=== PATIENT | male | born 1955 | race Asian ===

== ENCOUNTER → 2016-12-08 | Outpatient (CLI) | payer OTHER ==
[~2016-12-08] MED LIST: ACET-703 PO; ACYC200C66 PO; ASAC800T PO; AUGM500T7 PO; AZIT600T PO; BACT800T5 PO; BENT20TA PO; CARD240C6 PO; CENTTAB8; CLON0.1T PO; CLON1 PO; FAMO20TA2 PO; GUAI100S5 PO; IPRASOL NEB; LACTCAP7 PO; MAGICPED SWISH-SWAL; MESA800 PO; METO25TA3 PO; MULT1TAB PO; NEUR100C PO; OXYC1TAB63 PO; OXYGENTANK NAS.CANULA; PRED20 PO; PROT40TA PO; SYMB160A INH; TOVI4TAB PO; VITA500T PO; VITATAB11 PO; ZITH250T PO
[2016-12-08 08:23] LABS: AUTOMATED NEUTROPHIL # 2.6 TH/MM3 (1.8-7.7); BASOPHIL # 0.1 TH/MM3 (0-0.2); BASOPHIL % 1.1 % (0.0-2.0); EOSINOPHIL # 1.3 TH/MM3 (0-0.4); HEMATOCRIT 42.4 % (39.0-51.0); HEMO FLAGS DIFF FINAL; LYMPHOCYTE # 1.6 TH/MM3 (1.0-4.8); MEAN CELL VOLUME 84.5 FL (80.0-100.0); MEAN CORPUSCULAR HEMOGLOBIN 28.8 PG (27.0-34.0); MONO % 7.1 % (0.0-8.0); NEUT % 43.8 % (16.0-70.0); PLATELET COUNT 180 TH/MM3 (150-450); RED BLOOD COUNT 5.01 MIL/MM3 (4.50-5.90)
[2016-12-08 09:01] LABS: ALKALINE PHOSPHATASE 84 U/L (45-117); ALT (GPT) 20 U/L (12-78); ANION GAP 11 MEQ/L (5-15); AST (GOT) 23 U/L (15-37); BICARBONATE 22.5 MEQ/L (21.0-32.0); BLOOD UREA NITROGEN 13 MG/DL (7-18); CHLORIDE 103 MEQ/L (98-107); GLOMERULAR FILTRATION RATE 100 ML/MIN (>89); GLUCOSE,FASTING 93 MG/DL (74-99); HDL CHOLESTEROL 33.8 MG/DL (40.0-60.0); INDIRECT BILIRUBIN 0.4 MG/DL (0.0-0.8); LDL CHOLESTEROL 105 MG/DL (0-99); POTASSIUM 3.6 MEQ/L (3.5-5.1); SODIUM (NA) 136 MEQ/L (136-145); TOTAL BILIRUBIN ADULT 0.5 MG/DL (0.2-1.0)
[2016-12-08 16:56] LABS: HEMOGLOBIN A1b 1.6 %; HEMOGLOBIN Ao 85.2 %; HEMOGLOBIN LA1C 2.1 %; HEMOGLOBIN P3 4.1 %
== END ==
LOC: CLAB 07:18
PROVIDERS: ATTEND Family Medicine
DX: Z00.00 Encounter for general adult medical examination without abnormal findings (principal); R94.5 Abnormal results of liver function studies; D64.9 Anemia, unspecified; E11.9 Type 2 diabetes mellitus without complications; R53.83 Other fatigue; E78.1 Pure hyperglyceridemia; E03.9 Hypothyroidism, unspecified; E78.00 Pure hypercholesterolemia, unspecified; M25.50 Pain in unspecified joint; Z12.5 Encounter for screening for malignant neoplasm of prostate
CPT/HCPCS: 36415; 80048; 80061; 80076; 82607; 82746; 83036; 84153; 84443; 85025

== ENCOUNTER 2016-12-22 08:13 | Inpatient (IN) | payer OTHER ==
[2016-12-22] VITALS (10 sets, daily range): BP systolic 111–173; BP diastolic 63–116; PULSE 102–118; RESP 18–22; TEMP 96.5–102.8; O2SAT 82–97
[~2016-12-22] VITALS: Ht 165.1 cm; Wt 60.0 kg
[~2016-12-22 08:13] MED LIST changes: -ACET-703 PO; -ACYC200C66 PO; -ASAC800T PO; -AUGM500T7 PO; -AZIT600T PO; -BACT800T5 PO; -CARD240C6 PO; -CLON0.1T PO; -CLON1 PO; -FAMO20TA2 PO; -GUAI100S5 PO; -IPRASOL NEB; -MAGICPED SWISH-SWAL; -METO25TA3 PO; -MULT1TAB PO; -NEUR100C PO; -OXYC1TAB63 PO; -OXYGENTANK NAS.CANULA; -PRED20 PO; -SYMB160A INH; -VITA500T PO; -VITATAB11 PO; -ZITH250T PO
[2016-12-22] MEDS ORDERED: SODIUM CHLORIDE 0.9% FLUSH 5 ML FLUSH IVF PRN (08:45)
--- NOTE | 2016-12-22 08:45 | PD ---
HPI Chief Complaint: Respiratory Symptoms Time Seen by Provider: 08:32 Travel History International Travel<30 days: No Contact w/Intl Traveler<30days: No Traveled to known affect area: No History of Present Illness HPI 61yo M with PMH of HTN, ulcerative colitis and early emphysema presents to the ED with sob and hypoxia. Pt has been more short of breath for 2 days and was saturating at 81% on RA last night. 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 Denies chest pain but there is tightness with cough. +Dry cough. Denies any history of PE, DVT, recent travel, hemoptysis, fever, n/v, abdominal pain, focal weakness or numbness. Pt recently had finished antibiotic given by his PMD for cough. PFSH Past Medical History Heart Rhythm Problems: No Cancer: No Cardiac Catheterization: No Cardiovascular Problems: Yes (HTN) High Cholesterol: No Congestive Heart Failure: No Diabetes: No Diminished Hearing: No Diverticulitis: Yes Endocrine: No Gastrointestinal Disorders: Yes (ulcerative colitis) GERD: Yes Genitourinary: Yes (uti this week) Hepatitis: No Hiatal Hernia: No Hypertension: Yes Immune Disorder: No Kidney Stones: No Medical other: Yes (RECENT HOSPITALIZATION SEPTICEMIA, ANTIBIOTICS) Musculoskeletal: No Neurologic: No Psychiatric: No Reproductive: No Respiratory: No Myocardial Infarction: No Renal Failure: No Thyroid Disease: No Ulcer: No Past Surgical History Abdominal Surgery: No AICD: No Cardiac Surgery: No Coronary Artery Bypass Graft: No Ear Surgery: No Endocrine Surgery: No Eye Surgery: No Genitourinary Surgery: No Gynecologic Surgery: No Joint Replacement: No Oral Surgery: No Pacemaker: No Thoracic Surgery: No Other Surgery: Yes (BENIGN CYST REMOVED FROM BUTTOCK 1999, KELOID REMOVED LEFT SHOULDER/ARM) Social History Alcohol Use: Yes (SOCIAL) Tobacco Use: No Substance Use: No Allergies-Medications (Allergen,Severity, Reaction): Coded Allergies: No Known Allergies (Verified , 12/22/16) Reported Meds & Prescriptions Reported Meds & Active Scripts Active Reported Symbicort Inh (Budesonide/Formoterol Fumarate) 160-4.5 Mcg/Act Aero 1 Puff INH Q12HR Vitamin C (Ascorbic Acid) 500 Mg Tab 500 Mg PO DAILY Vitamin B Complex (B-Complex Vitamins) 1 Tab 1 Tab PO DAILY Duoneb (Ipratropium-Albuterol Neb) 0.5-2.5 Mg/3 Ml Neb 1 Vial NEB Q6HR PRN Metoprolol Tartrate 25 Mg Tab 12.5 Mg PO DAILY PRN Clonidine (Clonidine HCl) 0.1 Mg Tab 0.1 Mg PO BID PRN Tylenol Extra Strength (Acetaminophen) 500 Mg Tab 500 Mg PO Q4-6H PRN Neurontin (Gabapentin) 100 Mg Cap 100 Mg PO TID Protonix (Pantoprazole Sodium) 40 Mg Tab 40 Mg PO DAILY PRN Centrum Silver Adult 50+ (Multiple Vitamins W/ Minerals) 1 Tab Tab 1 Tab PO DAILY Asacol HD (Mesalamine) 800 Mg Tab 1,600 Mg PO Q8HR Swallow whole. Take on an empty stomach. Bentyl (Dicyclomine HCl) 20 Mg Tab 20 Mg PO TID PRN Review of Systems Except as stated in HPI: all other systems reviewed are Neg Physical Exam Narrative GENERAL: 61yo M not in distress. SKIN: Warm and dry. HEAD: Atraumatic. Normocephalic. CARDIOVASCULAR: Regular rate and rhythm. No murmur appreciated. RESPIRATORY: No accessory muscle use. Clear to auscultation. Breath sounds equal bilaterally. Saturating at 93% on 3L NC. GASTROINTESTINAL: Abdomen soft, non-tender, nondistended. No rebound tenderness or guarding. MUSCULOSKELETAL: No obvious deformities. No clubbing. No cyanosis. No edema. NEUROLOGICAL: Awake and alert. No obvious cranial nerve deficits. Motor grossly within normal limits. Normal speech. PSYCHIATRIC: Appropriate mood and affect; insight and judgment normal. Data Data Last Documented VS Vital Signs Date Time Temp Pulse Resp B/P Pulse Ox O2 Delivery O2 Flow Rate FiO2 12/22/16 09:45 97 Nasal Cannula 3 12/22/16 09:45 20 12/22/16 08:30 98 12/22/16 08:26 98.2 134/95 Orders Complete Blood Count With Diff (12/22/16 08:39) Basic Metabolic Panel (Bmp) (12/22/16 08:39) B-Type Natriuretic Peptide (12/22/16 08:39) Act Partial Throm Time (Ptt) (12/22/16 08:39) Prothrombin Time / Inr (Pt) (12/22/16 08:39) Troponin I (12/22/16 08:39) Arterial Blood Gas (Abg) (12/22/16 08:39) Iv Access Insert/Monitor (12/22/16 08:39) Electrocardiogram (12/22/16 08:39) Ecg Monitoring (12/22/16 08:39) Oximetry (12/22/16 08:39) Oxygen Administration (12/22/16 08:39) Chest, Single Ap (12/22/16 08:39) Ct Pulmonary Angiogram (12/22/16 08:39) Sodium Chloride 0.9% Flush (Ns Flush) (12/22/16 08:45) Iohexol 350 Inj (Omnipaque 350 Inj) (12/22/16 10:43) Ceftriaxone Inj (Rocephin Inj) (12/22/16 12:45) Azithromycin (Zithromax) (12/22/16 12:45) Place In Observation (12/22/16 ) Vital Signs (Adult) Q4H (12/22/16 12:48) Activity Bed Rest With Brp (12/22/16 12:48) Equipment Hire Manager / Telemetry .CONTINUOUS (12/22/16 12:48) Diet Regular Basic (12/22/16 Lunch) Sodium Chloride 0.9% Flush (Ns Flush) (12/22/16 13:00) Sodium Chloride 0.9% Flush (Ns Flush) (12/22/16 21:00) Ondansetron Inj (Zofran Inj) (12/22/16 13:00) Basic Metabolic Panel (Bmp) (12/23/16 06:00) Complete Blood Count With Diff (12/23/16 06:00) Heparin Inj (Heparin Inj) (12/22/16 13:00) Naloxone Inj (Narcan Inj) (12/22/16 13:00) Westergren Sedimentation Rate (12/22/16 12:51) Acetaminophen (Tylenol) (12/22/16 14:00) Budeson-Formot 160-4.5 Mg Inh (Symbicort (12/22/16 21:00) Clonidine (Catapres) (12/22/16 13:00) Dicyclomine (Bentyl) (12/22/16 13:00) Gabapentin (Neurontin) (12/22/16 13:00) Mesalamine Hd Dr (Asacol Hd Dr) (12/22/16 14:00) Metoprolol Tartrate (Lopressor) (12/22/16 14:00) Multivitamin Hematinic Therap (Theragran (12/23/16 09:00) Pantoprazole (Protonix) (12/22/16 14:00) Vitamin B Complex-Vit C (Allbee C) (12/23/16 09:00) Ascorbic Acid (Vitamin C) (12/23/16 09:00) Albuterol-Ipratropium Neb (Duoneb Neb) (12/22/16 16:00) Admit Order (Ed Use Only) (12/22/16 13:05) Labs Laboratory Tests Test 12/22/16 12/22/16 08:42 09:35 Blood Gas Puncture Site RT RADIAL Blood Gas Patient Temperature 98.6 Blood Gas HCO3 21 mmol/L Blood Gas Base Excess -2.5 mmol/L Blood Gas Oxygen Saturation 87 % Arterial Blood pH 7.47 Arterial Blood Partial 29 mmHg Pressure CO2 Arterial Blood Partial 60 mmHG Pressure O2 Arterial Blood Oxygen Content 19.8 Vol % Arterial Blood 2.6 % Carboxyhemoglobin Arterial Blood Methemoglobin 2.0 % Blood Gas Hemoglobin 16.3 G/DL Oxygen Delivery Device NASAL CANNULA Blood Gas Liter Flow 3 L/M White Blood Count 8.2 TH/MM3 Red Blood Count 5.38 MIL/MM3 Hemoglobin 15.9 GM/DL Hematocrit 46.2 % Mean Corpuscular Volume 86.0 FL Mean Corpuscular Hemoglobin 29.5 PG Mean Corpuscular Hemoglobin 34.3 % Concent Red Cell Distribution Width 14.6 % Platelet Count 182 TH/MM3 Mean Platelet Volume 8.3 FL Neutrophils (%) (Auto) 58.1 % Lymphocytes (%) (Auto) 19.7 % Monocytes (%) (Auto) 6.4 % Eosinophils (%) (Auto) 15.0 % Basophils (%) (Auto) 0.8 % Neutrophils # (Auto) 4.8 TH/MM3 Lymphocytes # (Auto) 1.6 TH/MM3 Monocytes # (Auto) 0.5 TH/MM3 Eosinophils # (Auto) 1.2 TH/MM3 Basophils # (Auto) 0.1 TH/MM3 CBC Comment AUTO DIFF Differential Total Cells 100 Counted Neutrophils % (Manual) 71 % Lymphocytes % 12 % Monocytes % 2 % Eosinophils % 15 % Neutrophils # (Manual) 5.8 TH/MM3 Differential Comment FINAL DIFF MANUAL Platelet Estimate NORMAL Platelet Morphology Comment NORMAL Red Cell Morphology Comment NORMAL Prothrombin Time 10.5 SEC Prothromb Time International 1.0 RATIO Ratio Activated Partial 30.1 SEC Thromboplast Time Sodium Level 134 MEQ/L Potassium Level 3.8 MEQ/L Chloride Level 103 MEQ/L Carbon Dioxide Level 25.7 MEQ/L Anion Gap 5 MEQ/L Blood Urea Nitrogen 23 MG/DL Creatinine 1.01 MG/DL Estimat Glomerular Filtration 75 ML/MIN Rate Random Glucose 80 MG/DL Calcium Level 9.0 MG/DL Troponin I LESS THAN 0.02 NG/ML B-Type Natriuretic Peptide LESS THAN 2 PG/ML MDM Medical Decision Making Medical Screen Exam Complete: Yes Emergency Medical Condition: Yes Interpretation(s) EKG: NSR 90bpm. Normal axis. Early repolarization. No ST segment elevation or depression. Differential Diagnosis Pulmonary embolism vs. Pneumonia vs. COPD exacerbation Narrative Course 61yo M with sob and hypoxemia. Pt with 3L NC and only saturating at 91%. Although, pt is speaking in complete sentences and has clear breath sounds on auscultation. ABG showed pO2 of 59.6 on 3L NC. Saturation was 87% on 3L NC. Increased nasal cannula to 5 L. Pt is not in acute distress. Labs reviewed, no leukocytosis. BNP negative. Troponin negative. BUN mildly elevated. CXR showed questionable minimal early interstitial infiltrate right lung base. CTA negative for PE. Pt is a former cig smoker and may have emphysema. Will cover with ceftriaxone and azithromycin for possible early pneumonia. Discussed with [facility] hospitalist and admitted to Dr. Machado. Diagnosis Primary Impression: Hypoxemia Admitting Information Admitting Physician Requests: Admit Yessenia Nelson DO Dec 22, 2016 08:44
[2016-12-22 08:53] LABS: BLOOD GAS BASE EXCESS -2.5 mmol/L (-2-2); BLOOD GAS CARBOXYHEMOGLOBIN 2.6 % (0-4); BLOOD GAS HCO3 21 mmol/L (22-26); BLOOD GAS O2 HGB SATURATION 87 % (90-100); BLOOD GAS OXYGEN CONTENT 19.8 Vol % (12.0-20.0); BLOOD GAS PCO2 29 mmHg (38-42); BLOOD GAS PO2 60 mmHG (61-120); BLOOD GAS TOTAL HGB 16.3 G/DL (12.0-16.0); TEMP CORR TO 98.6
[2016-12-22 08:54] LABS: CRITICAL VALUE YES; DRAW SITE RT RADIAL; LITER FLOW 3 L/M; NUMBER OF ARTERIAL PUNCTURES 1; OXYGEN DEVICE NASAL CANNULA; STAT YES; ULNAR PULSE PRESENT
--- NOTE | 2016-12-22 09:03 | RADRPT ---
EXAM DATE/TIME: 12/22/2016 08:40 [facility] COMPARISON: CHEST SINGLE AP, October 26, 2015, 16:47. CHEST ONE VIEW EMPLOYMED ONLY, February 22, 2016, 7:59. INDICATIONS : Short of breath for two days, quit smoking one month ago MEDICAL HISTORY : Hypertension. SURGICAL HISTORY : None. ENCOUNTER: Initial ACUITY: 2 days PAIN SCORE: 0/10 LOCATION: Bilateral chest FINDINGS: There is some mild minimal asymmetric prominence of right basilar interstitium well to the left uncha nged relative to prior studies reason to question as to a minimal or early interstitial infiltrate in the right lung base CONCLUSION: Questionable minimal early interstitial infiltrate right lung base Suresh Still MD on December 22, 2016 at 9:00 Board Certified Radiologist. This report was verified electronically.
[2016-12-22] MEDS ORDERED: MULT1TAB PO (09:18)
[2016-12-22] MEDS ORDERED: CLON0.1T PO (09:18)
[2016-12-22] MEDS ORDERED: NEUR100C PO (09:18)
[2016-12-22] MEDS ORDERED: ACET-703 PO (09:18)
[2016-12-22] MEDS ORDERED: PROT40TA PO (09:18)
[2016-12-22] MEDS ORDERED: VITA500T PO (09:18)
[2016-12-22] MEDS ORDERED: IPRASOL NEB (09:18)
[2016-12-22] MEDS ORDERED: BENT20TA PO (09:18)
[2016-12-22] MEDS ORDERED: METO25TA3 PO (09:18)
[2016-12-22] MEDS ORDERED: VITATAB11 PO (09:18)
[2016-12-22] MEDS ORDERED: ASAC800T PO (09:18)
[2016-12-22] MEDS ORDERED: SYMB160A INH (09:23)
[2016-12-22 09:57] LABS: AUTOMATED NEUTROPHIL # 4.8 TH/MM3 (1.8-7.7); BASOPHIL # 0.1 TH/MM3 (0-0.2); BASOPHIL % 0.8 % (0.0-2.0); EOSINOPHIL # 1.2 TH/MM3 (0-0.4); HEMATOCRIT 46.2 % (39.0-51.0); LYMPH % 19.7 % (9.0-44.0); LYMPHOCYTE # 1.6 TH/MM3 (1.0-4.8); MEAN CORPUSCULAR HEMOGLOBIN 29.5 PG (27.0-34.0); MEAN CORPUSCULAR HGB CONC 34.3 % (32.0-36.0); MONO % 6.4 % (0.0-8.0); NEUT % 58.1 % (16.0-70.0); PLATELET COUNT 182 TH/MM3 (150-450); RED BLOOD COUNT 5.38 MIL/MM3 (4.50-5.90); RED CELL DISTRIBUTION WIDTH 14.6 % (11.6-17.2); WHITE BLOOD COUNT 8.2 TH/MM3 (4.0-11.0)
[2016-12-22 10:01] LABS: HEMO FLAGS AUTO DIFF
[2016-12-22 10:14] LABS: APTT (PATIENT) 30.1 SEC (24.3-30.1); PROTHROMBIN TIME - PATIENT 10.5 SEC (9.8-11.6)
[2016-12-22 10:26] LABS: ANION GAP 5 MEQ/L (5-15); BICARBONATE 25.7 MEQ/L (21.0-32.0); BLOOD UREA NITROGEN 23 MG/DL (7-18); CHLORIDE 103 MEQ/L (98-107); GLOMERULAR FILTRATION RATE 75 ML/MIN (>89); POTASSIUM 3.8 MEQ/L (3.5-5.1); SODIUM (NA) 134 MEQ/L (136-145)
[2016-12-22 10:37] LABS: EOSINOPHILS 15 % (0-4); NEUTROPHIL # MANUAL DIFF 5.8 TH/MM3 (1.8-7.7); PLATELET ESTIMATE SMEAR NORMAL (NORMAL); PLATELET MORPHOLOGY NORMAL (NORMAL); POLYS (SEG NEUTROPHILS) 71 % (16-70); SCAN/DIFF FINAL DIFF MANUAL; WBC DIFF SAMPLE 100
[2016-12-22] MEDS ORDERED: IOHEXOL 350 MG/ML 10 ML VIAL (for RAD DIAG) IV ONE (10:43)
--- NOTE | 2016-12-22 10:59 | RADRPT ---
EXAM DATE/TIME: 12/22/2016 10:42 [facility] COMPARISON: CHEST SINGLE AP, December 22, 2016, 8:40. INDICATIONS : Shortness of breath and hypoxia for two days. IV CONTRAST: 75 cc Omnipaque 350 (iohexol) IV RADIATION DOSE: 23.27 CTDIvol (mGy) MEDICAL HISTORY : Cardiovascular disease. Hypertension. Ulcerative colitis. SURGICAL HISTORY : None. ENCOUNTER: Initial ACUITY: 1 day PAIN SCALE: 0/10 LOCATION: Bilateral chest TECHNIQUE: Volumetric scanning of the chest was performed using a pulmonary embolism protocol MIP images were re constructed. Using automated exposure control and adjustment of the mA and/or kV according to patien t size, radiation dose was kept as low as reasonably achievable to obtain optimal diagnostic quality images. FINDINGS: PULMONARY ARTERIES: No filling defects are seen in the pulmonary arteries through the segmental level. LUNGS: There is no consolidation or pneumothorax . No concerning pulmonary nodule is visualized. PLEURAE: There is no pleural thickening or pleural effusion. MEDIASTINUM: There is good visualization of the great vessels of the middle mediastinum. No evidence of mediastin al or hilar adenopathy/mass. MUSCULOSKELETAL: Within normal limits for patient age. MISCELLANEOUS: The visualized upper abdominal organs demonstrate no acute abnormality. CONCLUSION: Negative examination. Suresh Still MD on December 22, 2016 at 10:56 Board Certified Radiologist. This report was verified electronically.
[2016-12-22] MEDS ORDERED: AZITHROMYCIN 250 MG TAB PO ONE (12:45)
[2016-12-22] MEDS ORDERED: cefTRIAXone INJ 1,000 MG in SODIUM CHLORIDE 0.9% INJ 100 ML IV ONE (12:45)
[2016-12-22] MEDS ORDERED: ONDANSETRON HCL 4 MG/2 ML VIAL IVP PRN (13:00)
[2016-12-22] MEDS ORDERED: DICYCLOMINE HCL 20 MG TAB PO PRN (13:00)
[2016-12-22] MEDS ORDERED: NALOXONE HCL 0.4 MG/ML AMP IV PRN (13:00)
[2016-12-22] MEDS ORDERED: cloNIDine HCL 0.1 MG TAB PO PRN (13:00)
[2016-12-22] MEDS ORDERED: SODIUM CHLORIDE 0.9% FLUSH 5 ML FLUSH FLUSH PRN (13:00)
--- NOTE | 2016-12-22 13:50 | EKG ---
Date Performed: 12/22/2016 Time Performed: 09:33:28 PTAGE: 61 years EKG: Sinus rhythm ST ELEVATION, CONSIDER EARLY REPOLARIZATION BORDERLINE ECG PREVIOUS TRACING : 07/25/2015 11.36 No significant change from previous tracing noted. DOCTOR: Álvaro Witt Interpretating Date/Time 12/22/2016 13:49:02
[2016-12-22] MEDS: GABAPENTIN 100 MG CAP PO SCH ×2 (13:59→18:10)
[2016-12-22] MEDS ORDERED: METOPROLOL TARTRATE 25 MG TAB PO PRN (14:00)
[2016-12-22] MEDS ORDERED: PANTOPRAZOLE SOD 40 MG DELAYED RELEASE TAB PO PRN (14:00)
[2016-12-22] MEDS: HEPARIN SODIUM - SQ 10,000 UNITS/ML VIAL SQ SCH (14:01)
--- NOTE | 2016-12-22 15:16 | HHI.HP ---
HPI Service [facility] Primary Care Physician Layne Brooks Admission Diagnosis Hypoxemia Diagnoses: Chief Complaint: Shortness of breath (Carmen Huggins) Travel History International Travel<30 Days: No Contact w/Intl Traveler <30 Da: No Traveled to Known Affected Are: No (Carmen Huggins) History of Present Illness This a pleasant 61-year-old male with notable past medical history of tobacco abuse with recent diagnosis of COPD, ulcer colitis, hypertension, BPH. Patient presented to the emergency room with complaint of shortness of breath and hypoxia. According to the patient approximately 2 weeks ago he had shortness of breath with wheezing and cough. Went to see his primary care physician who gave him Rocephin IM as well as Solu-Medrol and prescribed Augmentin. He completed 10 days of Augmentin and his symptoms did improve. He also had PFTs and was told he had COPD and was referred to see Dr. Marte. Patient recently quit October 2016. 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 He gave himself oxygen at 2 L and finished his shift. This morning, patient came to the emergency room for further evaluation. States he has a dry cough, very little sputum, clear in color. No fever, no chills. Denies any abdominal pain, no diarrhea, no nausea no vomiting. He does use Symbicort as well as Combivent at home. He's not on any oxygen. Patient was evaluated in the emergency room, laboratory workup was completed, WBC was 8.2. Hemoglobin 15.9, hematocrit 46.2, platelets 182. BMP was essentially unremarkable except for mild hyponatremia, sodium 134. Troponin was negative. B natruretic peptide was negative. Chest x-ray completed showed questionable minimal early interstitial infiltrate to the right lung base. CTA was negative for PE. ABGs were completed, showed PO2 of 60 on 3 L nasal cannula, sats 87% on 3 L. Patient was started on empiric antibiotics. Patient is evaluated in the emergency room, he is complaining of persistent cough. Robitussin-AC has been ordered. He is noted with thrush. Patient is admitted for further evaluation and treatment (Carmen Huggins) Review of Systems Constitutional: DENIES: Diaphoretic episodes, Fatigue, Fever, Weight gain, Weight loss, Chills, Dizziness, Change in appetite, Night Sweats Endocrine: DENIES: Heat/cold intolerance, Polydipsia, Polyuria, Polyphagia Eyes: DENIES: Blurred vision, Diplopia, Eye inflammation, Eye pain, Vision loss , Photosensitivity, Double Vision Ears, nose, mouth, throat: DENIES: Tinnitus, Hearing loss, Vertigo, Nasal discharge, Oral lesions, Throat pain, Hoarseness, Ear Pain, Running Nose, Epistaxis, Sinus Pain, Toothache, Odynophagia Respiratory: COMPLAINS OF: Cough, Wheezing, Sputum production, Shortness of breath, DENIES: Apneas, Snoring, Hemoptysis Cardiovascular: DENIES: Chest pain, Palpitations, Syncope, Dyspnea on Exertion , PND, Lower Extremity Edema, Orthopnea, Claudication Gastrointestinal: DENIES: Abdominal pain, Black stools, Bloody stools, Constipation, Diarrhea, Nausea, Vomiting, Difficulty Swallowing, Anorexia Genitourinary: DENIES: Sexual dysfunction, Urinary frequency, Urinary incontinence, Urgency, Hematuria, Dysuria, Nocturia, Penile Discharge, Testicular Pain, Testicular Swelling Musculoskeletal: DENIES: Joint pain, Muscle aches, Stiffness, Joint Swelling, Back pain, Neck pain Integumentary: DENIES: Abnormal pigmentation, Nail changes, Pruritus, Rash Hematologic/lymphatic: DENIES: Bruising, Lymphadenopathy Immunologic/allergic: DENIES: Eczema, Urticaria Neurologic: DENIES: Abnormal gait, Headache, Localized weakness, Paresthesias, Seizures, Speech Problems, Tremor, Poor Balance Psychiatric: DENIES: Anxiety, Confusion, Mood changes, Depression, Hallucinations, Agitation, Suicidal Ideation, Homicidal Ideation, Delusions ( Carmen Huggins) Past Family Social History Past Medical History Hypertension, diverticulitis, gastritis and ulcerative colitis Previous admission for sepsis and UTI Bladder polyp Recently diagnosed with COPD Past Surgical History Benign cyst removal from the buttock 1999 and, keloid removal from left upper arm, cystoscopy 2 weeks ago Colonoscopy Reported Medications Reported Meds & Active Scripts Active Reported Symbicort Inh (Budesonide/Formoterol Fumarate) 160-4.5 Mcg/Act Aero 1 Puff INH Q12HR Vitamin C (Ascorbic Acid) 500 Mg Tab 500 Mg PO DAILY Vitamin B Complex (B-Complex Vitamins) 1 Tab 1 Tab PO DAILY Duoneb (Ipratropium-Albuterol Neb) 0.5-2.5 Mg/3 Ml Neb 1 Vial NEB Q6HR PRN Metoprolol Tartrate 25 Mg Tab 12.5 Mg PO DAILY PRN Clonidine (Clonidine HCl) 0.1 Mg Tab 0.1 Mg PO BID PRN Tylenol Extra Strength (Acetaminophen) 500 Mg Tab 500 Mg PO Q4-6H PRN Neurontin (Gabapentin) 100 Mg Cap 100 Mg PO TID Protonix (Pantoprazole Sodium) 40 Mg Tab 40 Mg PO DAILY PRN Centrum Silver Adult 50+ (Multiple Vitamins W/ Minerals) 1 Tab Tab 1 Tab PO DAILY Asacol HD (Mesalamine) 800 Mg Tab 1,600 Mg PO Q8HR Swallow whole. Take on an empty stomach. Bentyl (Dicyclomine HCl) 20 Mg Tab 20 Mg PO TID PRN (Carmen Huggins) Allergies: Coded Allergies: No Known Allergies (Verified , 12/22/16) Active Ordered Medications Inpatient Medications Acetaminophen (Tylenol) 500 mg 5 TIMES A DAY PRN PO PAIN 1-7; Start 12/22/16 at 14:00 Albuterol/ Ipratropium (Duoneb Neb) 1 ampule Q6HR NEB PRN NEB SHORTNESS OF BREATH; Start 12/22/16 at 16:00 Ascorbic Acid (Vitamin C) 500 mg DAILY PO ; Start 12/23/16 at 09:00 Azithromycin (Zithromax) 500 mg Q24H PO ; Start 12/23/16 at 14:00 Budesonide/ Formoterol Fumarate (Symbicort 160-4.5 Inh) 1 puff Q12HR INH ; Start 12/22/16 at 21:00 Ceftriaxone Sodium/Sodium Chloride (Rocephin Inj/NS Inj) 100 ml @ 200 mls/hr Q24H IV ; Start 12/23/16 at 14:00 Clonidine (Catapres) 0.1 mg BID PRN PO SYSTOLIC B/P > 170; Start 12/22/16 at 13 :00 Dicyclomine HCl (Bentyl) 20 mg TID PRN PO Bowel Management; Start 12/22/16 at 13:00 Gabapentin (Neurontin) 100 mg TID PO Last administered on 12/22/16t 13:59; Start 12/22/16 at 13:00 Guaifenesin/ Codeine Phosphate (Robitussin Ac 200-20 Mg/10 ml Liq) 10 ml Q6H PRN PO cough; Start 12/22/16 at 15:30 Heparin Sodium (Porcine) (Heparin Inj) 5,000 units Q12H SQ Last administered on 12/22/16 14:01; Start 12/22/16 at 13:00 IV Flush (NS Flush) 2 ml BID FLUSH ; Start 12/22/16 at 21:00 Mesalamine (Asacol Hd Dr) 1,600 mg Q8HR PO Last administered on 12/22/16 15:22 ; Start 12/22/16 at 14:00 Methylprednisolone Sodium Succinate 40 mg 40 mg Q8H IV PUSH ; Start 12/22/16 at 16:00 Metoprolol Tartrate (Lopressor) 12.5 mg DAILY PRN PO INCREASE IN BLOOD PRESSURE ; Start 12/22/16 at 14:00 Multivitamin Hematinic Therapeutic (Theragran Hematinic) 1 tab DAILY PO ; Start 12/23/16 at 09:00 Naloxone HCl (Narcan Inj) 0.4 mg UNSCH PRN IV SEE LABEL COMMENTS; Start at 13:00 Nystatin (Mycostatin Liq) 5 ml QID SWISH-SWAL ; Start 12/22/16 at 18:00 Ondansetron HCl (Zofran Inj) 4 mg Q6H PRN IVP NAUSEA OR VOMITING; Start at 13:00 Pantoprazole Sodium (Protonix) 40 mg DAILY PRN PO REFLUX; Start 12/22/16 at 14: 00 Vitamin B Complex/ Vitamin C (Allbee C) 1 tab DAILY PO ; Start 12/23/16 at 09:00 Family History Mother secondary to colon cancer at age 65 Father secondary to stroke at age 61 Social History 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 [employer] Quit drinking October 2016 Quit smoking October 2016, smoked 1 pack of cigarettes every 3 days for 30+ years No illegal drug use (Carmen Huggins) Physical Exam Vital Signs Vital Signs Date Time Temp Pulse Resp B/P Pulse Ox O2 Delivery O2 Flow Rate FiO2 12/22/16 15:13 108 20 127/76 91 Nasal Cannula 2 12/22/16 09:45 97 Nasal Cannula 3 12/22/16 09:45 20 97 Nasal Cannula 3 12/22/16 08:30 98 20 87 Nasal Cannula 2 12/22/16 08:26 98.2 102 20 134/95 87 12/22/16 08:16 97.5 110 22 173/116 85 Physical Exam GENERAL: This is a well-nourished, well-developed patient, in no apparent distress. SKIN: No rashes, ecchymoses or lesions. Cool and dry. HEAD: Atraumatic. Normocephalic. No temporal or scalp tenderness. EYES: Pupils equal round and reactive. Extraocular motions intact. No scleral icterus. No injection or drainage. ENT: Nose without bleeding, purulent drainage or septal hematoma. Throat with mild erythema, thrush noted to oral pharynx, no tonsillar hypertrophy or exudate. Uvula midline. Airway patent. NECK: Trachea midline. No JVD or lymphadenopathy. Supple, nontender, no meningeal signs. CARDIOVASCULAR: Regular rate and rhythm without murmurs, gallops, or rubs. RESPIRATORY: Scattered rhonchi left lower base, faint expiratory wheezing, has a cough, nonproductive. GASTROINTESTINAL: Abdomen soft, non-tender, nondistended. No hepato-splenomegaly , or palpable masses. No guarding. MUSCULOSKELETAL: Extremities without clubbing, cyanosis, or edema. No joint tenderness, effusion, or edema noted. No calf tenderness. Negative Homans sign bilaterally. NEUROLOGICAL: Awake and alert. Cranial nerves II through XII intact. Motor and sensory grossly within normal limits. Five out of 5 muscle strength in all muscle groups. Normal speech. Laboratory Laboratory Tests Test 12/22/16 12/22/16 08:42 09:35 Blood Gas Puncture Site RT RADIAL Blood Gas Patient Temperature 98.6 Blood Gas HCO3 21 Blood Gas Base Excess -2.5 Blood Gas Oxygen Saturation 87 Arterial Blood pH 7.47 Arterial Blood Partial 29 Pressure CO2 Arterial Blood Partial 60 Pressure O2 Arterial Blood Oxygen Content 19.8 Arterial Blood 2.6 Carboxyhemoglobin Arterial Blood Methemoglobin 2.0 Blood Gas Hemoglobin 16.3 Oxygen Delivery Device NASAL CANNULA Blood Gas Liter Flow 3 White Blood Count 8.2 Red Blood Count 5.38 Hemoglobin 15.9 Hematocrit 46.2 Mean Corpuscular Volume 86.0 Mean Corpuscular Hemoglobin 29.5 Mean Corpuscular Hemoglobin 34.3 Concent Red Cell Distribution Width 14.6 Platelet Count 182 Mean Platelet Volume 8.3 Neutrophils (%) (Auto) 58.1 Lymphocytes (%) (Auto) 19.7 Monocytes (%) (Auto) 6.4 Eosinophils (%) (Auto) 15.0 Basophils (%) (Auto) 0.8 Neutrophils # (Auto) 4.8 Lymphocytes # (Auto) 1.6 Monocytes # (Auto) 0.5 Eosinophils # (Auto) 1.2 Basophils # (Auto) 0.1 CBC Comment AUTO DIFF Differential Total Cells 100 Counted Neutrophils % (Manual) 71 Lymphocytes % 12 Monocytes % 2 Eosinophils % 15 Neutrophils # (Manual) 5.8 Differential Comment FINAL DIFF MANUAL Platelet Estimate NORMAL Platelet Morphology Comment NORMAL Red Cell Morphology Comment NORMAL Prothrombin Time 10.5 Prothromb Time International 1.0 Ratio Activated Partial 30.1 Thromboplast Time Sodium Level 134 Potassium Level 3.8 Chloride Level 103 Carbon Dioxide Level 25.7 Anion Gap 5 Blood Urea Nitrogen 23 Creatinine 1.01 Estimat Glomerular Filtration 75 Rate Random Glucose 80 Calcium Level 9.0 Troponin I LESS THAN 0.02 B-Type Natriuretic Peptide LESS THAN 2 (Carmen Huggins) Result Diagram: 12/22/16 0935 12/22/16 0935 Imaging Last Impressions Chest X-Ray 12/22/16838 Signed Impressions: Service Date/Time: Thursday, December 22, 2016 08:40 - CONCLUSION: Questionable minimal early interstitial infiltrate right lung base Suresh Still MD CT Angiography 12/22/16838 Signed Impressions: Service Date/Time: Thursday, December 22, 2016 10:42 - CONCLUSION: Negative examination. Suresh Still MD (Carmen Huggins) Assessment and Plan Problem List: (1) Hypoxemia (2) COPD (chronic obstructive pulmonary disease) (3) Hypertension (4) Ulcerative colitis (5) BPH (benign prostatic hyperplasia) (6) Pneumonia Assessment and Plan Admit to Dr. Machado 61-year-old male with recent diagnosis of COPD, quit smoking in October, presented to emergency room complaining of shortness of breath and cough for the last 2 weeks worsening last night while he was at work. Was treated with Augmentin 10 days by PCP for possible URI infection. He noted saturations on room air were 81%. Patient presented to emergency room for further evaluation, chest x-ray with findings of possible early right lower lobe infiltrate, possible pneumonia, COPD exacerbation with hypoxemia, failure of outpatient therapy -Continue with oxygen at 2 L to keep sats greater than [address] Grande for evaluation -IV Solu-Medrol 40 mg IV daily Robitussin AC 10 MLS every 6 when necessary -DuoNeb's Resume Symbicort -Continue with empiric antibiotics, Rocephin 1 g IV daily, we will add Zithromax 500 mg by mouth -Noted with thrush, nystatin has been ordered History of ulcerative colitis, stable Continue with Asacol Hypertension, uncontrolled secondary to respiratory distress Resume home medications Heparin 5000 units subcutaneous twice a day for DVT prophylaxis Protonix for GI prophylaxis Bun of care has been discussed with the patient, attending and registered nurse. Further management of the patient will be dependent on the hospital course Patient requires inpatient admission for anticipated stay greater than 2 days for COPD exacerbation, failure of outpatient therapy, pneumonia, hypoxemia. Patient is at risk for complications that can result in respiratory failure, possibly . Patient requires admission for IV antibiotics, oxygen therapy, IV Solu-Medrol, DuoNeb's, evaluation by pulmonology. Anticipated discharge back to home when stable This patient was seen by myself and Dr. Machado, this H&P is written his behalf (Carmen Huggins) Assessment and Plan seen and examined by myself,Dr Machado , Discussed with emergency physician discussed with nurse Discussed with patient In room 1734 The patient is febrile, temperature 102.8 Sepsis Dyspnea with clear chest x-ray Bilateral wheezing with a cardiac murmur Echocardiogram ordered Blood cultures Infectious disease consultation Discussed with door liner helper Discussed with mid-level practitioner The exam, history, and the medical decision-making described in the above note were completed with the assistance of the mid-level provider. I reviewed the findings presented. I attest that I had a [id number] encounter with the patient on the same day, and personally performed and documented my assessment and findings in the medical record. (Yadira Machado MD) Physician Certification 2 Midnight Certification Type: Admission for Inpatient Services Order for Inpatient Services The services are ordered in accordance with Medicare regulations or non- Medicare payer requirements, as applicable. In the case of services not specified as inpatient-only, they are appropriately provided as inpatient services in accordance with the 2-midnight benchmark. Estimated LOS (days): 2 2 days is the estimated time the patient will need to remain in the hospital, assuming treatment plan goals are met and no additional complications. Post-Hospital Plan: Home Health (Carmen Huggins) Problem Qualifiers (1) COPD (chronic obstructive pulmonary disease): Qualified Code: J44.1 - Chronic obstructive pulmonary disease with acute exacerbation (2) Hypertension: Qualified Code: I10 - Essential hypertension (3) Ulcerative colitis: Qualified Code: K51.90 - Ulcerative colitis without complications, unspecified location (4) BPH (benign prostatic hyperplasia): (5) Pneumonia: Qualified Code: J18.1 - Pneumonia of right lower lobe due to infectious organism Carmen Huggins Dec 22, 2016 15:16 Yadira Machado MD Dec 22, 2016 22:36
[2016-12-22] MEDS: MESALAMINE HD 800 MG DELAYED RELEASE TAB PO SCH ×2 (15:22→21:59)
[2016-12-22] MEDS ORDERED: RESP: ALBUTEROL 2.5 MG/IPRATROPIUM 0.5 MG NEB (PRN) NEB (16:00)
[2016-12-22] MEDS: methylPREDNISolone SOD SUCC 40 MG/1 ML VIAL IV PUSH SCH (16:29)
[2016-12-22] MEDS: ACETAMINOPHEN 500 MG CPLT PO PRN (18:10)
[2016-12-22] MEDS: NYSTATIN SUSP 500,000 U/5 ML CUP SWISH-SWAL SCH ×2 (18:10→21:58)
[2016-12-22] MEDS: RESP: ALBUTEROL 2.5 MG/IPRATROPIUM 0.5 MG NEB (SCH) NEB (20:34)
[2016-12-22] MEDS: CEFEPIME INJ 2,000 MG in SODIUM CHLORIDE 0.9% INJ 100 ML IV SCH (21:58)
[2016-12-22] MEDS: BUDESONIDE-FORMOTEROL 160/4.5 MCG INHALER INH SCH (21:58)
[2016-12-22] MEDS: SODIUM CHLORIDE 0.9% FLUSH 5 ML FLUSH FLUSH SCH (21:59)
[2016-12-22] MEDS: DEXT 5%-NACL 0.45% 1000 ML INJ 1,000 ML IV SCH (22:03)
[2016-12-23] VITALS (10 sets, daily range): BP systolic 111–146; BP diastolic 66–82; PULSE 70–103; RESP 18–22; TEMP 95.3–97.3; O2SAT 92–98
[2016-12-23] MEDS: guaiFENesin/CODEINE SYRUP 200 MG/20 MG/10 ML CUP PO PRN ×3 (00:50→23:09)
[2016-12-23] MEDS: methylPREDNISolone SOD SUCC 40 MG/1 ML VIAL IV PUSH SCH ×4 (00:50→23:09)
[2016-12-23] MEDS: HEPARIN SODIUM - SQ 10,000 UNITS/ML VIAL SQ SCH ×3 (00:50→23:10)
[2016-12-23] MEDS: MESALAMINE HD 800 MG DELAYED RELEASE TAB PO SCH ×3 (05:34→23:09)
[2016-12-23 05:48] LABS: AUTOMATED NEUTROPHIL # 2.9 TH/MM3 (1.8-7.7); BASOPHIL % 0.5 % (0.0-2.0); EOSINOPHIL % 0.1 % (0.0-4.0); HEMATOCRIT 42.7 % (39.0-51.0); HEMO FLAGS DIFF FINAL; LYMPH % 28.4 % (9.0-44.0); LYMPHOCYTE # 1.2 TH/MM3 (1.0-4.8); MEAN CORPUSCULAR HEMOGLOBIN 29.8 PG (27.0-34.0); MEAN CORPUSCULAR HGB CONC 34.6 % (32.0-36.0); MONO % 2.8 % (0.0-8.0); NEUT % 68.2 % (16.0-70.0); PLATELET COUNT 163 TH/MM3 (150-450); RED BLOOD COUNT 4.96 MIL/MM3 (4.50-5.90); RED CELL DISTRIBUTION WIDTH 14.4 % (11.6-17.2); WHITE BLOOD COUNT 4.2 TH/MM3 (4.0-11.0)
[2016-12-23 05:57] LABS: BLOOD, URINE NEG (NEG); COMMENT (UR) CULT NOT INDICATED; CULTURE IF INDICATED CULT NOT INDICATED; GLUCOSE,URINE NEG (NEG); HYALINE CAST, URINE 7 /lpf (RARE); KETONE, URINE NEG (NEG); MUCUS URINE FEW /lpf (OCC); NITRITE,URINE NEG (NEG); PH, URINE 5.5 (5.0-8.5); RENAL EPITHELIAL CELLS <1 /hpf; TRANSITIONAL EPI CELLS, URINE <1 /hpf; URINE COLOR YELLOW (YELLW/STRAW)
[2016-12-23 06:06] LABS: BICARBONATE 23.3 MEQ/L (21.0-32.0); POTASSIUM 4.3 MEQ/L (3.5-5.1)
[2016-12-23] MEDS: NYSTATIN SUSP 500,000 U/5 ML CUP SWISH-SWAL SCH ×4 (07:33→20:35)
[2016-12-23] MEDS: VITAMIN B COMPLEX/VIT C TAB PO SCH (07:33)
[2016-12-23] MEDS: ASCORBIC ACID 500 MG TAB PO SCH (07:34)
[2016-12-23] MEDS: GABAPENTIN 100 MG CAP PO SCH ×3 (07:34→18:00)
[2016-12-23] MEDS: MULTIVITAMIN HEMATINIC THERAPEUTIC TAB PO SCH (07:34)
[2016-12-23] MEDS: SODIUM CHLORIDE 0.9% FLUSH 5 ML FLUSH FLUSH SCH ×2 (07:35→20:35)
[2016-12-23] MEDS: BUDESONIDE-FORMOTEROL 160/4.5 MCG INHALER INH SCH ×2 (07:36→20:35)
[2016-12-23] MEDS: RESP: ALBUTEROL 2.5 MG/IPRATROPIUM 0.5 MG NEB (SCH) NEB ×4 (08:28→19:53)
[2016-12-23] MEDS: DEXT 5%-NACL 0.45% 1000 ML INJ 1,000 ML IV SCH ×2 (09:20→22:40)
--- NOTE | 2016-12-23 09:37 | MB ---
cc: ANDREAYVONNEMELISA DATE OF CONSULTATION 12/22/2016 REASON FOR CONSULTATION Pneumonia and COPD. HISTORY OF PRESENT ILLNESS This is a 61-year-old [place] male with a past history of chronic bronchitis and ulcerative colitis, as well as hypertension. He was seen in the emergency room for a two-week history of cough, wheezing, shortness of breath. The patient initially was treated by his family physician with Rocephin, Solu-Medrol and Augmentin. The patient also was on prednisone orally, but he did improve over a period of one week, but then started to have more shortness of breath and yesterday at work he quite weak and dyspneic and his O2 sats had dropped into the 80s. He then was on oxygen and subsequently came in to the ER for evaluation. A chest x-ray and a CT scan were done which showed no active pulmonary infiltrates. The patient, however, had to be brought in due to low sats and a temperature of over 100 degrees. The patient did have some chills and he denied any hemoptysis, leg or calf muscle pains. On oxygen, the pO2 was 60. Presently, he is on Rocephin one gram and Zithromax 100 mg daily. He does have oral thrush and he has been using the Symbicort inhaler regularly. PAST HISTORY Past history has included a: 1. Hypertension 2. History of ulcerative colitis. 3. Previous history of prostatic hypertrophy and bladder polyps. 4. Previous sepsis with a UTI. 5. Removal of benign cyst from his buttock and a keloid from the left arm. 6. He did have a cystoscopy done just two weeks ago. 7. His most recent chest x-ray apparently showed evidence of COPD. HABITS The patient smoked three to five cigarettes a day and has done so for over 25 years. No significant alcohol intake. 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 MEDICATIONS 1. Symbicort 160/4.5 two puffs b.i.d. 2. Nebulized DuoNeb t.i.d. 3. Clonidine 0.1 mg b.i.d. 4. Metoprolol 25 mg daily 5. Neurontin 100 mg t.i.d. 6. Protonix 40 mg daily 7. Asacol 1600 mg every 8 hours ALLERGIES No drug allergies. FAMILY HISTORY Significant for colon cancer in his mother. Father of a stroke. REVIEW OF SYSTEMS The patient has had some weight loss. He has sinus drainage, postnasal drip, cough and wheezing. He also had some epigastric distress with reflux. He has urinary frequency and bladder pain. He has joint pains. Denies leg swelling. No calf muscle pains. He has no depression or anxiety. Denies skin lesions. PHYSICAL EXAMINATION This is an averagely built middle-aged man in no distress. He is slightly diaphoretic. VITAL SIGNS: Blood pressure 125/70, pulse 110, respirations 22, temperature is 98.2. HEENT: Head normocephalic. Pupils reactive and equal. Tongue moist. Throat is injected. Nasal mucosae edematous. NECK: Supple. No lymphadenopathy. No bruits or thyroid enlargement. CHEST: Equal movements with percussion note, resonant throughout. Wheezes are scattered bilaterally. There are a few crackles heard at the right base. HEART: The heart sounds are irregular, S1 and S2. No murmur. No S3. ABDOMEN: Soft and benign. No masses, organomegaly or tenderness. Bowel sounds are active. EXTREMITIES: No edema. No clubbing or cyanosis. No calf tenderness or swelling. Reflexes are 1+ with no gross motor deficits. NEUROLOGIC: Cranial nerves grossly intact. SKIN: No lesions. IMPRESSION 1. COPD and chronic bronchitis with acute exacerbation. 2. Probable early pneumonia right lower lobe. 3. UTI 4. History of hypertension. PLAN The patient has been placed on cefepime two grams every 12 hours and continue with Zithromax 500 mg IV daily and discontinue Rocephin. Sputum will be sent for Gram stain and culture, urine sent for Legionella and pneumococcal antigens. Blood cultures and sputum cultures are pending. A 2-D echocardiogram will be done. Pulmonary function studies to be done at the bedside and the patient will be continued on Symbicort 160 x 4.5 two puffs twice a day. A repeat chest x-ray to be ordered in the a.m. Thank you Dr. Machado for this consultation. MD YUE Amin/TEA /11:28 PM /9:23 AM
[2016-12-23] MEDS: CEFEPIME INJ 2,000 MG in SODIUM CHLORIDE 0.9% INJ 100 ML IV SCH ×2 (10:33→23:09)
[2016-12-23] MEDS ORDERED: AZITHROMYCIN INJ 500 MG in SODIUM CHLOR 0.9% 250 ML INJ 250 ML IV SCH (14:00)
[2016-12-23] MEDS ORDERED: cefTRIAXone INJ 1,000 MG in SODIUM CHLORIDE 0.9% INJ 100 ML IV SCH (14:00)
[2016-12-23] MEDS ORDERED: AZITHROMYCIN 250 MG TAB PO SCH (14:00)
--- NOTE | 2016-12-23 15:20 | EC ---
Study Study Date:12/23/2016 STUDY CONCLUSIONS SUMMARY LEFT VENTRICLE: The cavity size was normal. Wall thickness was normal. Systolic function was normal. The estimated ejection fraction was in the range of 55% to 60%. Wall motion was normal; there were no regional wall motion abnormalities. Impressions: No evidence of endocarditis. If LV function is below 40, please consider prescribing an ACEI or ARB or document rationale for non-use. PROCEDURE DATA STUDY STATUS: Elective. Procedure: Transthoracic echocardiography. Image quality was good. Scanning was performed from the parasternal, apical, and subcostal acoustic windows. Study completion: The patient tolerated the procedure well. Transthoracic echocardiography. M-mode, complete 2D, complete spectral Doppler, and color Doppler. Patient status: Inpatient. CARDIAC ANATOMY LEFT VENTRICLE: The cavity size was normal. Wall thickness was normal. Systolic function was normal. The estimated ejection fraction was in the range of 55% to 60%. Wall motion was normal; there were no regional wall motion abnormalities. AORTIC VALVE: Trileaflet; normal thickness leaflets. Doppler: Transvalvular velocity was within the normal range. There was no stenosis. No regurgitation. AORTA: Aortic root: The aortic root was normal in size. MITRAL VALVE: Structurally normal valve. Doppler: Transvalvular velocity was within the normal range. There was no evidence for stenosis. No regurgitation. Peak gradient: 2mm Hg (D). LEFT ATRIUM: The atrium was normal in size. RIGHT VENTRICLE: The cavity size was normal. Wall thickness was normal. PULMONIC VALVE: Doppler: Transvalvular velocity was within the normal range. There was no evidence for stenosis. No regurgitation. TRICUSPID VALVE: Structurally normal valve. Doppler: Transvalvular velocity was within the normal range. No regurgitation. PULMONARY ARTERY: The main pulmonary artery was normal-sized. Systolic pressure was within the normal range. RIGHT ATRIUM: The atrium was normal in size. PERICARDIUM: There was no pericardial effusion. SYSTEMIC VEINS: Inferior vena cava: The vessel was normal in size. BASIC MEASUREMENTS ADULT Normal Left ventricle LV internal dimension, ED, chordal level, *34.2 mm 43-52 PLAX LV posterior wall thickness, ED 6.92 mm IVS/LVPW ratio, ED 1.05 <1.3 Ventricular septum Septal thickness, ED 7.26 mm Aortic valve Leaflet separation 19 mm 15-26 Left atrium Anterior-posterior dimension 35 mm Right ventricle RV internal dimension, ED, PLAX 23.1 mm 19-38 BASIC MEASUREMENTS ADULT Normal Aortic valve Leaflet separation 19 mm 15-26 Aorta Root diameter, ED 33 mm 20-37 DOPPLER MEASUREMENTS ADULT Normal Main pulmonary artery Pressure, S 20 mm Hg =30 Mitral valve Peak E-wave velocity 73.1 cm/s Peak A-wave velocity 83.9 cm/s Peak gradient, D 2 mm Hg Peak E/A ratio 0.9 Tricuspid valve Regurgitant peak velocity 151 cm/s Peak RV-RA gradient, S 9 mm Hg Maximal regurgitant velocity 151 cm/s Systemic veins Estimated CVP 10 mm Hg Right ventricle RV pressure, S 20 mm Hg <30 LEGEND: Mean values are shown as u=mean value. Asterisk (*) sagastume values outside specified normal range. Prepared and signed by Shelly Waters [id number]
--- NOTE | 2016-12-23 17:03 | PD.ID.CON ---
History of Present Illness Service ID Consult Requested By Carmen Chaney Reason for Consult Evaluation and Mment of Pneumonia and COPD exacerbation. Primary Care Physician Layne Brooks Diagnoses: History of Present Illness This a pleasant 61-year-old male with notable past medical history of tobacco abuse with recent diagnosis of COPD, ulcer colitis, hypertension, BPH. Patient presented to the emergency room with complaint of shortness of breath and hypoxia. According to the patient approximately 2 weeks ago he had shortness of breath with wheezing and cough. Went to see his primary care physician who gave him Rocephin IM as well as Solu-Medrol and prescribed Augmentin. He completed 10 days of Augmentin and his symptoms did improve. He also had PFTs and was told he had COPD and was referred to see Dr. Marte. Patient recently quit October 2016. 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 He gave himself oxygen at 2 L and finished his shift. This morning, patient came to the emergency room for further evaluation. States he has a dry cough, very little sputum, clear in color. No fever, no chills. Denies any abdominal pain, no diarrhea, no nausea no vomiting. He does use Symbicort as well as Combivent at home. He's not on any oxygen. Patient was evaluated in the emergency room, laboratory workup was completed, WBC was 8.2. Hemoglobin 15.9, hematocrit 46.2, platelets 182. BMP was essentially unremarkable except for mild hyponatremia, sodium 134. Troponin was negative. B natruretic peptide was negative. Chest x-ray completed showed questionable minimal early interstitial infiltrate to the right lung base. CTA was negative for PE. ABGs were completed, showed PO2 of 60 on 3 L nasal cannula, sats 87% on 3 L. Patient was started on empiric antibiotics. Patient is evaluated in the emergency room, he is complaining of persistent cough. Robitussin-AC has been ordered. He is noted with thrush. Patient is admitted for further evaluation and treatment Past Family Social History Allergies: Coded Allergies: No Known Allergies (Verified , 12/22/16) Past Medical History Hypertension, diverticulitis, gastritis ulcerative colitis Previous admission for sepsis and UTI Bladder polyp Recently diagnosed with COPD Past Surgical History Benign cyst removal from the buttock 1999 and, keloid removal from left upper arm, cystoscopy 2 weeks ago Colonoscopy Reported Medications Reported Meds & Active Scripts Active Reported Symbicort Inh (Budesonide/Formoterol Fumarate) 160-4.5 Mcg/Act Aero 1 Puff INH Q12HR Vitamin C (Ascorbic Acid) 500 Mg Tab 500 Mg PO DAILY Vitamin B Complex (B-Complex Vitamins) 1 Tab 1 Tab PO DAILY Duoneb (Ipratropium-Albuterol Neb) 0.5-2.5 Mg/3 Ml Neb 1 Vial NEB Q6HR PRN Metoprolol Tartrate 25 Mg Tab 12.5 Mg PO DAILY PRN Clonidine (Clonidine HCl) 0.1 Mg Tab 0.1 Mg PO BID PRN Tylenol Extra Strength (Acetaminophen) 500 Mg Tab 500 Mg PO Q4-6H PRN Neurontin (Gabapentin) 100 Mg Cap 100 Mg PO TID Protonix (Pantoprazole Sodium) 40 Mg Tab 40 Mg PO DAILY PRN Centrum Silver Adult 50+ (Multiple Vitamins W/ Minerals) 1 Tab Tab 1 Tab PO DAILY Asacol HD (Mesalamine) 800 Mg Tab 1,600 Mg PO Q8HR Swallow whole. Take on an empty stomach. Bentyl (Dicyclomine HCl) 20 Mg Tab 20 Mg PO TID PRN Active Ordered Medications Current Medications Medications (Trade) Dose Ordered Sig/Meliton Route Start Time Stop Time Status Last Admin (NS Flush) 2 ml UNSCH PRN FLUSH 12/22/16 13:00 (NS Flush) 2 ml BID FLUSH 12/22/16 21:00 12/23/16 20:35 (Zofran Inj) 4 mg Q6H PRN IVP 12/22/16 13:00 (Heparin Inj) 5,000 units Q12H SQ 12/22/16 13:00 12/23/16 12:05 (Narcan Inj) 0.4 mg UNSCH PRN IV 12/22/16 13:00 (Vitamin C) 500 mg DAILY PO 12/23/16 09:00 12/23/16 07:34 (Symbicort 160-4.5 Inh) 1 puff Q12HR INH 12/22/16 21:00 12/23/16 20:35 (Catapres) 0.1 mg BID PRN PO 12/22/16 13:00 (Bentyl) 20 mg TID PRN PO 12/22/16 13:00 (Neurontin) 100 mg TID PO 12/22/16 13:00 12/23/16 18:00 (Asacol Hd Dr) 1,600 mg Q8HR PO 12/22/16 14:00 12/23/16 12:05 (Lopressor) 12.5 mg DAILY PRN PO 12/22/16 14:00 (Theragran Hematinic) 1 tab DAILY PO 12/23/16 09:00 12/23/16 07:34 (Protonix) 40 mg DAILY PRN PO 12/22/16 14:00 (Allbee C) 1 tab DAILY PO 12/23/16 09:00 12/23/16 07:33 (Mycostatin Liq) 5 ml QID SWISH-SWAL 12/22/16 18:00 12/23/16 20:35 (Robitussin Ac 200-20 Mg/10 ml Liq) 10 ml Q6H PRN PO 12/22/16 15:30 12/23/16 07:33 Methylprednisolone Sodium Succinate 40 mg 40 mg Q8H IV PUSH 12/22/16 16:00 12/23/16 16:06 Cefepime HCl 2000 mg/Sodium Chloride 100 ml @ 200 mls/hr Q12H IV 12/22/16 22:00 12/23/16 10:33 Azithromycin 500 mg/Sodium Chloride 250 ml @ 250 mls/hr Q24H IV 12/23/16 14:00 12/23/16 12:58 (D5W-1/2 NS 1000 ml Inj) 1,000 ml @ 75 mls/hr [id number] IV 12/22/16 20:00 12/22/16 22:03 Family History Mother secondary to colon cancer at age 65 Father secondary to stroke at age 61 Social History 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 Quit drinking October 2016 Quit smoking October 2016, smoked 1 pack of cigarettes every 3 days for 30+ years No illegal drug use Physical Exam Vital Signs Vital Signs Date Time Temp Pulse Resp B/P Pulse Ox O2 Delivery O2 Flow Rate FiO2 12/23/16 16:00 96.2 97 18 121/74 94 12/23/16 15:30 93 Nasal Cannula 5.00 12/23/16 12:00 96.7 100 19 146/78 94 12/23/16 08:33 92 Nasal Cannula 5.00 12/23/16 08:00 95.3 101 19 134/72 95 12/23/16 04:00 96.3 70 18 111/66 95 12/23/16 00:00 96.0 81 18 131/72 93 12/22/16 20:00 110 12/22/16 20:00 96.5 106 18 111/63 94 12/22/16 18:56 99.9 12/22/16 18:06 102.8 Physical Exam GENERAL: Thin built, poorly nourished patient, in no apparent distress. SKIN: No rashes. HEAD: Atraumatic. Normocephalic. No temporal or scalp tenderness. EYES: Pupils equal round and reactive. Extraocular motions intact. No scleral icterus. No injection or drainage. ENT: Nose without bleeding, purulent drainage or septal hematoma. Throat without erythema, tonsillar hypertrophy or exudate. Uvula midline. Airway patent. NECK: Trachea midline. Supple, nontender, no meningeal signs. CARDIOVASCULAR: HS audible. RESPIRATORY: Clear to auscultation. Breath sounds equal bilaterally. No wheezes , rales, or rhonchi. GASTROINTESTINAL: Abdomen soft, non-tender, nondistended. MUSCULOSKELETAL: Extremities without clubbing, cyanosis, or edema. No joint tenderness, effusion, or edema noted. No calf tenderness. Negative Homans sign bilaterally. NEUROLOGICAL: Awake and alert. Grossly non focal Psych: cooperative IV line sites with no e/o infection. Laboratory Laboratory Tests Test 12/22/16 12/23/16 12/23/16 19:23 05:12 05:30 Erythrocyte Sedimentation Rate 7 Lactic Acid Level 0.9 White Blood Count 4.2 Red Blood Count 4.96 Hemoglobin 14.8 Hematocrit 42.7 Mean Corpuscular Volume 86.0 Mean Corpuscular Hemoglobin 29.8 Mean Corpuscular Hemoglobin 34.6 Concent Red Cell Distribution Width 14.4 Platelet Count 163 Mean Platelet Volume 8.1 Neutrophils (%) (Auto) 68.2 Lymphocytes (%) (Auto) 28.4 Monocytes (%) (Auto) 2.8 Eosinophils (%) (Auto) 0.1 Basophils (%) (Auto) 0.5 Neutrophils # (Auto) 2.9 Lymphocytes # (Auto) 1.2 Monocytes # (Auto) 0.1 Eosinophils # (Auto) 0.0 Basophils # (Auto) 0.0 CBC Comment DIFF FINAL Differential Comment Sodium Level 138 Potassium Level 4.3 Chloride Level 108 Carbon Dioxide Level 23.3 Anion Gap 7 Blood Urea Nitrogen 24 Creatinine 0.90 Estimat Glomerular Filtration 86 Rate Random Glucose 158 Calcium Level 8.9 Urine Color YELLOW Urine Turbidity CLEAR Urine pH 5.5 Urine Specific [place] 1.022 Urine Protein TRACE Urine Glucose (UA) NEG Urine Ketones NEG Urine Occult Blood NEG Urine Nitrite NEG Urine Bilirubin NEG Urine Urobilinogen LESS THAN 2.0 Urine Leukocyte Esterase NEG Urine RBC 1 Urine WBC 3 Urine Transitional Epithelial <1 Cells Urine Renal Epithelial Cells <1 Urine Amorphous Sediment RARE Urine Hyaline Casts 7 Urine Mucus FEW Microscopic Urinalysis Comment CULT NOT INDICATED Date/Time Procedure Status Source Growth 12/23/16 05:30 Legionella Antigen - Final Complete Urine Clean Catch PRESUMPTIVE NEGATIVE FOR LEGIONELLA P... 12/23/16 05:30 Streptococcus pneumoniae Antigen (M - Final Complete Urine Clean Catch PRESUMPTIVE NEGATIVE FOR STREPTOCOCCU... 12/22/16 19:25 Aerobic Blood Culture - Preliminary Resulted Blood Peripheral NO GROWTH IN 1 DAY 12/22/16 19:25 Anaerobic Blood Culture - Preliminary Resulted Blood Peripheral NO GROWTH IN 1 DAY Result Diagram: 12/23/16 0512 12/23/16 0512 Imaging Last Impressions Chest X-Ray 12/23/16 0000 Signed Impressions: Service Date/Time: Friday, December 23, 2016 19:27 - CONCLUSION: Hazy density seen throughout the lungs which may represent some mild interstitial prominence especially on the right side. Miguel Angel Hennessy MD CT Angiography 12/22/16 0839 Signed Impressions: Service Date/Time: Thursday, December 22, 2016 10:42 - CONCLUSION: Negative examination. Suresh Still MD Assessment and Plan Assessment and Plan Community acquired pneumonia vs atypical pneumonia vs viral pneumonitis. Patient reports he finished his augmentin and next day had recurrence of symptoms. Acute COPD exacerbation Ulcerative Colitis on Asacol Recs Continue Cefepime IV Continue Azithro change to oral to reduce fluid overload. Will check viral resp panel. Follow cultures Follow clinically. d/w patient and Mikayla Felipe MD Dec 23, 2016 17:03
--- NOTE | 2016-12-23 19:23 | HHI.PR ---
Subjective Remarks He is better. Less cough and wheezing. Sputum is clearing. No fever. Objective Vital Signs Date Time Temp Pulse Resp B/P Pulse Ox O2 Delivery O2 Flow Rate FiO2 12/23/16 16:00 96.2 97 18 121/74 94 12/23/16 15:30 93 Nasal Cannula 5.00 12/23/16 12:00 96.7 100 19 146/78 94 12/23/16 08:33 92 Nasal Cannula 5.00 12/23/16 08:00 95.3 101 19 134/72 95 12/23/16 04:00 96.3 70 18 111/66 95 12/23/16 00:00 96.0 81 18 131/72 93 12/22/16 20:00 110 12/22/16 20:00 96.5 106 18 111/63 94 I/O 12/22/16 12/22/16 12/22/16 12/23/16 12/23/16 12/23/16 07:00 15:00 23:00 07:00 15:00 23:00 Intake Total 320 ml 740 ml 2381 ml Balance 320 ml 740 ml 2381 ml Intake Oral 320 ml 240 ml 1400 ml IV Total 0 ml 500 ml 981 ml # Voids 1 2 3 # Bowel Movements 0 1 0 Result Diagram: 12/23/16 0512 12/23/16 0512 Objective Remarks This is an averagely built middle-aged man in no distress. He is slightly diaphoretic. HEENT: Head normocephalic. Pupils reactive and equal. Tongue moist. Throat is clear. Nasal mucosae edematous. NECK: Supple. No lymphadenopathy. No bruits or thyroid enlargement. CHEST: Equal movements with percussion note, resonant throughout. Wheezes are scattered bilaterally. There are a few crackles heard at the right base. HEART: The heart sounds are irregular, S1 and S2. No murmur. No S3. ABDOMEN: Soft and benign. No masses, organomegaly or tenderness. Bowel sounds are active. EXTREMITIES: No edema. No clubbing or cyanosis. No calf tenderness or swelling. Reflexes are 1+ with no gross motor deficits. NEUROLOGIC: Cranial nerves grossly intact. SKIN: No lesions. Assessment and Plan Assessment and Plan IMPRESSION 1. COPD and chronic bronchitis with acute exacerbation. 2. Probable early pneumonia right lower lobe. 3. UTI 4. History of hypertension. Plan : 1. Continue antibiotics. 2. Nebs qid , duoneb. 3. Solumedrol 40 mg q6h. 4. Rpt Chest X ray. 5. Will cont symbicort inhaler 2 puffs bid. 6. PFT when stable. 7. O2 at 5 L and wean to keep sat >92 Xavier Grande MD Dec 23, 2016 19:23
--- NOTE | 2016-12-23 20:22 | RADRPT ---
EXAM DATE/TIME: 12/23/2016 19:27 [facility] COMPARISON: CT PULMONARY ANGIOGRAM, December 22, 2016, 10:42. CHEST SINGLE AP, November, 8:40. INDICATIONS: Shortness of breath. MEDICAL HISTORY: Hypertension. SURGICAL HISTORY: None. ENCOUNTER: Subsequent ACUITY: 3 days PAIN SCORE: 0/10 LOCATION: Bilateral chest FINDINGS: Heart size normal. There is some minimal indistinctiveness of the pulmonary markings. This appears more prominent on the right. A focal consolidation is not clearly seen. The costophrenic angles are clear. CONCLUSION: Hazy density seen throughout the lungs which may represent some mild interstitial prominence especial ly on the right side. Miguel Angel Hennessy MD on December 23, 2016 at 19:58 Board Certified Radiologist. This report was verified electronically.
--- NOTE | 2016-12-23 22:40 | HHI.PR ---
Vitals/Results Intake & Output 12/22/16 12/22/16 12/23/16 14:59 22:59 06:59 Intake Total 320 ml 740 ml Balance 320 ml 740 ml Intake Oral 320 ml 240 ml IV Total 0 ml 500 ml # Voids 1 2 # Bowel Movements 0 1 Vital Signs Vital Signs Date Time Temp Pulse Resp B/P Pulse Ox O2 Delivery O2 Flow Rate FiO2 12/23/16 20:00 96.8 103 22 142/82 98 12/23/16 16:00 96.2 97 18 121/74 94 12/23/16 15:30 93 Nasal Cannula 5.00 12/23/16 12:00 96.7 100 19 146/78 94 12/23/16 08:33 92 Nasal Cannula 5.00 12/23/16 08:00 95.3 101 19 134/72 95 12/23/16 04:00 96.3 70 18 111/66 95 12/23/16 00:00 96.0 81 18 131/72 93 CBC/BMP: 12/23/16 0512 12/23/16 0512 Lab Results Laboratory Tests Test 12/23/16 12/23/16 05:12 05:30 White Blood Count 4.2 TH/MM3 Red Blood Count 4.96 MIL/MM3 Hemoglobin 14.8 GM/DL Hematocrit 42.7 % Mean Corpuscular Volume 86.0 FL Mean Corpuscular Hemoglobin 29.8 PG Mean Corpuscular Hemoglobin 34.6 % Concent Red Cell Distribution Width 14.4 % Platelet Count 163 TH/MM3 Mean Platelet Volume 8.1 FL Neutrophils (%) (Auto) 68.2 % Lymphocytes (%) (Auto) 28.4 % Monocytes (%) (Auto) 2.8 % Eosinophils (%) (Auto) 0.1 % Basophils (%) (Auto) 0.5 % Neutrophils # (Auto) 2.9 TH/MM3 Lymphocytes # (Auto) 1.2 TH/MM3 Monocytes # (Auto) 0.1 TH/MM3 Eosinophils # (Auto) 0.0 TH/MM3 Basophils # (Auto) 0.0 TH/MM3 CBC Comment DIFF FINAL Differential Comment Sodium Level 138 MEQ/L Potassium Level 4.3 MEQ/L Chloride Level 108 MEQ/L Carbon Dioxide Level 23.3 MEQ/L Anion Gap 7 MEQ/L Blood Urea Nitrogen 24 MG/DL Creatinine 0.90 MG/DL Estimat Glomerular Filtration 86 ML/MIN Rate Random Glucose 158 MG/DL Calcium Level 8.9 MG/DL Urine Color YELLOW Urine Turbidity CLEAR Urine pH 5.5 Urine Specific [place] 1.022 Urine Protein TRACE mg/dL Urine Glucose (UA) NEG mg/dL Urine Ketones NEG mg/dL Urine Occult Blood NEG Urine Nitrite NEG Urine Bilirubin NEG Urine Urobilinogen LESS THAN 2.0 MG/DL Urine Leukocyte Esterase NEG Urine RBC 1 /hpf Urine WBC 3 /hpf Urine Transitional Epithelial <1 /hpf Cells Urine Renal Epithelial Cells <1 /hpf Urine Amorphous Sediment RARE Urine Hyaline Casts 7 /lpf Urine Mucus FEW /lpf Microscopic Urinalysis Comment CULT NOT INDICATED Microbiology Microbiology 12/23/16 Legionella Antigen - Final, Complete PRESUMPTIVE NEGATIVE FOR LEGIONELLA P... 12/23/16 Streptococcus pneumoniae Antigen (M - Final, Complete PRESUMPTIVE NEGATIVE FOR STREPTOCOCCU... Physical Exam General General Appearance: Well Developed, Comfortable Eyes Eye Exam: Pupils Reactive Ears & Nose Ears & Nose Exam: Nasal Mucosa [place] Neck Neck Exam: Trachea Midline Pulmonary Resp Exam: Breath Sounds Equal, No Distress Resp Remarks Occasional bilateral wheeze Cardiology CV Exam: Normal Sinus Rhythm, Good Perfusion Gastrointestinal/Abdomen GI Exam: Non-Tender, Bowel Sounds Present Musculoskeletal MS Exam: Normal Gait, Normal Tone Integumentary Skin Exam: Warm, Dry Neurologic Neuro Exam: Awake, Oriented Psychiatric Psych Exam: Appropriate Responses VTE Prophylaxis VTE Prophylaxis Meds: Heparin, Coumadin Assessment/Plan Assessment/Plan Assessment Pneumonia COPD exacerbation Fever. Recently quit smoking. Management. Intravenous antibiotics. Assessment Azithromycin. DuoNeb. Supplemental oxygen. Pulmonary and infectious disease following Discussed with patient. Discussed with nurse. Yadira Machado MD Dec 23, 2016 22:40
[2016-12-24] VITALS (7 sets, daily range): BP systolic 106–166; BP diastolic 59–93; PULSE 77–115; RESP 17–22; TEMP 96.2–98.1; O2SAT 93–96
[2016-12-24] MEDS: MESALAMINE HD 800 MG DELAYED RELEASE TAB PO SCH ×3 (06:14→22:48)
[2016-12-24] MEDS: VITAMIN B COMPLEX/VIT C TAB PO SCH (07:38)
[2016-12-24] MEDS: guaiFENesin/CODEINE SYRUP 200 MG/20 MG/10 ML CUP PO PRN ×2 (07:38→22:48)
[2016-12-24] MEDS: CEFEPIME INJ 2,000 MG in SODIUM CHLORIDE 0.9% INJ 100 ML IV SCH ×2 (07:38→22:47)
[2016-12-24] MEDS: NYSTATIN SUSP 500,000 U/5 ML CUP SWISH-SWAL SCH ×4 (07:38→19:42)
[2016-12-24] MEDS: ASCORBIC ACID 500 MG TAB PO SCH (07:38)
[2016-12-24] MEDS: MULTIVITAMIN HEMATINIC THERAPEUTIC TAB PO SCH (07:39)
[2016-12-24] MEDS: GABAPENTIN 100 MG CAP PO SCH ×3 (07:39→16:42)
[2016-12-24] MEDS: AZITHROMYCIN 250 MG TAB PO SCH (07:39)
[2016-12-24] MEDS: methylPREDNISolone SOD SUCC 40 MG/1 ML VIAL IV PUSH SCH ×3 (07:39→22:48)
[2016-12-24] MEDS: SODIUM CHLORIDE 0.9% FLUSH 5 ML FLUSH FLUSH SCH ×2 (07:39→19:42)
[2016-12-24] MEDS: BUDESONIDE-FORMOTEROL 160/4.5 MCG INHALER INH SCH ×2 (07:47→19:43)
[2016-12-24] MEDS: RESP: ALBUTEROL 2.5 MG/IPRATROPIUM 0.5 MG NEB (SCH) NEB ×4 (09:09→19:38)
[2016-12-24] MEDS: DEXT 5%-NACL 0.45% 1000 ML INJ 1,000 ML IV SCH (11:14)
[2016-12-24] MEDS: HEPARIN SODIUM - SQ 10,000 UNITS/ML VIAL SQ SCH ×2 (13:00→22:48)
[2016-12-24 15:01] LABS: BOR. HOLMESII NOT DETECTED (NOT DETECT); BOR. PARA/BRONCH NOT DETECTED (NOT DETECT); BOR. PERTUSSIS NOT DETECTED (NOT DETECT); INFLUENZA B NOT DETECTED (NOT DETECT); RESP SYNCYTIAL VIRUS A NOT DETECTED (NOT DETECT); RESP SYNCYTIAL VIRUS B NOT DETECTED (NOT DETECT)
--- NOTE | 2016-12-24 17:07 | HHI.PR ---
Subjective Interval History Alert, oriented, complaining of recurrent cough, wheezing, anxiety, no pain, some palpitation Review of Systems Constitutional Constitutional Remarks 10 systems reviewed and otherwise negative Vitals/Results Intake & Output 12/23/16 12/23/16 12/24/16 15:00 23:00 07:00 Intake Total 2381 ml 960 ml 100 ml Balance 2381 ml 960 ml 100 ml Intake Oral 1400 ml 960 ml IV Total 981 ml 100 ml # Voids 3 2 # Bowel Movements 0 0 Vital Signs Vital Signs Date Time Temp Pulse Resp B/P Pulse Ox O2 Delivery O2 Flow Rate FiO2 12/24/16 12:00 96.3 101 19 117/81 94 12/24/16 09:12 96 Nasal Cannula 3.00 12/24/16 08:00 96.2 77 17 123/76 93 12/24/16 04:00 96.6 87 18 106/59 95 12/23/16 23:49 97.3 84 20 131/69 93 12/23/16 20:08 93 12/23/16 20:00 96.8 103 22 142/82 98 CBC/BMP: 12/23/16 0512 12/23/16 0512 Lab Results Laboratory Tests Test 12/24/16 06:15 Adenovirus (PCR) NOT DETECTED Bordetella holmesii (PCR) NOT DETECTED Bordetella pertussis DNA (PCR) NOT DETECTED Bordetella parapertussis DNA NOT DETECTED (PCR) Human Metapneumovirus (PCR) NOT DETECTED Influenza Type A (RT-PCR) NOT DETECTED Influenza Type A (H1) (PCR) NOT DETECTED Influenza Type A (H3) (PCR) NOT DETECTED Parainfluenza Type 1 (PCR) NOT DETECTED Parainfluenza Type 2 (PCR) NOT DETECTED Parainfluenza Type 3 (PCR) NOT DETECTED Parainfluenza Type 4 (PCR) NOT DETECTED Resp Syncytial Virus Type A NOT DETECTED (PCR) Resp Syncytial Virus Type B NOT DETECTED (PCR) Rhinovirus (PCR) NOT DETECTED Physical Exam General General Appearance: Well Developed, Comfortable Eyes Eye Exam: Pupils Reactive Ears & Nose Ears & Nose Exam: Nasal Mucosa [place] Neck Neck Exam: Trachea Midline Pulmonary Resp Exam: Breath Sounds Equal, No Distress Resp Remarks Occasional bilateral wheeze Cardiology CV Exam: Normal Sinus Rhythm, Good Perfusion, Tachycardia Gastrointestinal/Abdomen GI Exam: Non-Tender, Bowel Sounds Present Musculoskeletal MS Exam: Normal Gait, Normal Tone Integumentary Skin Exam: Warm, Dry Neurologic Neuro Exam: Awake, Oriented Psychiatric Psych Exam: Appropriate Responses VTE Prophylaxis VTE Prophylaxis Meds: Heparin, Coumadin Assessment/Plan Assessment/Plan Assessment Pneumonia COPD exacerbation Fever. Recently quit smoking. Management. Telemetry Intravenous antibiotics. Follow cultures Antibiotics per infectious disease DuoNeb. Supplemental oxygen. Pulmonary and infectious disease following Discussed with patient. Discussed with nurse. Yadira Machado MD Dec 24, 2016 17:07
--- NOTE | 2016-12-24 18:47 | HHI.PR ---
Subjective Remarks Improved. Less cough and wheezing. Sputum is clear. No fever. Objective Vital Signs Date Time Temp Pulse Resp B/P Pulse Ox O2 Delivery O2 Flow Rate FiO2 12/24/16 16:00 96.3 103 17 134/70 94 12/24/16 12:00 96.3 101 19 117/81 94 12/24/16 09:12 96 Nasal Cannula 3.00 12/24/16 08:00 96.2 77 17 123/76 93 12/24/16 04:00 96.6 87 18 106/59 95 12/23/16 23:49 97.3 84 20 131/69 93 12/23/16 20:08 93 12/23/16 20:00 96.8 103 22 142/82 98 I/O 12/23/16 12/23/16 12/23/16 12/24/16 12/24/16 12/24/16 07:00 15:00 23:00 07:00 15:00 23:00 Intake Total 740 ml 2381 ml 960 ml 100 ml 340 ml Balance 740 ml 2381 ml 960 ml 100 ml 340 ml Intake Oral 240 ml 1400 ml 960 ml 240 ml IV Total 500 ml 981 ml 100 ml 100 ml # Voids 2 3 2 2 # Bowel Movements 1 0 0 1 Result Diagram: 12/23/1651112/23/16 0512 Objective Remarks This is an averagely built middle-aged man in no distress. HEENT: Head normocephalic. Pupils reactive and equal. Tongue moist. Throat is clear. NECK: Supple. No lymphadenopathy. No bruits or thyroid enlargement. CHEST: Equal movements with percussion note, resonant throughout. Wheezes are scattered bilaterally. HEART: The heart sounds are irregular, S1 and S2. No murmur. No S3. ABDOMEN: Soft and benign. No masses, organomegaly or tenderness. Bowel sounds are active. EXTREMITIES: No edema. No clubbing or cyanosis. No calf tenderness or swelling. Reflexes are 1+ with no gross motor deficits. NEUROLOGIC: Cranial nerves grossly intact. SKIN: No lesions. Assessment and Plan Assessment and Plan IMPRESSION 1. COPD and chronic bronchitis with acute exacerbation. 2. Probable early pneumonia right lower lobe. 3. UTI 4. History of hypertension. Plan : 1. Continue antibiotic. 2. Nebs qid , duoneb. 3. Solumedrol 40 mg q8h. 4. Labs in am 5. Will cont symbicort inhaler 2 puffs bid. 6. PFT when stable. 7. O2 at 5 L and wean to keep sat >92. 8. Arrange Home O2 at 3 L. Xavier Grande MD Dec 24, 2016 18:47
[2016-12-25] VITALS (9 sets, daily range): BP systolic 102–144; BP diastolic 61–85; PULSE 82–118; RESP 17–20; TEMP 96–97.2; O2SAT 91–96
[2016-12-25] MEDS: DEXT 5%-NACL 0.45% 1000 ML INJ 1,000 ML IV SCH ×2 (01:20→12:43)
[2016-12-25 04:56] LABS: AUTOMATED NEUTROPHIL # 8.9 TH/MM3 (1.8-7.7); BASOPHIL % 0.1 % (0.0-2.0); HEMATOCRIT 38.9 % (39.0-51.0); HEMO FLAGS DIFF FINAL; LYMPH % 5.3 % (9.0-44.0); LYMPHOCYTE # 0.5 TH/MM3 (1.0-4.8); MEAN CORPUSCULAR HEMOGLOBIN 30.5 PG (27.0-34.0); MEAN CORPUSCULAR HGB CONC 35.4 % (32.0-36.0); MONO % 3.1 % (0.0-8.0); NEUT % 91.5 % (16.0-70.0); PLATELET COUNT 179 TH/MM3 (150-450); RED BLOOD COUNT 4.52 MIL/MM3 (4.50-5.90); RED CELL DISTRIBUTION WIDTH 14.2 % (11.6-17.2); WHITE BLOOD COUNT 9.7 TH/MM3 (4.0-11.0)
[2016-12-25 05:12] LABS: ANION GAP 11 MEQ/L (5-15); BICARBONATE 21.5 MEQ/L (21.0-32.0); BLOOD UREA NITROGEN 23 MG/DL (7-18); CHLORIDE 107 MEQ/L (98-107); GLOMERULAR FILTRATION RATE 91 ML/MIN (>89); MAGNESIUM 2.2 MG/DL (1.5-2.5); POTASSIUM 4.4 MEQ/L (3.5-5.1); SODIUM (NA) 139 MEQ/L (136-145)
[2016-12-25] MEDS: MESALAMINE HD 800 MG DELAYED RELEASE TAB PO SCH ×3 (06:23→21:55)
[2016-12-25] MEDS: RESP: ALBUTEROL 2.5 MG/IPRATROPIUM 0.5 MG NEB (SCH) NEB ×2 (07:16→11:06)
[2016-12-25] MEDS: MULTIVITAMIN HEMATINIC THERAPEUTIC TAB PO SCH (08:10)
[2016-12-25] MEDS: AZITHROMYCIN 250 MG TAB PO SCH (08:11)
[2016-12-25] MEDS: GABAPENTIN 100 MG CAP PO SCH ×3 (08:11→16:24)
[2016-12-25] MEDS: methylPREDNISolone SOD SUCC 40 MG/1 ML VIAL IV PUSH SCH (08:11)
[2016-12-25] MEDS: ASCORBIC ACID 500 MG TAB PO SCH (08:11)
[2016-12-25] MEDS: NYSTATIN SUSP 500,000 U/5 ML CUP SWISH-SWAL SCH ×4 (08:11→21:55)
[2016-12-25] MEDS: VITAMIN B COMPLEX/VIT C TAB PO SCH (08:11)
[2016-12-25] MEDS: CEFEPIME INJ 2,000 MG in SODIUM CHLORIDE 0.9% INJ 100 ML IV SCH ×2 (08:12→21:55)
[2016-12-25] MEDS: SODIUM CHLORIDE 0.9% FLUSH 5 ML FLUSH FLUSH SCH ×2 (08:12→21:00)
[2016-12-25] MEDS: BUDESONIDE-FORMOTEROL 160/4.5 MCG INHALER INH SCH ×2 (08:13→21:55)
[2016-12-25] MEDS: guaiFENesin/CODEINE SYRUP 200 MG/20 MG/10 ML CUP PO PRN (08:15)
[2016-12-25] MEDS: HEPARIN SODIUM - SQ 10,000 UNITS/ML VIAL SQ SCH (12:41)
[2016-12-25] MEDS ORDERED: RESP: IPRATROPIUM 0.5 MG/2.5 ML NEB NEB PRN (12:45)
--- NOTE | 2016-12-25 12:47 | HHI.PR ---
Subjective Remarks Was in A Fib RVR last nite . Now HR 94. Less cough and wheezing. Sputum is clear. No fever.or chest pain. Objective Vital Signs Date Time Temp Pulse Resp B/P Pulse Ox O2 Delivery O2 Flow Rate FiO2 12/25/16 12:00 97.0 82 17 102/61 93 12/25/16 08:00 96.8 106 19 128/81 92 12/25/16 07:16 95 Nasal Cannula 2.00 12/25/16 04:00 96.5 118 20 144/83 96 12/25/16 00:00 96.0 89 18 114/ 95 12/24/16 20:00 115 12/24/16 20:00 98.1 101 22 166/93 95 12/24/16 19:38 96 Nasal Cannula 2.00 12/24/16 16:00 96.3 103 17 134/70 94 I/O 12/24/16 12/24/16 12/24/16 12/25/16 12/25/16 12/25/16 07:00 15:00 23:00 07:00 15:00 23:00 Intake Total 100 ml 340 ml 960 ml 340 ml Balance 100 ml 340 ml 960 ml 340 ml Intake Oral 240 ml 960 ml 240 ml IV Total 100 ml 100 ml 100 ml # Voids 2 2 # Bowel Movements 1 1 Result Diagram: 12/25/16 04312/25/16 0431 Objective Remarks This is an averagely built middle-aged man in no distress. HEENT: Head normocephalic. Pupils reactive and equal. Tongue moist. Throat is clear. NECK: Supple. No lymphadenopathy. No bruits or thyroid enlargement. CHEST: Equal movements with percussion note, resonant throughout. Occ Wheezes are scattered bilaterally. HEART: The heart sounds are irregular, S1 and S2. No murmur. No S3. ABDOMEN: Soft and benign. No masses, organomegaly or tenderness. Bowel sounds are active. EXTREMITIES: No edema. No clubbing or cyanosis. No calf tenderness or swelling. Reflexes are 1+ with no gross motor deficits. NEUROLOGIC: Cranial nerves grossly intact. SKIN: No lesions. Assessment and Plan Assessment and Plan IMPRESSION 1. COPD and chronic bronchitis with acute exacerbation. 2. Probable early pneumonia right lower lobe. 3. UTI 4. History of hypertension. 5. Atrial Fibrillation Plan : 1. Continue antibiotic. 2. Nebs qid , duoneb. 3. D/C Solumedrol 4. Add Low dose prednisone 5. Will cont symbicort inhaler 1 puff bid. 6. PFT when stable. 7. O2 at 3 L and wean to keep sat >92. 8. Arrange Home O2 at 2 L. 9. Cardiology to see. Xavier Grande MD Dec 25, 2016 12:47
--- NOTE | 2016-12-25 14:58 | HHI.PR ---
Subjective Subjective Remarks less sob, and wheezing minimal cough feels improved overnight, has palpitations, tele showed afib RVR seen by Dr. Reyes at this time, poss. due to meds, copd afebrile tele reviewed, afib RVR HR 134 Review of Systems Constitutional Constitutional Remarks 12 point ROS completed, negative except as noted above Vitals/Results Intake & Output 12/24/16 12/24/16 12/25/16 15:00 23:00 07:00 Intake Total 340 ml 960 ml 340 ml Balance 340 ml 960 ml 340 ml Intake Oral 240 ml 960 ml 240 ml IV Total 100 ml 100 ml # Voids 2 2 # Bowel Movements 1 1 Vital Signs Vital Signs Date Time Temp Pulse Resp B/P Pulse Ox O2 Delivery O2 Flow Rate FiO2 12/25/16 12:00 97.0 82 17 102/61 93 12/25/16 08:00 96.8 106 19 128/81 92 12/25/16 07:16 95 Nasal Cannula 2.00 12/25/16 04:00 96.5 118 20 144/83 96 12/25/16 00:00 96.0 89 18 114/ 95 12/24/16 20:00 115 12/24/16 20:00 98.1 101 22 166/93 95 12/24/16 19:38 96 Nasal Cannula 2.00 12/24/16 16:00 96.3 103 17 134/70 94 CBC/BMP: 12/25/16 0431 12/25/16 0431 Lab Results Laboratory Tests Test 12/25/16 04:31 White Blood Count 9.7 TH/MM3 Red Blood Count 4.52 MIL/MM3 Hemoglobin 13.8 GM/DL Hematocrit 38.9 % Mean Corpuscular Volume 86.0 FL Mean Corpuscular Hemoglobin 30.5 PG Mean Corpuscular Hemoglobin 35.4 % Concent Red Cell Distribution Width 14.2 % Platelet Count 179 TH/MM3 Mean Platelet Volume 8.3 FL Neutrophils (%) (Auto) 91.5 % Lymphocytes (%) (Auto) 5.3 % Monocytes (%) (Auto) 3.1 % Eosinophils (%) (Auto) 0.0 % Basophils (%) (Auto) 0.1 % Neutrophils # (Auto) 8.9 TH/MM3 Lymphocytes # (Auto) 0.5 TH/MM3 Monocytes # (Auto) 0.3 TH/MM3 Eosinophils # (Auto) 0.0 TH/MM3 Basophils # (Auto) 0.0 TH/MM3 CBC Comment DIFF FINAL Differential Comment Sodium Level 139 MEQ/L Potassium Level 4.4 MEQ/L Chloride Level 107 MEQ/L Carbon Dioxide Level 21.5 MEQ/L Anion Gap 11 MEQ/L Blood Urea Nitrogen 23 MG/DL Creatinine 0.86 MG/DL Estimat Glomerular Filtration 91 ML/MIN Rate Random Glucose 178 MG/DL Calcium Level 9.1 MG/DL Magnesium Level 2.2 MG/DL Troponin I LESS THAN 0.02 NG/ML Physical Exam General General Appearance: Well Developed, Comfortable, Anxious Eyes Eye Exam: Pupils Equal, Pupils Reactive Ears & Nose Ears & Nose Exam: Nasal Mucosa [place] Neck Neck Exam: Trachea Midline Pulmonary Resp Exam: No Distress Resp Remarks mild exp. wheeze, improved air movement Cardiology CV Exam: Good Perfusion, Arrhythmia, Tachycardia Gastrointestinal/Abdomen GI Exam: Non-Tender, Bowel Sounds Present Musculoskeletal MS Exam: Normal Gait, Normal Tone Integumentary Skin Exam: Warm, Dry Neurologic Neuro Exam: Alert, Awake, Oriented, Speech Clear, Moving All Extremities, No Focal Deficits Psychiatric Psych Exam: Appropriate Responses VTE Prophylaxis VTE Prophylaxis Meds: Heparin PUD Prophylasis PUD Prophylaxis: Protonix Assessment/Plan Problem List: (1) COPD (chronic obstructive pulmonary disease) (2) Ulcerative colitis (3) Hypoxemia (4) Hypertension (5) Pneumonia (6) BPH (benign prostatic hyperplasia) (7) Atrial fibrillation Assessment/Plan 61-year-old male with recent diagnosis of COPD, quit smoking in October, presented to emergency room complaining of shortness of breath and cough for the last 2 weeks worsening last night while he was at work. Was treated with Augmentin 10 days by PCP for possible URI infection. He noted saturations on room air were 81%. Patient presented to emergency room for further evaluation, chest x-ray with findings of possible early right lower lobe infiltrate, possible pneumonia, COPD exacerbation with hypoxemia, failure of outpatient therapy -supplemental oxygen as needed to keep sats > 92 appreciate pulmonary input, has adjusted steroids and duonebs due to afib with RVR Robitussin AC 10 MLS every 6 when necessary continue Symbicort -Continue with empiric antibiotics, Rocephin 1 g IV daily, Zithromax 500 mg by mouth -Nystatin -ID input appreciated, viral panel has been ordered, negative so far History of ulcerative colitis, stable Continue with Asacol Hypertension, uncontrolled secondary to respiratory distress -continue home medications Afib with RVR overnight -continue cardizem -appreciate cardiology input, d/w Dr. Reyes-if he remains in afib, poss. cardioversion tomorrow. Will keep NPO after MN -echo done, ef okay per Dr. Reyes Heparin 5000 units subcutaneous twice a day for DVT prophylaxis Protonix for GI prophylaxis continue to monitor walk test ordered, may need oxygen for home CM for dc planning D/W RN D/W Dr. Machado D/W pt D/W Dr. Reyes This patient was seen by myself and Dr. Machado, this note is written his behalf Problem Qualifiers (1) COPD (chronic obstructive pulmonary disease): Qualified Code: J44.1 - Chronic obstructive pulmonary disease with acute exacerbation (2) Ulcerative colitis: Qualified Code: K51.90 - Ulcerative colitis without complications, unspecified location (3) Hypertension: Qualified Code: I10 - Essential hypertension (4) Pneumonia: Qualified Code: J18.1 - Pneumonia of right lower lobe due to infectious organism (5) BPH (benign prostatic hyperplasia): (6) Atrial fibrillation: Qualified Code: I48.91 - Atrial fibrillation, unspecified type Carmen Huggins Dec 25, 2016 14:58
--- NOTE | 2016-12-25 14:59 | HHI.FF ---
Face to Face Verification Diagnosis: (1) Tobacco abuse (2) COPD (chronic obstructive pulmonary disease) (3) Hypoxemia Home Health Nursing Order: Medical education Oxygen administration education Nursing assessment with vital signs I have seen patient Montana Quinn on 12/25/16. My clinical findings support the need for the requested home health care services because: Patient has SOB I certify that my clinical findings support that this patient is homebound because: Hx COPD- exertion dyspnea/weakness Carmen Huggins Dec 25, 2016 14:58
--- NOTE | 2016-12-25 16:07 | MB ---
cc: JENNIFER BENSON DATE OF CONSULTATION: 12/25/2016. 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 He was admitted with shortness of breath and diagnosed with acute exacerbation and COPD and pneumonia. He was started on antibiotics. He still complains of shortness of breath. He has not had any chest pain or peripheral edema. He developed atrial fibrillation with rapid ventricular response this morning. He stays in atrial fibrillation. He has a previous history of hypertension, chronic bronchitis, ulcerative colitis, benign prostate hypertrophy, bladder polyps, urinary tract infection and sepsis, skin cyst and keloid surgeries, cystoscopies. MEDICATIONS: 1. Asacol. 2. Protonix. 3. Neurontin. 4. Metoprolol 25 milligrams a day. 5. Clonidine. 6. DuoNeb. 7. Symbicort. ALLERGIES: NONE. SOCIAL HISTORY: The patient quit smoking in October. He was also drinking in October. 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 ALLERGIES: NONE. FAMILY HISTORY: Family history is positive for stroke in his father and coronary artery disease in his sister. REVIEW OF SYSTEMS: His review of systems is otherwise negative. PHYSICAL EXAMINATION: VITAL SIGNS: Blood pressure is 102/61, pulse 82 and irregular. HEAD, EYES, EARS, NOSE, THROAT: Negative. NECK: 2+ carotid upstrokes, no bruits. LUNGS: With bilateral rhonchi and wheezes. HEART: Irregularly irregular with no murmurs, rubs or gallops. ABDOMEN: Abdomen soft. No bruits. EXTREMITIES: Without edema. 2+ distal pulses. NEUROLOGIC: Grossly nonfocal. EKG was reviewed and showed normal sinus rhythm with normal axis and intervals. Follow up EKG today shows atrial fibrillation with increased ventricular response, no acute changes. LABS: Hemoglobin is 1.38, potassium 4.4, creatinine 0.9. Troponin negative x2. BNP less than 2. DIAGNOSIS: 1. New onset of atrial fibrillation with rapid ventricular response. 2. COPD/chronic bronchitis exacerbation. 3. Pneumonia. 4. Urinary tract infection. DISPOSITION: 1. Mr. Quinn will be monitored on telemetry. 2. We will initiate diltiazem p.o. for rate control. 3. We will start therapy with aspirin. 4. If he stays in atrial fibrillation, we will proceed with cardioversion tomorrow. 5. We will continue antibiotics, steroids, oxygen as per Dr. Grande. 6. I will follow him for cardiology during his hospitalization. MD AWA Gillis/LILIYA /1:46 PM /4:00 PM HETAL
[2016-12-25] MEDS: DILTIAZEM HCL 30 MG TAB PO SCH ×2 (16:24→21:55)
[2016-12-25] MEDS: predniSONE 5 MG TAB PO SCH (21:00)
[2016-12-25] MEDS: clonazePAM 0.5 MG TAB PO SCH (21:55)
[2016-12-26] VITALS (8 sets, daily range): BP systolic 98–128; BP diastolic 61–89; PULSE 98–117; RESP 18–21; TEMP 96.2–101.1; O2SAT 92–98
[2016-12-26] MEDS: HEPARIN SODIUM - SQ 10,000 UNITS/ML VIAL SQ SCH ×2 (01:19→11:10)
[2016-12-26] MEDS: DEXT 5%-NACL 0.45% 1000 ML INJ 1,000 ML IV SCH (04:00)
[2016-12-26] MEDS ORDERED: LACTATED RINGER'S 1000 ML IV SCH (05:30)
[2016-12-26] MEDS: MESALAMINE HD 800 MG DELAYED RELEASE TAB PO SCH ×4 (06:00→21:28)
--- NOTE | 2016-12-26 06:53 | EKG ---
Date Performed: 12/25/2016 Time Performed: 04:19:18 PTAGE: 61 years EKG: Atrial fibrillation with rapid ventricular response with PVC(s) Inferior ST-T changes are n onspecific Abnormal ECG PREVIOUS TRACING : 12/22/2016 09.33 Compared to the previous tracing, Afib is new DOCTOR: Jonathan Dc Interpretating Date/Time 12/26/2016 06:50:55
[2016-12-26] MEDS: SODIUM CHLORIDE 0.9% FLUSH 5 ML FLUSH FLUSH SCH ×2 (08:07→21:31)
[2016-12-26] MEDS: DILTIAZEM HCL 30 MG TAB PO SCH ×3 (08:07→13:47)
[2016-12-26] MEDS: CEFEPIME INJ 2,000 MG in SODIUM CHLORIDE 0.9% INJ 100 ML IV SCH ×2 (08:07→21:29)
[2016-12-26] MEDS: BUDESONIDE-FORMOTEROL 160/4.5 MCG INHALER INH SCH ×2 (08:08→21:00)
[2016-12-26] MEDS: GABAPENTIN 100 MG CAP PO SCH ×4 (09:00→16:27)
[2016-12-26] MEDS: NYSTATIN SUSP 500,000 U/5 ML CUP SWISH-SWAL SCH ×5 (09:00→21:28)
[2016-12-26] MEDS: guaiFENesin/CODEINE SYRUP 200 MG/20 MG/10 ML CUP PO PRN ×3 (09:07→21:28)
--- NOTE | 2016-12-26 12:55 | HHI.IDPN ---
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 reports he was in Afib with RVR new onset. No rash No diarrhea Sitting in chair working on computer. Antibiotics Cefepime IV Azithro IV Lines Line sites with no e/o infection. Past Medical History reviewed Allergies: Coded Allergies: No Known Allergies (Verified , 12/22/16) Objective . Vital Signs Date Time Temp Pulse Resp B/P Pulse Ox O2 Delivery O2 Flow Rate FiO2 12/26/16 12:00 98.6 101 18 128/86 95 12/26/16 08:00 98.1 107 18 128/89 95 12/26/16 04:00 97.5 101 21 109/61 98 12/26/16 00:00 96.4 109 21 98/63 93 12/25/16 21:51 109 12/25/16 20:00 96.0 109 20 129/85 91 12/25/16 19:59 96 Nasal Cannula 3.00 12/25/16 18:43 3.00 12/25/16 16:00 97.2 113 17 111/63 94 12/25/16 12/25/16 12/26/16 15:00 23:00 07:00 Intake Total 480 ml 360 ml 225 ml Balance 480 ml 360 ml 225 ml Intake Oral 380 ml 360 ml 120 ml IV Total 100 ml 0 ml 105 ml # Voids 4 2 2 # Bowel Movements 1 1 0 . Laboratory Tests Test 12/25/16 04:31 White Blood Count 9.7 TH/MM3 Red Blood Count 4.52 MIL/MM3 Hemoglobin 13.8 GM/DL Hematocrit 38.9 % Mean Corpuscular Volume 86.0 FL Mean Corpuscular Hemoglobin 30.5 PG Mean Corpuscular Hemoglobin 35.4 % Concent Red Cell Distribution Width 14.2 % Platelet Count 179 TH/MM3 Mean Platelet Volume 8.3 FL Neutrophils (%) (Auto) 91.5 % Lymphocytes (%) (Auto) 5.3 % Monocytes (%) (Auto) 3.1 % Eosinophils (%) (Auto) 0.0 % Basophils (%) (Auto) 0.1 % Neutrophils # (Auto) 8.9 TH/MM3 Lymphocytes # (Auto) 0.5 TH/MM3 Monocytes # (Auto) 0.3 TH/MM3 Eosinophils # (Auto) 0.0 TH/MM3 Basophils # (Auto) 0.0 TH/MM3 CBC Comment DIFF FINAL Differential Comment Laboratory Tests Test 12/25/16 04:31 Sodium Level 139 MEQ/L Potassium Level 4.4 MEQ/L Chloride Level 107 MEQ/L Carbon Dioxide Level 21.5 MEQ/L Anion Gap 11 MEQ/L Blood Urea Nitrogen 23 MG/DL Creatinine 0.86 MG/DL Estimat Glomerular Filtration 91 ML/MIN Rate Random Glucose 178 MG/DL Calcium Level 9.1 MG/DL Magnesium Level 2.2 MG/DL Troponin I LESS THAN 0.02 NG/ML Thyroid Stimulating Hormone 0.352 uIU/ML 3rd Gen Imaging Last Impressions Chest X-Ray 12/23/16 0000 Signed Impressions: Service Date/Time: Friday, December 23, 2016 19:27 - CONCLUSION: Hazy density seen throughout the lungs which may represent some mild interstitial prominence especially on the right side. Miguel Angel Hennessy MD CT Angiography 12/22/16 0839 Signed Impressions: Service Date/Time: Thursday, December 22, 2016 10:42 - CONCLUSION: Negative examination. Suresh Still MD Physical Exam GENERAL: Thin built, poorly nourished patient, in no apparent distress. SKIN: No rashes. HEAD: Atraumatic. Normocephalic. No temporal or scalp tenderness. EYES: Pupils equal round and reactive. Extraocular motions intact. No scleral icterus. No injection or drainage. ENT: Nose without bleeding, purulent drainage or septal hematoma. Throat without erythema, tonsillar hypertrophy or exudate. Uvula midline. Airway patent. NECK: Trachea midline. Supple, nontender, no meningeal signs. CARDIOVASCULAR: HS audible. RESPIRATORY: Clear to auscultation. Breath sounds equal bilaterally. No wheezes , rales, or rhonchi. GASTROINTESTINAL: Abdomen soft, non-tender, nondistended. MUSCULOSKELETAL: Extremities without clubbing, cyanosis, or edema. No joint tenderness, effusion, or edema noted. No calf tenderness. Negative Homans sign bilaterally. NEUROLOGICAL: Awake and alert. Grossly non focal Psych: cooperative IV line sites with no e/o infection. Assessment & Plan Remarks Community acquired pneumonia vs atypical pneumonia vs viral pneumonitis. Patient reports he finished his augmentin and next day had recurrence of symptoms. Acute COPD exacerbation Ulcerative Colitis on Asacol Recs Continue Cefepime IV Continue Azithro oral d/w primary team: continue above while in hospital/ Upon discharge Azithro for 3 more days. Will sign off please call back if any change in clinical condition or questions. Mikayla Mariano MD Dec 26, 2016 12:55
--- NOTE | 2016-12-26 13:37 | HHI.PR ---
Subjective Subjective Remarks less sob, and wheezing minimal cough feels improved overnight, has palpitations, tele showed afib RVR seen by Dr. Reyes at this time, poss. due to meds, copd afebrile tele reviewed, afib RVR HR 134 Review of Systems Constitutional Constitutional Remarks 12 point ROS completed, negative except as noted above Vitals/Results Intake & Output 12/25/16 12/25/16 12/26/16 15:00 23:00 07:00 Intake Total 480 ml 360 ml 225 ml Balance 480 ml 360 ml 225 ml Intake Oral 380 ml 360 ml 120 ml IV Total 100 ml 0 ml 105 ml # Voids 4 2 2 # Bowel Movements 1 1 0 Vital Signs Vital Signs Date Time Temp Pulse Resp B/P Pulse Ox O2 Delivery O2 Flow Rate FiO2 12/26/16 12:00 98.6 101 18 128/86 95 12/26/16 08:00 98.1 107 18 128/89 95 12/26/16 04:00 97.5 101 21 109/61 98 12/26/16 00:00 96.4 109 21 98/63 93 12/25/16 21:51 109 12/25/16 20:00 96.0 109 20 129/85 91 12/25/16 19:59 96 Nasal Cannula 3.00 12/25/16 18:43 3.00 12/25/16 16:00 97.2 113 17 111/63 94 CBC/BMP: 12/25/16 0431 12/25/16 0431 Physical Exam General General Appearance: Well Developed, Comfortable, Anxious Eyes Eye Exam: Pupils Equal, Pupils Reactive Ears & Nose Ears & Nose Exam: Nasal Mucosa [place] Neck Neck Exam: Trachea Midline Pulmonary Resp Exam: No Distress Resp Remarks mild exp. wheeze, improved air movement Cardiology CV Exam: Good Perfusion, Arrhythmia, Tachycardia Gastrointestinal/Abdomen GI Exam: Non-Tender, Bowel Sounds Present Musculoskeletal MS Exam: Normal Gait, Normal Tone Integumentary Skin Exam: Warm, Dry Neurologic Neuro Exam: Alert, Awake, Oriented, Speech Clear, Moving All Extremities, No Focal Deficits Psychiatric Psych Exam: Appropriate Responses VTE Prophylaxis VTE Prophylaxis Meds: Heparin PUD Prophylasis PUD Prophylaxis: Protonix Assessment/Plan Problem List: (1) COPD (chronic obstructive pulmonary disease) (2) Ulcerative colitis (3) Hypoxemia (4) Hypertension (5) Pneumonia (6) BPH (benign prostatic hyperplasia) (7) Atrial fibrillation Assessment/Plan 61-year-old male with recent diagnosis of COPD, quit smoking in October, presented to emergency room complaining of shortness of breath and cough for the last 2 weeks worsening last night while he was at work. Was treated with Augmentin 10 days by PCP for possible URI infection. He noted saturations on room air were 81%. Patient presented to emergency room for further evaluation, chest x-ray with findings of possible early right lower lobe infiltrate, possible pneumonia, COPD exacerbation with hypoxemia, failure of outpatient therapy -supplemental oxygen as needed to keep sats > 92 appreciate pulmonary input, has adjusted steroids and duonebs due to afib with RVR Robitussin AC 10 MLS every 6 when necessary continue Symbicort -Continue with empiric antibiotics, Rocephin 1 g IV daily, Zithromax 500 mg by mouth -Nystatin -ID input appreciated, viral panel has been ordered, negative so far History of ulcerative colitis, stable Continue with Asacol Hypertension, uncontrolled secondary to respiratory distress -continue home medications Afib with RVR overnight -continue cardizem -appreciate cardiology input, d/w Dr. Reyes-if he remains in afib, poss. cardioversion tomorrow. Will keep NPO after MN -echo done, ef okay per Dr. Reyes Heparin 5000 units subcutaneous twice a day for DVT prophylaxis Protonix for GI prophylaxis continue to monitor walk test ordered, may need oxygen for home CM for dc planning D/W RN D/W Dr. Machado D/W pt D/W Dr. Reyes This patient was seen by myself and Dr. Machado, this note is written his behalf Problem Qualifiers (1) COPD (chronic obstructive pulmonary disease): Qualified Code: J44.1 - Chronic obstructive pulmonary disease with acute exacerbation (2) Ulcerative colitis: Qualified Code: K51.90 - Ulcerative colitis without complications, unspecified location (3) Hypertension: Qualified Code: I10 - Essential hypertension (4) Pneumonia: Qualified Code: J18.1 - Pneumonia of right lower lobe due to infectious organism (5) BPH (benign prostatic hyperplasia): (6) Atrial fibrillation: Qualified Code: I48.91 - Atrial fibrillation, unspecified type Carmen Huggins Dec 26, 2016 13:36
--- NOTE | 2016-12-26 13:39 | HHI.PR ---
Subjective Subjective Remarks went for cardioversion cancelled, converted to SR before procedure pt. now back to floor SOB with activity, somewhat anxious, wants to go home will need oxygen no fever HR up 120s, ST, no afib Dr. Josue to evaluate as well will need to stay overnight to monitor Review of Systems Constitutional Constitutional Remarks 12 point ROS completed, negative except as noted above Vitals/Results Intake & Output 12/25/16 12/25/16 12/26/16 15:00 23:00 07:00 Intake Total 480 ml 360 ml 225 ml Balance 480 ml 360 ml 225 ml Intake Oral 380 ml 360 ml 120 ml IV Total 100 ml 0 ml 105 ml # Voids 4 2 2 # Bowel Movements 1 1 0 Vital Signs Vital Signs Date Time Temp Pulse Resp B/P Pulse Ox O2 Delivery O2 Flow Rate FiO2 12/26/16 12:00 98.6 101 18 128/86 95 12/26/16 08:00 98.1 107 18 128/89 95 12/26/16 04:00 97.5 101 21 109/61 98 12/26/16 00:00 96.4 109 21 98/63 93 12/25/16 21:51 109 12/25/16 20:00 96.0 109 20 129/85 91 12/25/16 19:59 96 Nasal Cannula 3.00 12/25/16 18:43 3.00 12/25/16 16:00 97.2 113 17 111/63 94 CBC/BMP: 12/25/16 0431 12/25/16 0431 Physical Exam General General Appearance: Well Developed, Comfortable, Anxious Eyes Eye Exam: Pupils Equal, Pupils Reactive Ears & Nose Ears & Nose Exam: Nasal Mucosa [place] Neck Neck Exam: Trachea Midline Pulmonary Resp Exam: No Distress Resp Remarks mild exp. wheeze, improved air movement Cardiology CV Exam: Good Perfusion, Arrhythmia, Tachycardia Gastrointestinal/Abdomen GI Exam: Non-Tender, Bowel Sounds Present Musculoskeletal MS Exam: Normal Gait, Normal Tone Integumentary Skin Exam: Warm, Dry Neurologic Neuro Exam: Alert, Awake, Oriented, Speech Clear, Moving All Extremities, No Focal Deficits Psychiatric Psych Exam: Appropriate Responses VTE Prophylaxis VTE Prophylaxis Meds: Heparin PUD Prophylasis PUD Prophylaxis: Protonix Assessment/Plan Problem List: (1) COPD (chronic obstructive pulmonary disease) (2) Ulcerative colitis (3) Hypoxemia (4) Hypertension (5) Pneumonia (6) BPH (benign prostatic hyperplasia) (7) Atrial fibrillation Assessment/Plan 61-year-old male with recent diagnosis of COPD, quit smoking in October, presented to emergency room complaining of shortness of breath and cough for the last 2 weeks worsening last night while he was at work. Was treated with Augmentin 10 days by PCP for possible URI infection. He noted saturations on room air were 81%. Patient presented to emergency room for further evaluation, chest x-ray with findings of possible early right lower lobe infiltrate, possible pneumonia, COPD exacerbation with hypoxemia, failure of outpatient therapy -supplemental oxygen as needed to keep sats > 92 appreciate pulmonary input, has adjusted steroids and duonebs due to afib with RVR Robitussin AC 10 MLS every 6 when necessary continue Symbicort -Continue with empiric antibiotics, Rocephin 1 g IV daily, Zithromax 500 mg by mouth -Nystatin -ID input appreciated, viral panel has been ordered, negative so far History of ulcerative colitis, stable Continue with Asacol Hypertension, uncontrolled secondary to respiratory distress -continue home medications Afib with RVR overnight -Cardioversion planned today but cancelled, pt. converted to SR. -continue cardizem, inc to 60 mg PO QID, HR 120s -appreciate cardiology -echo done, ef okay per Dr. Reyes Low TSH -will check T3, free T4 Heparin 5000 units subcutaneous twice a day for DVT prophylaxis Protonix for GI prophylaxis needs oxygen for home, ordered CM for dc planning will need to be off work at least 2 weeks, until SOB improved and no hypoxia, d/ w at length Hopefully dc tomorrow D/W RN D/W Dr. Machado D/W pt This patient was seen by myself and Dr. Machado, this note is written his behalf Problem Qualifiers (1) COPD (chronic obstructive pulmonary disease): Qualified Code: J44.1 - Chronic obstructive pulmonary disease with acute exacerbation (2) Ulcerative colitis: Qualified Code: K51.90 - Ulcerative colitis without complications, unspecified location (3) Hypertension: Qualified Code: I10 - Essential hypertension (4) Pneumonia: Qualified Code: J18.1 - Pneumonia of right lower lobe due to infectious organism (5) BPH (benign prostatic hyperplasia): (6) Atrial fibrillation: Qualified Code: I48.91 - Atrial fibrillation, unspecified type Carmen Huggins Dec 26, 2016 13:39
[2016-12-26] MEDS: MULTIVITAMIN HEMATINIC THERAPEUTIC TAB PO SCH (13:40)
[2016-12-26] MEDS: VITAMIN B COMPLEX/VIT C TAB PO SCH (13:40)
[2016-12-26] MEDS: predniSONE 5 MG TAB PO SCH ×2 (13:40→21:28)
[2016-12-26] MEDS: AZITHROMYCIN 250 MG TAB PO SCH (13:41)
[2016-12-26] MEDS: ASCORBIC ACID 500 MG TAB PO SCH (13:41)
[2016-12-26] MEDS ORDERED: OXYGENTANK NAS.CANULA (13:44)
[2016-12-26] MEDS ORDERED: ZITH250T PO (13:46)
[2016-12-26] MEDS: ACETAMINOPHEN 500 MG CPLT PO PRN (15:35)
[2016-12-26] MEDS: DILTIAZEM HCL 60 MG TAB PO SCH ×2 (16:28→21:28)
[2016-12-26] MEDS: RESP: ALBUTEROL 2.5 MG/IPRATROPIUM 0.5 MG NEB (SCH) NEB (21:11)
[2016-12-26] MEDS: clonazePAM 0.5 MG TAB PO SCH (21:28)
[2016-12-27 01:00] VITALS: BP 116/66; PULSE 85; RESP 21; TEMP 98.9; O2SAT 92
[2016-12-27] MEDS: HEPARIN SODIUM - SQ 10,000 UNITS/ML VIAL SQ SCH ×2 (01:13→12:51)
[2016-12-27 04:00] VITALS: BP 108/78; PULSE 106; RESP 21; TEMP 98.1; O2SAT 92
[2016-12-27 08:00] VITALS: BP 127/78; PULSE 102; RESP 18; TEMP 98.4; O2SAT 95
[2016-12-27] MEDS: DILTIAZEM HCL 60 MG TAB PO SCH ×3 (08:57→16:21)
[2016-12-27] MEDS: MULTIVITAMIN HEMATINIC THERAPEUTIC TAB PO SCH (08:57)
[2016-12-27] MEDS: GABAPENTIN 100 MG CAP PO SCH ×2 (08:57→12:49)
[2016-12-27] MEDS: predniSONE 5 MG TAB PO SCH (08:57)
[2016-12-27] MEDS: VITAMIN B COMPLEX/VIT C TAB PO SCH (08:57)
[2016-12-27] MEDS: ASCORBIC ACID 500 MG TAB PO SCH (08:57)
[2016-12-27] MEDS: NYSTATIN SUSP 500,000 U/5 ML CUP SWISH-SWAL SCH ×2 (08:57→12:49)
[2016-12-27] MEDS: AZITHROMYCIN 250 MG TAB PO SCH (08:57)
[2016-12-27] MEDS: MESALAMINE HD 800 MG DELAYED RELEASE TAB PO SCH ×2 (08:57→12:49)
[2016-12-27] MEDS: CEFEPIME INJ 2,000 MG in SODIUM CHLORIDE 0.9% INJ 100 ML IV SCH (08:59)
[2016-12-27] MEDS: BUDESONIDE-FORMOTEROL 160/4.5 MCG INHALER INH SCH (09:00)
[2016-12-27] MEDS: SODIUM CHLORIDE 0.9% FLUSH 5 ML FLUSH FLUSH SCH (09:06)
[2016-12-27] MEDS: RESP: ALBUTEROL 2.5 MG/IPRATROPIUM 0.5 MG NEB (SCH) NEB (10:06)
[2016-12-27] MEDS: guaiFENesin/CODEINE SYRUP 200 MG/20 MG/10 ML CUP PO PRN (10:20)
[2016-12-27 12:00] VITALS: BP 125/76; PULSE 98; RESP 18; TEMP 98.6; O2SAT 96
--- NOTE | 2016-12-27 12:18 | HHI.PR ---
Subjective Hospital Day: 5 Subjective Remarks afib rhythm converted with cough, SR now SOB exertional, mild, cough no fever some tachycardia with ambulation,. 110 No chest pain appetite good. Review of Systems Constitutional Constitutional Remarks 10 point ROS done. Tachycardia 110, with activity, cough, O2. Other systems negative Pulmonary Respiratory: Coughing Pulmonary Remarks wearing O2 GI/Abdomen GI/Abdominal Exam: Vomiting Vitals/Results Intake & Output 12/26/16 12/26/16 12/27/16 15:00 23:00 07:00 Intake Total 100 ml 120 ml 240 ml Balance 100 ml 120 ml 240 ml Intake Oral 0 ml 120 ml 240 ml IV Total 100 ml 0 ml # Voids 2 2 3 # Bowel Movements 0 0 1 Vital Signs Vital Signs Date Time Temp Pulse Resp B/P Pulse Ox O2 Delivery O2 Flow Rate FiO2 12/27/16 12:00 98.6 98 18 125/76 96 12/27/16 10:11 Nasal Cannula 3.00 12/27/16 08:21 Nasal Cannula 3.00 12/27/16 08:00 98.4 102 18 127/78 95 12/27/16 04:00 98.1 106 21 108/78 92 12/27/16 01:00 98.9 85 21 116/66 92 12/26/16 21:16 92 Nasal Cannula 2.00 12/26/16 20:00 96.2 98 20 124/84 92 12/26/16 16:26 100.9 12/26/16 16:00 101.1 117 18 123/72 94 CBC/BMP: 12/25/16 0431 12/25/16 0431 Lab Results Laboratory Tests Test 12/27/16 03:28 Free Thyroxine 1.43 NG/DL Total Triiodothyronine 121 NG/DL Imaging Remarks Last Impressions Chest X-Ray 12/23/16 0000 Signed Impressions: Service Date/Time: Friday, December 23, 2016 19:27 - CONCLUSION: Hazy density seen throughout the lungs which may represent some mild interstitial prominence especially on the right side. Miguel Angel Hennessy MD CT Angiography 12/22/16 0839 Signed Impressions: Service Date/Time: Thursday, December 22, 2016 10:42 - CONCLUSION: Negative examination. Suresh Still MD Current Medications Active Medications Diltiazem HCl (Cardizem) 60 mg QID PO Last administered on 2/4/17at 08:57; Admin Dose 60 MG; Start 12/26/16 at 18:00 Physical Exam General General Appearance: Well Developed, Comfortable, Anxious Appearance Remarks slim Eyes Eye Exam: Pupils Equal, Pupils Reactive Ears & Nose Ears & Nose Exam: Nasal Mucosa [place] Neck Neck Exam: Trachea Midline Pulmonary Resp Exam: Clear Bilaterally, No Distress Resp Remarks cough Cardiology CV Exam: Normal Sinus Rhythm, Good Perfusion, Tachycardia Gastrointestinal/Abdomen GI Exam: Non-Tender, Bowel Sounds Present Musculoskeletal MS Exam: Normal Gait, Normal Tone, Good Strength Integumentary Skin Exam: Warm, Dry Extremeties Extremities Exam: No Edema Neurologic Neuro Exam: Alert, Awake, Oriented, Speech Clear, Moving All Extremities, No Focal Deficits Psychiatric Psych Exam: Appropriate Responses VTE Prophylaxis VTE Prophylaxis Meds: Heparin PUD Prophylasis PUD Prophylaxis: Protonix Assessment/Plan Problem List: (1) COPD (chronic obstructive pulmonary disease) (2) Ulcerative colitis (3) Hypoxemia (4) Hypertension (5) Pneumonia (6) BPH (benign prostatic hyperplasia) (7) Atrial fibrillation Assessment/Plan 61-year-old male with recent diagnosis of COPD, quit smoking in October, presented to emergency room complaining of shortness of breath and cough for the last 2 weeks worsening last night while he was at work. Was treated with Augmentin 10 days by PCP for possible URI infection. He noted saturations on room air were 81%. Patient presented to emergency room for further evaluation, chest x-ray with findings of possible early right lower lobe infiltrate, possible pneumonia, COPD exacerbation with hypoxemia, failure of outpatient therapy -supplemental oxygen as needed to keep sats > 92 appreciate pulmonary input, has adjusted steroids and duonebs due to afib with RVR Robitussin AC 10 MLS every 6 when necessary continue Symbicort -Continue with empiric antibiotics, Rocephin 1 g IV daily, Zithromax 500 mg by mouth -Nystatin -ID input appreciated, viral panel has been ordered, negative so far History of ulcerative colitis, stable Continue with Asacol Hypertension, uncontrolled secondary to respiratory distress -continue home medications Afib with RVR overnight -Cardioversion planned today but cancelled, pt. converted to SR on his own, 2/3 -continue cardizem, inc to 60 mg PO QID, HR 120s Telemetry -appreciate cardiology -echo done, ef okay per Dr. Reyes Low TSH -will check T3, free T4, will need monitoring as outpatient if patient discharges Heparin 5000 units subcutaneous twice a day for DVT prophylaxis Protonix for GI prophylaxis needs oxygen for home, ordered CM for dc planning will need to be off work at least 2 weeks, until SOB improved and no hypoxia, d/ w at length Hopefully dc today , Dr. Machado will see. D/W RN D/W Dr. Machado D/W pt This patient was seen by myself and Dr. Machado, this note is written his behalf Problem Qualifiers (1) COPD (chronic obstructive pulmonary disease): Qualified Code: J44.1 - Chronic obstructive pulmonary disease with acute exacerbation (2) Ulcerative colitis: Qualified Code: K51.90 - Ulcerative colitis without complications, unspecified location (3) Hypertension: Qualified Code: I10 - Essential hypertension (4) Pneumonia: Qualified Code: J18.1 - Pneumonia of right lower lobe due to infectious organism (5) BPH (benign prostatic hyperplasia): (6) Atrial fibrillation: Qualified Code: I48.91 - Atrial fibrillation, unspecified type Priscilla Au Dec 27, 2016 12:18
[2016-12-27] MEDS ORDERED: CARD240C6 PO (16:00)
--- NOTE | 2016-12-27 17:31 | HHI.DS ---
Discharge Summary Admission Date Dec 22, 2016 at 13:07 Discharge Date: Dec 27, 2016 Admitting Diagnosis Hypoxemia (1) Hypoxemia Diagnosis: Principal (2) COPD (chronic obstructive pulmonary disease) Diagnosis: Secondary (3) Hypertension Diagnosis: Principal (4) Ulcerative colitis Diagnosis: Secondary (5) BPH (benign prostatic hyperplasia) Diagnosis: Secondary (6) Pneumonia Diagnosis: Principal (7) Atrial fibrillation Diagnosis: Principal (8) Tobacco abuse Diagnosis: Secondary Procedures Set up for cardioversion, pt. converted on his own before completion Brief History This was a pleasant 61-year-old male with notable past medical history of tobacco abuse with recent diagnosis of COPD, ulcer colitis, hypertension, BPH. Patient presented to the emergency room with complaint of shortness of breath and hypoxia. According to the patient approximately 2 weeks ago before admission, he had shortness of breath with wheezing and cough. He went to see his primary care physician who gave him Rocephin IM as well as Solu-Medrol and prescribed Augmentin. He completed 10 days of Augmentin and his symptoms did improve. He also had PFTs and was told he had COPD and was referred to see Dr. Marte. Patient recently quit October 2016. 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 He gave himself oxygen at 2 L and finished his shift. Day of admission, patient came to the emergency room for further evaluation. Stated he has a dry cough, very little sputum, clear in color. No fever, no chills. Denied any abdominal pain, no diarrhea, no nausea no vomiting. He did use Symbicort as well as Combivent at home. He's not on any oxygen. CBC/BMP: 12/25/16 0431 12/25/16 0431 Significant Findings Laboratory Tests Test 12/25/16 04:31 Hematocrit 38.9 % (39.0-51.0) Neutrophils (%) (Auto) 91.5 % (16.0-70.0) Lymphocytes (%) (Auto) 5.3 % (9.0-44.0) Neutrophils # (Auto) 8.9 TH/MM3 (1.8-7.7) Lymphocytes # (Auto) 0.5 TH/MM3 (1.0-4.8) Blood Urea Nitrogen 23 MG/DL (7-18) Random Glucose 178 MG/DL (74-106) Troponin I LESS THAN 0.02 NG/ML (0.02-0.05) Thyroid Stimulating Hormone 0.352 uIU/ML 3rd Gen (0.358-3.740) Imaging Last Impressions Chest X-Ray 12/23/16 0000 Signed Impressions: Service Date/Time: Friday, December 23, 2016 19:27 - CONCLUSION: Hazy density seen throughout the lungs which may represent some mild interstitial prominence especially on the right side. Miguel Angel Hennessy MD CT Angiography 12/22/16 0839 Signed Impressions: Service Date/Time: Thursday, December 22, 2016 10:42 - CONCLUSION: Negative examination. Suresh Still MD PE at Discharge Physical Exam General General Appearance: Well Developed, Comfortable, Anxious Appearance Remarks slim Eyes Eye Exam: Pupils Equal, Pupils Reactive Ears & Nose Ears & Nose Exam: Nasal Mucosa [place] Neck Neck Exam: Trachea Midline Pulmonary Resp Exam: Clear Bilaterally, No Distress Resp Remarks cough Cardiology CV Exam: Normal Sinus Rhythm, Good Perfusion, Tachycardia Gastrointestinal/Abdomen GI Exam: Non-Tender, Bowel Sounds Present Musculoskeletal MS Exam: Normal Gait, Normal Tone, Good Strength Integumentary Skin Exam: Warm, Dry Extremeties Extremities Exam: No Edema Neurologic Neuro Exam: Alert, Awake, Oriented, Speech Clear, Moving All Extremities, No Focal Deficits Psychiatric Psych Exam: Appropriate Responses VTE Prophylaxis VTE Prophylaxis Meds: Heparin PUD Prophylasis PUD Prophylaxis: Protonix Hospital Course Patient was evaluated in the emergency room, laboratory workup was completed, WBC was 8.2. Hemoglobin 15.9, hematocrit 46.2, platelets 182. BMP was essentially unremarkable except for mild hyponatremia, sodium 134. Troponin was negative. B natruretic peptide was negative. Chest x-ray completed showed questionable minimal early interstitial infiltrate to the right lung base. CTA was negative for PE. ABGs were completed, showed PO2 of 60 on 3 L nasal cannula , sats 87% on 3 L. Patient was started on empiric antibiotics. Patient is evaluated in the emergency room, he is complaining of persistent cough. Robitussin-AC has been ordered. He is noted with thrush. Patient is admitted for further evaluation and treatment. Patient failed outpatient treatment plan. This is the Problem List used on his treatment plan. (1) COPD (chronic obstructive pulmonary disease) (2) Ulcerative colitis (3) Hypoxemia (4) Hypertension (5) Pneumonia (6) BPH (benign prostatic hyperplasia) (7) Atrial fibrillation -supplemental oxygen as needed to keep sats > 92, was used throughout his hospital stay. Patient was evaluated for home O2. appreciate pulmonary input, has adjusted steroids and duonebs due to afib with RVR, dysrhythmia, which the patient had initially. Robitussin AC 10 MLS every 6 when necessary Symbicort, home med was continued -Continue with empiric antibiotics, Rocephin 1 g IV daily, Zithromax 500 mg by mouth throughout hospital stay -Nystatin was ordered swish and swallow and use throughout hospital stay -ID consult ,input appreciated for treatment plan, viral panel has been ordered , negative so far. Monitored throughout hospital stay History of ulcerative colitis, stable Continue with Asacol, home med. Hypertension, uncontrolled secondary to respiratory distress -continue home medications, monitored throughout hospital stay Afib with RVR overnight -Cardioversion planned today but cancelled, pt. converted to SR on his own with coughing, 2/3, cardizem, continued for home increased 60 mg PO QID due to tachycardia. HR 110 on Telemetry today with ambulation, but patient tolerated without shortness of breath or chest pain -appreciate cardiology input, during his hospital stay. Will's follow-up as an outpatient appointment. -echo done, ef maeganay per Dr. Reyes Low TSH -will check T3, free T4, will need monitoring as outpatient when patient discharges with his PCP Heparin 5000 units subcutaneous twice a day for DVT prophylaxis during hospital stay Protonix for GI prophylaxis during hospital stay needs oxygen for home, ordered for home use CM assisted with dc planning and O2 sat up Evaluated per Dr. Machado, and GERARD Simons . Stable for discharge. Discharge education given which includes work release. will need to be off work at least 2 weeks, until SOB improved and no hypoxia, d/ w at length Stable on discharge. Pt Condition on Discharge: Stable Discharge Disposition: Discharge Home Discharge Instructions DIET: Follow Instructions for: As Tolerated, No Restrictions Activities you can perform: Weight Bearing as Rohini Follow up Referrals: Cardiology PCP Follow-up New Medications: Diltiazem CD 24 HR (Cardizem CD 24 HR) 240 Mg Caper 240 MG PO DAILY tachycardia #30 Ref 3 CAP Oxygen tank (Oxygen tank) 1 Ea Tank 2 LITER CHYNA.CANULA CONTINUOUS Oxygen Concentrator Portable Gaseous 2 L/min via Nasal Cannula Continuous For 99 months HYPOXEMIA PREVENTION #1 CYLINDER Azithromycin (Zithromax) 250 Mg Tab 500 MG PO DAILY Infection #3 Ref 0 TAB Continued Medications: Acetaminophen (Tylenol Extra Strength) 500 Mg Tab 500 MG PO Q4-6H PRN PAIN Ref 0 TAB Ascorbic Acid (Vitamin C) 500 Mg Tab 500 MG PO DAILY Nutritional Supplement Ref 0 TAB B-Complex Vitamins (Vitamin B Complex) 1 Tab 1 TAB PO DAILY Budesonide-Formoterol Inh (Symbicort Inh) 160-4.5 Mcg/Act Aero 1 PUFF INH Q12HR #1 Ref 0 INHALER Clonidine (Clonidine) 0.1 Mg Tab 0.1 MG PO BID PRN SYSTOLIC B/P > 170 #60 Ref 0 TAB Dicyclomine (Bentyl) 20 Mg Tab 20 MG PO TID PRN Bowel Management Ref 0 TAB Gabapentin (Neurontin) 100 Mg Cap 100 MG PO TID #90 Ref 0 CAP Ipratropium-Albuterol Neb (Duoneb) 0.5-2.5 Mg/3 Ml Neb 1 VIAL NEB Q6HR PRN SHORTNESS OF BREATH #120 Ref [address] (Asacol HD) 800 Mg Tab 1600 MG PO Q8HR Swallow whole. Take on an empty stomach. Ulcerative colitis Ref 0 TAB Metoprolol Tartrate (Metoprolol Tartrate) 25 Mg Tab 12.5 MG PO DAILY PRN INCREASE IN BLOOD PRESSURE #60 Ref 0 TAB Multiple Vitamins W/ Minerals (Centrum Silver Adult 50+) 1 Tab Tab 1 TAB PO DAILY Pantoprazole (Protonix) 40 Mg Tab 40 MG PO DAILY PRN REFLUX #30 Ref 0 TAB Additional Information Active Medications Diltiazem HCl (Cardizem) 60 mg QID PO Last administered on 12/27/16 16:21; Admin Dose 60 MG; Start 12/26/16 at 18:00; Stop 12/27/16 at 16:41; Status Priscilla Milian Dec 27, 2016 17:30
--- NOTE | 2016-12-28 14:20 | EKG ---
Date Performed: 12/26/2016 Time Performed: 12:32:26 PTAGE: 61 years EKG: Sinus rhythm . When compared to previous tracing, previously noted atrial fibrillation is no longer present, and p reviously noted ST elevation Is some what reduced. Normal ECG PREVIOUS TRACING : 12/25/2016 04.19.18 DOCTOR: Frederick Yu Interpretating Date/Time 12/28/2016 14:18:41
--- NOTE | 2017-01-06 08:32 | RSPPFT ---
DATE OF PROCEDURE: 12/24/16 COMMENTS: Spirometry is within normal limits. Post-bronchodilator study demonstrated improvements in the FVC and FEF 25-75. Lung volumes were not completed. Flow volume loops appear unremarkable. IMPRESSION: 1. Essentially normal pulmonary function study. 2. Minimal response to use of bronchodilator indicating reactive airways.
== END 2016-12-27 16:24 | disposition home or self-care (01) | DRG 190 ==
LOC: NEPE 08:13 → NEDA 13:07 → N07A 16:19
PROVIDERS: ADMIT Specialist; ATTEND Specialist
DX: J44.0 Chronic obstructive pulmonary disease with (acute) lower respiratory infection (principal); J18.9 Pneumonia, unspecified organism; B37.0 Candidal stomatitis; E87.1 Hypo-osmolality and hyponatremia; K51.90 Ulcerative colitis, unspecified, without complications; N39.0 Urinary tract infection, site not specified; I48.91 Unspecified atrial fibrillation; J44.1 Chronic obstructive pulmonary disease with (acute) exacerbation; R09.02 Hypoxemia; I10 Essential (primary) hypertension; F41.9 Anxiety disorder, unspecified; N40.0 Benign prostatic hyperplasia without lower urinary tract symptoms; Z87.891 Personal history of nicotine dependence
CPT/HCPCS: 36600; 71010; 71275; 80048; 81001; 82805; 83605; 83735; 83880; 84439; 84443; 84480; 84484; 85007; 85025; 85027; 85610; 85652; 85730; 87040; 87449; 87633; 93005; 93306; 94060; 94620; 94640; 94664; J0456; J0692; J0696; J1644; J2920; J7050; J7512; Q9967

== ENCOUNTER 2017-01-03 16:34 | Inpatient (IN) | payer OTHER ==
[~2017-01-03] VITALS: Ht 162.6 cm; Wt 54.4 kg
[~2017-01-03 16:34] MED LIST changes: +ACET-703 PO; +ASAC800T PO; +CARD240C6 PO; -CENTTAB8; +CLON0.1T PO; +IPRASOL NEB; -LACTCAP7 PO; -MESA800 PO; +METO25TA3 PO; +MULT1TAB PO; +NEUR100C PO; +OXYGENTANK NAS.CANULA; +SYMB160A INH; -TOVI4TAB PO; +VITA500T PO; +VITATAB11 PO; +ZITH250T PO
[2017-01-03 16:37] VITALS: BP 156/74; PULSE 128; RESP 26; TEMP 102.9; O2SAT 87
[2017-01-03] MEDS ORDERED: AZITHROMYCIN INJ 500 MG in SODIUM CHLOR 0.9% 250 ML INJ 250 ML IV STA (16:40)
[2017-01-03] MEDS ORDERED: PIPERACIL-TAZO 4.5 GM PREMIX 100 ML IV STA (16:40)
[2017-01-03] MEDS ORDERED: SODIUM CHLOR 0.9% 1000 ML INJ 1,000 ML IV ONE (16:45)
[2017-01-03] MEDS ORDERED: ACETAMINOPHEN 325 MG TAB PO ONE (16:45)
[2017-01-03] MEDS ORDERED: methylPREDNISolone SOD SUCC 125 MG/2 ML VIAL IVP ONE (16:45)
[2017-01-03] MEDS ORDERED: AUGM500T7 PO (16:48)
--- NOTE | 2017-01-03 16:54 | PD ---
HPI Chief Complaint: Respiratory Symptoms Time Seen by Provider: 16:40 Travel History International Travel<30 days: No Contact w/Intl Traveler<30days: No Traveled to known affect area: No History of Present Illness HPI 61-year-old male came to the emergency room brought by his friend with history of respiratory distress and hypoxia. His friend is giving most of the history who is also a nurse in the emergency room. 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 Patient was admitted for shortness of breath and was diagnosed with pneumonia not too long ago. He was discharged about a week ago. Discharge home on oxygen and he has been requiring 4 L of oxygen and currently all of the day. Yesterday he was seen by a project management specialist Dr. Aquino in his office. Today he had gone to see his primary care since he was short of breath. He was on his oxygen and his oxygen saturation was in the 80s. Primary care wanted him to come emergently by EMS but patient insisted on coming by car. No history of chest pain. Upon arrival his temperature was 102.5. Patient did have tachycardia as well. He was extremely short of breath and could barely speak one word per breath. He appeared cyanotic with oxygen saturation of 85% on his oxygen. However he was awake and alert. As per his friend patient was diagnosed with new onset atrial fibrillation during his last admission. However today he did not seem to be in A. fib on the monitor. [facility] Past Medical History Narrative Medical List of his past medical history as reviewed from the nursing note. Atrial Fibrillation: Yes Heart Rhythm Problems: No Cancer: No Cardiac Catheterization: No Cardiovascular Problems: Yes (HTN) High Cholesterol: No Congestive Heart Failure: No COPD: Yes Diabetes: No Diminished Hearing: No Diverticulitis: Yes Endocrine: No Gastrointestinal Disorders: Yes (ulcerative colitis) GERD: Yes Genitourinary: Yes (uti this week) Hepatitis: No Hiatal Hernia: No Hypertension: Yes Immune Disorder: No Kidney Stones: No Medical other: Yes (RECENT HOSPITALIZATION SEPTICEMIA, ANTIBIOTICS) Musculoskeletal: No Neurologic: No Psychiatric: No Reproductive: No Respiratory: No Myocardial Infarction: No Pneumonia: Yes Renal Failure: No Thyroid Disease: No Ulcer: No Past Surgical History Abdominal Surgery: Yes (COLONOSCOPY) AICD: No Cardiac Surgery: No Coronary Artery Bypass Graft: No Ear Surgery: No Endocrine Surgery: No Eye Surgery: No Genitourinary Surgery: No Gynecologic Surgery: No Joint Replacement: No Oral Surgery: No Pacemaker: No Thoracic Surgery: No Other Surgery: Yes (BENIGN CYST REMOVED FROM BUTTOCK 1999, KELOID REMOVED LEFT SHOULDER/ARM) Social History Alcohol Use: Yes (SOCIAL) Tobacco Use: No (5 CIGARETTES DAILY) Substance Use: No Allergies-Medications (Allergen,Severity, Reaction): Coded Allergies: No Known Allergies (Verified , 12/22/16) Comments No known drug allergies. Reported Meds & Prescriptions Reported Meds & Active Scripts Active Cardizem CD 24 HR (Diltiazem CD 24 HR) 240 Mg Caper 240 Mg PO DAILY Oxygen tank (Oxygen) 1 Ea Tank 2 Liter CHYNA.CANULA CONTINUOUS Oxygen Concentrator Portable Gaseous 2 L/min via Nasal Cannula Continuous For 99 months Reported Augmentin (Amoxicillin-Clavulanate) 500-125 mg Tab Unknown Dose PO BID Symbicort Inh (Budesonide/Formoterol Fumarate) 160-4.5 Mcg/Act Aero 1 Puff INH Q12HR Vitamin C (Ascorbic Acid) 500 Mg Tab 500 Mg PO DAILY Vitamin B Complex (B-Complex Vitamins) 1 Tab 1 Tab PO DAILY Duoneb (Ipratropium-Albuterol Neb) 0.5-2.5 Mg/3 Ml Neb 1 Vial NEB Q6HR PRN Metoprolol Tartrate 25 Mg Tab 12.5 Mg PO DAILY PRN Clonidine (Clonidine HCl) 0.1 Mg Tab 0.1 Mg PO BID PRN Neurontin (Gabapentin) 100 Mg Cap 100 Mg PO TID Protonix (Pantoprazole Sodium) 40 Mg Tab 40 Mg PO DAILY PRN Centrum Silver Adult 50+ (Multiple Vitamins W/ Minerals) 1 Tab Tab 1 Tab PO DAILY Asacol HD (Mesalamine) 800 Mg Tab 1,600 Mg PO Q8HR Swallow whole. Take on an empty stomach. Bentyl (Dicyclomine HCl) 20 Mg Tab 20 Mg PO TID PRN Narrative Medication List of his home medications reviewed from the nursing note. Review of Systems Except as stated in HPI: all other systems reviewed are Neg Physical Exam Narrative GENERAL: Awake, alert, moderate to severe respiratory distress SKIN: Warm and dry. Central cyanosis HEAD: Atraumatic. Normocephalic. EYES: Pupils equal and round. No scleral icterus. No injection or drainage. ENT: No nasal bleeding or discharge. Mucous membranes pink and moist. NECK: Trachea midline. No JVD. CARDIOVASCULAR: Regular rate and rhythm. Tachycardia. No murmur appreciated. RESPIRATORY: Use of accessory muscle. Fine crackles bilaterally, tachypnea GASTROINTESTINAL: Abdomen soft, non-tender, nondistended. Hepatic and splenic margins not palpable. MUSCULOSKELETAL: No obvious deformities. No clubbing. No cyanosis. No edema. NEUROLOGICAL: Awake and alert. No obvious cranial nerve deficits. Motor grossly within normal limits. Normal speech. PSYCHIATRIC: Appropriate mood and affect; insight and judgment normal. Data Data Last Documented VS Vital Signs Date Time Temp Pulse Resp B/P Pulse Ox O2 Delivery O2 Flow Rate FiO2 01/03/17 18:00 98.8 112 26 101/50 96 Nasal Cannula 4 Orders Electrocardiogram (01/03/17 16:40) Complete Blood Count With Diff (01/03/17 16:40) Comprehensive Metabolic Panel (01/03/17 16:40) Act Partial Throm Time (Ptt) (01/03/17 16:40) Lactic Acid Sepsis Protocol (01/03/17 16:40) Troponin I (01/03/17 16:40) Urinalysis - C+S If Indicated (01/03/17 16:40) Influenzae A/B Antigen (01/03/17 16:40) Blood Culture (01/03/17 16:40) Chest, Single Ap (01/03/17 16:40) Blood Glucose (01/03/17 16:40) Ecg Monitoring (01/03/17 16:40) Iv Access Insert/Monitor (01/03/17 16:40) Oximetry (01/03/17 16:40) Oxygen Administration (01/03/17 16:40) Acetaminophen (Tylenol) (01/03/17 16:45) Piperacil-Tazo 4.5 Gm Premix (Zosyn 4.5 (01/03/17 16:40) Azithromycin Inj (Zithromax Inj) (01/03/17 16:40) Arterial Blood Gas (Abg) (01/03/17 16:40) Methylprednisolone So Succ Inj (Solumedr (01/03/17 16:45) Albuterol-Ipratropium Neb (Duoneb Neb) (01/03/17 16:45) Sodium Chlor 0.9% 1000 Ml Inj (Ns 1000 M (01/03/17 16:45) Vancomycin Inj (Vancomycin Inj) (01/03/17 17:15) Ct Pulmonary Angiogram (01/03/17 ) Iohexol 350 Inj (Omnipaque 350 Inj) (01/03/17 18:44) Admit Order (Ed Use Only) (01/03/17 19:00) Labs Laboratory Tests Test 01/03/17 01/03/17 01/03/17 15:08 17:07 18:31 Blood Gas Puncture Site RT RADIAL Blood Gas Patient Temperature 98.6 Blood Gas HCO3 20 mmol/L Blood Gas Base Excess -2.9 mmol/L Blood Gas Oxygen Saturation 91 % Arterial Blood pH 7.50 Arterial Blood Partial 26 mmHg Pressure CO2 Arterial Blood Partial 79 mmHG Pressure O2 Arterial Blood Oxygen Content 21.6 Vol % Arterial Blood 2.6 % Carboxyhemoglobin Arterial Blood Methemoglobin 1.9 % Blood Gas Hemoglobin 16.8 G/DL Oxygen Delivery Device NASAL CANNULA Blood Gas Liter Flow 6 L/M White Blood Count 9.4 TH/MM3 Red Blood Count 5.29 MIL/MM3 Hemoglobin 15.6 GM/DL Hematocrit 45.1 % Mean Corpuscular Volume 85.2 FL Mean Corpuscular Hemoglobin 29.5 PG Mean Corpuscular Hemoglobin 34.6 % Concent Red Cell Distribution Width 14.1 % Platelet Count 265 TH/MM3 Mean Platelet Volume 8.2 FL Neutrophils (%) (Auto) 79.6 % Lymphocytes (%) (Auto) 10.4 % Monocytes (%) (Auto) 5.1 % Eosinophils (%) (Auto) 3.9 % Basophils (%) (Auto) 1.0 % Neutrophils # (Auto) 7.5 TH/MM3 Lymphocytes # (Auto) 1.0 TH/MM3 Monocytes # (Auto) 0.5 TH/MM3 Eosinophils # (Auto) 0.4 TH/MM3 Basophils # (Auto) 0.1 TH/MM3 CBC Comment DIFF FINAL Differential Comment Activated Partial 31.0 SEC Thromboplast Time Sodium Level 131 MEQ/L Potassium Level 4.1 MEQ/L Chloride Level 98 MEQ/L Carbon Dioxide Level 23.0 MEQ/L Anion Gap 10 MEQ/L Blood Urea Nitrogen 22 MG/DL Creatinine 1.08 MG/DL Estimat Glomerular Filtration 70 ML/MIN Rate Random Glucose 93 MG/DL Lactic Acid Level 0.9 mmol/L Calcium Level 8.8 MG/DL Total Bilirubin 0.5 MG/DL Aspartate Amino Transf 35 U/L (AST/SGOT) Alanine Aminotransferase 28 U/L (ALT/SGPT) Alkaline Phosphatase 71 U/L Troponin I LESS THAN 0.02 NG/ML Total Protein 7.8 GM/DL Albumin 2.5 GM/DL Urine Color YELLOW Urine Turbidity CLEAR Urine pH 5.5 Urine Specific [place] 1.015 Urine Protein TRACE mg/dL Urine Glucose (UA) NEG mg/dL Urine Ketones TRACE mg/dL Urine Occult Blood NEG Urine Nitrite NEG Urine Bilirubin NEG Urine Urobilinogen LESS THAN 2.0 MG/DL Urine Leukocyte Esterase NEG Urine RBC 2 /hpf Urine WBC 2 /hpf Urine Squamous Epithelial <1 /hpf Cells Urine Mucus FEW /lpf Microscopic Urinalysis Comment CATH-CULT NOT IND MDM Medical Decision Making Medical Screen Exam Complete: Yes Emergency Medical Condition: Yes Medical Record Reviewed: Yes Interpretation(s) Twelve-lead EKG was reviewed by me. Normal sinus rhythm, normal axis, poor R- wave progression, tachycardia, nonspecific ST-T wave changes. Heart rate of 119 bpm. Differential Diagnosis Pneumonia, PE, atypical pneumonitis, sepsis, autoimmune pneumonitis Narrative Course 6:36 PM blood test results are back and they appear to be within normal limit. His sodium is low. Chest x-ray shows bilateral groundglass opacity. Blood gas showed hypoxia in spite of 4 L of oxygen via nasal cannula. Patient was given Tylenol for his fever. I have also given him IV Zosyn, vancomycin and Zithromax for hospital-acquired pneumonia. Had ordered a CT pulmonary angiogram and patient is currently over at the CT. Awaiting for the test to be done and resulted. Patient will require admission. He was given a liter of IV fluid bolus as well. I reassessed him and he said he felt a little better now. He is saturating 98% on 6 L of oxygen. Patient is homosexual which increases his risk for HIV. I have ordered an HIV screen test for him. Critical Care Narrative Aggregate critical care time was 45 minutes. Time to perform other separately billable procedures was not included in the critical care time. My time did not include minutes spent treating any other patients simultaneously or on activities that did not directly contribute to the patient's treatment. The services I provided to this patient were to treat and/or prevent clinically significant deterioration that could result in: Sepsis, hypoxia, pneumonia, respiratory distress I provided critical care services requiring my management, as noted below: Chart data review, documentation time, medication orders and management, vital sign assessments/reviewing monitor data, ordering and reviewing lab tests, ordering and interpreting/reviewing x-rays and diagnostic studies, care of the patient and discussion of the patient with the admitting physicians. Procedures EKG Prior to Arrival: No Sepsis Criteria SIRS Criteria (2 or more): Temp > 100.9 or < 96.8, Heart rate over 90, RR > 20 or PaCO2 < 32 Sepsis Criteria (SIRS+source): Infect source susp/known Diagnosis Primary Impression: Hospital-acquired pneumonia Additional Impressions: Respiratory distress Hypoxia Hyponatremia SIRS (systemic inflammatory response syndrome) Admitting Information Admitting Physician Requests: Dyana Sarmiento MD Jan 03, 2017 16:53
[2017-01-03] MEDS: RESP: ALBUTEROL 2.5 MG/IPRATROPIUM 0.5 MG NEB (SCH) INH ×3 (16:56→21:28)
[2017-01-03 17:13] LABS: BLOOD GAS BASE EXCESS -2.9 mmol/L (-2-2); BLOOD GAS CARBOXYHEMOGLOBIN 2.6 % (0-4); BLOOD GAS HCO3 20 mmol/L (22-26); BLOOD GAS METHEMOGLOBIN 1.9 % (0-2); BLOOD GAS O2 HGB SATURATION 91 % (90-100); BLOOD GAS OXYGEN CONTENT 21.6 Vol % (12.0-20.0); BLOOD GAS PCO2 26 mmHg (38-42); BLOOD GAS PO2 79 mmHG (61-120); BLOOD GAS TOTAL HGB 16.8 G/DL (12.0-16.0); CRITICAL VALUE NO; DRAW SITE RT RADIAL; LITER FLOW 6 L/M; NUMBER OF ARTERIAL PUNCTURES 1; OXYGEN DEVICE NASAL CANNULA; STAT NO; TEMP CORR TO 98.6; ULNAR PULSE PRESENT
[2017-01-03] MEDS ORDERED: VANCOMYCIN INJ 1,000 MG in SODIUM CHLOR 0.9% 250 ML INJ 250 ML IV ONE (17:15)
--- NOTE | 2017-01-03 17:24 | RADRPT ---
EXAM DATE/TIME: 01/03/2017 16:55 [facility] COMPARISON: CHEST SINGLE AP, December 23, 2016, 19:27. INDICATIONS : Shortness of breath for the past three weeks. Got worst today. MEDICAL HISTORY : Hypertension. SURGICAL HISTORY : None. ENCOUNTER: Initial ACUITY: 3 weeks PAIN SCORE: 0/10 LOCATION: Bilateral chest FINDINGS: There is bilateral perihilar airspace disease. Findings are most characteristic of a bronchopneumonia . Heart size is within normal limits. Mildly tortuous aorta thickness and confusion. CONCLUSION: Bilateral airspace disease which has developed since December 23. Differential diagnosis includes bron chopneumonia and possibly hypersensitivity type reaction. Sree Dykes MD on January 03, 2017 at 17:21 Board Certified Radiologist. This report was verified electronically.
[2017-01-03 17:32] LABS: AUTOMATED NEUTROPHIL # 7.5 TH/MM3 (1.8-7.7); BASOPHIL # 0.1 TH/MM3 (0-0.2); EOSINOPHIL # 0.4 TH/MM3 (0-0.4); EOSINOPHIL % 3.9 % (0.0-4.0); HEMATOCRIT 45.1 % (39.0-51.0); HEMO FLAGS DIFF FINAL; LYMPH % 10.4 % (9.0-44.0); MEAN CELL VOLUME 85.2 FL (80.0-100.0); MEAN CORPUSCULAR HEMOGLOBIN 29.5 PG (27.0-34.0); MEAN CORPUSCULAR HGB CONC 34.6 % (32.0-36.0); MONO % 5.1 % (0.0-8.0); NEUT % 79.6 % (16.0-70.0); PLATELET COUNT 265 TH/MM3 (150-450); RED BLOOD COUNT 5.29 MIL/MM3 (4.50-5.90); RED CELL DISTRIBUTION WIDTH 14.1 % (11.6-17.2); WHITE BLOOD COUNT 9.4 TH/MM3 (4.0-11.0)
[2017-01-03 18:00] VITALS: BP 101/50; PULSE 112; RESP 26; TEMP 98.8; O2SAT 96
[2017-01-03 18:05] LABS: ANION GAP 10 MEQ/L (5-15); AST (GOT) 35 U/L (15-37); BLOOD UREA NITROGEN 22 MG/DL (7-18); CHLORIDE 98 MEQ/L (98-107); GLOMERULAR FILTRATION RATE 70 ML/MIN (>89); POTASSIUM 4.1 MEQ/L (3.5-5.1); SODIUM (NA) 131 MEQ/L (136-145)
[2017-01-03 18:10] LABS: ALKALINE PHOSPHATASE 71 U/L (45-117); ALT (GPT) 28 U/L (12-78); TOTAL BILIRUBIN ADULT 0.5 MG/DL (0.2-1.0)
[2017-01-03] MEDS ORDERED: IOHEXOL 350 MG/ML 10 ML VIAL (for RAD DIAG) IV ONE (18:44)
[2017-01-03 18:55] LABS: BLOOD, URINE NEG (NEG); GLUCOSE,URINE NEG (NEG); KETONE, URINE TRACE mg/dL (NEG); MUCUS URINE FEW /lpf (OCC); NITRITE,URINE NEG (NEG); PH, URINE 5.5 (5.0-8.5); SQUAMOUS EPITHELIAL CELL URINE <1 /hpf (0-5); URINE COLOR YELLOW (YELLW/STRAW)
--- NOTE | 2017-01-03 18:56 | RADRPT ---
EXAM DATE/TIME: 01/03/2017 18:29 [facility] COMPARISON: CT PULMONARY ANGIOGRAM, December 22, 2016, 10:42. INDICATIONS : Shortness of breath. IV CONTRAST: 75 cc Omnipaque 350 (iohexol) IV RADIATION DOSE: 12.46 CTDIvol (mGy) MEDICAL HISTORY : Hypertension. Chronic obstructive pulmonary disease. Gastroesophageal reflux disease. SURGICAL HISTORY : Prostate resection. ENCOUNTER: Initial ACUITY: 1 day PAIN SCALE: 4/10 LOCATION: Bilateral chest TECHNIQUE: Volumetric scanning of the chest was performed using a pulmonary embolism protocol MIP images were re constructed. Using automated exposure control and adjustment of the mA and/or kV according to patien t size, radiation dose was kept as low as reasonably achievable to obtain optimal diagnostic quality images. FINDINGS: No filling defects identified within the pulmonary arteries to suggest pulmonary embolic disease. Ove r the last 12 days there is development of bilateral groundglass opacity and interstitial lung diseas e on a background of mild emphysema. Some lung opacities demonstrate small cystic changes or cavities . There is no pleural or pericardial effusion. Coronary calcifications noted. CONCLUSION: 1. Negative for pulmonary embolus. 2. Interval development of bilateral lung disease on a background of emphysema. Findings are not enti rely typical of bronchopneumonia. Differential diagnosis includes some form of smoking related diseas e with respiratory bronchiolitis or possibly Langerhans' cell histiocytosis. Sree Dykes MD on January 03, 2017 at 18:46 Board Certified Radiologist. This report was verified electronically.
[2017-01-03 18:57] LABS: COMMENT (UR) CATH-CULT NOT IND; CULTURE IF INDICATED CATH CULTURE NOT IND
[2017-01-03 19:12] VITALS: BP 92/53; PULSE 99; RESP 24
[2017-01-03] MEDS ORDERED: DICYCLOMINE HCL 20 MG TAB PO PRN (19:15)
[2017-01-03] MEDS ORDERED: METOPROLOL TARTRATE 25 MG TAB PO PRN (19:15)
[2017-01-03] MEDS ORDERED: Vancomycin Consult Pharmacy 1 EA OTHER SCH (19:15)
[2017-01-03] MEDS ORDERED: ACETAMINOPHEN 325 MG TAB PO PRN (19:15)
[2017-01-03] MEDS ORDERED: ONDANSETRON HCL 4 MG/2 ML VIAL IV PRN (19:15)
[2017-01-03] MEDS ORDERED: cloNIDine HCL 0.1 MG TAB PO PRN (19:15)
[2017-01-03] MEDS: SODIUM CHLOR 0.9% 1000 ML INJ 1,000 ML IV SCH (19:53)
[2017-01-03] MEDS ORDERED: VANCOMYCIN 500 MG/NS 100 ML IV ONE ×2 (20:00)
[2017-01-03] MEDS: SODIUM CHLORIDE 0.9% FLUSH 5 ML FLUSH IV FLUSH SCH (20:56)
[2017-01-03] MEDS: FAMOTIDINE 20 MG TAB PO SCH (21:04)
[2017-01-03] MEDS: HEPARIN SODIUM - SQ 10,000 UNITS/ML VIAL SQ SCH (21:05)
[2017-01-03] MEDS: MESALAMINE HD 800 MG DELAYED RELEASE TAB PO SCH (21:46)
[2017-01-03 21:49] VITALS: BP 90/50; PULSE 87; RESP 24; O2SAT 96
[2017-01-03 22:32] VITALS: BP 94/52
[2017-01-03 23:30] VITALS: BP 89/53; PULSE 90; RESP 22; TEMP 99; O2SAT 94
[2017-01-03] MEDS ORDERED: clonazePAM 1 MG TAB PO PRN (23:30)
[2017-01-04] VITALS (27 sets, daily range): BP systolic 91–130; BP diastolic 54–72; PULSE 67–95; RESP 18–22; TEMP 97.4–99.3; O2SAT 93–97
[2017-01-04] MEDS: PIPERACIL-TAZO 4.5 GM PREMIX 100 ML IV SCH ×5 (01:02→21:45)
[2017-01-04] MEDS: NYSTATIN SUSP 500,000 U/5 ML CUP SWISH-SWAL SCH ×5 (01:02→19:38)
[2017-01-04] MEDS ORDERED: methylPREDNISolone SOD SUCC 40 MG/1 ML VIAL IV SCH (05:00)
[2017-01-04] MEDS: SODIUM CHLOR 0.9% 1000 ML INJ 1,000 ML IV SCH ×2 (05:01→15:01)
[2017-01-04] MEDS: MESALAMINE HD 800 MG DELAYED RELEASE TAB PO SCH ×3 (05:09→19:41)
--- NOTE | 2017-01-04 05:31 | MH ---
cc: Eber ESCOTO D.O.,ROBINSON DATE OF ADMISSION: 01/03/2017 Primary care physician: Dr. Escoto CHIEF COMPLAINT Fever. Shortness of breath. HISTORY OF PRESENT ILLNESS This is a pleasant 61-year-old [place] male who has a history of COPD, and recent diagnosis of COPD exacerbation with what appeared to be early pneumonia for which he was hospitalized from December 22 until December 27, 2016. He was released from the hospital. Over the past 24 hours he has developed a fever. He became more short of breath today. He went to see his primary care physician, Dr. Escoto who recommended the patient come to the hospital. The patient states at home he has a nebulizer and he has been using it several times a day. He also has oxygen. He has been using between 4 to 6 liters a day. He is taking all his medications as prescribed. He could feel that he had a fever. He had minimal voice this morning. His voice is improving a little bit. The patient was tachycardiac. He was not having chest pain or pressure. He was seen in the emergency room and he was started on antibiotics, nebulizer, steroids, Tylenol was given for his fever, and he was admitted for further care. The patient feels much better than when he was first admitted. His appetite is not very good because he has thrush and it hurts when he eats. He has been using Nystatin and the thrush is improving. MEDICATIONS ON ADMISSION: Please see chart. ALLERGIES: NONE. PAST MEDICAL HISTORY: 1. A-fib. 2. Hypertension. 3. COPD. 4. Ulcerative colitis. 5. GERD. 6. BPH. 7. Recent pneumonia. PAST SURGICAL HISTORY: Cyst and keloid removed. SOCIAL HISTORY: He is not . Tobacco, quit in October of 2016. Alcohol: Quite October 2016. 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 FAMILY HISTORY: Noncontributory. REVIEW OF SYSTEMS: The patient states that his thrush is getting better but it still hurts when he tries to swallow. He has been using Klonopin at night to help him sleep. When he is not sick he usually uses it about once a month. With being sick, he is using it once every night now. Patient had no side effects from the medications. He has not had diarrhea. He had echocardiogram during his last hospitalization which was essentially normal. He was seen by the Infectious Disease, Dr. Mariano. The workup during his last hospital stay was negative including multiple serology panel, as well as urine, Legionella, strep pneumoniae, blood cultures all were negative as well. A 12 point review of systems was negative. PHYSICAL EXAMINATION VITAL SIGNS: T-max 102.9, maximum heart rate has been 128, last temperature was 98.8, heart rate 83, respiratory rate 24, blood pressure 94/52. GENERAL: This is a 61 year-old [place] male, resting comfortable in bed. He is in no distress at this time. HEENT: Mucous membranes shows he has oral thrush. He is hydrated. There is no jaundice. NECK: Supple. CARDIOVASCULAR: Regular rate and rhythm. RESPIRATORY: Few crackles as well as a few scattered rhonchi. GASTROINTESTINAL: Bowel sounds are present. ABDOMEN: Not distended. : No CVA tenderness. MUSCULOSKELETAL: No edema. Homans' sign negative. NEUROLOGIC: Alert, oriented. Speech is clear and fluent. Moving all extremities freely. INVESTIGATIONS: Sodium is 131, potassium 4.1, BUN 22, creatinine 1.08, Troponin-I is negative. Albumin 2.5. Blood gas was 0.9. Urinalysis showed trace ketones. Mucous few. Cultures not indicated. ABG showed a bicarb of 20, O2 sat 91, pH is 7.5, PCO2 26, PO2 of 79. CBC was normal. EKG on admission showed sinus tachycardia. CT angiography showed no PE, interval development of bilateral lung disease on a background of emphysema, not entirely typical for bronchopneumonia. Differential diagnosis includes some form of smoking related disease of respiratory bronchiolitis or possible Langerhans cells, histiocytosis. IMPRESSION: 1. Sepsis on admission. 2. COPD exacerbation. 3. Hyponatremia. 4. Hospital acquired pneumonia. 5. History of A-fib, currently in sinus rhythm. 6. History of ulcerative colitis. DISCUSSION: The patient is admitted to Dr. Ramirez's service. The patient meets inpatient criteria due to the severity of his respiratory distress as well as the diagnosis of sepsis on admission. He is at high-risk of having a poor outcome related to multisystem organ failure, respiratory failure, etc. During his hospital stay he will be monitored on telemetry. He will be placed on IV fluids. He is receiving triple antibiotic coverage for what appears to be hospital acquired pneumonia, including vanco, Zosyn and Zithromax. IV consult will be obtained. He was been started on nebulizer, oxygen and steroids. Pulmonary consultation will be obtained. Will follow up labs in the morning. Will monitor cultures. DVT prophylaxis will be provided as well as GI prophylaxis. His Klonopin will be continued to help him rest. Further recommendations will be made as his case progressed. Anticipated length of stay is 3 to 4 days. Anticipated discharge is to home. Dictated by: Jerrell Kenny PA-C Robinson Ramirez MD JP/CHYNA /11:49 PM /5:10 AM Pt seen and examined as above on day of admission ( face to face time spent with pt ) chart was reviewd labs and rad data reviewed meds reviewed notes reviewed dw ER physician zaria pt zaria rn HETAL
[2017-01-04 07:01] LABS: AUTOMATED NEUTROPHIL # 4.1 TH/MM3 (1.8-7.7); BASOPHIL % 0.3 % (0.0-2.0); EOSINOPHIL % 0.2 % (0.0-4.0); HEMATOCRIT 39.4 % (39.0-51.0); HEMO FLAGS DIFF FINAL; LYMPH % 12.7 % (9.0-44.0); LYMPHOCYTE # 0.6 TH/MM3 (1.0-4.8); MEAN CELL VOLUME 85.7 FL (80.0-100.0); MEAN CORPUSCULAR HEMOGLOBIN 29.1 PG (27.0-34.0); MONO % 2.6 % (0.0-8.0); NEUT % 84.2 % (16.0-70.0); PLATELET COUNT 226 TH/MM3 (150-450); WHITE BLOOD COUNT 4.9 TH/MM3 (4.0-11.0)
[2017-01-04 07:24] LABS: BICARBONATE 18.5 MEQ/L (21.0-32.0); POTASSIUM 3.4 MEQ/L (3.5-5.1)
[2017-01-04] MEDS: BUDESONIDE-FORMOTEROL 160/4.5 MCG INHALER INH SCH (09:00)
[2017-01-04] MEDS: HEPARIN SODIUM - SQ 10,000 UNITS/ML VIAL SQ SCH ×2 (09:45→19:38)
[2017-01-04] MEDS: RESP: ALBUTEROL 2.5 MG/IPRATROPIUM 0.5 MG NEB (SCH) INH ×3 (09:51→21:28)
[2017-01-04] MEDS: FAMOTIDINE 20 MG TAB PO SCH ×2 (09:56→19:38)
[2017-01-04] MEDS: VITAMIN B CMPLX/VITC/FOLIC AC CAP PO SCH (09:56)
[2017-01-04] MEDS: ASCORBIC ACID 500 MG TAB PO SCH (09:56)
[2017-01-04] MEDS: SODIUM CHLORIDE 0.9% FLUSH 5 ML FLUSH IV FLUSH SCH ×2 (09:56→19:37)
[2017-01-04] MEDS: DILTIAZEM-CD 240 MG CAP ER PO SCH (09:56)
[2017-01-04] MEDS: GABAPENTIN 100 MG CAP PO SCH ×3 (09:57→17:17)
--- NOTE | 2017-01-04 10:24 | HHI.PR ---
Subjective Remarks Patient is to have some shortness of breath less than yesterday Still coughing dry type less than yesterday Being weak and tired Has some thrush in his mouth No other complaint Review of systems a 12 point system otherwise unremarkable Objective Objective Results - Vital Signs Date Time Temp Pulse Resp B/P Pulse Ox O2 Delivery O2 Flow Rate FiO2 01/04/17 09:52 97 Nasal Cannula 5.00 01/04/17 08:00 73 01/04/17 07:15 97.5 74 18 114/65 95 01/04/17 07:15 96 Nasal Cannula 5.00 01/04/17 07:15 67 01/04/17 06:00 84 01/04/17 05:00 82 01/04/17 04:00 76 01/04/17 03:56 Nasal Cannula 4.00 01/04/17 03:56 99.3 76 22 91/54 95 01/04/17 03:00 81 01/04/17 02:00 82 01/04/17 01:00 90 01/04/17 00:00 90 01/03/17 23:30 90 01/03/17 23:30 99.0 90 22 89/53 94 01/03/17 23:30 Nasal Cannula 4.00 01/03/17 22:32 83 24 94/52 92 4 01/03/17 21:49 87 24 90/50 96 Nasal Cannula 4 01/03/17 19:36 77 Room Air 01/03/17 19:12 99 24 92/53 Nasal Cannula 4 01/03/17 18:00 98.8 112 26 101/50 96 Nasal Cannula 4 01/03/17 16:44 91 Nasal Cannula 4 01/03/17 16:37 102.9 128 26 156/74 87 I/O 01/03/17 01/03/17 01/03/17 01/04/17 01/04/17 01/04/17 07:00 15:00 23:00 07:00 15:00 23:00 Intake Total 1240 ml Output Total 300 ml 800 ml Balance -300 ml 440 ml Intake Oral 240 ml IV Total 1000 ml Output Urine Total 300 ml 800 ml # Voids 1 # Bowel Movements 0 Result Diagram: 01/04/17 0548 01/04/17 0548 Other Results Laboratory Tests Test 01/03/17 01/03/17 01/03/17 01/04/17 15:08 17:07 18:31 05:48 Blood Gas Puncture Site RT RADIAL Blood Gas Patient Temperature 98.6 Blood Gas HCO3 20 Blood Gas Base Excess -2.9 Blood Gas Oxygen Saturation 91 Arterial Blood pH 7.50 Arterial Blood Partial 26 Pressure CO2 Arterial Blood Partial 79 Pressure O2 Arterial Blood Oxygen Content 21.6 Arterial Blood 2.6 Carboxyhemoglobin Arterial Blood Methemoglobin 1.9 Blood Gas Hemoglobin 16.8 Oxygen Delivery Device NASAL CANNULA Blood Gas Liter Flow 6 White Blood Count 9.4 4.9 Red Blood Count 5.29 4.60 Hemoglobin 15.6 13.4 Hematocrit 45.1 39.4 Mean Corpuscular Volume 85.2 85.7 Mean Corpuscular Hemoglobin 29.5 29.1 Mean Corpuscular Hemoglobin 34.6 34.0 Concent Red Cell Distribution Width 14.1 14.0 Platelet Count 265 226 Mean Platelet Volume 8.2 8.0 Neutrophils (%) (Auto) 79.6 84.2 Lymphocytes (%) (Auto) 10.4 12.7 Monocytes (%) (Auto) 5.1 2.6 Eosinophils (%) (Auto) 3.9 0.2 Basophils (%) (Auto) 1.0 0.3 Neutrophils # (Auto) 7.5 4.1 Lymphocytes # (Auto) 1.0 0.6 Monocytes # (Auto) 0.5 0.1 Eosinophils # (Auto) 0.4 0.0 Basophils # (Auto) 0.1 0.0 CBC Comment DIFF FINAL DIFF FINAL Differential Comment Activated Partial 31.0 Thromboplast Time Sodium Level 131 143 Potassium Level 4.1 3.4 Chloride Level 98 113 Carbon Dioxide Level 23.0 18.5 Anion Gap 10 12 Blood Urea Nitrogen 22 17 Creatinine 1.08 0.72 Estimat Glomerular Filtration 70 111 Rate Random Glucose 93 148 Lactic Acid Level 0.9 Calcium Level 8.8 8.0 Total Bilirubin 0.5 Aspartate Amino Transf 35 (AST/SGOT) Alanine Aminotransferase 28 (ALT/SGPT) Alkaline Phosphatase 71 Troponin I LESS THAN 0.02 Total Protein 7.8 Albumin 2.5 Urine Color YELLOW Urine Turbidity CLEAR Urine pH 5.5 Urine Specific [place] 1.015 Urine Protein TRACE Urine Glucose (UA) NEG Urine Ketones TRACE Urine Occult Blood NEG Urine Nitrite NEG Urine Bilirubin NEG Urine Urobilinogen LESS THAN 2.0 Urine Leukocyte Esterase NEG Urine RBC 2 Urine WBC 2 Urine Squamous Epithelial <1 Cells Urine Mucus FEW Microscopic Urinalysis Comment CATH-CULT NOT IND Date/Time Procedure Status Source Growth 01/04/17 05:48 Aerobic Blood Culture Received Blood Peripheral Pending 01/04/17 05:48 Anaerobic Blood Culture Received Blood Peripheral Pending 01/03/17 17:07 Influenza Types A,B Antigen (PETRA) - Final Complete Nasal Aspirate NEGATIVE FOR FLU A AND B ANTIGEN.... Physical Exam Physical Exam VITAL SIGNS: Reviewed GENERAL: This is a 61 year-old Finnish male, resting comfortable in bed. He is in no distress at this time. HEENT: Mucous membranes shows he has oral thrush. He is hydrated. There is no jaundice. NECK: Supple. No increased JVD negative thyromegaly CARDIOVASCULAR: Regular rate and rhythm. RESPIRATORY: Few crackles as well as a occasional basilar rhonchi. GASTROINTESTINAL: Bowel sounds are present. Soft nontender nondistended positive bowel sounds : No CVA tenderness. MUSCULOSKELETAL: No edema. Homans' sign negative. NEUROLOGIC: Alert, oriented. Speech is clear and fluent. Moving all extremities freely. A/P Assessment and Plan 1. Sepsis on admission. 2. COPD exacerbation. 3. Hyponatremia. 4. Hospital acquired pneumonia. 5. History of A-fib, currently in sinus rhythm. 6. History of ulcerative colitis. DISCUSSION: Labs reviewed Low potassium replace Better sodium monitored on telemetry. Continue IV fluids. Continue antibiotic ID consult Pulmonary consult Continue nebulizer treatments Continue oxygen to keep saturation above 90% steroids DVT prophylaxis will be provided as well as GI prophylaxis. Continue home medication as indicated Diflucan for thrush Cough medication with codeine Discussed with RN Discussed with patient Condition Mallika Loomis MD Jan 04, 2017 10:24
[2017-01-04] MEDS: MULTIVITAMIN HEMATINIC THERAPEUTIC TAB PO SCH (11:00)
[2017-01-04] MEDS: FLUCONAZOLE 100 MG TAB PO SCH (11:00)
[2017-01-04] MEDS: VANCOMYCIN INJ 850 MG in SODIUM CHLOR 0.9% 250 ML INJ 250 ML IV SCH ×2 (11:58→21:46)
[2017-01-04] MEDS: guaiFENesin/CODEINE SYRUP 200 MG/20 MG/10 ML CUP PO PRN ×2 (12:40→19:49)
--- NOTE | 2017-01-04 12:56 | EKG ---
Date Performed: 01/03/2017 Time Performed: 17:04:19 PTAGE: 61 years EKG: SINUS TACHYCARDIA Compared to previous tracing, sinus rate has increased ABNORMAL RHYTHM EC G INTERPRETATION BASED ON A DEFAULT AGE OF 40 YEARS NO PREVIOUS TRACING DOCTOR: Elroy Gutierres Interpretating Date/Time 01/04/2017 12:53:00
--- NOTE | 2017-01-04 16:49 | MB ---
cc: MELISA GRANDE R. STEVEN DATE OF CONSULTATION: 01/04/2017. 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 Grande for COPD and chronic bronchitis. He smoked until October. He was admitted here in November for about a week and treated for an acute exacerbation and during that time developed atrial fibrillation which apparently converted spontaneously back to regular rhythm. He was discharged home but called his primary physician yesterday because he was having increased shortness of breath. He was referred directly to the emergency room because his sats were in the low 80s. It all came on rather suddenly. He had cough and purulent sputum. No blood. His saturations were low. He had a temperature of 102 at home. PAST MEDICAL HISTORY: He has a prior history of: 1. Hypertension. 2. Ulcerative colitis. 3. Benign prostate hypertrophy. 4. Previous urinary tract infections. ALLERGIES: None. FAMILY HISTORY: Positive for colon cancer. Father of a stroke. MEDICATIONS AT HOME: Reviewed and recorded in the electronic medical record. CURRENT MEDICATIONS: Also reviewed in the electronic medical record. ALLERGIES: None. REVIEW OF SYSTEMS: He denies any smoking or alcohol use. He has had no chest pain. He was lightheaded when he had the fever. No hemoptysis. No diarrhea. No nausea or vomiting. No edema in his legs. PHYSICAL EXAMINATION: VITAL SIGNS: Temperature 97 degrees, pulse 80, respirations 18 nonlabored, blood pressure is 115/58 and sat is 95% currently on 5 liters. HEAD, EYES, EARS, NOSE, THROAT: Sclerae anicteric. Mucous membranes are moist. Thrush on his tongue NECK: His neck veins are flat. CHEST: No wheezing. Some very fine rales. No congestion. HEART: Regular rhythm. No harsh murmur. ABDOMEN: Abdomen is soft. EXTREMITIES: No peripheral edema, calf tenderness. No cyanosis or clubbing. LABORATORY DATA: White cell count is 5900, hemoglobin is 13. ABG on 6 liters: pO2 was 79, pH 7.5, pCO2 26. BUN and creatinine are normal. C-reactive protein and sedimentation rate are both quite high. Troponin is less than 0.02. BNP is also low. ASSESSMENT: Mr. Mckee has known COPD; however, his CT scan on this presentation now reveals rather diffuse infiltrates, probably infectious viral versus hospital-acquired since he was just in the hospital. He has been started on broad-spectrum antibiotics and corticosteroids. I will increase the frequency of the corticosteroids and also continue him on oxygen. We will try to collect a sputum. Also check for influenza, Legionella and pneumococcus and do a nasal wash for MRSA as well. He seems to be responding to initial therapy as his breathing has improved. Further diagnostic and/or therapeutic range will depend on his ongoing clinical course and response to therapy. R. MD ALEKSANDAR Jane/LILIYA /3:33 PM /4:42 PM
[2017-01-04] MEDS: methylPREDNISolone SOD SUCC 40 MG/1 ML VIAL IV SCH ×2 (17:17→23:03)
[2017-01-04] MEDS ORDERED: AZITHROMYCIN INJ 500 MG in SODIUM CHLOR 0.9% 250 ML INJ 250 ML IV SCH (18:00)
[2017-01-04] MEDS: clonazePAM 1 MG TAB PO PRN (22:34)
[2017-01-05] VITALS (23 sets, daily range): BP systolic 121–142; BP diastolic 71–83; PULSE 6–90; RESP 18–22; TEMP 97.6–98.4; O2SAT 80–98
[2017-01-05] MEDS: SODIUM CHLOR 0.9% 1000 ML INJ 1,000 ML IV SCH (00:20)
[2017-01-05] MEDS: RESP: ALBUTEROL 2.5 MG/IPRATROPIUM 0.5 MG NEB (SCH) INH ×4 (04:23→21:17)
[2017-01-05] MEDS: methylPREDNISolone SOD SUCC 40 MG/1 ML VIAL IV SCH ×4 (05:06→23:26)
[2017-01-05] MEDS: PIPERACIL-TAZO 4.5 GM PREMIX 100 ML IV SCH ×4 (05:06→23:26)
[2017-01-05] MEDS: MESALAMINE HD 800 MG DELAYED RELEASE TAB PO SCH ×3 (05:07→20:24)
[2017-01-05 07:33] LABS: BICARBONATE 20.1 MEQ/L (21.0-32.0)
[2017-01-05 07:43] LABS: POTASSIUM 2.9 MEQ/L (3.5-5.1)
[2017-01-05] MEDS ORDERED: POTASSIUM CHLORIDE 20 MEQ CONTROLLED RELEASE TAB PO ONE (09:00)
[2017-01-05] MEDS: VITAMIN B CMPLX/VITC/FOLIC AC CAP PO SCH (09:11)
[2017-01-05] MEDS: DILTIAZEM-CD 240 MG CAP ER PO SCH (09:11)
[2017-01-05] MEDS: NYSTATIN SUSP 500,000 U/5 ML CUP SWISH-SWAL SCH ×4 (09:11→20:20)
[2017-01-05] MEDS: MULTIVITAMIN HEMATINIC THERAPEUTIC TAB PO SCH ×2 (09:11→20:20)
[2017-01-05] MEDS: FLUCONAZOLE 100 MG TAB PO SCH (09:11)
[2017-01-05] MEDS: FAMOTIDINE 20 MG TAB PO SCH ×2 (09:11→20:19)
[2017-01-05] MEDS: ASCORBIC ACID 500 MG TAB PO SCH (09:11)
[2017-01-05] MEDS: GABAPENTIN 100 MG CAP PO SCH ×3 (09:11→17:10)
[2017-01-05] MEDS: HEPARIN SODIUM - SQ 10,000 UNITS/ML VIAL SQ SCH ×2 (09:12→20:21)
[2017-01-05] MEDS: guaiFENesin/CODEINE SYRUP 200 MG/20 MG/10 ML CUP PO PRN ×2 (09:17→20:18)
[2017-01-05] MEDS: POTASSIUM CHLORIDE INJ 10 MEQ in SODIUM CHLOR 0.45% 1000 ML INJ 1,000 ML IV SCH (10:31)
[2017-01-05] MEDS ORDERED: PHARMACY ORDERED LAB XX ONE (10:45)
--- NOTE | 2017-01-05 11:27 | HHI.PR ---
Subjective Remarks Patient still have some shortness of breath less than yesterday Still coughing dry type less than yesterday improving weakness Has some thrush in his mouth can swallow with ease now No other complaint Wants to transfer to the seventh floor in new to our Review of systems a 10 point system otherwise unremarkable Objective Objective Results - Vital Signs Date Time Temp Pulse Resp B/P Pulse Ox O2 Delivery O2 Flow Rate FiO2 01/05/17 09:38 98 Nasal Cannula 3.00 01/05/17 08:00 98.0 80 22 130/83 94 01/05/17 06:00 79 01/05/17 05:00 75 01/05/17 04:00 77 01/05/17 04:00 Nasal Cannula 4.00 01/05/17 04:00 98.4 77 20 136/75 95 01/05/17 03:00 81 01/05/17 02:00 85 01/05/17 01:00 83 01/05/17 00:00 87 01/04/17 23:54 98.8 87 22 126/67 94 01/04/17 23:54 Nasal Cannula 5.00 01/04/17 23:00 89 01/04/17 22:00 85 01/04/17 21:29 93 01/04/17 21:00 82 01/04/17 20:00 98.6 95 22 130/72 95 01/04/17 20:00 95 01/04/17 20:00 Nasal Cannula 5.00 01/04/17 18:00 81 01/04/17 17:00 83 01/04/17 16:00 89 01/04/17 15:00 97.6 82 20 119/70 94 01/04/17 15:00 85 01/04/17 14:00 78 01/04/17 13:00 80 01/04/17 12:00 86 I/O 01/04/17 01/04/17 01/04/17 01/05/17 01/05/17 01/05/17 07:00 15:00 23:00 07:00 15:00 23:00 Intake Total 1240 ml 1602 ml 1340 ml Output Total 800 ml 1500 ml 800 ml Balance 440 ml 102 ml 540 ml Intake Oral 240 ml 1240 ml 240 ml IV Total 1000 ml 362 ml 1100 ml Output Urine Total 800 ml 1500 ml 800 ml # Bowel Movements 0 1 0 Result Diagram: 01/04/17 0548 01/05/17 0610 Other Results Laboratory Tests Test 01/05/17 06:10 Sodium Level 146 Potassium Level 2.9 Chloride Level 116 Carbon Dioxide Level 20.1 Anion Gap 10 Blood Urea Nitrogen 11 Creatinine 0.62 Estimat Glomerular Filtration 132 Rate Random Glucose 173 Calcium Level 8.0 Date/Time Procedure Status Source Growth 01/05/17 06:00 Gram Stain - Final Resulted Sputum Expectorated Sputum 01/05/17 06:00 Sputum Culture Resulted Sputum Expectorated Sputum Pending 01/04/17 17:10 MRSA Surveillance Culture Received Nasopharyngeal Pending 01/04/17 17:10 Legionella Antigen - Final Complete Urine Random Urine PRESUMPTIVE NEGATIVE FOR LEGIONELLA P... 01/04/17 17:10 Streptococcus pneumoniae Antigen (M - Final Complete Urine Random Urine PRESUMPTIVE NEGATIVE FOR STREPTOCOCCU... 01/04/17 05:48 Aerobic Blood Culture - Preliminary Resulted Blood Peripheral NO GROWTH IN 1 DAY 01/04/17 05:48 Anaerobic Blood Culture - Preliminary Resulted Blood Peripheral NO GROWTH IN 1 DAY 01/03/17 17:07 Influenza Types A,B Antigen (PETRA) - Final Complete Nasal Aspirate NEGATIVE FOR FLU A AND B ANTIGEN.... Physical Exam Physical Exam VITAL SIGNS: Reviewed GENERAL: This is a 61 year-old Citizen Of [place] male, resting comfortable in bed. He is in no distress at this time. HEENT: Mucous membranes shows he has less oral thrush. He is hydrated. There is no jaundice. NECK: Supple. No increased JVD negative thyromegaly CARDIOVASCULAR: Regular rate and rhythm. RESPIRATORY: Few crackles as well as a occasional basilar rhonchi. GASTROINTESTINAL: Bowel sounds are present. Soft nontender nondistended positive bowel sounds : No CVA tenderness. MUSCULOSKELETAL: No edema. Homans' sign negative. NEUROLOGIC: Alert, oriented. Speech is clear and fluent. Moving all extremities freely. Psych: appropriate mood and affect A/P Assessment and Plan 1. Sepsis on admission. 2. COPD exacerbation. 3. Hyponatremia. 4. Hospital acquired pneumonia. 5. History of A-fib, currently in sinus rhythm. 6. History of ulcerative colitis. DISCUSSION: Labs reviewed Low potassium replace High sodium will change IV fluid to half normal saline High CRP and ESR monitored on telemetry. Continue IV fluids. Continue antibiotic ID consult Pulmonary consult appreciated Continue nebulizer treatments Continue oxygen to keep saturation above 90% steroids DVT prophylaxis will be provided as well as GI prophylaxis. Continue home medication as indicated Diflucan for thrush Cough medication with codeine Discussed with RN Discussed with patient Transferred to seventh floor as per patient request Mallika Ramirez MD Jan 05, 2017 11:26
[2017-01-05] MEDS: VANCOMYCIN INJ 850 MG in SODIUM CHLOR 0.9% 250 ML INJ 250 ML IV SCH (11:53)
--- NOTE | 2017-01-05 14:55 | PD.ID.CON ---
History of Present Illness Service ID Consult Requested By Madalyn Reason for Consult pneumonia Primary Care Physician Layne Brooks Diagnoses: History of Present Illness 61 yo [place] male with h/o smoking, emphysema developped SOB, fever up to 102.9 found to have apypical imphiltrates Mainly non productive cough fever resolved on sterroids, hypoxia improved but not resolved W/u negative with multiple neg blood and sputum clx, neg flu AG/leg and pneumococcus Review of Systems Constitutional: COMPLAINS OF: Fatigue, Fever, Weight loss, Chills Ears, nose, mouth, throat: COMPLAINS OF: Oral lesions, Throat pain Respiratory: COMPLAINS OF: Cough, Shortness of breath Cardiovascular: COMPLAINS OF: Dyspnea on Exertion Except as stated in HPI: all other systems reviewed are Neg Past Family Social History Allergies: Coded Allergies: No Known Allergies (Verified , 12/22/16) Past Medical History recent PNA Afib Ulcerative colitis COPD HTN GERD BPH Past Surgical History colonoscopies Active Ordered Medications Medications where reviewed in EMR Antibiotics Include: vanco azithro fluconazole pip tazo Family History Non-Contributory. Social History No Tobacco x 2 mos No ETOH x 2 mos No Illicit Drugs. 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 Physical Exam Vital Signs Vital Signs Date Time Temp Pulse Resp B/P Pulse Ox O2 Delivery O2 Flow Rate FiO2 01/05/17 12:00 82 20 138/75 93 01/05/17 09:38 98 Nasal Cannula 3.00 01/05/17 08:00 98.0 80 22 130/83 94 01/05/17 06:00 79 01/05/17 05:00 75 01/05/17 04:00 77 01/05/17 04:00 Nasal Cannula 4.00 01/05/17 04:00 98.4 77 20 136/75 95 01/05/17 03:00 81 01/05/17 02:00 85 01/05/17 01:00 83 01/05/17 00:00 87 01/04/17 23:54 98.8 87 22 126/67 94 01/04/17 23:54 Nasal Cannula 5.00 01/04/17 23:00 89 01/04/17 22:00 85 01/04/17 21:29 93 01/04/17 21:00 82 01/04/17 20:00 98.6 95 22 130/72 95 01/04/17 20:00 95 01/04/17 20:00 Nasal Cannula 5.00 01/04/17 18:00 81 01/04/17 17:00 83 01/04/17 16:00 89 01/04/17 15:00 97.6 82 20 119/70 94 01/04/17 15:00 85 Physical Exam CONSTITUTIONAL/GENERAL: This is thin patient, in no apparent distress. TUBES/LINES/DRAINS: SKIN: No jaundice, rashes, or lesions. Ecchymoses on upper extremities. No wounds seen anteriorly. Skin temperature appropriate. Not diaphoretic. HEAD: Atraumatic. Normocephalic. EYES: Pupils equal and round and reactive. Extraocular motions intact. No scleral icterus. No injection or drainage. Fundi not examined. ENT: Hearing grossly normal. Nose without bleeding or purulent drainage. Extensive oral thrush NECK: Trachea midline. Supple, nontender. No palpable thyroid enlargement or nodularity. CARDIOVASCULAR: Regular rate and rhythm without murmurs, gallops, or rubs. No JVD. Peripheral pulses symmetric. RESPIRATORY/CHEST: Symmetric, unlabored respirations. Clear to auscultation. Breath sounds equal bilaterally. No wheezes, rales, or rhonchi. GASTROINTESTINAL: Abdomen soft, non-tender, nondistended. No hepato-splenomegaly , or palpable masses. No guarding. Bowel sounds present. GENITOURINARY: Without palpable bladder distension. MUSCULOSKELETAL: Extremities without clubbing, cyanosis, or edema. No joint tenderness or effusion noted. No calf tenderness. No mottling or clubbing. LYMPHATICS: No palpable cervical or supraclavicular adenopathy. NEUROLOGICAL: Awake and alert. Motor and sensory grossly within normal limits. Follows commands. Cognitively sharp. Moves all extremities. PSYCHIATRIC: No obvious anxiety/depression. no apparent hallucinations or other psychotic thought process. Laboratory Laboratory Tests Test 01/05/17 01/05/17 06:10 11:28 Sodium Level 146 Potassium Level 2.9 Chloride Level 116 Carbon Dioxide Level 20.1 Anion Gap 10 Blood Urea Nitrogen 11 Creatinine 0.62 Estimat Glomerular Filtration 132 Rate Random Glucose 173 Calcium Level 8.0 Vancomycin Level Trough 8.7 Date/Time Procedure Status Source Growth 01/05/17 06:00 Gram Stain - Final Resulted Sputum Expectorated Sputum 01/05/17 06:00 Sputum Culture Resulted Sputum Expectorated Sputum Pending 01/04/17 17:10 MRSA Surveillance Culture Received Nasopharyngeal Pending 01/04/17 17:10 Legionella Antigen - Final Complete Urine Random Urine PRESUMPTIVE NEGATIVE FOR LEGIONELLA P... 01/04/17 17:10 Streptococcus pneumoniae Antigen (M - Final Complete Urine Random Urine PRESUMPTIVE NEGATIVE FOR STREPTOCOCCU... 01/04/17 05:48 Aerobic Blood Culture - Preliminary Resulted Blood Peripheral NO GROWTH IN 1 DAY 01/04/17 05:48 Anaerobic Blood Culture - Preliminary Resulted Blood Peripheral NO GROWTH IN 1 DAY 01/03/17 17:07 Influenza Types A,B Antigen (PETRA) - Final Complete Nasal Aspirate NEGATIVE FOR FLU A AND B ANTIGEN.... Result Diagram: 01/04/17 0548 01/05/17 0610 Imaging Last Impressions Chest X-Ray 01/03/17 1640 Signed Impressions: Service Date/Time: Tuesday, January 03, 2017 16:55 - CONCLUSION: Bilateral airspace disease which has developed since December 23. Differential diagnosis includes bronchopneumonia and possibly hypersensitivity type reaction. Sree Dykes MD CT Angiography 01/03/17 0000 Signed Impressions: Service Date/Time: Tuesday, January 03, 2017 18:29 - CONCLUSION: 1. Negative for pulmonary embolus. 2. Interval development of bilateral lung disease on a background of emphysema. Findings are not entirely typical of bronchopneumonia. Differential diagnosis includes some form of smoking related disease with respiratory bronchiolitis or possibly Langerhans' cell histiocytosis. Sree Dykes MD Assessment and Plan Assessment and Plan COPD PNA vs non infectious pneumonitis with hypoxia Oral candidiasis in the settings of sterriods use - cont broad spectrum abx - fluconazole - chk PCP Discussed Condition With Sheela Menard MD Jan 05, 2017 14:55
[2017-01-05] MEDS: SODIUM CHLORIDE 0.9% FLUSH 5 ML FLUSH IV FLUSH SCH ×2 (17:10→20:19)
[2017-01-05] MEDS: AZITHROMYCIN 250 MG TAB PO SCH (17:10)
[2017-01-05] MEDS: clonazePAM 1 MG TAB PO PRN (20:18)
[2017-01-05] MEDS: VANCOMYCIN 1,000 MG/NS 250 ML IV SCH ×2 (21:29)
--- NOTE | 2017-01-05 21:40 | MB ---
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 He was seen two weeks ago here for COPD exacerbation and developed atrial fibrillation which converted to sinus rhythm after approximately 24 hours spontaneously. He has not had any new episode of palpitations. He developed increased shortness of breath two days ago and he was sent to the emergency room where he was found to be hypoxemic. He had cough productive of purulent sputum. He has not had any chest pain. He has not had any palpitations suggestive of recurrent atrial fibrillation. PAST MEDICAL HISTORY Positive for: 1. Hypertension. 2. Ulcerative colitis. 3. Benign prostatic hypertrophy. 4. Frequent urinary tract infections. MEDICATIONS Include: 1. Vancomycin. 2. Azithromycin. 3. Solu-Medrol. 4. Vitamin C. 5. Diltiazem 240 milligrams daily. 6. Gabapentin. 7. Multivitamin. 8. Vitamin B. 9. Vitamin C. 10. Folic acid. 11. Nystatin swish and swallow. 13. Heparin. ALLERGIES NONE. SOCIAL HISTORY The patient has history of smoking, he used to smoke until October of last year. He also quit drinking last October. 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 FAMILY HISTORY Positive for a stroke in his father and coronary artery disease in his sister. REVIEW OF SYSTEMS Is otherwise negative. PHYSICAL EXAMINATION VITAL SIGNS: Blood pressure 121/71, pulse 69 and regular. HEENT: Negative. 2+ carotid upstroke. No bruits. LUNGS: With a few crackles. HEART: Regular with no murmur, gallop or rub. ABDOMEN: Soft. No bruits. EXTREMITIES: Without edema. 2+ distal pulses. NEUROLOGICAL: Grossly nonfocal. EKG was reviewed and showed sinus tachycardia. Normal axis and otherwise normal intervals. No acute changes. LABORATORY DATA Hemoglobin 13.4. Potassium 3.1. Creatinine 0.6. CRP 10. AST normal. ALT normal. Telemetry shows sinus rhythm and with a pause around 3 seconds. Was asymptomatic. DIAGNOSES 1. Pneumonia. 2. Chronic obstructive pulmonary disease exacerbation. 3. Paroxysmal atrial fibrillation. 4. Sinus pauses. 5. Ulcerative colitis. DISPOSITION Mr. Quinn will continue his current medical program including PO Diltiazem. His telemetry showed a sinus pause which was asymptomatic. If he has recurrent pauses while awake with symptoms, we will decrease his dose of Diltiazem. He will be monitored on telemetry. I will follow him for cardiology during his hospitalization. I recommend to continue the evaluation and therapy with antibiotic as outlined by infectious disease and pulmonary consultants. MD AWA Gillis/JEOVANNY /6:54 PM /9:16 PM MTDOskar
[2017-01-06] VITALS (15 sets, daily range): BP systolic 137–158; BP diastolic 69–99; PULSE 70–102; RESP 18–20; TEMP 97.4–97.8; O2SAT 92–98
[2017-01-06] MEDS: PIPERACIL-TAZO 4.5 GM PREMIX 100 ML IV SCH ×4 (04:05→23:00)
[2017-01-06] MEDS: POTASSIUM CHLORIDE INJ 10 MEQ in SODIUM CHLOR 0.45% 1000 ML INJ 1,000 ML IV SCH (04:05)
[2017-01-06] MEDS: methylPREDNISolone SOD SUCC 40 MG/1 ML VIAL IV SCH ×3 (04:06→17:36)
[2017-01-06] MEDS: MESALAMINE HD 800 MG DELAYED RELEASE TAB PO SCH ×3 (04:06→21:44)
[2017-01-06] MEDS: RESP: ALBUTEROL 2.5 MG/IPRATROPIUM 0.5 MG NEB (SCH) INH ×4 (04:26→20:03)
[2017-01-06 05:54] LABS: HEMATOCRIT 40.6 % (39.0-51.0); MEAN CELL VOLUME 86.8 FL (80.0-100.0); MEAN CORPUSCULAR HEMOGLOBIN 28.8 PG (27.0-34.0); MEAN CORPUSCULAR HGB CONC 33.2 % (32.0-36.0); PLATELET COUNT 275 TH/MM3 (150-450); RED BLOOD COUNT 4.68 MIL/MM3 (4.50-5.90); RED CELL DISTRIBUTION WIDTH 14.2 % (11.6-17.2); REVIEW FLAG FINAL; WHITE BLOOD COUNT 11.2 TH/MM3 (4.0-11.0)
[2017-01-06 06:08] LABS: INTERNATIONAL NORMALIZED RATIO 0.9 RATIO; MAGNESIUM 2.3 MG/DL (1.5-2.5); POTASSIUM 3.1 MEQ/L (3.5-5.1)
[2017-01-06] MEDS: SODIUM CHLORIDE 0.9% FLUSH 5 ML FLUSH IV FLUSH SCH ×2 (09:00→21:00)
[2017-01-06] MEDS: FAMOTIDINE 20 MG TAB PO SCH ×2 (09:22→21:44)
[2017-01-06] MEDS: VITAMIN B CMPLX/VITC/FOLIC AC CAP PO SCH (09:22)
[2017-01-06] MEDS: DILTIAZEM-CD 240 MG CAP ER PO SCH (09:22)
[2017-01-06] MEDS: HEPARIN SODIUM - SQ 10,000 UNITS/ML VIAL SQ SCH ×2 (09:22→21:44)
[2017-01-06] MEDS: GABAPENTIN 100 MG CAP PO SCH ×3 (09:22→17:36)
[2017-01-06] MEDS: NYSTATIN SUSP 500,000 U/5 ML CUP SWISH-SWAL SCH ×4 (09:22→21:44)
[2017-01-06] MEDS: ASCORBIC ACID 500 MG TAB PO SCH (09:22)
[2017-01-06] MEDS: VANCOMYCIN 1,000 MG/NS 250 ML IV SCH ×4 (09:23→21:43)
[2017-01-06] MEDS: guaiFENesin/CODEINE SYRUP 200 MG/20 MG/10 ML CUP PO PRN ×3 (09:33→21:44)
[2017-01-06] MEDS ORDERED: PHENOL 1.4% SOLN 180 ML BTL OROPHARYNG PRN (14:15)
[2017-01-06] MEDS ORDERED: POTASSIUM CL 40 MEQ/30 ML LIQ UDC PO ONE (14:15)
--- NOTE | 2017-01-06 14:21 | HHI.PR ---
Subjective Remarks No chest pain shortness of breath exertional and at rest Voice hoarse, O2 on nasal cannula Anxiety mild No headache Objective Objective Results - Vital Signs Date Time Temp Pulse Resp B/P Pulse Ox O2 Delivery O2 Flow Rate FiO2 01/06/17 10:46 97.4 01/06/17 08:35 98 Nasal Cannula 2.00 01/06/17 06:00 93 01/06/17 05:00 98 01/06/17 04:00 78 01/06/17 04:00 97.6 83 20 137/83 92 01/06/17 03:00 76 01/06/17 02:00 76 01/06/17 01:00 74 01/06/17 00:00 73 01/06/17 00:00 97.5 70 20 146/80 96 01/05/17 23:00 80 01/05/17 22:00 90 01/05/17 21:19 95 Nasal Cannula 3.00 01/05/17 21:00 76 01/05/17 20:00 Nasal Cannula 4.00 Humidified 01/05/17 20:00 97.6 80 20 142/81 95 01/05/17 20:00 86 01/05/17 17:44 69 01/05/17 17:24 98.0 6 18 121/71 95 01/05/17 17:00 90 01/05/17 15:26 Nasal Cannula 4.00 I/O 01/05/17 01/05/17 01/05/17 01/06/17 01/06/17 01/06/17 07:00 15:00 23:00 07:00 15:00 23:00 Intake Total 1340 ml 650 ml 240 ml Output Total 800 ml 600 ml 1150 ml Balance 540 ml 50 ml -910 ml Intake Oral 240 ml 240 ml IV Total 1100 ml 650 ml Output Urine Total 800 ml 600 ml 1150 ml # Bowel Movements 0 Result Diagram: 01/06/17 0540 01/06/17 0540 Other Results Last Impressions Chest X-Ray 01/03/17 1640 Signed Impressions: Service Date/Time: Tuesday, January 03, 2017 16:55 - CONCLUSION: Bilateral airspace disease which has developed since December 23. Differential diagnosis includes bronchopneumonia and possibly hypersensitivity type reaction. Sree Dykes MD CT Angiography 01/03/17 0000 Signed Impressions: Service Date/Time: Tuesday, January 03, 2017 18:29 - CONCLUSION: 1. Negative for pulmonary embolus. 2. Interval development of bilateral lung disease on a background of emphysema. Findings are not entirely typical of bronchopneumonia. Differential diagnosis includes some form of smoking related disease with respiratory bronchiolitis or possibly Langerhans' cell histiocytosis. Sree Dykes MD Medications and IVs Active Medications Azithromycin 500 mg 500 mg Q24H PO Last administered on 01/05/17 17:10; Admin Dose 500 MG; Start 01/05/17 at 18:00 Miscellaneous Information SPECIFIC LAB TO BE TREE... ONCE ONCE XX; Start at 09:45; Stop 01/07/17 at 09:46 Potassium Chloride (KCl 40 Meq/30 ml Liq) 40 meq ONCE ONCE PO; Start 01/06/17 at 14:15; Stop 01/06/17 at 14:16 Potassium Chloride (KCl) 20 meq ONCE ONCE PO; Start 01/06/17 at 17:00; Stop at 17:01 Vancomycin HCl/ Sodium Chloride (Vancomycin Inj/ NS 250 ml Inj) 250 ml @ 250 mls/hr Q12H IV Last administered on 01/06/17 09:23; Admin Dose 250 MLS/HR; Start 01/05/17 at 22:00 ROS General: Fatigue, Weakness, Other (10 point ROS done. Positives include generalized weakness and fatigue, shortness of breath at rest and with exertion , sore throat, hoarse speech) HEENT: Sore Throat, Other (thick white yellow coating remains on tongue) Pulmonary: Cough, SOB, Other (hoarse) Neuro/MS: Other (anxiety mild over unknown condition/medical) Physical Exam Physical Exam PHYSICAL EXAMINATION GENERAL: This is a well-developed, well-nourished male who appears to be in no acute distress. He is alert and awake, sitting on side of bed and ambulating in room. HEAD: Normocephalic without any lesion or mass noted. Facial features appear symmetric. OROPHARYNGEAL: Oropharynx with thick coating, white yellow, thrush. Throat sore to swallow NECK: Supple. No nuchal rigidity or lymphadenopathy. Trachea midline without deviation. CARDIAC: Regular rhythm, regular rate, S1 and S2 are heard. Murmur none; no gallops or rubs. LUNGS: Clear to auscultation bilaterally. No wheeze, rhonchi or rale. No use of accessory muscles on inspiration or expiration. ABDOMEN: Soft, nontender, no organomegaly or masses. Bowel sounds are heard in all four quadrants. No rebound. No guarding. EXTREMITIES: No edema. Pulses equal bilateral. cyanosis. NEUROLOGICAL: Patient mood and affect appropriate. No focal deficit, mild anxiety over current condition. SKIN:Warm and moist, dry Objective Remarks My Throat is so sore. A/P Assessment and Plan Assessment and Plan 1. Sepsis on admission. 2. COPD exacerbation. 3. Hyponatremia. 4. Hospital acquired pneumonia. 5. History of A-fib, currently in sinus rhythm. 6. History of ulcerative colitis. 7. Hypokalemia DISCUSSION: Labs reviewed, continues with leukocytosis white count 11.2 probable secondary to steroids, hypokalemia 3.1, recheck BMP in the morning Low potassium replace with by mouth High sodium will change IV fluid to half normal saline, with K+ High CRP and ESR monitored on telemetry. Continue IV fluids. Continue antibiotic ID consult, , states probable PNA vs non infectious pneumonitis with hypoxia, thrush Pulmonary consult appreciated, possible bronch tomorrow stated per patient., Continue nebulizer treatments Continue oxygen to keep saturation above 90%Also check for influenza, Legionella and pneumococcus and do a nasal wash for MRSA as well. steroids DVT prophylaxis will be provided as well as GI prophylaxis. Continue home medication as indicated Diflucan for thrush Cough medication with codeine Supplemental potassium by mouth today, total 30 mEq. We'll recheck level in a.m. Discussed with RN Discussed with patient Discussed With: Nurse, Family (patient), Other (Dr. Ramirez, patient seen on his behalf) Priscilla Au Jan 06, 2017 14:21
--- NOTE | 2017-01-06 15:22 | PD.CARD.PN ---
Subjective Subjective Remarks Less SOB, no CP Objective Medications Current Medications Medications (Trade) Dose Ordered Sig/Meliton Route Start Time Stop Time Status Last Admin (NS Flush) 2 ml UNSCH PRN IV FLUSH 01/03/17 19:15 IV Flush 2 ml 2 ml BID IV FLUSH 01/03/17 21:00 01/05/17 17:10 Piperacillin Sod/ Tazobactam Sod 100 ml @ 200 mls/hr Q6H IV 01/03/17 23:00 01/06/17 11:56 (Vancomycin Consult Pharmacy) 0 ml @ 0 mls/hr UNSCH OTHER 01/03/17 19:15 (Zofran Inj) 4 mg Q6H PRN IV 01/03/17 19:15 (Heparin Inj) 5,000 units Q12H SQ 01/03/17 21:00 01/06/17 09:22 (Pepcid) 20 mg BID PO 01/03/17 21:00 01/06/17 09:22 (Vitamin C) 500 mg DAILY PO 01/04/17 09:00 01/06/17 09:22 (Symbicort 160-4.5 Inh) 1 puff Q12HR INH 01/03/17 21:00 Hold 01/04/17 09:00 (Bentyl) 20 mg TID PRN PO 01/03/17 19:15 (Cardizem Cd) 240 mg DAILY PO 01/04/17 09:00 01/06/17 09:22 (Neurontin) 100 mg TID PO 01/04/17 09:00 01/06/17 13:27 (Asacol Hd Dr) 1,600 mg Q8HR PO 01/03/17 22:00 01/06/17 13:27 (Theragran Hematinic) 1 tab DAILY PO 01/04/17 09:00 01/05/17 20:20 (Nephrocaps) 1 cap DAILY PO 01/04/17 09:00 01/06/17 09:22 (Tylenol) 650 mg Q4H PRN PO 01/03/17 23:30 (Mycostatin Liq) 5 ml QID SWISH-SWAL 01/03/17 23:30 01/06/17 13:27 (Robitussin Ac 200-20 Mg/10 ml Liq) 10 ml Q4H PRN PO 01/04/17 10:30 01/06/17 09:33 (SoluMEDROL INJ) 40 mg Q6HR IV 01/04/17 18:00 01/06/17 11:56 Clonazepam 1 mg 1 mg HS PRN PO 01/04/17 21:30 01/05/17 20:18 (KCl Inj/1/2 NS 1000 ml Inj) 1,005 ml @ 42 mls/hr [id number] IV 01/05/17 10:00 01/06/17 04:05 Azithromycin 500 mg 500 mg Q24H PO 01/05/17 18:00 01/05/17 17:10 (Vancomycin Inj/ NS 250 ml Inj) 250 ml @ 250 mls/hr Q12H IV 01/05/17 22:00 01/06/17 09:23 Miscellaneous Information SPECIFIC LAB TO BE TREE... ONCE ONCE XX 01/07/17 09:45 01/07/17 09:46 (KCl) 20 meq ONCE ONCE PO 01/06/17 17:00 01/06/17 17:01 (Chloraseptic [place]) 2 spray Q2H PRN OROPHARYNG 01/06/17 14:15 Vital Signs / I&O Vital Signs Date Time Temp Pulse Resp B/P Pulse Ox O2 Delivery O2 Flow Rate FiO2 01/06/17 10:46 97.4 01/06/17 08:35 98 Nasal Cannula 2.00 01/06/17 06:00 93 01/06/17 05:00 98 01/06/17 04:00 78 01/06/17 04:00 97.6 83 20 137/83 92 01/06/17 03:00 76 01/06/17 02:00 76 01/06/17 01:00 74 01/06/17 00:00 73 01/06/17 00:00 97.5 70 20 146/80 96 01/05/17 23:00 80 01/05/17 22:00 90 01/05/17 21:19 95 Nasal Cannula 3.00 01/05/17 21:00 76 01/05/17 20:00 Nasal Cannula 4.00 Humidified 01/05/17 20:00 97.6 80 20 142/81 95 01/05/17 20:00 86 01/05/17 17:44 69 01/05/17 17:24 98.0 6 18 121/71 95 01/05/17 17:00 90 01/05/17 15:26 Nasal Cannula 4.00 I/O 01/05/17 01/05/17 01/05/17 01/06/17 01/06/17 01/06/17 07:00 15:00 23:00 07:00 15:00 23:00 Intake Total 1340 ml 650 ml 240 ml Output Total 800 ml 600 ml 1150 ml Balance 540 ml 50 ml -910 ml Intake Oral 240 ml 240 ml IV Total 1100 ml 650 ml Output Urine Total 800 ml 600 ml 1150 ml # Bowel Movements 0 Physical Exam GENERAL: SKIN: Warm and dry. HEAD: Normocephalic. EYES: No scleral icterus. No injection or drainage. NECK: Supple, trachea midline. No JVD or lymphadenopathy. CARDIOVASCULAR: Regular rate and rhythm without murmurs, gallops, or rubs. RESPIRATORY: Breath sounds equal bilaterally. No accessory muscle use. Few rhonchi. GASTROINTESTINAL: Abdomen soft, non-tender, nondistended. MUSCULOSKELETAL: No cyanosis, or edema. BACK: Nontender without obvious deformity. No CVA tenderness. Laboratory Laboratory Tests Test 01/05/17 01/06/17 15:40 05:40 Potassium Level 3.1 MEQ/L 3.1 MEQ/L Magnesium Level 2.3 MG/DL 2.3 MG/DL White Blood Count 11.2 TH/MM3 Red Blood Count 4.68 MIL/MM3 Hemoglobin 13.5 GM/DL Hematocrit 40.6 % Mean Corpuscular Volume 86.8 FL Mean Corpuscular Hemoglobin 28.8 PG Mean Corpuscular Hemoglobin 33.2 % Concent Red Cell Distribution Width 14.2 % Platelet Count 275 TH/MM3 Mean Platelet Volume 7.8 FL Prothrombin Time 10.0 SEC Prothromb Time International 0.9 RATIO Ratio Sodium Level 143 MEQ/L Chloride Level 109 MEQ/L Carbon Dioxide Level 21.0 MEQ/L Anion Gap 13 MEQ/L Blood Urea Nitrogen 15 MG/DL Creatinine 1.10 MG/DL Estimat Glomerular Filtration 68 ML/MIN Rate Random Glucose 172 MG/DL Calcium Level 8.5 MG/DL Imaging Last Impressions Chest X-Ray 01/03/17 1640 Signed Impressions: Service Date/Time: Tuesday, January 03, 2017 16:55 - CONCLUSION: Bilateral airspace disease which has developed since December 23. Differential diagnosis includes bronchopneumonia and possibly hypersensitivity type reaction. Sree Dykes MD CT Angiography 01/03/17 0000 Signed Impressions: Service Date/Time: Tuesday, January 03, 2017 18:29 - CONCLUSION: 1. Negative for pulmonary embolus. 2. Interval development of bilateral lung disease on a background of emphysema. Findings are not entirely typical of bronchopneumonia. Differential diagnosis includes some form of smoking related disease with respiratory bronchiolitis or possibly Langerhans' cell histiocytosis. Sree Dykes MD Assessment and Plan Problem List: (1) Pneumonia (2) COPD (chronic obstructive pulmonary disease) (3) Atrial fibrillation Assessment and Plan No recurrent AF. No pauses. Continue monitoring on tele. Pulm eval in progress, bronchoscopy planned. Continue tx for pneumonia/COPD exac. Increase activity. Problem Qualifiers (1) Pneumonia: (2) COPD (chronic obstructive pulmonary disease): Qualified Code: J44.1 - Chronic obstructive pulmonary disease with acute exacerbation (3) Atrial fibrillation: Qualified Code: I48.0 - Paroxysmal atrial fibrillation Hernandez Reyes MD Jan 06, 2017 15:22
[2017-01-06] MEDS ORDERED: POTASSIUM CHLORIDE 20 MEQ CONTROLLED RELEASE TAB PO ONE (17:00)
[2017-01-06] MEDS: AZITHROMYCIN 250 MG TAB PO SCH (17:36)
[2017-01-06] MEDS: clonazePAM 1 MG TAB PO PRN (21:44)
[2017-01-07] VITALS (18 sets, daily range): BP systolic 140–155; BP diastolic 78–97; PULSE 78–98; RESP 16–20; TEMP 97.6–98.2; O2SAT 9–97
[2017-01-07] MEDS: methylPREDNISolone SOD SUCC 40 MG/1 ML VIAL IV SCH ×4 (00:04→17:48)
[2017-01-07] MEDS: guaiFENesin/CODEINE SYRUP 200 MG/20 MG/10 ML CUP PO PRN ×2 (03:12→23:29)
[2017-01-07] MEDS: POTASSIUM CHLORIDE INJ 10 MEQ in SODIUM CHLOR 0.45% 1000 ML INJ 1,000 ML IV SCH (03:27)
[2017-01-07] MEDS: RESP: ALBUTEROL 2.5 MG/IPRATROPIUM 0.5 MG NEB (SCH) INH ×4 (03:36→19:52)
[2017-01-07] MEDS: PIPERACIL-TAZO 4.5 GM PREMIX 100 ML IV SCH ×4 (04:39→23:30)
[2017-01-07] MEDS: MESALAMINE HD 800 MG DELAYED RELEASE TAB PO SCH ×3 (06:00→23:30)
[2017-01-07 08:40] LABS: HEMATOCRIT 39.9 % (39.0-51.0); MEAN CELL VOLUME 87.1 FL (80.0-100.0); MEAN CORPUSCULAR HEMOGLOBIN 29.2 PG (27.0-34.0); MEAN CORPUSCULAR HGB CONC 33.5 % (32.0-36.0); PLATELET COUNT 324 TH/MM3 (150-450); RED BLOOD COUNT 4.58 MIL/MM3 (4.50-5.90); RED CELL DISTRIBUTION WIDTH 14.5 % (11.6-17.2); REVIEW FLAG FINAL; WHITE BLOOD COUNT 7.8 TH/MM3 (4.0-11.0)
[2017-01-07] MEDS: GABAPENTIN 100 MG CAP PO SCH ×3 (09:00→17:48)
[2017-01-07] MEDS: HEPARIN SODIUM - SQ 10,000 UNITS/ML VIAL SQ SCH ×2 (09:00→23:30)
[2017-01-07] MEDS: FAMOTIDINE 20 MG TAB PO SCH ×2 (09:00→23:30)
[2017-01-07 09:05] LABS: BICARBONATE 21.5 MEQ/L (21.0-32.0); POTASSIUM 3.7 MEQ/L (3.5-5.1)
[2017-01-07] MEDS: VANCOMYCIN 1,000 MG/NS 250 ML IV SCH ×2 (09:05)
[2017-01-07] MEDS: DILTIAZEM-CD 240 MG CAP ER PO SCH (09:08)
[2017-01-07] MEDS: SODIUM CHLORIDE 0.9% FLUSH 5 ML FLUSH IV FLUSH SCH (09:10)
[2017-01-07] MEDS ORDERED: PHARMACY ORDERED LAB XX ONE (09:45)
[2017-01-07] MEDS ORDERED: SODIUM CHLORIDE 0.9% 20 ML VIAL ONE (11:14)
[2017-01-07] MEDS ORDERED: EPINEPHrine HCL (1:1000) 1 MG/ML VIAL ONE (11:15)
[2017-01-07] MEDS ORDERED: LIDOCAINE HCL 2% 50 ML VIAL ONE (11:15)
[2017-01-07] MEDS ORDERED: LIDOCAINE VISCOUS 2% SOLN 15 ML UDC ONE (11:15)
[2017-01-07] MEDS ORDERED: LIDOCAINE HCL 4% PF 5 ML AMP ONE (11:15)
[2017-01-07] MEDS ORDERED: MIDAZOLAM HCL 2 MG/2 ML VIAL ONE (11:19)
[2017-01-07] MEDS ORDERED: ONDANSETRON HCL 4 MG/2 ML VIAL IV PUSH ONE (12:00)
[2017-01-07] MEDS ORDERED: PROPOFOL 200 MG/20 ML AMP IV ONE (12:00)
[2017-01-07] MEDS ORDERED: RESP: ALBUTEROL 2.5 MG/3 ML NEB (PRN) NEB (12:00)
[2017-01-07] MEDS ORDERED: DO NOT ADM ANY ANTICOAGULANT DRUGS XX PRN (12:14)
[2017-01-07] MEDS ORDERED: *RESP: ALBUTEROL 2.5 MG/3 ML NEB (PRN) PERIprocedural Use ONLY NEB ONE (12:33)
--- NOTE | 2017-01-07 13:10 | RADRPT ---
EXAM DATE/TIME: 01/07/2017 12:30 [place] COMPARISON: CHEST SINGLE AP, January 03, 2017, 16:55. INDICATIONS : Post bronchoscopy. Cough. MEDICAL HISTORY : Hypertension. Chronic obstructive pulmonary disease. Gastroesophageal reflux disease. SURGICAL HISTORY : Prostate resection. ENCOUNTER: Initial ACUITY: 1 day PAIN SCORE: 2/10 LOCATION: Left chest FINDINGS: A single AP portable erect view of the chest was obtained and demonstrates no evidence of pneumothora x. There is hazy opacity in both lungs which appears mildly increased. This is greatest in the perihi lar regions. There is no effusion. The heart size is at the upper limits of normal. The bony thorax i s intact. CONCLUSION: Mild interval increase in hazy opacity in both lungs which may represent pulmonary edema. Len Davison MD on January 07, 2017 at 13:08 Board Certified Radiologist. This report was verified electronically.
--- NOTE | 2017-01-07 14:07 | HHI.PR ---
Subjective Remarks No chest pain shortness of breath exertional and at rest Voice hoarse, O2 on nasal cannula Anxiety mild No headache (Priscilla Au) Objective Objective Results - Vital Signs Date Time Temp Pulse Resp B/P Pulse Ox O2 Delivery O2 Flow Rate FiO2 01/07/17 12:11 98.0 96 17 149/93 93 Nasal Cannula 6 01/07/17 10:06 88 01/07/17 09:30 87 01/07/17 08:30 85 01/07/17 07:54 94 21 01/07/17 07:30 97.6 86 16 140/86 93 01/07/17 07:30 82 01/07/17 06:00 92 01/07/17 05:00 90 01/07/17 04:00 90 18 155/78 92 01/07/17 04:00 92 01/07/17 03:00 92 01/07/17 02:00 88 01/07/17 01:00 84 01/07/17 00:00 83 18 145/87 93 01/07/17 00:00 85 01/06/17 23:06 Nasal Cannula 4.00 Humidified 01/06/17 23:00 84 01/06/17 22:00 100 01/06/17 21:00 102 01/06/17 20:00 97.8 99 18 158/99 93 01/06/17 20:00 96 01/06/17 19:00 96 01/06/17 16:00 97.4 20 138/69 92 01/06/17 16:00 92 Nasal Cannula 4.00 Humidified 01/06/17 16:00 96 I/O 01/06/17 01/06/17 01/06/17 01/07/17 01/07/17 01/07/17 07:00 15:00 23:00 07:00 15:00 23:00 Intake Total 240 ml 1700 ml 900 ml Output Total 1150 ml 1400 ml Balance -910 ml 1700 ml -1400 ml 900 ml Intake Oral 240 ml IV Total 1700 ml Other 900 ml Output Urine Total 1150 ml 1400 ml (Priscilla Au) Result Diagram: 01/07/17 0745 01/07/17 0745 Medications and IVs Active Medications Albuterol Sulfate (*ALBUTEROL NEB PERIprocedure ONLY) 2.5 mg STK-MED ONCE NEB Last administered on 01/07/17t 12:33; Admin Dose 2.5 MG; Start 01/07/17 at 12:33 ; Stop 01/07/17 at 12:34; Status DC Epinephrine HCl (Adrenalin (1:1000) Inj) 4 mg STK-MED ONCE .ROUTE; Start at 11:15; Stop 01/07/17 at 11:16; Status DC Fentanyl Citrate (fentaNYL INJ) 100 mcg STK-MED ONCE .ROUTE; Start 01/07/17 at 12:15; Stop 01/07/17 at 12:16; Status DC Fluconazole 200 mg 200 mg DAILY PO; Start 01/07/17 at 09:00 Lidocaine HCl (Xylocaine 2% Inj) 100 ml STK-MED ONCE .ROUTE; Start 01/07/17 at 11:15; Stop 01/07/17 at 11:16; Status DC Lidocaine HCl (Xylocaine 2% Viscous) 30 ml STK-MED ONCE .ROUTE; Start 01/07/17 at 11:15; Stop 01/07/17 at 11:16; Status DC Lidocaine HCl (Xylocaine-Mpf 4% Inj) 15 ml STK-MED ONCE .ROUTE; Start 01/07/17 at 11:15; Stop 01/07/17 at 11:16; Status DC Midazolam HCl (Versed Inj) 2 mg STK-MED ONCE .ROUTE; Start 01/07/17 at 11:19; Stop 01/07/17 at 11:20; Status DC Miscellaneous Information ALL NURSING DEPARTME... UNSCH PRN XX; Start 01/07/17 at 12:14; Stop 01/08/17 at 12:13 Miscellaneous Information SPECIFIC LAB TO BE TREE... ONCE ONCE XX; Start at 09:45; Stop 01/07/17 at 09:46; Status DC Miscellaneous Information SPECIFIC LAB TO BE DRAWN:VANCOMYCIN TROUGH DATE TO... ONCE ONCE XX; Start 01/09/17 at 05:45; Stop 01/09/17 at 05:46 Phenol (Chloraseptic [place]) 2 spray Q2H PRN OROPHARYNG; Start 01/06/17 at 14:15 Potassium Chloride (KCl 40 Meq/30 ml Liq) 40 meq ONCE ONCE PO Last administered on 01/06/17 17:41; Admin Dose 40 MEQ; Start 01/06/17 at 14:15; Stop 01/06/17 at 14:16; Status DC Potassium Chloride (KCl) 20 meq ONCE ONCE PO Last administered on 01/06/17 17: 41; Admin Dose 20 MEQ; Start 01/06/17 at 17:00; Stop 01/06/17 at 17:01; Status DC Sodium Chloride (Sodium Chloride 0.9% Inj) 60 ml STK-MED ONCE .ROUTE; Start at 11:14; Stop 01/07/17 at 11:15; Status DC Vancomycin HCl/ Sodium Chloride (Vancomycin Inj/ NS 500 ml Inj) 515 ml @ 250 mls/hr Q12H IV; Start 01/07/17 at 18:00 (Priscilla Au) Physical Exam Physical Exam PHYSICAL EXAMINATION GENERAL: This is a well-developed, well-nourished male who appears to be in no acute distress. He is alert and awake, . HEAD: Normocephalic without any lesion or mass noted. Facial features appear symmetric. OROPHARYNGEAL: Oropharynx without erythema or edema. NECK: Supple. No nuchal rigidity or lymphadenopathy. Trachea midline without deviation. CARDIAC: Regular rhythm, regular rate, S1 and S2 are heard. Murmur none no gallops or rubs. LUNGS: Clear to auscultation bilaterally. No wheeze, rhonchi or rales. Cough, low volumes with exertion ABDOMEN: Soft, nontender, no organomegaly or masses. Bowel sounds are heard in all four quadrants. No rebound. No guarding. EXTREMITIES: No edema. Pulses equal bilateral. No cyanosis. NEUROLOGICAL: Patient mood and affect appropriate. No focal deficit, anxiety mild SKIN:Warm and moist Objective Remarks Im doing ok while resting in bed. (Priscilla Au) A/P Assessment and Plan Assessment and Plan 1. Sepsis on admission. 2. COPD exacerbation. 3. Hyponatremia. 4. Hospital acquired pneumonia. 5. History of A-fib, currently in sinus rhythm. 6. History of ulcerative colitis. 7. Hypokalemia DISCUSSION: Labs review, WBC count normal, hgb stable, potassium 3.7 after by mouth dose yesterday. gentle hydration. High CRP and ESR monitored on telemetry, regular rhythm Continue IV fluids. Continue antibiotic ID consult, , states probable PNA vs non infectious pneumonitis with hypoxia, thrush Pulmonary consult appreciated, bronchoscopy today. Awaiting tests/biopsy results. Continue nebulizer treatments Continue oxygen to keep saturation above 90% Encouraged pt. to stay on rm air unless he is SOB, and or sat <90. Currently pt. is 96 on rm air. continues with coarse voice, and cough. Has meds for prn use. steroids DVT prophylaxis will be provided as well as GI prophylaxis. Continue home medication as indicated Diflucan for thrush continued, improving Cough medication with codeine Potassium, 3.7 Discussed with RN Discussed with patient Discussed with Dr. Ramirez, pt. seen on his behalf Discussed With: Nurse, Family (patient), Other (Dr. Ramirez, patient seen on his behalf) (Priscilla Au) Assessment and Plan Patient seen and examined visible Discussed with patient Labs reviewed Medications reviewed Plan of care discussed with MEDICAL RECORD SPECIALIST Appreciate consultants input (Mallika Ramirez MD) Priscilla Au Jan 07, 2017 14:07 Mallika Ramirez MD Jan 07, 2017 15:36
[2017-01-07] MEDS: NYSTATIN SUSP 500,000 U/5 ML CUP SWISH-SWAL SCH ×4 (14:55→23:29)
[2017-01-07] MEDS: VITAMIN B CMPLX/VITC/FOLIC AC CAP PO SCH (15:14)
[2017-01-07] MEDS: MULTIVITAMIN HEMATINIC THERAPEUTIC TAB PO SCH (15:14)
[2017-01-07] MEDS: ASCORBIC ACID 500 MG TAB PO SCH (15:14)
[2017-01-07] MEDS: FLUCONAZOLE 200 MG TAB PO SCH (15:15)
--- NOTE | 2017-01-07 15:27 | PD.CARD.PN ---
Subjective Subjective Remarks No CP, SOB improved, had bronchoscopy today Objective Medications Current Medications Medications (Trade) Dose Ordered Sig/Meliton Route Start Time Stop Time Status Last Admin (NS Flush) 2 ml UNSCH PRN IV FLUSH 01/03/17 19:15 IV Flush 2 ml 2 ml BID IV FLUSH 01/03/17 21:00 01/07/17 09:10 Piperacillin Sod/ Tazobactam Sod 100 ml @ 200 mls/hr Q6H IV 01/03/17 23:00 01/07/17 11:12 (Vancomycin Consult Pharmacy) 0 ml @ 0 mls/hr UNSCH OTHER 01/03/17 19:15 (Zofran Inj) 4 mg Q6H PRN IV 01/03/17 19:15 (Heparin Inj) 5,000 units Q12H SQ 01/03/17 21:00 01/06/17 21:44 (Pepcid) 20 mg BID PO 01/03/17 21:00 01/06/17 21:44 (Vitamin C) 500 mg DAILY PO 01/04/17 09:00 01/07/17 15:14 (Symbicort 160-4.5 Inh) 1 puff Q12HR INH 01/03/17 21:00 Hold 01/04/17 09:00 (Bentyl) 20 mg TID PRN PO 01/03/17 19:15 (Cardizem Cd) 240 mg DAILY PO 01/04/17 09:00 01/07/17 09:08 (Neurontin) 100 mg TID PO 01/04/17 09:00 01/07/17 15:14 (Asacol Hd Dr) 1,600 mg Q8HR PO 01/03/17 22:00 01/07/17 15:13 (Theragran Hematinic) 1 tab DAILY PO 01/04/17 09:00 01/07/17 15:14 (Nephrocaps) 1 cap DAILY PO 01/04/17 09:00 01/07/17 15:14 (Tylenol) 650 mg Q4H PRN PO 01/03/17 23:30 (Mycostatin Liq) 5 ml QID SWISH-SWAL 01/03/17 23:30 01/07/17 15:15 (Robitussin Ac 200-20 Mg/10 ml Liq) 10 ml Q4H PRN PO 01/04/17 10:30 01/07/17 03:12 (SoluMEDROL INJ) 40 mg Q6HR IV 01/04/17 18:00 01/07/17 14:55 Clonazepam 1 mg 1 mg HS PRN PO 01/04/17 21:30 01/06/17 21:44 (KCl Inj/1/2 NS 1000 ml Inj) 1,005 ml @ 42 mls/hr [id number] IV 01/05/17 10:00 01/06/17 04:05 (Zithromax) 500 mg Q24H PO 01/05/17 18:00 01/06/17 17:36 (Chloraseptic [place]) 2 spray Q2H PRN OROPHARYNG 01/06/17 14:15 Fluconazole 200 mg 200 mg DAILY PO 01/07/17 09:00 01/07/17 15:15 (Vancomycin Inj/ NS 500 ml Inj) 515 ml @ 250 mls/hr Q12H IV 01/07/17 18:00 Miscellaneous Information SPECIFIC LAB TO BE DRAWN:VANCOMYCIN TROUGH DATE TO... ONCE ONCE XX 01/09/17 05:45 01/09/17 05:46 Miscellaneous Information ALL NURSING DEPARTME... UNSCH PRN XX 01/07/17 12:14 01/08/17 12:13 Vital Signs / I&O Vital Signs Date Time Temp Pulse Resp B/P Pulse Ox O2 Delivery O2 Flow Rate FiO2 01/07/17 12:11 98.0 96 17 149/93 93 Nasal Cannula 6 01/07/17 10:06 88 01/07/17 09:30 87 01/07/17 08:30 85 01/07/17 07:54 94 21 01/07/17 07:30 97.6 86 16 140/86 93 01/07/17 07:30 82 01/07/17 06:00 92 01/07/17 05:00 90 01/07/17 04:00 90 18 155/78 92 01/07/17 04:00 92 01/07/17 03:00 92 01/07/17 02:00 88 01/07/17 01:00 84 01/07/17 00:00 83 18 145/87 93 01/07/17 00:00 85 01/06/17 23:06 Nasal Cannula 4.00 Humidified 01/06/17 23:00 84 01/06/17 22:00 100 01/06/17 21:00 102 01/06/17 20:00 97.8 99 18 158/99 93 01/06/17 20:00 96 01/06/17 19:00 96 01/06/17 16:00 97.4 20 138/69 92 01/06/17 16:00 92 Nasal Cannula 4.00 Humidified 01/06/17 16:00 96 I/O 01/06/17 01/06/17 01/06/17 01/07/17 01/07/17 01/07/17 07:00 15:00 23:00 07:00 15:00 23:00 Intake Total 240 ml 1700 ml 900 ml Output Total 1150 ml 1400 ml Balance -910 ml 1700 ml -1400 ml 900 ml Intake Oral 240 ml IV Total 1700 ml Other 900 ml Output Urine Total 1150 ml 1400 ml Physical Exam GENERAL: On O2 SKIN: Warm and dry. HEAD: Normocephalic. EYES: No scleral icterus. No injection or drainage. NECK: Supple, trachea midline. No JVD or lymphadenopathy. CARDIOVASCULAR: Regular rate and rhythm without murmurs, gallops, or rubs. RESPIRATORY: Breath sounds equal bilaterally. No accessory muscle use. Few rhonchi. GASTROINTESTINAL: Abdomen soft, non-tender, nondistended. MUSCULOSKELETAL: No cyanosis, or edema. BACK: Nontender without obvious deformity. No CVA tenderness. Laboratory Laboratory Tests Test 01/07/17 07:45 White Blood Count 7.8 TH/MM3 Red Blood Count 4.58 MIL/MM3 Hemoglobin 13.4 GM/DL Hematocrit 39.9 % Mean Corpuscular Volume 87.1 FL Mean Corpuscular Hemoglobin 29.2 PG Mean Corpuscular Hemoglobin 33.5 % Concent Red Cell Distribution Width 14.5 % Platelet Count 324 TH/MM3 Mean Platelet Volume 9.0 FL Sodium Level 140 MEQ/L Potassium Level 3.7 MEQ/L Chloride Level 107 MEQ/L Carbon Dioxide Level 21.5 MEQ/L Anion Gap 12 MEQ/L Blood Urea Nitrogen 15 MG/DL Creatinine 0.94 MG/DL Estimat Glomerular Filtration 82 ML/MIN Rate Random Glucose 132 MG/DL Calcium Level 8.6 MG/DL Vancomycin Level Trough 8.2 MCG/ML Imaging Last Impressions Chest X-Ray 01/07/17 0000 Signed Impressions: Service Date/Time: Saturday, January 07, 2017 12:30 - CONCLUSION: Mild interval increase in hazy opacity in both lungs which may represent pulmonary edema. Len Davison MD CT Angiography 01/03/17 0000 Signed Impressions: Service Date/Time: Tuesday, January 03, 2017 18:29 - CONCLUSION: 1. Negative for pulmonary embolus. 2. Interval development of bilateral lung disease on a background of emphysema. Findings are not entirely typical of bronchopneumonia. Differential diagnosis includes some form of smoking related disease with respiratory bronchiolitis or possibly Langerhans' cell histiocytosis. Sree Dykes MD Assessment and Plan Problem List: (1) Pneumonia (2) COPD (chronic obstructive pulmonary disease) (3) Atrial fibrillation Assessment and Plan Overall improvement. No recurrent AF or pauses. Continue monitoring on tele. Pulm eval in progress, bronchoscopy today, await bx results. Continue tx for pneumonia/COPD exac. Increase activity. Problem Qualifiers (1) Pneumonia: (2) COPD (chronic obstructive pulmonary disease): Qualified Code: J44.1 - Chronic obstructive pulmonary disease with acute exacerbation (3) Atrial fibrillation: Qualified Code: I48.0 - Paroxysmal atrial fibrillation Hernandez Reyes MD Jan 07, 2017 15:27
[2017-01-07] MEDS: AZITHROMYCIN 250 MG TAB PO SCH (17:48)
[2017-01-07] MEDS: VANCOMYCIN INJ 1,500 MG in SODIUM CHLORID 0.9% 500 ML INJ 500 ML IV SCH (18:29)
[2017-01-07] MEDS: clonazePAM 1 MG TAB PO PRN (23:30)
[2017-01-08] VITALS (15 sets, daily range): BP systolic 134–169; BP diastolic 80–103; PULSE 59–92; RESP 18–20; TEMP 97.8–98.8; O2SAT 92–97
[2017-01-08] MEDS: POTASSIUM CHLORIDE INJ 10 MEQ in SODIUM CHLOR 0.45% 1000 ML INJ 1,000 ML IV SCH (03:23)
[2017-01-08] MEDS: VANCOMYCIN INJ 1,500 MG in SODIUM CHLORID 0.9% 500 ML INJ 500 ML IV SCH ×2 (04:51→17:34)
[2017-01-08] MEDS: methylPREDNISolone SOD SUCC 40 MG/1 ML VIAL IV SCH ×5 (04:52→21:00)
[2017-01-08] MEDS: PIPERACIL-TAZO 4.5 GM PREMIX 100 ML IV SCH ×4 (04:52→21:59)
[2017-01-08] MEDS: RESP: ALBUTEROL 2.5 MG/IPRATROPIUM 0.5 MG NEB (PRN) INH ×5 (04:55→20:53)
[2017-01-08] MEDS: HEPARIN SODIUM - SQ 10,000 UNITS/ML VIAL SQ SCH ×2 (09:00→21:59)
[2017-01-08] MEDS: ASCORBIC ACID 500 MG TAB PO SCH (09:05)
[2017-01-08] MEDS: GABAPENTIN 100 MG CAP PO SCH ×3 (09:05→17:33)
[2017-01-08] MEDS: MESALAMINE HD 800 MG DELAYED RELEASE TAB PO SCH ×3 (09:05→21:58)
[2017-01-08] MEDS: MULTIVITAMIN HEMATINIC THERAPEUTIC TAB PO SCH (09:05)
[2017-01-08] MEDS: FAMOTIDINE 20 MG TAB PO SCH ×2 (09:06→21:58)
[2017-01-08] MEDS: FLUCONAZOLE 200 MG TAB PO SCH (09:06)
[2017-01-08] MEDS: NYSTATIN SUSP 500,000 U/5 ML CUP SWISH-SWAL SCH ×4 (09:06→21:58)
[2017-01-08] MEDS: VITAMIN B CMPLX/VITC/FOLIC AC CAP PO SCH (09:06)
[2017-01-08] MEDS: guaiFENesin/CODEINE SYRUP 200 MG/20 MG/10 ML CUP PO PRN ×2 (09:08→21:58)
--- NOTE | 2017-01-08 09:18 | PD.CARD.PN ---
Subjective Subjective Remarks No CP, SOB improved, ambulating in the halls, c/o LE edema Objective Medications Current Medications Medications (Trade) Dose Ordered Sig/Meliton Route Start Time Stop Time Status Last Admin (NS Flush) 2 ml UNSCH PRN IV FLUSH 01/03/17 19:15 IV Flush 2 ml 2 ml BID IV FLUSH 01/03/17 21:00 01/07/17 09:10 Piperacillin Sod/ Tazobactam Sod 100 ml @ 200 mls/hr Q6H IV 01/03/17 23:00 01/08/17 04:52 (Vancomycin Consult Pharmacy) 0 ml @ 0 mls/hr UNSCH OTHER 01/03/17 19:15 (Zofran Inj) 4 mg Q6H PRN IV 01/03/17 19:15 (Heparin Inj) 5,000 units Q12H SQ 01/03/17 21:00 01/07/17 23:30 (Pepcid) 20 mg BID PO 01/03/17 21:00 01/08/17 09:06 (Vitamin C) 500 mg DAILY PO 01/04/17 09:00 01/08/17 09:05 (Symbicort 160-4.5 Inh) 1 puff Q12HR INH 01/03/17 21:00 Hold 01/04/17 09:00 (Bentyl) 20 mg TID PRN PO 01/03/17 19:15 (Cardizem Cd) 240 mg DAILY PO 01/04/17 09:00 01/07/17 09:08 (Neurontin) 100 mg TID PO 01/04/17 09:00 01/08/17 09:05 (Asacol Hd ) 1,600 mg Q8HR PO 01/03/17 22:00 01/08/17 09:05 (Theragran Hematinic) 1 tab DAILY PO 01/04/17 09:00 01/08/17 09:05 (Nephrocaps) 1 cap DAILY PO 01/04/17 09:00 01/08/17 09:06 (Tylenol) 650 mg Q4H PRN PO 01/03/17 23:30 (Mycostatin Liq) 5 ml QID SWISH-SWAL 01/03/17 23:30 01/08/17 09:06 (Robitussin Ac 200-20 Mg/10 ml Liq) 10 ml Q4H PRN PO 01/04/17 10:30 01/08/17 09:08 (SoluMEDROL INJ) 40 mg Q6HR IV 01/04/17 18:00 01/08/17 04:52 Clonazepam 1 mg 1 mg HS PRN PO 01/04/17 21:30 01/07/17 23:30 (KCl Inj/1/2 NS 1000 ml Inj) 1,005 ml @ 42 mls/hr [id number] IV 01/05/17 10:00 01/06/17 04:05 (Zithromax) 500 mg Q24H PO 01/05/17 18:00 01/07/17 17:48 (Chloraseptic [place]) 2 spray Q2H PRN OROPHARYNG 01/06/17 14:15 Fluconazole 200 mg 200 mg DAILY PO 01/07/17 09:00 01/08/17 09:06 (Vancomycin Inj/ NS 500 ml Inj) 515 ml @ 250 mls/hr Q12H IV 01/07/17 18:00 01/08/17 04:51 Miscellaneous Information SPECIFIC LAB TO BE DRAWN:VANCOMYCIN TROUGH DATE TO... ONCE ONCE XX 01/09/17 05:45 01/09/17 05:46 Miscellaneous Information ALL NURSING DEPARTME... UNSCH PRN XX 01/07/17 12:14 01/08/17 12:13 Vital Signs / I&O Vital Signs Date Time Temp Pulse Resp B/P Pulse Ox O2 Delivery O2 Flow Rate FiO2 01/08/17 08:19 94 Nasal Cannula 2.00 01/08/17 04:00 97.9 80 18 144/88 92 01/07/17 20:00 98.2 98 20 154/95 9 01/07/17 20:00 Nasal Cannula 4.00 Humidified 01/07/17 19:52 97 01/07/17 18:00 Nasal Cannula 4.00 Humidified 01/07/17 18:00 94 01/07/17 17:00 98.1 95 16 154/97 96 01/07/17 17:00 80 01/07/17 15:00 94 01/07/17 14:00 78 01/07/17 13:15 98.0 82 17 141/84 92 Nasal Cannula 4 01/07/17 13:00 83 17 144/85 90 Nasal Cannula 4 01/07/17 12:45 84 17 139/88 90 Nasal Cannula 6 01/07/17 12:30 88 17 138/93 93 Nasal Cannula 6 01/07/17 12:11 98.0 96 17 149/93 93 Nasal Cannula 6 01/07/17 10:06 88 01/07/17 09:30 87 I/O 01/07/17 01/07/17 01/07/17 01/08/17 01/08/17 01/08/17 07:00 15:00 23:00 07:00 15:00 23:00 Intake Total 900 ml 1005 ml Output Total 1400 ml 650 ml Balance -1400 ml 900 ml 355 ml Intake Oral 480 ml IV Total 525 ml Other 900 ml Output Urine Total 1400 ml 650 ml Physical Exam GENERAL: On O2 SKIN: Warm and dry. HEAD: Normocephalic. EYES: No scleral icterus. No injection or drainage. NECK: Supple, trachea midline. No JVD or lymphadenopathy. CARDIOVASCULAR: Regular rate and rhythm without murmurs, gallops, or rubs. RESPIRATORY: Breath sounds equal bilaterally. No accessory muscle use. GASTROINTESTINAL: Abdomen soft, non-tender, nondistended. MUSCULOSKELETAL: No cyanosis, or edema. Laboratory Laboratory Tests Test 01/07/17 07:45 White Blood Count 7.8 TH/MM3 Red Blood Count 4.58 MIL/MM3 Hemoglobin 13.4 GM/DL Hematocrit 39.9 % Mean Corpuscular Volume 87.1 FL Mean Corpuscular Hemoglobin 29.2 PG Mean Corpuscular Hemoglobin 33.5 % Concent Red Cell Distribution Width 14.5 % Platelet Count 324 TH/MM3 Mean Platelet Volume 9.0 FL Sodium Level 140 MEQ/L Potassium Level 3.7 MEQ/L Chloride Level 107 MEQ/L Carbon Dioxide Level 21.5 MEQ/L Anion Gap 12 MEQ/L Blood Urea Nitrogen 15 MG/DL Creatinine 0.94 MG/DL Estimat Glomerular Filtration 82 ML/MIN Rate Random Glucose 132 MG/DL Calcium Level 8.6 MG/DL Vancomycin Level Trough 8.2 MCG/ML Imaging Last Impressions Chest X-Ray 01/07/17 0000 Signed Impressions: Service Date/Time: Saturday, January 07, 2017 12:30 - CONCLUSION: Mild interval increase in hazy opacity in both lungs which may represent pulmonary edema. Len Davison MD CT Angiography 01/03/17 0000 Signed Impressions: Service Date/Time: Tuesday, January 03, 2017 18:29 - CONCLUSION: 1. Negative for pulmonary embolus. 2. Interval development of bilateral lung disease on a background of emphysema. Findings are not entirely typical of bronchopneumonia. Differential diagnosis includes some form of smoking related disease with respiratory bronchiolitis or possibly Langerhans' cell histiocytosis. Sree Dykes MD Assessment and Plan Problem List: (1) Pneumonia (2) COPD (chronic obstructive pulmonary disease) (3) Atrial fibrillation Assessment and Plan Overall improvement. No recurrent AF or pauses. Continue monitoring on tele. Pulm eval in progress, bronchoscopy today, await bx results. Continue tx for pneumonia/COPD exac. Increase activity. LE edema, will decrease diltiazem and add low dose metoprolol. Transfer to 7th floor. Problem Qualifiers (1) Pneumonia: (2) COPD (chronic obstructive pulmonary disease): Qualified Code: J44.1 - Chronic obstructive pulmonary disease with acute exacerbation (3) Atrial fibrillation: Qualified Code: I48.0 - Paroxysmal atrial fibrillation Hernandez Reyes MD Jan 08, 2017 09:18
[2017-01-08] MEDS ORDERED: METOPROLOL TARTRATE 25 MG TAB PO ONE (10:45)
[2017-01-08] MEDS: DILTIAZEM-CD 120 MG CAP ER PO SCH (11:35)
--- NOTE | 2017-01-08 13:36 | MP ---
cc: MELISA GRANDE DATE OF SURGERY 01/07/2017 PROCEDURE Fiberoptic bronchoscopy with brushings, washings and lavage. PREOPERATIVE DIAGNOSIS Bilateral pulmonary infiltrates and pneumonia. POSTOPERATIVE DIAGNOSIS Bilateral pulmonary infiltrates and pneumonia. ANESTHESIA General SURGEON Melisa Grande MD PROCEDURE AND FINDINGS The patient was intubated with a number 7.5 endotracheal tube under general anesthesia and was sedated with Diprivan. The Olympus IT-180 bronchoscope was used to visualize the bronchi. The scope was advanced via the endotracheal tube into the trachea. The trachea and siddhartha appeared normal. The scope was then advanced to the right mainstem and right upper lobe segmental bronchi. The right upper lobe segmental bronchi demonstrated moderate endobronchitis with thick mucoid secretions. These were suctioned out. Next, the right middle lobe segmental bronchi were visualized which demonstrated mucoid secretions and moderate endobronchitis with mucosal ridging. The secretions were suctioned out. Next, the right lower lobe segmental bronchi were visualized. These rhonchi demonstrated moderate endobronchitis with mucopurulent secretions and these were suctioned out. Saline washings and lavage were done. Brushings were done for cytology and micro and no significant bleeding was observed. There were no endobronchial masses on the right side. Next, the scope was advanced to left mainstem and left upper lobe segmental bronchi. These bronchi demonstrated mucoid secretions and endobronchitis and mucosal edema. Thick secretions were noted which were suctioned out. Next, the left lower lobe segmental bronchi were visualized. These bronchi demonstrated moderate endobronchitis with mucoid secretions and these were suctioned out. Saline washings and lavage were done. There were no endobronchial lesions noted in the left lung. The procedure was then terminated. The patient tolerated procedure well. Melisa Grande MD JALLEY/TEA /12:03 PM /1:24 PM
--- NOTE | 2017-01-08 16:34 | HHI.PR ---
Subjective Remarks Patient shortness of breath is much better Cough is also much better improving weakness in her energy Mouth is better can swallow with ease now No other complaint Review of systems a 10 point system otherwise unremarkable Objective Objective Results - Vital Signs Date Time Temp Pulse Resp B/P Pulse Ox O2 Delivery O2 Flow Rate FiO2 01/08/17 12:22 98.8 87 20 134/80 97 01/08/17 11:43 Nasal Cannula 4.00 Humidified 01/08/17 10:00 82 01/08/17 08:19 94 Nasal Cannula 2.00 01/08/17 08:00 98.2 88 18 169/94 96 01/08/17 04:00 97.9 80 18 144/88 92 01/07/17 20:00 98.2 98 20 154/95 9 01/07/17 20:00 Nasal Cannula 4.00 Humidified 01/07/17 19:52 97 01/07/17 18:00 Nasal Cannula 4.00 Humidified 01/07/17 18:00 94 01/07/17 17:00 98.1 95 16 154/97 96 01/07/17 17:00 80 I/O 01/07/17 01/07/17 01/07/17 01/08/17 01/08/17 01/08/17 07:00 15:00 23:00 07:00 15:00 23:00 Intake Total 900 ml 1005 ml Output Total 1400 ml 650 ml Balance -1400 ml 900 ml 355 ml Intake Oral 480 ml IV Total 525 ml Other 900 ml Output Urine Total 1400 ml 650 ml Result Diagram: 01/07/17 0745 01/07/17 0745 Other Results Date/Time Procedure Status Source Growth 01/07/17 11:45 Gram Stain - Final Resulted Bronchial Washings Right Lower Lobe 01/07/17 11:45 Bronchial Culture - Preliminary Resulted Bronchial Washings Right Lower Lobe LIGHT GROWTH NORMAL RESPIRATORY GARRY... 01/07/17 11:45 Fungal Smear - Final Resulted Bronchial Washings Right Lower Lobe NO FUNGAL ELEMENTS SEEN. 01/07/17 11:45 Fungal Culture Resulted Bronchial Washings Right Lower Lobe Pending 01/07/17 11:45 Fungal Smear Received Bronchial Brushings Right Lower Lobe Pending 01/07/17 11:45 Fungal Culture Received Bronchial Brushings Right Lower Lobe Pending 01/07/17 11:45 Bronchial Aspirate Culture - Preliminary Resulted Bronchial Brushings Right Lower Lobe NO GROWTH IN 24 HOURS. 01/07/17 11:45 Acid Fast Stain - Final Resulted Bronchial Washings Right Lower Lobe NO ACID FAST BACILLI SEEN 01/07/17 11:45 Mycobacterial Culture Resulted Bronchial Washings Right Lower Lobe Pending 01/07/17 11:45 Acid Fast Stain Received Bronchial Brushings Right Lower Lobe Pending 01/07/17 11:45 Mycobacterial Culture Received Bronchial Brushings Right Lower Lobe Pending 01/07/17 11:45 Cancelled Other 01/04/17 17:10 MRSA Surveillance Culture - Final Complete Nasopharyngeal NO MRSA ISOLATED 01/04/17 17:10 Legionella Antigen - Final Complete Urine Random Urine PRESUMPTIVE NEGATIVE FOR LEGIONELLA P... 01/04/17 17:10 Streptococcus pneumoniae Antigen (M - Final Complete Urine Random Urine PRESUMPTIVE NEGATIVE FOR STREPTOCOCCU... 01/04/17 05:48 Aerobic Blood Culture - Preliminary Resulted Blood Peripheral NO GROWTH IN 4 DAYS 01/04/17 05:48 Anaerobic Blood Culture - Preliminary Resulted Blood Peripheral NO GROWTH IN 4 DAYS 01/03/17 17:07 Influenza Types A,B Antigen (PETRA) - Final Complete Nasal Aspirate NEGATIVE FOR FLU A AND B ANTIGEN.... 01/03/17 17:07 Aerobic Blood Culture - Final Complete Blood Peripheral NO GROWTH IN 5 DAYS 01/03/17 17:07 Anaerobic Blood Culture - Final Complete Blood Peripheral NO GROWTH IN 5 DAYS Physical Exam Physical Exam VITAL SIGNS: Reviewed GENERAL: This is a 61 year-old [place]ian male, resting comfortable in bed. He is in no distress at this time. HEENT: Mucous membranes shows he has less oral thrush. He is hydrated. There is no jaundice. NECK: Supple. No increased JVD negative thyromegaly CARDIOVASCULAR: Regular rate and rhythm. RESPIRATORY: Clear to auscultation GASTROINTESTINAL: Bowel sounds are present. Soft nontender nondistended positive bowel sounds : No CVA tenderness. MUSCULOSKELETAL: No edema. Homans' sign negative. NEUROLOGIC: Alert, oriented. Speech is clear and fluent. Moving all extremities freely. Psych: appropriate mood and affect A/P Assessment and Plan 1. Sepsis on admission. 2. COPD exacerbation. 3. Hyponatremia. 4. Hospital acquired pneumonia. 5. History of A-fib, currently in sinus rhythm. 6. History of ulcerative colitis. 7. Hypokalemia DISCUSSION: Labs reviewed gentle hydration. High CRP and ESR monitored on telemetry, regular rhythm Continue antibiotic ID consult, , states probable PNA vs non infectious pneumonitis with hypoxia, thrush Pulmonary consult appreciated, status post bronchoscopy. Continue nebulizer treatments Continue oxygen to keep saturation above 90% Encouraged pt. to stay on rm air unless he is SOB, and or sat <90. Currently pt. is 96 on rm air. continues with coarse voice, and cough. Has meds for prn use. steroids DVT prophylaxis will be provided as well as GI prophylaxis. Continue home medication as indicated Diflucan for thrush continued, improving Cough medication with codeine Discussed with RN Discussed with patient This remained stable hopefully DC tomorrow Discussed With: Nurse, Family (patient), Other (Dr. Ramirez, patient seen on his behalf) Mallika Ramirez MD Jan 08, 2017 16:34
[2017-01-08] MEDS: AZITHROMYCIN 250 MG TAB PO SCH (17:33)
[2017-01-08] MEDS: SODIUM CHLORIDE 0.9% FLUSH 5 ML FLUSH IV FLUSH SCH (17:34)
--- NOTE | 2017-01-08 19:22 | HHI.PR ---
Subjective Remarks Better today . On o2 2l. Coughed up clear sputum. No fever. Objective Vital Signs Date Time Temp Pulse Resp B/P Pulse Ox O2 Delivery O2 Flow Rate FiO2 01/08/17 17:00 86 01/08/17 15:00 88 01/08/17 13:00 80 01/08/17 12:22 98.8 87 20 134/80 97 01/08/17 11:43 Nasal Cannula 4.00 Humidified 01/08/17 11:00 84 01/08/17 10:00 78 01/08/17 10:00 82 01/08/17 09:00 92 01/08/17 08:19 94 Nasal Cannula 2.00 01/08/17 08:00 98.2 88 18 169/94 96 01/08/17 04:00 97.9 80 18 144/88 92 01/07/17 20:00 98.2 98 20 154/95 9 01/07/17 20:00 Nasal Cannula 4.00 Humidified 01/07/17 19:52 97 I/O 01/07/17 01/07/17 01/07/17 01/08/17 01/08/17 01/08/17 07:00 15:00 23:00 07:00 15:00 23:00 Intake Total 900 ml 1005 ml Output Total 1400 ml 650 ml Balance -1400 ml 900 ml 355 ml Intake Oral 480 ml IV Total 525 ml Other 900 ml Output Urine Total 1400 ml 650 ml # Bowel Movements 4 Result Diagram: 01/07/17 0745 01/07/17 0745 Objective Remarks GENERAL: This is a 61 year-old [place] male, resting in bed. He is in no distress . HEENT: Mucous membranes moist. There is no jaundice.Throat Clear. NECK: Supple. CARDIOVASCULAR: Regular rate and rhythm. RESPIRATORY: Few crackles as well as a few scattered rhonchi. GASTROINTESTINAL: Bowel sounds are present. ABDOMEN: Not distended. : No CVA tenderness. MUSCULOSKELETAL: No edema. Homans' sign negative. NEUROLOGIC: Alert, oriented. Speech is clear and fluent. Moving all extremities freely. CT angiography showed no PE, interval development of bilateral lung disease on a background of emphysema, not entirely typical for bronchopneumonia. Differential diagnosis includes some form of smoking related disease of respiratory bronchiolitis or possible Langerhans cells, histiocytosis. Assessment and Plan Assessment and Plan IMPRESSION: 1. Sepsis on admission. 2. COPD exacerbation. 3. Hyponatremia. 4. Hospital acquired pneumonia. 5. History of A-fib, currently in sinus rhythm. 6. History of ulcerative colitis. Plan : 1. Cont Antibiotics as ordered. 2. Nebs qid , duoneb. 3. Taper solumedrol to 40 mg bid. 4. D/C IV fluids. 5. Rpt Chest X ray . 6. Home soon. Xavier Grande MD Jan 08, 2017 19:22
--- NOTE | 2017-01-08 20:26 | RADRPT ---
EXAM DATE/TIME: 01/08/2017 20:01 [facility] COMPARISON: No previous studies available for comparison. INDICATIONS : Short of breath. MEDICAL HISTORY : None. SURGICAL HISTORY : None. ENCOUNTER: Initial ACUITY: 1 month PAIN SCORE: 3/10 LOCATION: Bilateral chest FINDINGS: The heart size is normal. There is diffuse consolidation seen bilaterally being most prominent in th e perihilar regions. There is relative sparing of the periphery of the lungs. A significant effusio n is not seen. CONCLUSION: Widespread areas of consolidation likely representing edema or diffuse inflammatory c renetta. Miguel Angel Hennessy MD on January 08, 2017 at 20:14 Board Certified Radiologist. This report was verified electronically.
[2017-01-08] MEDS: clonazePAM 1 MG TAB PO PRN (21:58)
[2017-01-08] MEDS: METOPROLOL TARTRATE 25 MG TAB PO SCH (21:58)
[2017-01-09] VITALS (18 sets, daily range): BP systolic 137–153; BP diastolic 72–98; PULSE 74–94; RESP 17–21; TEMP 97.5–98.4; O2SAT 92–98
[2017-01-09] MEDS ORDERED: PHARMACY ORDERED LAB XX ONE (05:45)
[2017-01-09] MEDS: VANCOMYCIN INJ 1,500 MG in SODIUM CHLORID 0.9% 500 ML INJ 500 ML IV SCH ×2 (06:13→18:03)
[2017-01-09] MEDS: MESALAMINE HD 800 MG DELAYED RELEASE TAB PO SCH ×3 (06:13→22:01)
[2017-01-09] MEDS: PIPERACIL-TAZO 4.5 GM PREMIX 100 ML IV SCH ×4 (06:13→22:22)
[2017-01-09] MEDS: RESP: ALBUTEROL 2.5 MG/IPRATROPIUM 0.5 MG NEB (PRN) INH ×4 (06:41→22:29)
[2017-01-09] MEDS: FLUCONAZOLE 200 MG TAB PO SCH (08:48)
[2017-01-09] MEDS: DILTIAZEM-CD 120 MG CAP ER PO SCH (08:49)
[2017-01-09] MEDS: METOPROLOL TARTRATE 25 MG TAB PO SCH ×2 (08:49→21:59)
[2017-01-09] MEDS: NYSTATIN SUSP 500,000 U/5 ML CUP SWISH-SWAL SCH ×4 (08:49→22:00)
[2017-01-09] MEDS: GABAPENTIN 100 MG CAP PO SCH ×3 (08:49→18:06)
[2017-01-09] MEDS: ASCORBIC ACID 500 MG TAB PO SCH (08:49)
[2017-01-09] MEDS: FAMOTIDINE 20 MG TAB PO SCH ×2 (08:49→22:00)
[2017-01-09] MEDS: methylPREDNISolone SOD SUCC 40 MG/1 ML VIAL IV SCH (08:50)
[2017-01-09] MEDS: HEPARIN SODIUM - SQ 10,000 UNITS/ML VIAL SQ SCH ×2 (08:50→22:01)
[2017-01-09] MEDS: guaiFENesin/CODEINE SYRUP 200 MG/20 MG/10 ML CUP PO PRN (08:58)
[2017-01-09] MEDS: MULTIVITAMIN HEMATINIC THERAPEUTIC TAB PO SCH (09:00)
[2017-01-09] MEDS: VITAMIN B CMPLX/VITC/FOLIC AC CAP PO SCH (09:00)
--- NOTE | 2017-01-09 12:47 | HHI.PR ---
Subjective Remarks Patient is short of breath Feeling tired and weak Coughing some Mouth is better can swallow with ease now No other complaint Review of systems a 10 point system otherwise unremarkable Objective Objective Results - Vital Signs Date Time Temp Pulse Resp B/P Pulse Ox O2 Delivery O2 Flow Rate FiO2 01/09/17 10:09 90 01/09/17 09:00 74 01/09/17 08:57 97 Nasal Cannula 2.50 01/09/17 08:00 76 01/09/17 07:00 94 01/09/17 07:00 91 Nasal Cannula 2.00 Humidified 01/09/17 07:00 98.4 76 20 137/91 98 01/09/17 07:00 76 01/09/17 06:00 80 01/09/17 05:00 74 01/09/17 04:00 98.3 79 20 148/98 92 01/09/17 04:00 82 01/09/17 03:00 94 01/09/17 02:00 76 01/09/17 01:00 84 01/09/17 00:00 82 01/08/17 23:00 74 01/08/17 22:00 90 01/08/17 21:00 76 01/08/17 20:55 93 Nasal Cannula 3.00 01/08/17 20:00 91 Nasal Cannula 2.00 Humidified 01/08/17 20:00 59 01/08/17 20:00 97.8 85 20 155/103 94 01/08/17 20:00 79 01/08/17 17:00 86 01/08/17 15:00 88 01/08/17 13:00 80 I/O 01/08/17 01/08/17 01/08/17 01/09/17 01/09/17 01/09/17 07:00 15:00 23:00 07:00 15:00 23:00 Intake Total 1005 ml 380 ml Output Total 650 ml Balance 355 ml 380 ml Intake Oral 480 ml 380 ml IV Total 525 ml Output Urine Total 650 ml # Voids 3 # Bowel Movements 4 Result Diagram: 01/07/17 0745 01/09/17 0455 Other Results Laboratory Tests Test 01/09/17 04:55 Creatinine 0.76 Estimat Glomerular Filtration 105 Rate Vancomycin Level Trough 17.8 Date/Time Procedure Status Source Growth 01/07/17 11:45 Gram Stain - Final Complete Bronchial Washings Right Lower Lobe 01/07/17 11:45 Bronchial Culture - Final Complete Bronchial Washings Right Lower Lobe LIGHT GROWTH NORMAL RESPIRATORY GARRY 01/07/17 11:45 Fungal Smear - Final Resulted Bronchial Washings Right Lower Lobe NO FUNGAL ELEMENTS SEEN. 01/07/17 11:45 Fungal Culture Resulted Bronchial Washings Right Lower Lobe Pending 01/07/17 11:45 Fungal Smear Received Bronchial Brushings Right Lower Lobe Pending 01/07/17 11:45 Fungal Culture Received Bronchial Brushings Right Lower Lobe Pending 01/07/17 11:45 Bronchial Aspirate Culture - Final Complete Bronchial Brushings Right Lower Lobe NO GROWTH IN 48 HOURS. 01/07/17 11:45 Acid Fast Stain - Final Resulted Bronchial Washings Right Lower Lobe NO ACID FAST BACILLI SEEN 01/07/17 11:45 Mycobacterial Culture Resulted Bronchial Washings Right Lower Lobe Pending 01/07/17 11:45 Acid Fast Stain Received Bronchial Brushings Right Lower Lobe Pending 01/07/17 11:45 Mycobacterial Culture Received Bronchial Brushings Right Lower Lobe Pending 01/07/17 11:45 Cancelled Other 01/04/17 17:10 MRSA Surveillance Culture - Final Complete Nasopharyngeal NO MRSA ISOLATED 01/04/17 17:10 Legionella Antigen - Final Complete Urine Random Urine PRESUMPTIVE NEGATIVE FOR LEGIONELLA P... 01/04/17 17:10 Streptococcus pneumoniae Antigen (M - Final Complete Urine Random Urine PRESUMPTIVE NEGATIVE FOR STREPTOCOCCU... Physical Exam Physical Exam VITAL SIGNS: Reviewed GENERAL: This is a 61 year-old [place]og[place]ese male, resting comfortable in bed. He is in no distress at this time. HEENT: Mucous membranes shows he has less oral thrush. He is hydrated. There is no jaundice. NECK: Supple. No increased JVD negative thyromegaly CARDIOVASCULAR: Regular rate and rhythm. RESPIRATORY: Clear to auscultation GASTROINTESTINAL: Bowel sounds are present. Soft nontender nondistended positive bowel sounds : No CVA tenderness. MUSCULOSKELETAL: No edema. Homans' sign negative. NEUROLOGIC: Alert, oriented. Speech is clear and fluent. Moving all extremities freely. Psych: appropriate mood and affect A/P Assessment and Plan 1. Sepsis on admission. 2. COPD exacerbation. 3. Hyponatremia. 4. Hospital acquired pneumonia. 5. History of A-fib, currently in sinus rhythm. 6. History of ulcerative colitis. 7. Hypokalemia DISCUSSION: Tiredness and weakness with low energy. Will monitor gentle hydration. High CRP and ESR monitored on telemetry, regular rhythm Continue antibiotic ID consult, , states probable PNA vs non infectious pneumonitis with hypoxia, thrush Pulmonary consult appreciated, status post bronchoscopy. Continue nebulizer treatments Continue oxygen to keep saturation above 90% Encouraged pt. to stay on rm air unless he is SOB, and or sat <90. Currently pt. is 96 on rm air. continues with hoarse voice, and cough. Has meds for prn use. steroids DVT prophylaxis will be provided as well as GI prophylaxis. Continue home medication as indicated Diflucan for thrush continued, improving Cough medication with codeine Discussed with RN Discussed with patient Because of again shortness of breath with weakness tiredness will monitor him today, to watch for any exacerbation again. If is stable hopefully DC tomorrow Discussed With: Nurse, Family (patient), Other (Dr. Ramirez, patient seen on his behalf) Mallika Ramirez MD Jan 09, 2017 12:47
[2017-01-09] MEDS: AZITHROMYCIN 250 MG TAB PO SCH (18:06)
--- NOTE | 2017-01-09 19:21 | PD.CARD.PN ---
Subjective Subjective Remarks No CP or excessive SOB, still c/o cough Objective Medications Current Medications Medications (Trade) Dose Ordered Sig/Meliton Route Start Time Stop Time Status Last Admin (NS Flush) 2 ml UNSCH PRN IV FLUSH 01/03/17 19:15 IV Flush 2 ml 2 ml BID IV FLUSH 01/03/17 21:00 01/08/17 17:34 Piperacillin Sod/ Tazobactam Sod 100 ml @ 200 mls/hr Q6H IV 01/03/17 23:00 01/09/17 17:23 (Vancomycin Consult Pharmacy) 0 ml @ 0 mls/hr UNSCH OTHER 01/03/17 19:15 (Zofran Inj) 4 mg Q6H PRN IV 01/03/17 19:15 (Heparin Inj) 5,000 units Q12H SQ 01/03/17 21:00 01/09/17 08:50 (Pepcid) 20 mg BID PO 01/03/17 21:00 01/09/17 08:49 (Vitamin C) 500 mg DAILY PO 01/04/17 09:00 01/09/17 08:49 (Symbicort 160-4.5 Inh) 1 puff Q12HR INH 01/03/17 21:00 Hold 01/04/17 09:00 (Bentyl) 20 mg TID PRN PO 01/03/17 19:15 (Neurontin) 100 mg TID PO 01/04/17 09:00 01/09/17 18:06 (Asacol Hd Dr) 1,600 mg Q8HR PO 01/03/17 22:00 01/09/17 13:25 (Theragran Hematinic) 1 tab DAILY PO 01/04/17 09:00 01/09/17 09:00 (Nephrocaps) 1 cap DAILY PO 01/04/17 09:00 01/09/17 09:00 (Tylenol) 650 mg Q4H PRN PO 01/03/17 23:30 (Mycostatin Liq) 5 ml QID SWISH-SWAL 01/03/17 23:30 01/09/17 13:25 (Robitussin Ac 200-20 Mg/10 ml Liq) 10 ml Q4H PRN PO 01/04/17 10:30 01/09/17 08:58 (KlonoPIN) 1 mg HS PRN PO 01/04/17 21:30 01/08/17 21:58 (Zithromax) 500 mg Q24H PO 01/05/17 18:00 01/09/17 18:06 (Chloraseptic [place]) 2 spray Q2H PRN OROPHARYNG 01/06/17 14:15 Fluconazole 200 mg 200 mg DAILY PO 01/07/17 09:00 01/09/17 08:48 (Vancomycin Inj/ NS 500 ml Inj) 515 ml @ 250 mls/hr Q12H IV 01/07/17 18:00 01/09/17 18:03 (Cardizem Cd) 120 mg DAILY PO 01/08/17 11:30 01/09/17 08:49 (Lopressor) 25 mg BID PO 01/08/17 21:00 01/09/17 08:49 (SoluMEDROL INJ) 40 mg BID IV 01/09/17 09:00 01/09/17 08:50 Vital Signs / I&O Vital Signs Date Time Temp Pulse Resp B/P Pulse Ox O2 Delivery O2 Flow Rate FiO2 01/09/17 18:47 93 21 01/09/17 16:00 98.0 78 17 137/72 98 01/09/17 15:06 Nasal Cannula 2.50 21 01/09/17 13:00 84 01/09/17 12:00 86 01/09/17 11:00 98.0 86 20 137/91 98 01/09/17 11:00 94 01/09/17 10:09 90 01/09/17 09:00 74 01/09/17 08:57 97 Nasal Cannula 2.50 01/09/17 08:00 76 01/09/17 07:00 94 01/09/17 07:00 91 Nasal Cannula 2.00 Humidified 01/09/17 07:00 98.4 76 20 137/91 98 01/09/17 07:00 76 01/09/17 06:00 80 01/09/17 05:00 74 01/09/17 04:00 98.3 79 20 148/98 92 01/09/17 04:00 82 01/09/17 03:00 94 01/09/17 02:00 76 01/09/17 01:00 84 01/09/17 00:00 82 01/08/17 23:00 74 01/08/17 22:00 90 01/08/17 21:00 76 01/08/17 20:55 93 Nasal Cannula 3.00 01/08/17 20:00 91 Nasal Cannula 2.00 Humidified 01/08/17 20:00 59 01/08/17 20:00 97.8 85 20 155/103 94 01/08/17 20:00 79 I/O 01/08/17 01/08/17 01/08/17 01/09/17 01/09/17 01/09/17 07:00 15:00 23:00 07:00 15:00 23:00 Intake Total 1005 ml 380 ml Output Total 650 ml Balance 355 ml 380 ml Intake Oral 480 ml 380 ml IV Total 525 ml Output Urine Total 650 ml # Voids 3 # Bowel Movements 4 Physical Exam GENERAL: On O2 SKIN: Warm and dry. HEAD: Normocephalic. EYES: No scleral icterus. No injection or drainage. NECK: Supple, trachea midline. No JVD or lymphadenopathy. CARDIOVASCULAR: Regular rate and rhythm without murmurs, gallops, or rubs. Few rhonchi. RESPIRATORY: Breath sounds equal bilaterally. No accessory muscle use. GASTROINTESTINAL: Abdomen soft, non-tender, nondistended. MUSCULOSKELETAL: No cyanosis, or edema. Laboratory Laboratory Tests Test 01/09/17 04:55 Creatinine 0.76 MG/DL Estimat Glomerular Filtration 105 ML/MIN Rate Vancomycin Level Trough 17.8 MCG/ML Imaging Last Impressions Chest X-Ray 01/08/17 0000 Signed Impressions: Service Date/Time: December 20:01 - CONCLUSION: Widespread areas of consolidation likely representing edema or diffuse inflammatory change. Miguel Angel Hennessy MD CT Angiography 01/03/17 0000 Signed Impressions: Service Date/Time: Tuesday, January 03, 2017 18:29 - CONCLUSION: 1. Negative for pulmonary embolus. 2. Interval development of bilateral lung disease on a background of emphysema. Findings are not entirely typical of bronchopneumonia. Differential diagnosis includes some form of smoking related disease with respiratory bronchiolitis or possibly Langerhans' cell histiocytosis. Sree Dykes MD Assessment and Plan Problem List: (1) Pneumonia (2) COPD (chronic obstructive pulmonary disease) (3) Atrial fibrillation Assessment and Plan Overall improvement. No recurrent AF or pauses. Continue monitoring on tele. Pulm eval in progress. Continue tx for pneumonia/COPD exac. Increase activity. LE edema improving, decreased diltiazem and added low dose metoprolol. Anticipate discharge home soon. Problem Qualifiers (1) Pneumonia: (2) COPD (chronic obstructive pulmonary disease): Qualified Code: J44.1 - Chronic obstructive pulmonary disease with acute exacerbation (3) Atrial fibrillation: Qualified Code: I48.0 - Paroxysmal atrial fibrillation Hernandez Reyes MD Jan 09, 2017 19:21
--- NOTE | 2017-01-09 19:57 | HHI.PR ---
Subjective Remarks Still SOB . On o2 2l. Coughed up clear sputum. No fever.Bronch wash shows no malignant cells. Fungal organisms seen Objective Vital Signs Date Time Temp Pulse Resp B/P Pulse Ox O2 Delivery O2 Flow Rate FiO2 01/09/17 18:47 93 21 01/09/17 16:00 98.0 78 17 137/72 98 01/09/17 15:06 Nasal Cannula 2.50 21 01/09/17 13:00 84 01/09/17 12:00 86 01/09/17 11:00 98.0 86 20 137/91 98 01/09/17 11:00 94 01/09/17 10:09 90 01/09/17 09:00 74 01/09/17 08:57 97 Nasal Cannula 2.50 01/09/17 08:00 76 01/09/17 07:00 94 01/09/17 07:00 91 Nasal Cannula 2.00 Humidified 01/09/17 07:00 98.4 76 20 137/91 98 01/09/17 07:00 76 01/09/17 06:00 80 01/09/17 05:00 74 01/09/17 04:00 98.3 79 20 148/98 92 01/09/17 04:00 82 01/09/17 03:00 94 01/09/17 02:00 76 01/09/17 01:00 84 01/09/17 00:00 82 01/08/17 23:00 74 01/08/17 22:00 90 01/08/17 21:00 76 01/08/17 20:55 93 Nasal Cannula 3.00 01/08/17 20:00 91 Nasal Cannula 2.00 Humidified 01/08/17 20:00 59 01/08/17 20:00 97.8 85 20 155/103 94 01/08/17 20:00 79 I/O 01/08/17 01/08/17 01/08/17 01/09/17 01/09/17 01/09/17 07:00 15:00 23:00 07:00 15:00 23:00 Intake Total 1005 ml 380 ml Output Total 650 ml Balance 355 ml 380 ml Intake Oral 480 ml 380 ml IV Total 525 ml Output Urine Total 650 ml # Voids 3 # Bowel Movements 4 Result Diagram: 01/07/17 0745 01/09/17 5012 Objective Remarks GENERAL: This is a 61 year-old Burkinan male, up in bed. He is in no distress . HEENT: Mucous membranes moist. There is no jaundice.Throat Clear. NECK: Supple. CARDIOVASCULAR: Regular rate and rhythm. RESPIRATORY: Few crackles at bases as well as scattered wheeze. GASTROINTESTINAL: Bowel sounds are present. ABDOMEN: Not distended. : No CVA tenderness. MUSCULOSKELETAL: No edema. Homans' sign negative. NEUROLOGIC: Alert, oriented. Speech is clear and fluent. Moving all extremities well. CT angiography showed no PE, interval development of bilateral lung disease on a background of emphysema, not entirely typical for bronchopneumonia. Differential diagnosis includes some form of smoking related disease of respiratory bronchiolitis or possible Langerhans cells, histiocytosis. Assessment and Plan Assessment and Plan IMPRESSION: 1. Sepsis on admission. 2. COPD exacerbation. 3. Hyponatremia. 4. Hospital acquired pneumonia. 5. History of A-fib, currently in sinus rhythm. 6. History of ulcerative colitis. Plan : 1. Cont Antibiotics as ordered. 2. Nebs qid , duoneb. 3. Cont solumedrol to 40 mg bid. 4. BMP in am 5. Rpt Chest X ray . 6. PT and OT Xavier Grande MD Jan 09, 2017 19:57
[2017-01-09] MEDS: SODIUM CHLORIDE 0.9% FLUSH 5 ML FLUSH IV FLUSH SCH (21:00)
[2017-01-09] MEDS: clonazePAM 1 MG TAB PO PRN (22:00)
[2017-01-09] MEDS: SODIUM CHLORIDE 0.9% FLUSH 5 ML FLUSH IV FLUSH PRN (22:22)
[2017-01-10] VITALS (8 sets, daily range): BP systolic 133–172; BP diastolic 66–99; PULSE 76–92; RESP 19–22; TEMP 96.9–100.4; O2SAT 91–94
[2017-01-10] MEDS: PIPERACIL-TAZO 4.5 GM PREMIX 100 ML IV SCH ×2 (05:00→11:26)
[2017-01-10] MEDS: VANCOMYCIN INJ 1,500 MG in SODIUM CHLORID 0.9% 500 ML INJ 500 ML IV SCH (05:00)
[2017-01-10] MEDS: MESALAMINE HD 800 MG DELAYED RELEASE TAB PO SCH ×3 (05:00→21:10)
[2017-01-10] MEDS: guaiFENesin/CODEINE SYRUP 200 MG/20 MG/10 ML CUP PO PRN ×4 (05:01→21:11)
[2017-01-10] MEDS: RESP: ALBUTEROL 2.5 MG/IPRATROPIUM 0.5 MG NEB (PRN) INH ×3 (06:34→16:51)
--- NOTE | 2017-01-10 06:36 | RADRPT ---
EXAM DATE/TIME: 01/10/2017 05:45 [facility] COMPARISON: CHEST SINGLE AP, January 07, 2017, 12:30. INDICATIONS : Shortness of breath. MEDICAL HISTORY : Hypertension. Chronic obstructive pulmonary disease. SURGICAL HISTORY : None. ENCOUNTER: Subsequent ACUITY: 1 week PAIN SCORE: 0/10 LOCATION: Bilateral chest FINDINGS: The cardiac silhouette is enlarged in transverse diameter. The aortic knob is prominent with tortuosi ty of the descending thoracic aorta. There is patchy alveolar disease bilaterally compatible with herrera ma or pneumonia. There has been no significant change when compared to the prior exam. CONCLUSION: 1. Patchy alveolar disease characteristic of edema or pneumonia. There has been no significant borja e when compared to the prior exam. Selvin Gonzalez MD on January 10, 2017 at 6:34 Board Certified Radiologist. This report was verified electronically.
[2017-01-10] MEDS: MULTIVITAMIN HEMATINIC THERAPEUTIC TAB PO SCH (09:48)
[2017-01-10] MEDS: GABAPENTIN 100 MG CAP PO SCH ×3 (09:48→17:24)
[2017-01-10] MEDS: ASCORBIC ACID 500 MG TAB PO SCH (09:50)
[2017-01-10] MEDS: VITAMIN B CMPLX/VITC/FOLIC AC CAP PO SCH (09:50)
[2017-01-10] MEDS: FLUCONAZOLE 200 MG TAB PO SCH (09:50)
[2017-01-10] MEDS: FAMOTIDINE 20 MG TAB PO SCH ×2 (09:50→21:10)
[2017-01-10] MEDS: DILTIAZEM-CD 120 MG CAP ER PO SCH (09:51)
[2017-01-10] MEDS: METOPROLOL TARTRATE 25 MG TAB PO SCH ×2 (09:51→21:10)
[2017-01-10] MEDS: SODIUM CHLORIDE 0.9% FLUSH 5 ML FLUSH IV FLUSH SCH ×2 (09:52→21:09)
[2017-01-10] MEDS: NYSTATIN SUSP 500,000 U/5 ML CUP SWISH-SWAL SCH ×4 (09:52→21:10)
[2017-01-10] MEDS: HEPARIN SODIUM - SQ 10,000 UNITS/ML VIAL SQ SCH ×2 (09:53→21:10)
[2017-01-10] MEDS: methylPREDNISolone SOD SUCC 40 MG/1 ML VIAL IV SCH (09:53)
--- NOTE | 2017-01-10 13:09 | HHI.PR ---
Subjective Remarks Patient has short of breath Patient is still Feeling tired and weak Coughing more than yesterday dry type Mouth is better can swallow with ease now No other complaint Review of systems a 10 point system otherwise unremarkable Objective Objective Results - Vital Signs Date Time Temp Pulse Resp B/P Pulse Ox O2 Delivery O2 Flow Rate FiO2 01/10/17 11:14 93 Nasal Cannula 3.00 01/10/17 09:45 91 Nasal Cannula 2.00 Humidified 01/10/17 08:00 99.1 89 20 133/66 91 01/10/17 06:38 94 Nasal Cannula 2.00 01/10/17 00:00 97.0 76 20 155/86 92 01/09/17 22:00 Nasal Cannula 2.50 21 01/09/17 20:00 97.5 75 21 153/79 97 01/09/17 18:47 93 Nasal Cannula 2.00 01/09/17 16:00 98.0 78 17 137/72 98 01/09/17 15:06 Nasal Cannula 2.50 21 I/O 01/09/17 01/09/17 01/09/17 01/10/17 01/10/17 01/10/17 07:00 15:00 23:00 07:00 15:00 23:00 Intake Total 380 ml 240 ml 240 ml 244 ml Balance 380 ml 240 ml 240 ml 244 ml Intake Oral 380 ml 240 ml 240 ml IV Total 244 ml # Voids 3 2 2 # Bowel Movements 2 0 Result Diagram: 01/07/17 0745 01/09/17 0455 Other Results Date/Time Procedure Status Source Growth 01/07/17 11:45 Gram Stain - Final Complete Bronchial Washings Right Lower Lobe 01/07/17 11:45 Bronchial Culture - Final Complete Bronchial Washings Right Lower Lobe LIGHT GROWTH NORMAL RESPIRATORY GARRY 01/07/17 11:45 Fungal Smear - Final Resulted Bronchial Washings Right Lower Lobe NO FUNGAL ELEMENTS SEEN. 01/07/17 11:45 Fungal Culture Resulted Bronchial Washings Right Lower Lobe Pending 01/07/17 11:45 Fungal Smear Received Bronchial Brushings Right Lower Lobe Pending 01/07/17 11:45 Fungal Culture Received Bronchial Brushings Right Lower Lobe Pending 01/07/17 11:45 Bronchial Aspirate Culture - Final Complete Bronchial Brushings Right Lower Lobe NO GROWTH IN 48 HOURS. 01/07/17 11:45 Acid Fast Stain - Final Resulted Bronchial Washings Right Lower Lobe NO ACID FAST BACILLI SEEN 01/07/17 11:45 Mycobacterial Culture Resulted Bronchial Washings Right Lower Lobe Pending 01/07/17 11:45 Cancelled Other Physical Exam Physical Exam VITAL SIGNS: Reviewed GENERAL: This is a 61 year-old [place]cu[place] male, resting comfortable in bed. He is in no distress at this time. HEENT: Mucous membranes shows he has less oral thrush. He is hydrated. There is no jaundice. NECK: Supple. No increased JVD negative thyromegaly CARDIOVASCULAR: Regular rate and rhythm. RESPIRATORY: Coarse breathing bibasally GASTROINTESTINAL: Bowel sounds are present. Soft nontender nondistended positive bowel sounds : No CVA tenderness. MUSCULOSKELETAL: No edema. Homans' sign negative. NEUROLOGIC: Alert, oriented. Speech is clear and fluent. Moving all extremities freely. Psych: appropriate mood and affect A/P Assessment and Plan 1. Sepsis on admission. 2. COPD exacerbation. 3. Hyponatremia. 4. Hospital acquired pneumonia. 5. History of A-fib, currently in sinus rhythm. 6. History of ulcerative colitis. 7. Hypokalemia DISCUSSION: Tiredness and weakness with low energy. Will monitor X-ray report reviewed High CRP and ESR monitored on telemetry, regular rhythm Continue antibiotic ID consult, , states probable PNA vs non infectious pneumonitis with hypoxia, thrush Pulmonary input appreciated, status post bronchoscopy. Continue nebulizer treatments Continue oxygen to keep saturation above 90% Encouraged pt. to stay on rm air unless he is SOB, and or sat <90. Currently pt. is 96 on rm air. continues with hoarse voice, and cough. Has meds for prn use. steroids DVT prophylaxis will be provided as well as GI prophylaxis. Continue home medication as indicated Diflucan for thrush continued, improving Cough medication with codeine Discussed with RN Discussed with patient Because of again shortness of breath with weakness tiredness and cough, will watch for any exacerbation again. If is stable hopefully DC tomorrow Discussed With: Nurse, Family (patient), Other (Dr. Ramirez, patient seen on his behalf) Mallika Ramirez MD Jan 10, 2017 13:09
[2017-01-10] MEDS: AZITHROMYCIN 250 MG TAB PO SCH (17:25)
[2017-01-10] MEDS: cefTRIAXone INJ 2,000 MG in SODIUM CHLORIDE 0.9% INJ 100 ML IV SCH (18:12)
--- NOTE | 2017-01-10 18:53 | HHI.PR ---
Subjective Remarks Better today. On o2 2l. Coughed up clear sputum. Had some low grade fever.Bronch wash shows no malignant cells. Fungal organisms seen Objective Vital Signs Date Time Temp Pulse Resp B/P Pulse Ox O2 Delivery O2 Flow Rate FiO2 01/10/17 16:51 92 Nasal Cannula 3.00 01/10/17 16:00 98.2 92 19 151/89 92 01/10/17 12:00 100.4 82 20 172/99 92 160/90 01/10/17 11:14 93 Nasal Cannula 3.00 01/10/17 09:45 91 Nasal Cannula 2.00 Humidified 01/10/17 08:00 99.1 89 20 133/66 91 01/10/17 06:38 94 Nasal Cannula 2.00 01/10/17 00:00 97.0 76 20 155/86 92 01/09/17 22:00 Nasal Cannula 2.50 21 01/09/17 20:00 97.5 75 21 153/79 97 I/O 01/09/17 01/09/17 01/09/17 01/10/17 01/10/17 01/10/17 07:00 15:00 23:00 07:00 15:00 23:00 Intake Total 380 ml 240 ml 240 ml 964 ml Balance 380 ml 240 ml 240 ml 964 ml Intake Oral 380 ml 240 ml 240 ml 720 ml IV Total 244 ml # Voids 3 2 2 5 # Bowel Movements 2 0 1 Result Diagram: 01/07/17 0745 01/09/17 0455 Objective Remarks GENERAL: This is a 61 year-old Omani male, up in bed. He is in no distress . HEENT: Mucous membranes moist. There is no jaundice.Throat injected. NECK: Supple. CARDIOVASCULAR: Regular rate and rhythm. RESPIRATORY: Few crackles at bases as well as scattered wheeze. GASTROINTESTINAL: Bowel sounds are present. ABDOMEN: Not distended. : No CVA tenderness. MUSCULOSKELETAL: No edema. Homans' sign negative. NEUROLOGIC: Alert, oriented. Speech is clear . Moving all extremities well. CT angiography showed no PE, interval development of bilateral lung disease on a background of emphysema, not entirely typical for bronchopneumonia. Differential diagnosis includes some form of smoking related disease of respiratory bronchiolitis or possible Langerhans cells, histiocytosis. Assessment and Plan Assessment and Plan IMPRESSION: 1. Sepsis on admission. 2. COPD exacerbation. 3. Hyponatremia. 4. Hospital acquired pneumonia. 5. History of A-fib, currently in sinus rhythm. 6. History of ulcerative colitis. Plan : 1. Cont Antibiotics as ordered. 2. Nebs qid , duoneb. 3. D/C solumedrol 4. Add Prednisone 20 mg daily. 5. Rpt CBC,BMP 6. Home when OK with ID Xavier Grande MD Jan 10, 2017 18:53
[2017-01-10] MEDS: clonazePAM 1 MG TAB PO PRN (21:16)
[2017-01-11] VITALS (8 sets, daily range): BP systolic 123–167; BP diastolic 84–96; PULSE 75–85; RESP 20–22; TEMP 96.5–99.4; O2SAT 90–94
[2017-01-11] MEDS: guaiFENesin/CODEINE SYRUP 200 MG/20 MG/10 ML CUP PO PRN ×6 (01:21→20:52)
[2017-01-11] MEDS: RESP: ALBUTEROL 2.5 MG/IPRATROPIUM 0.5 MG NEB (PRN) INH ×2 (01:26→21:15)
[2017-01-11] MEDS: MESALAMINE HD 800 MG DELAYED RELEASE TAB PO SCH ×3 (06:14→20:51)
[2017-01-11] MEDS: FAMOTIDINE 20 MG TAB PO SCH ×2 (08:46→20:52)
[2017-01-11] MEDS: GABAPENTIN 100 MG CAP PO SCH ×3 (08:46→17:30)
[2017-01-11] MEDS: METOPROLOL TARTRATE 25 MG TAB PO SCH ×2 (08:47→20:52)
[2017-01-11] MEDS: MULTIVITAMIN HEMATINIC THERAPEUTIC TAB PO SCH (08:47)
[2017-01-11] MEDS: DILTIAZEM-CD 120 MG CAP ER PO SCH (08:47)
[2017-01-11] MEDS: ASCORBIC ACID 500 MG TAB PO SCH (08:48)
[2017-01-11] MEDS: FLUCONAZOLE 200 MG TAB PO SCH (08:48)
[2017-01-11] MEDS: NYSTATIN SUSP 500,000 U/5 ML CUP SWISH-SWAL SCH ×4 (08:48→20:52)
[2017-01-11] MEDS: VITAMIN B CMPLX/VITC/FOLIC AC CAP PO SCH (08:48)
[2017-01-11] MEDS: HEPARIN SODIUM - SQ 10,000 UNITS/ML VIAL SQ SCH ×2 (08:50→20:52)
[2017-01-11] MEDS: SODIUM CHLORIDE 0.9% FLUSH 5 ML FLUSH IV FLUSH SCH ×2 (08:52→20:51)
[2017-01-11] MEDS ORDERED: predniSONE 20 MG TAB PO SCH (09:00)
--- NOTE | 2017-01-11 11:08 | HHI.PR ---
Subjective Remarks Patient has short of breath also having cough. Also has a wheezing. Feeling weak and tired more than yesterday Mouth is better can swallow with ease now No other complaint Review of systems a 10 point system otherwise unremarkable Objective Objective Results - Vital Signs Date Time Temp Pulse Resp B/P Pulse Ox O2 Delivery O2 Flow Rate FiO2 01/11/17 09:05 92 Nasal Cannula 3.00 Humidified 01/11/17 08:00 99.4 85 20 139/84 92 01/11/17 01:29 92 Nasal Cannula 3.00 01/11/17 00:00 96.8 75 22 162/96 94 01/10/17 21:34 Nasal Cannula 2.00 01/10/17 20:00 96.9 84 22 159/77 91 01/10/17 16:51 92 Nasal Cannula 3.00 01/10/17 16:00 98.2 92 19 151/89 92 01/10/17 12:00 100.4 82 20 172/99 92 160/90 01/10/17 11:14 93 Nasal Cannula 3.00 I/O 01/10/17 01/10/17 01/10/17 01/11/17 01/11/17 01/11/17 07:00 15:00 23:00 07:00 15:00 23:00 Intake Total 240 ml 964 ml 360 ml 240 ml Balance 240 ml 964 ml 360 ml 240 ml Intake Oral 240 ml 720 ml 360 ml 240 ml IV Total 244 ml 0 ml # Voids 2 5 2 2 # Bowel Movements 0 1 0 0 Result Diagram: 01/07/17 0745 01/11/17 0526 Other Results Laboratory Tests Test 01/11/17 05:26 Creatinine 0.80 Estimat Glomerular Filtration 99 Rate Date/Time Procedure Status Source Growth 01/07/17 11:45 Gram Stain - Final Complete Bronchial Washings Right Lower Lobe 01/07/17 11:45 Bronchial Culture - Final Complete Bronchial Washings Right Lower Lobe LIGHT GROWTH NORMAL RESPIRATORY GARRY 01/07/17 11:45 Fungal Smear - Final Resulted Bronchial Washings Right Lower Lobe NO FUNGAL ELEMENTS SEEN. 01/07/17 11:45 Fungal Culture Resulted Bronchial Washings Right Lower Lobe Pending 01/07/17 11:45 Fungal Smear Received Bronchial Brushings Right Lower Lobe Pending 01/07/17 11:45 Fungal Culture Received Bronchial Brushings Right Lower Lobe Pending 01/07/17 11:45 Bronchial Aspirate Culture - Final Complete Bronchial Brushings Right Lower Lobe NO GROWTH IN 48 HOURS. 2 11:45 Acid Fast Stain - Final Resulted Bronchial Washings Right Lower Lobe NO ACID FAST BACILLI SEEN 01/07/17 11:45 Mycobacterial Culture Resulted Bronchial Washings Right Lower Lobe Pending 01/07/17 11:45 Cancelled Other Physical Exam Physical Exam VITAL SIGNS: Reviewed GENERAL: This is a 61 year-old [place]i male, resting comfortable in bed. He is in no distress at this time. HEENT: Mucous membranes shows he has less oral thrush. He is hydrated. There is no jaundice. NECK: Supple. No increased JVD negative thyromegaly CARDIOVASCULAR: Regular rate and rhythm. RESPIRATORY: Coarse breathing bibasally with few scattered wheezing expiratory type. GASTROINTESTINAL: Bowel sounds are present. Soft nontender nondistended positive bowel sounds : No CVA tenderness. MUSCULOSKELETAL: No edema. Homans' sign negative. NEUROLOGIC: Alert, oriented. Speech is clear and fluent. Moving all extremities freely. Psych: appropriate mood and affect A/P Assessment and Plan 1. Sepsis on admission. 2. COPD exacerbation. 3. Hyponatremia. 4. Hospital acquired pneumonia. 5. History of A-fib, currently in sinus rhythm. 6. History of ulcerative colitis. 7. Hypokalemia DISCUSSION: Will switch to IV steroid Continue antibiotic X-ray report reviewed High CRP and ESR monitored on telemetry, regular rhythm Continue antibiotic ID consult, , states probable PNA vs non infectious pneumonitis with hypoxia, thrush Pulmonary input appreciated, status post bronchoscopy. Cytology negative for malignant cells urine but there is numerous fungal organisms consistent with Becky. Continue Diflucan Continue nebulizer treatments Continue oxygen to keep saturation above 90% Encouraged pt. to stay on rm air unless he is SOB, and or sat <90. Currently pt. is 96 on rm air. continues with hoarse voice, and cough. Has meds for prn use. Oxygen on a when necessary basis DVT prophylaxis will be provided as well as GI prophylaxis. Continue home medication as indicated Cough medication with codeine Discussed with RN Discussed with patient Antibiotics per ID Discussed With: Nurse, Family (patient), Other (Dr. Ramirez, patient seen on his behalf) Mallika Ramirez MD Jan 11, 2017 11:07
[2017-01-11] MEDS: methylPREDNISolone SOD SUCC 40 MG/1 ML VIAL IV PUSH SCH ×2 (12:48→20:51)
--- NOTE | 2017-01-11 16:25 | HHI.PR ---
Subjective Remarks Has some cough and wheezing . On o2 2l. Coughed up clear sputum. Had some low grade fever.Bronch wash shows no malignant cells. Final AFB and fungal culture will be back in 4 weeks Objective Vital Signs Date Time Temp Pulse Resp B/P Pulse Ox O2 Delivery O2 Flow Rate FiO2 01/11/17 16:00 98.1 78 21 135/87 90 01/11/17 15:11 92 Nasal Cannula 3.00 01/11/17 12:00 99.4 84 22 167/88 90 01/11/17 09:05 92 Nasal Cannula 3.00 Humidified 01/11/17 08:00 99.4 85 20 139/84 92 01/11/17 01:29 92 Nasal Cannula 3.00 01/11/17 00:00 96.8 75 22 162/96 94 01/10/17 21:34 Nasal Cannula 2.00 01/10/17 20:00 96.9 84 22 159/77 91 01/10/17 16:51 92 Nasal Cannula 3.00 I/O 01/10/17 01/10/17 01/10/17 01/11/17 01/11/17 01/11/17 07:00 15:00 23:00 07:00 15:00 23:00 Intake Total 240 ml 964 ml 360 ml 240 ml 1200 ml Balance 240 ml 964 ml 360 ml 240 ml 1200 ml Intake Oral 240 ml 720 ml 360 ml 240 ml 1200 ml IV Total 244 ml 0 ml # Voids 2 5 2 2 3 # Bowel Movements 0 1 0 0 2 Result Diagram: 01/07/17 0745 01/11/17 0526 Objective Remarks GENERAL: This is a 61 year-old [place] male, up in bed. He is in no distress . HEENT: Mucous membranes moist. There is no jaundice.Throat clear. NECK: Supple. CARDIOVASCULAR: Regular rate and rhythm. RESPIRATORY: Few crackles at bases as well as scattered wheeze. GASTROINTESTINAL: Bowel sounds are present. ABDOMEN: Not distended. : No CVA tenderness. MUSCULOSKELETAL: No edema. Homans' sign negative. NEUROLOGIC: Alert, oriented. Speech is clear . Moving all extremities well. CT angiography showed no PE, interval development of bilateral lung disease on a background of emphysema, not entirely typical for bronchopneumonia. Differential diagnosis includes some form of smoking related disease of respiratory bronchiolitis or possible Langerhans cells, histiocytosis. Assessment and Plan Assessment and Plan IMPRESSION: 1. Sepsis on admission. 2. COPD exacerbation. 3. Hyponatremia. 4. Hospital acquired pneumonia. 5. History of A-fib, currently in sinus rhythm. 6. History of ulcerative colitis. Plan : 1. Cont Antibiotics as ordered. 2. Nebs qid , duoneb. 3. Cont solumedrol 40 mg bid 4. IS q3h. 5. CBC,BMP, CXR in am 6. Home when OK with ID Xavier Grande MD Jan 11, 2017 16:25
[2017-01-11] MEDS: AZITHROMYCIN 250 MG TAB PO SCH (17:30)
[2017-01-11] MEDS: cefTRIAXone INJ 2,000 MG in SODIUM CHLORIDE 0.9% INJ 100 ML IV SCH (17:33)
[2017-01-11] MEDS: clonazePAM 1 MG TAB PO PRN (20:57)
[2017-01-12] VITALS (8 sets, daily range): BP systolic 140–169; BP diastolic 61–99; PULSE 79–90; RESP 18–20; TEMP 96.9–98; O2SAT 93–97
[2017-01-12] MEDS: guaiFENesin/CODEINE SYRUP 200 MG/20 MG/10 ML CUP PO PRN ×4 (01:06→23:22)
[2017-01-12] MEDS: MESALAMINE HD 800 MG DELAYED RELEASE TAB PO SCH ×3 (05:10→20:24)
[2017-01-12] MEDS: RESP: ALBUTEROL 2.5 MG/IPRATROPIUM 0.5 MG NEB (PRN) INH ×3 (05:52→19:28)
[2017-01-12 06:10] LABS: HEMATOCRIT 43.2 % (39.0-51.0); MEAN CELL VOLUME 86.6 FL (80.0-100.0); MEAN CORPUSCULAR HEMOGLOBIN 29.6 PG (27.0-34.0); MEAN CORPUSCULAR HGB CONC 34.2 % (32.0-36.0); PLATELET COUNT 225 TH/MM3 (150-450); RED BLOOD COUNT 4.99 MIL/MM3 (4.50-5.90); RED CELL DISTRIBUTION WIDTH 14.5 % (11.6-17.2); REVIEW FLAG FINAL; WHITE BLOOD COUNT 9.1 TH/MM3 (4.0-11.0)
--- NOTE | 2017-01-12 06:35 | RADRPT ---
EXAM DATE/TIME: 01/12/2017 05:30 [facility] COMPARISON: CHEST SINGLE AP, December 22, 2016, 8:40. CHEST SINGLE AP, January 10, 2017, 5:45. INDICATIONS : Short of breath, nonproductive cough, evaluate infiltrate MEDICAL HISTORY : Hypertension. Chronic obstructive pulmonary disease. SURGICAL HISTORY : None. ENCOUNTER: Subsequent ACUITY: 1 week PAIN SCORE: 0/10 LOCATION: Bilateral chest FINDINGS: The heart size is normal. The lungs demonstrate diffuse increased interstitial markings. A significan t effusion is not seen. CONCLUSION: Diffuse increase interstitial markings related to diffuse processes such as edema or diffuse infectio n. Miguel Angel Hennessy MD on January 12, 2017 at 6:33 Board Certified Radiologist. This report was verified electronically.
[2017-01-12 06:37] LABS: BICARBONATE 25.6 MEQ/L (21.0-32.0); POTASSIUM 4.1 MEQ/L (3.5-5.1)
[2017-01-12] MEDS: FAMOTIDINE 20 MG TAB PO SCH ×2 (09:30→20:25)
[2017-01-12] MEDS: MULTIVITAMIN HEMATINIC THERAPEUTIC TAB PO SCH (09:30)
[2017-01-12] MEDS: NYSTATIN SUSP 500,000 U/5 ML CUP SWISH-SWAL SCH ×4 (09:30→20:26)
[2017-01-12] MEDS: ASCORBIC ACID 500 MG TAB PO SCH (09:30)
[2017-01-12] MEDS: DILTIAZEM-CD 120 MG CAP ER PO SCH (09:30)
[2017-01-12] MEDS: methylPREDNISolone SOD SUCC 40 MG/1 ML VIAL IV PUSH SCH (09:31)
[2017-01-12] MEDS: VITAMIN B CMPLX/VITC/FOLIC AC CAP PO SCH (09:31)
[2017-01-12] MEDS: METOPROLOL TARTRATE 25 MG TAB PO SCH ×2 (09:31→20:25)
[2017-01-12] MEDS: HEPARIN SODIUM - SQ 10,000 UNITS/ML VIAL SQ SCH ×2 (09:31→20:25)
[2017-01-12] MEDS: FLUCONAZOLE 200 MG TAB PO SCH (09:31)
[2017-01-12] MEDS: SODIUM CHLORIDE 0.9% FLUSH 5 ML FLUSH IV FLUSH SCH ×2 (09:31→21:15)
--- NOTE | 2017-01-12 10:33 | HHI.PR ---
Subjective Remarks Patient is feeling lot better. Has occasional cough . Shortness of breath is significantly improved. Has more energy Good appetite Mouth is better can swallow with ease now No other complaint Review of systems a 10 point system otherwise unremarkable Objective Objective Results - Vital Signs Date Time Temp Pulse Resp B/P Pulse Ox O2 Delivery O2 Flow Rate FiO2 01/12/17 08:00 97.5 79 18 140/80 96 01/12/17 00:00 96.9 82 20 159/97 95 01/11/17 22:28 Nasal Cannula 2.00 01/11/17 21:17 94 Nasal Cannula 3.00 01/11/17 20:00 96.5 82 20 123/90 94 01/11/17 16:00 98.1 78 21 135/87 90 01/11/17 15:11 92 Nasal Cannula 3.00 01/11/17 12:00 99.4 84 22 167/88 90 I/O 01/11/17 01/11/17 01/11/17 01/12/17 01/12/17 01/12/17 07:00 15:00 23:00 07:00 15:00 23:00 Intake Total 240 ml 1200 ml 338 ml 320 ml 120 ml Balance 240 ml 1200 ml 338 ml 320 ml 120 ml Intake Oral 240 ml 1200 ml 240 ml 320 ml 120 ml IV Total 98 ml # Voids 2 3 2 2 # Bowel Movements 0 2 0 0 Result Diagram: 01/12/1728 01/12/17 0528 Other Results Laboratory Tests Test 01/12/17 05:28 White Blood Count 9.1 Red Blood Count 4.99 Hemoglobin 14.8 Hematocrit 43.2 Mean Corpuscular Volume 86.6 Mean Corpuscular Hemoglobin 29.6 Mean Corpuscular Hemoglobin 34.2 Concent Red Cell Distribution Width 14.5 Platelet Count 225 Mean Platelet Volume 7.8 Sodium Level 138 Potassium Level 4.1 Chloride Level 102 Carbon Dioxide Level 25.6 Anion Gap 10 Blood Urea Nitrogen 21 Creatinine 0.80 Estimat Glomerular Filtration 99 Rate Random Glucose 145 Calcium Level 8.6 Date/Time Procedure Status Source Growth 01/07/17 11:45 Gram Stain - Final Complete Bronchial Washings Right Lower Lobe 01/07/17 11:45 Bronchial Culture - Final Complete Bronchial Washings Right Lower Lobe LIGHT GROWTH NORMAL RESPIRATORY GARRY 01/07/17 11:45 Fungal Smear - Final Resulted Bronchial Washings Right Lower Lobe NO FUNGAL ELEMENTS SEEN. 01/07/17 11:45 Fungal Culture Resulted Bronchial Washings Right Lower Lobe Pending 01/07/17 11:45 Fungal Smear Received Bronchial Brushings Right Lower Lobe Pending 01/07/17 11:45 Fungal Culture Received Bronchial Brushings Right Lower Lobe Pending 01/07/17 11:45 Bronchial Aspirate Culture - Final Complete Bronchial Brushings Right Lower Lobe NO GROWTH IN 48 HOURS. 01/07/17 11:45 Acid Fast Stain - Final Resulted Bronchial Washings Right Lower Lobe NO ACID FAST BACILLI SEEN 01/07/17 11:45 Mycobacterial Culture Resulted Bronchial Washings Right Lower Lobe Pending 01/07/17 11:45 Cancelled Other Physical Exam Physical Exam VITAL SIGNS: Reviewed GENERAL: This is a 61 year-old [place] male, resting comfortable in bed. He is in no distress at this time. HEENT: Mucous membranes shows he has less oral thrush. He is hydrated. There is no jaundice. NECK: Supple. No increased JVD negative thyromegaly CARDIOVASCULAR: Regular rate and rhythm. RESPIRATORY: Good air entry except slight decrease in bibasally region with occasional scattered wheezing expiratory type. GASTROINTESTINAL: Bowel sounds are present. Soft nontender nondistended positive bowel sounds : No CVA tenderness. MUSCULOSKELETAL: No edema. Homans' sign negative. NEUROLOGIC: Alert, oriented. Speech is clear and fluent. Moving all extremities freely. Psych: appropriate mood and affect A/P Assessment and Plan 1. Sepsis on admission. 2. COPD exacerbation. 3. Hyponatremia. 4. Hospital acquired pneumonia. 5. History of A-fib, currently in sinus rhythm. 6. History of ulcerative colitis. 7. Hypokalemia DISCUSSION: On IV steroid Continue antibiotic. Final recommendation per ID X-ray report reviewed High CRP and ESR monitored on telemetry, regular rhythm Continue antibiotic Pulmonary input appreciated, status post bronchoscopy. Cytology negative for malignant cells, but there is numerous fungal organisms consistent with Becky. Continue Diflucan Continue nebulizer treatments Continue oxygen to keep saturation above 90% Encouraged pt. to stay on rm air unless he is SOB, and or sat <90. Currently pt. is 96 on rm air. Patient has oxygen at home and sometimes use 2 L continues with hoarse voice, improving Oxygen on a when necessary basis DVT prophylaxis will be provided as well as GI prophylaxis. Continue home medication as indicated Cough medication Discussed with RN Discussed with patient. May DC today or tomorrow depending on ID recommendation Antibiotics per ID Discussed With: Nurse, Family (patient), Other (Dr. Ramirez, patient seen on his behalf) Mallika Ramirez MD Jan 12, 2017 10:33
[2017-01-12] MEDS: GABAPENTIN 100 MG CAP PO SCH ×3 (11:08→17:33)
--- NOTE | 2017-01-12 13:14 | HHI.IDPN ---
Subjective Subjective Remarks still hypoxic requires currently 4 L of O2 no expectoration no fever thrush improved co liquid diarrhea Antibiotics azithro CTX fluc Past Medical History COPD tobaccoisn Allergies: Coded Allergies: No Known Allergies (Verified , 12/22/16) Objective . Vital Signs Date Time Temp Pulse Resp B/P Pulse Ox O2 Delivery O2 Flow Rate FiO2 01/12/17 12:21 146/93 01/12/17 12:00 98.0 79 19 169/99 95 01/12/17 08:00 97.5 79 18 140/80 96 01/12/17 07:29 95 Nasal Cannula 3.00 01/12/17 00:00 96.9 82 20 159/97 95 01/11/17 22:28 Nasal Cannula 2.00 01/11/17 21:17 94 Nasal Cannula 3.00 01/11/17 20:00 96.5 82 20 123/90 94 01/11/17 16:00 98.1 78 21 135/87 90 01/11/17 15:11 92 Nasal Cannula 3.00 01/11/17 01/11/17 01/12/17 15:00 23:00 07:00 Intake Total 1200 ml 338 ml 320 ml Balance 1200 ml 338 ml 320 ml Intake Oral 1200 ml 240 ml 320 ml IV Total 98 ml # Voids 3 2 2 # Bowel Movements 2 0 0 . Laboratory Tests Test 01/12/17 05:28 White Blood Count 9.1 TH/MM3 Red Blood Count 4.99 MIL/MM3 Hemoglobin 14.8 GM/DL Hematocrit 43.2 % Mean Corpuscular Volume 86.6 FL Mean Corpuscular Hemoglobin 29.6 PG Mean Corpuscular Hemoglobin 34.2 % Concent Red Cell Distribution Width 14.5 % Platelet Count 225 TH/MM3 Mean Platelet Volume 7.8 FL Laboratory Tests Test 01/11/17 01/12/17 05:26 05:28 Creatinine 0.80 MG/DL 0.80 MG/DL Estimat Glomerular Filtration 99 ML/MIN 99 ML/MIN Rate Sodium Level 138 MEQ/L Potassium Level 4.1 MEQ/L Chloride Level 102 MEQ/L Carbon Dioxide Level 25.6 MEQ/L Anion Gap 10 MEQ/L Blood Urea Nitrogen 21 MG/DL Random Glucose 145 MG/DL Calcium Level 8.6 MG/DL Imaging Last Impressions Chest X-Ray 01/12/17 0600 Signed Impressions: Service Date/Time: Thursday, January 12, 2017 05:30 - CONCLUSION: Diffuse increase interstitial markings related to diffuse processes such as edema or diffuse infection. Miguel Angel Hennessy MD CT Angiography 01/03/17 0000 Signed Impressions: Service Date/Time: Tuesday, January 03, 2017 18:29 - CONCLUSION: 1. Negative for pulmonary embolus. 2. Interval development of bilateral lung disease on a background of emphysema. Findings are not entirely typical of bronchopneumonia. Differential diagnosis includes some form of smoking related disease with respiratory bronchiolitis or possibly Langerhans' cell histiocytosis. Sree Dykes MD Physical Exam CONSTITUTIONAL/GENERAL: This is thin patient, in no apparent distress. TUBES/LINES/DRAINS: SKIN: No jaundice, rashes, or lesions. Ecchymoses on upper extremities. No wounds seen anteriorly. Skin temperature appropriate. Not diaphoretic. HEAD: Atraumatic. Normocephalic. EYES: Pupils equal and round and reactive. Extraocular motions intact. No scleral icterus. No injection or drainage. Fundi not examined. ENT: Hearing grossly normal. Nose without bleeding or purulent drainage. Extensive oral thrush NECK: Trachea midline. Supple, nontender. No palpable thyroid enlargement or nodularity. CARDIOVASCULAR: Regular rate and rhythm without murmurs, gallops, or rubs. No JVD. Peripheral pulses symmetric. RESPIRATORY/CHEST: Symmetric, unlabored respirations. Clear to auscultation. Breath sounds equal bilaterally. No wheezes, rales, or rhonchi. GASTROINTESTINAL: Abdomen soft, non-tender, nondistended. No hepato-splenomegaly , or palpable masses. No guarding. Bowel sounds present. GENITOURINARY: Without palpable bladder distension. MUSCULOSKELETAL: Extremities without clubbing, cyanosis, or edema. No joint tenderness or effusion noted. No calf tenderness. No mottling or clubbing. LYMPHATICS: No palpable cervical or supraclavicular adenopathy. NEUROLOGICAL: Awake and alert. Motor and sensory grossly within normal limits. Follows commands. Cognitively sharp. Moves all extremities. PSYCHIATRIC: No obvious anxiety/depression. no apparent hallucinations or other psychotic thought process. Assessment & Plan Remarks COPD PNA vs non infectious pneumonitis with hypoxia with unestblished underlying cause - sputum and BAL clx are negative - CXR from today looks worse - still on high level of NC O2 - completely negative w/u as of today Oral candidiasis in the settings of sterriods use - umproving on fluc - cont azithro - dc CFTX - fu P cytology and leg -cont fluconazole for oral thrush - consider lung bx if P cytology unrevealinmg - ro C.diff - consider HIV testing (pt would like it to be done as o/p) - pt has occupational risks for HCV/HIV - last time tested negative for HIV about 4 yrs ago and HCV negative about 15 yrs ago Sheela Liu MD Jan 12, 2017 13:13
--- NOTE | 2017-01-12 14:25 | PD.CARD.PN ---
Subjective Subjective Remarks No CP, still SOB w exertion Objective Medications Current Medications Medications (Trade) Dose Ordered Sig/Meliton Route Start Time Stop Time Status Last Admin (NS Flush) 2 ml UNSCH PRN IV FLUSH 01/03/17 19:15 01/09/17 22:22 (NS Flush) 2 ml BID IV FLUSH 01/03/17 21:00 01/12/17 09:31 (Zofran Inj) 4 mg Q6H PRN IV 01/03/17 19:15 (Heparin Inj) 5,000 units Q12H SQ 01/03/17 21:00 01/12/17 09:31 (Pepcid) 20 mg BID PO 01/03/17 21:00 01/12/17 09:30 (Vitamin C) 500 mg DAILY PO 01/04/17 09:00 01/12/17 09:30 (Symbicort 160-4.5 Inh) 1 puff Q12HR INH 01/03/17 21:00 Hold 01/04/17 09:00 (Bentyl) 20 mg TID PRN PO 01/03/17 19:15 (Neurontin) 100 mg TID PO 01/04/17 09:00 01/12/17 11:08 (Asacol Hd Dr) 1,600 mg Q8HR PO 01/03/17 22:00 01/12/17 14:01 (Theragran Hematinic) 1 tab DAILY PO 01/04/17 09:00 01/12/17 09:30 (Nephrocaps) 1 cap DAILY PO 01/04/17 09:00 01/12/17 09:31 (Tylenol) 650 mg Q4H PRN PO 01/03/17 23:30 (Mycostatin Liq) 5 ml QID SWISH-SWAL 01/03/17 23:30 01/12/17 12:20 (Robitussin Ac 200-20 Mg/10 ml Liq) 10 ml Q4H PRN PO 01/04/17 10:30 01/12/17 05:06 (KlonoPIN) 1 mg HS PRN PO 01/04/17 21:30 01/11/17 20:57 (Zithromax) 500 mg Q24H PO 01/05/17 18:00 01/11/17 17:30 (Chloraseptic [place]) 2 spray Q2H PRN OROPHARYNG 2/14/17 14:15 01/10/17 09:58 (Diflucan) 200 mg DAILY PO 01/07/17 09:00 01/12/17 09:31 (Cardizem Cd) 120 mg DAILY PO 01/08/17 11:30 01/12/17 09:30 (Lopressor) 25 mg BID PO 01/08/17 21:00 01/12/17 09:31 (SoluMEDROL INJ) 40 mg Q12HR IV PUSH 01/11/17 12:00 01/12/17 09:31 Vital Signs / I&O Vital Signs Date Time Temp Pulse Resp B/P Pulse Ox O2 Delivery O2 Flow Rate FiO2 01/12/17 12:21 146/93 01/12/17 12:00 98.0 79 19 169/99 95 01/12/17 08:00 97.5 79 18 140/80 96 01/12/17 07:29 95 Nasal Cannula 3.00 01/12/17 00:00 96.9 82 20 159/97 95 01/11/17 22:28 Nasal Cannula 2.00 01/11/17 21:17 94 Nasal Cannula 3.00 01/11/17 20:00 96.5 82 20 123/90 94 01/11/17 16:00 98.1 78 21 135/87 90 01/11/17 15:11 92 Nasal Cannula 3.00 I/O 01/11/17 01/11/17 01/11/17 01/12/17 01/12/17 01/12/17 07:00 15:00 23:00 07:00 15:00 23:00 Intake Total 240 ml 1200 ml 338 ml 320 ml 120 ml Balance 240 ml 1200 ml 338 ml 320 ml 120 ml Intake Oral 240 ml 1200 ml 240 ml 320 ml 120 ml IV Total 98 ml # Voids 2 3 2 2 # Bowel Movements 0 2 0 0 Physical Exam GENERAL: On O2 SKIN: Warm and dry. HEAD: Normocephalic. EYES: No scleral icterus. No injection or drainage. NECK: Supple, trachea midline. No JVD or lymphadenopathy. CARDIOVASCULAR: Regular rate and rhythm without murmurs, gallops, or rubs. Few rhonchi. RESPIRATORY: Breath sounds equal bilaterally. No accessory muscle use. GASTROINTESTINAL: Abdomen soft, non-tender, nondistended. MUSCULOSKELETAL: No cyanosis, or edema. Laboratory Laboratory Tests Test 01/12/17 05:28 White Blood Count 9.1 TH/MM3 Red Blood Count 4.99 MIL/MM3 Hemoglobin 14.8 GM/DL Hematocrit 43.2 % Mean Corpuscular Volume 86.6 FL Mean Corpuscular Hemoglobin 29.6 PG Mean Corpuscular Hemoglobin 34.2 % Concent Red Cell Distribution Width 14.5 % Platelet Count 225 TH/MM3 Mean Platelet Volume 7.8 FL Sodium Level 138 MEQ/L Potassium Level 4.1 MEQ/L Chloride Level 102 MEQ/L Carbon Dioxide Level 25.6 MEQ/L Anion Gap 10 MEQ/L Blood Urea Nitrogen 21 MG/DL Creatinine 0.80 MG/DL Estimat Glomerular Filtration 99 ML/MIN Rate Random Glucose 145 MG/DL Calcium Level 8.6 MG/DL Imaging Last Impressions Chest X-Ray 01/12/17 0600 Signed Impressions: Service Date/Time: Thursday, January 12, 2017 05:30 - CONCLUSION: Diffuse increase interstitial markings related to diffuse processes such as edema or diffuse infection. Miguel Angel Hennessy MD CT Angiography 01/03/17 0000 Signed Impressions: Service Date/Time: Tuesday, January 03, 2017 18:29 - CONCLUSION: 1. Negative for pulmonary embolus. 2. Interval development of bilateral lung disease on a background of emphysema. Findings are not entirely typical of bronchopneumonia. Differential diagnosis includes some form of smoking related disease with respiratory bronchiolitis or possibly Langerhans' cell histiocytosis. Sree Dykes MD Assessment and Plan Problem List: (1) Pneumonia (2) COPD (chronic obstructive pulmonary disease) (3) Atrial fibrillation Assessment and Plan Still c/o SOB. Slow improvement. No recurrent AF or pauses. Continue monitoring. Pulm eval in progress. Continue tx for pneumonia/COPD exac. Increase activity. LE edema improving, decreased diltiazem and added low dose metoprolol. Anticipate discharge home soon. Problem Qualifiers (1) Pneumonia: (2) COPD (chronic obstructive pulmonary disease): Qualified Code: J44.1 - Chronic obstructive pulmonary disease with acute exacerbation (3) Atrial fibrillation: Qualified Code: I48.0 - Paroxysmal atrial fibrillation Hernandez Reyes MD Jan 12, 2017 14:24
[2017-01-12] MEDS: AZITHROMYCIN 250 MG TAB PO SCH (17:34)
--- NOTE | 2017-01-12 19:41 | HHI.PR ---
Subjective Remarks Better today. On o2 2l. Coughed up clear sputum. Had no fever.Bronchoscopy wash shows no malignant cells. Final AFB and fungal culture will be back in 4 weeks Objective Vital Signs Date Time Temp Pulse Resp B/P Pulse Ox O2 Delivery O2 Flow Rate FiO2 01/12/17 19:30 93 Nasal Cannula 2.00 01/12/17 16:00 97.8 84 19 146/61 96 01/12/17 12:21 146/93 01/12/17 12:00 98.0 79 19 169/99 95 01/12/17 08:00 97.5 79 18 140/80 96 01/12/17 07:29 95 Nasal Cannula 3.00 01/12/17 00:00 96.9 82 20 159/97 95 01/11/17 22:28 Nasal Cannula 2.00 01/11/17 21:17 94 Nasal Cannula 3.00 01/11/17 20:00 96.5 82 20 123/90 94 I/O 01/11/17 01/11/17 01/11/17 01/12/17 01/12/17 01/12/17 07:00 15:00 23:00 07:00 15:00 23:00 Intake Total 240 ml 1200 ml 338 ml 320 ml 1080 ml Output Total 600 ml Balance 240 ml 1200 ml 338 ml 320 ml 480 ml Intake Oral 240 ml 1200 ml 240 ml 320 ml 1080 ml IV Total 98 ml 0 ml Output Urine Total 400 ml Stool Total 200 ml # Voids 2 3 2 2 # Bowel Movements 0 2 0 0 Result Diagram: 01/12/17 0528 01/12/17527 Objective Remarks GENERAL: This is a 61 year-old male, up in bed. He is in no distress . HEENT: Mucous membranes moist. There is no jaundice.Throat clear. NECK: Supple. CARDIOVASCULAR: Regular rate and rhythm. RESPIRATORY: Few crackles at bases as well as scattered wheeze. GASTROINTESTINAL: Bowel sounds are present. ABDOMEN: Not distended. : No CVA tenderness. MUSCULOSKELETAL: No edema. moves all well. NEUROLOGIC: Alert, oriented. Speech is clear .Reflexes 1 + Assessment and Plan Assessment and Plan IMPRESSION: 1. Sepsis on admission. 2. COPD exacerbation. 3. Hyponatremia. 4. Hospital acquired pneumonia. 5. History of A-fib, currently in sinus rhythm. 6. History of ulcerative colitis. Plan : 1. Cont Antibiotics as ordered. 2. Nebs qid , duoneb. 3. D/C solumedrol 4. IS q3h. 5. Prednisone 10 mg bid. 6. Home when OK with ID Xavier Grande MD Jan 12, 2017 19:41
[2017-01-12] MEDS: predniSONE 10 MG TAB PO SCH (20:25)
[2017-01-12] MEDS: clonazePAM 1 MG TAB PO PRN (20:30)
[2017-01-12 23:41] LABS: C. DIFF EPI 027 PRESUMPTIVE NEGATIVE (NEGATIVE); C. DIFF TOXIN PCR NEGATIVE (NEGATIVE)
[2017-01-13] VITALS: BP 150/78; PULSE 9; RESP 20; TEMP 97.2; O2SAT 97
[2017-01-13] MEDS: RESP: ALBUTEROL 2.5 MG/IPRATROPIUM 0.5 MG NEB (PRN) INH ×3 (03:23→20:20)
[2017-01-13] MEDS: MESALAMINE HD 800 MG DELAYED RELEASE TAB PO SCH ×3 (06:00→19:39)
[2017-01-13] MEDS: guaiFENesin/CODEINE SYRUP 200 MG/20 MG/10 ML CUP PO PRN ×2 (06:02→18:28)
[2017-01-13 08:00] VITALS: BP 152/93; PULSE 81; RESP 18; TEMP 97; O2SAT 94
[2017-01-13] MEDS: DILTIAZEM-CD 120 MG CAP ER PO SCH (08:40)
[2017-01-13] MEDS: FAMOTIDINE 20 MG TAB PO SCH ×2 (08:40→19:39)
[2017-01-13] MEDS: GABAPENTIN 100 MG CAP PO SCH ×3 (08:40→18:25)
[2017-01-13] MEDS: NYSTATIN SUSP 500,000 U/5 ML CUP SWISH-SWAL SCH ×4 (08:40→19:39)
[2017-01-13] MEDS: predniSONE 10 MG TAB PO SCH (08:41)
[2017-01-13] MEDS: VITAMIN B CMPLX/VITC/FOLIC AC CAP PO SCH (08:41)
[2017-01-13] MEDS: METOPROLOL TARTRATE 25 MG TAB PO SCH ×2 (08:41→19:39)
[2017-01-13] MEDS: HEPARIN SODIUM - SQ 10,000 UNITS/ML VIAL SQ SCH ×2 (08:41→19:39)
[2017-01-13] MEDS: MULTIVITAMIN HEMATINIC THERAPEUTIC TAB PO SCH (08:41)
[2017-01-13] MEDS: ASCORBIC ACID 500 MG TAB PO SCH (08:41)
[2017-01-13] MEDS: FLUCONAZOLE 200 MG TAB PO SCH (08:41)
[2017-01-13] MEDS: SODIUM CHLORIDE 0.9% FLUSH 5 ML FLUSH IV FLUSH SCH ×2 (08:47→19:43)
[2017-01-13 12:00] VITALS: BP 157/82; PULSE 78; RESP 18; TEMP 97.8; O2SAT 93
--- NOTE | 2017-01-13 13:19 | HHI.IDPN ---
Subjective Subjective Remarks still hypoxic requires currently 4 L of O2 no expectoration no fever thrush worse no diarrhea BAL positive for PCP Antibiotics azithro CTX fluc Past Medical History COPD tobaccoisn Allergies: Coded Allergies: No Known Allergies (Verified , 12/22/16) Objective . Vital Signs Date Time Temp Pulse Resp B/P Pulse Ox O2 Delivery O2 Flow Rate FiO2 01/13/17 12:00 97.8 78 18 157/82 93 01/13/17 08:38 Nasal Cannula 4.00 01/13/17 08:00 97.0 81 18 152/93 94 01/13/17 00:00 97.2 9 20 150/78 97 01/12/17 20:19 93 Nasal Cannula 2.00 01/12/17 20:00 96.9 90 20 164/80 97 01/12/17 19:30 93 Nasal Cannula 2.00 01/12/17 16:00 97.8 84 19 146/61 96 01/12/17 01/12/17 01/13/17 15:00 23:00 07:00 Intake Total 1080 ml 480 ml 240 ml Output Total 600 ml Balance 480 ml 480 ml 240 ml Intake Oral 1080 ml 480 ml 240 ml IV Total 0 ml Output Urine Total 400 ml Stool Total 200 ml # Voids 2 2 # Bowel Movements 1 0 . Laboratory Tests Test 01/12/17 05:28 White Blood Count 9.1 TH/MM3 Red Blood Count 4.99 MIL/MM3 Hemoglobin 14.8 GM/DL Hematocrit 43.2 % Mean Corpuscular Volume 86.6 FL Mean Corpuscular Hemoglobin 29.6 PG Mean Corpuscular Hemoglobin 34.2 % Concent Red Cell Distribution Width 14.5 % Platelet Count 225 TH/MM3 Mean Platelet Volume 7.8 FL Laboratory Tests Test 01/12/17 05:28 Sodium Level 138 MEQ/L Potassium Level 4.1 MEQ/L Chloride Level 102 MEQ/L Carbon Dioxide Level 25.6 MEQ/L Anion Gap 10 MEQ/L Blood Urea Nitrogen 21 MG/DL Creatinine 0.80 MG/DL Estimat Glomerular Filtration 99 ML/MIN Rate Random Glucose 145 MG/DL Calcium Level 8.6 MG/DL Imaging Last Impressions Chest X-Ray 01/12/17 0600 Signed Impressions: Service Date/Time: Thursday, January 12, 2017 05:30 - CONCLUSION: Diffuse increase interstitial markings related to diffuse processes such as edema or diffuse infection. Miguel Angel Hennessy MD CT Angiography 01/03/17 0000 Signed Impressions: Service Date/Time: Tuesday, January 03, 2017 18:29 - CONCLUSION: 1. Negative for pulmonary embolus. 2. Interval development of bilateral lung disease on a background of emphysema. Findings are not entirely typical of bronchopneumonia. Differential diagnosis includes some form of smoking related disease with respiratory bronchiolitis or possibly Langerhans' cell histiocytosis. Sree Dykes MD Physical Exam CONSTITUTIONAL/GENERAL: This is thin patient, in no apparent distress. TUBES/LINES/DRAINS: SKIN: No jaundice, rashes, or lesions. Ecchymoses on upper extremities. No wounds seen anteriorly. Skin temperature appropriate. Not diaphoretic. HEAD: Atraumatic. Normocephalic. EYES: Pupils equal and round and reactive. Extraocular motions intact. No scleral icterus. No injection or drainage. Fundi not examined. ENT: Hearing grossly normal. Nose without bleeding or purulent drainage. Extensive oral thrush NECK: Trachea midline. Supple, nontender. No palpable thyroid enlargement or nodularity. CARDIOVASCULAR: Regular rate and rhythm without murmurs, gallops, or rubs. No JVD. Peripheral pulses symmetric. RESPIRATORY/CHEST: Symmetric, unlabored respirations. Scattered rhonchi. GASTROINTESTINAL: Abdomen soft, non-tender, nondistended. No hepato-splenomegaly , or palpable masses. No guarding. Bowel sounds present. GENITOURINARY: Without palpable bladder distension. MUSCULOSKELETAL: Extremities without clubbing, cyanosis, or edema. No joint tenderness or effusion noted. No calf tenderness. No mottling or clubbing. LYMPHATICS: No palpable cervical or supraclavicular adenopathy. NEUROLOGICAL: Awake and alert. Motor and sensory grossly within normal limits. Follows commands. Cognitively sharp. Moves all extremities. PSYCHIATRIC: No obvious anxiety/depression. no apparent hallucinations or other psychotic thought process. Assessment & Plan Remarks COPD PCP PNA, new diagnosis Oral candidiasis in the settings of another OI suspected HIV/AIDS - dc azithro - dc CFTX - start IV BActrim with sterroids Prednisone 40 mg twice daily for 5 days, followed by Prednisone 40 mg daily for 5 days, followed by Prednisone 20 mg daily for 11 days - HIV testing in -house: pt with 2 AIDS defining conditions; explained to pt , he is agreeable chk CD4 count - cont fluconazole Sheela Liu MD Jan 13, 2017 13:19
--- NOTE | 2017-01-13 15:39 | HHI.PR ---
Subjective Remarks No chest pain shortness of breath exertional and at rest Voice hoarse, O2 on nasal cannula Anxiety mild No headache (Priscilla Au) Objective Objective Results - Vital Signs Date Time Temp Pulse Resp B/P Pulse Ox O2 Delivery O2 Flow Rate FiO2 01/13/17 12:00 97.8 78 18 157/82 93 01/13/17 08:38 Nasal Cannula 4.00 01/13/17 08:00 97.0 81 18 152/93 94 01/13/17 00:00 97.2 9 20 150/78 97 01/12/17 20:19 93 Nasal Cannula 2.00 01/12/17 20:00 96.9 90 20 164/80 97 01/12/17 19:30 93 Nasal Cannula 2.00 01/12/17 16:00 97.8 84 19 146/61 96 I/O 01/12/17 01/12/17 01/12/17 01/13/17 01/13/17 01/13/17 07:00 15:00 23:00 07:00 15:00 23:00 Intake Total 320 ml 1080 ml 480 ml 240 ml 240 ml Output Total 600 ml 100 ml Balance 320 ml 480 ml 480 ml 240 ml 140 ml Intake Oral 320 ml 1080 ml 480 ml 240 ml 240 ml IV Total 0 ml Output Urine Total 400 ml 100 ml Stool Total 200 ml # Voids 2 2 2 # Bowel Movements 0 1 0 0 (Priscilla Au) Result Diagram: 01/12/1752701/12/17527 ROS General: Fatigue, Weakness, Other (10 point ROS done continues with weakness fatigue, hoarse voice, shortness of breath, cough. Other systems otherwise negative are unremarkable) Pulmonary: SOB (Priscilla Au) Physical Exam Physical Exam PHYSICAL EXAMINATION GENERAL: This is a slim, well-nourished male who appears to be in no acute distress. He is alert and awake, answers questions appropriately. HEAD: Normocephalic without any lesion or mass noted. Facial features appear symmetric. OROPHARYNGEAL: Oropharynx without erythema or edema. NECK: Supple. No nuchal rigidity or lymphadenopathy. Trachea midline without deviation. CARDIAC: Regular rhythm, regular rate, S1 and S2 are heard. Murmur none; no gallops or rubs. LUNGS: Diminished breath sounds anteriorly and posteriorly more decreased on the right than the left. Mild wheeze, mild rhonchi no rale. No use of accessory muscles on inspiration or expiration At rest ABDOMEN: Soft, nontender, no organomegaly or masses. Bowel sounds are heard in all four quadrants. No rebound. No guarding. Appetite fair EXTREMITIES: No edema. Pulses equal bilateral. No cyanosis. NEUROLOGICAL: Patient mood and affect appropriate. No focal deficit SKIN:Warm and moist Objective Remarks I'm getting up walking so I can keep my strength up (Priscilla Au) A/P Assessment and Plan Assessment and Plan 1. Sepsis on admission. 2. COPD exacerbation. 3. Hyponatremia. 4. Hospital acquired pneumonia. 5. History of A-fib, currently in sinus rhythm. 6. History of ulcerative colitis. 7. Hypokalemia 8. R/O AIDS 9. Dehydration DISCUSSION: Labs review, vital signs reviewed. gentle hydration. monitored on telemetry, regular rhythm Continue IV fluids. Continue antibiotic ID consult, , states probable PNA vs non infectious pneumonitis with hypoxia, thrush, More testing to R/O AIDS Pulmonary consult appreciated, bronchoscopy today. Awaiting tests/biopsy results which included cytology results Continue nebulizer treatments Continue oxygen to keep saturation above 90% Encouraged pt. to stay on rm air unless he is SOB, and or sat <90. Currently pt. is 96 on rm air. continues with coarse voice, and cough. Has meds for prn use. Current by mouth fluids, labs reviewed in normal except B UN 21. steroids DVT prophylaxis will be provided as well as GI prophylaxis. Continue home medication as indicated Diflucan for thrush continued, improving Cough medication with codeine Still has hoarse voice, with low air volumes, respirations 24-28 at rest. Patient states hypoxia with ambulation and activity. Keep O2 on at 2 L for now Lab in for more lab draws per ID. See note Discussed with RN Discussed with patient Discussed with Dr. He, pt. seen on her behalf Discussed With: Nurse, Family (patient), Other (Dr. Ramirez, patient seen on his behalf) (Priscilla Au) Assessment and Plan Patient seen and examined cytology 1of 3 + for PCP d/w Dr Liu start i/v bactrim / steroids check HIV status continue current care discussed with patient discussed with Priscilla GEE (Adia He MD) Priscilla Au Jan 13, 2017 15:39 Adia He MD Jan 13, 2017 16:34
[2017-01-13] MEDS: predniSONE 20 MG TAB PO SCH ×2 (16:40→19:39)
[2017-01-13] MEDS ORDERED: SULFAMETHOX/TRIMETHOPRIM 160 MG/10 ML VIAL IV SCH ×3 (17:00→21:00)
[2017-01-13] MEDS ORDERED: predniSONE 10 MG TAB PO SCH (18:00)
[2017-01-13] MEDS: WATE IV SCH ×4 (18:25→23:58)
[2017-01-13] MEDS: SULFAMETHOX IV SCH ×4 (18:25→23:58)
[2017-01-13] MEDS: DEXTROSE 5% IV SCH ×4 (18:25→23:58)
[2017-01-13] MEDS: TRIMETHOPRIM IV SCH ×4 (18:25→23:58)
[2017-01-13 18:34] VITALS: O2SAT 93
--- NOTE | 2017-01-13 19:26 | HHI.PR ---
Subjective Remarks No fever today.. On o2 2l. Coughed up clear sputum. Had no fever.Bronchoscopy wash shows no malignant cells. Pneumocystis was present on BAL now on bactrim IV.and on diflucan Objective Vital Signs Date Time Temp Pulse Resp B/P Pulse Ox O2 Delivery O2 Flow Rate FiO2 01/13/17 18:34 93 Nasal Cannula 3.00 01/13/17 12:00 97.8 78 18 157/82 93 01/13/17 08:38 Nasal Cannula 4.00 01/13/17 08:00 97.0 81 18 152/93 94 01/13/17 00:00 97.2 9 20 150/78 97 01/12/17 20:19 93 Nasal Cannula 2.00 01/12/17 20:00 96.9 90 20 164/80 97 01/12/17 19:30 93 Nasal Cannula 2.00 I/O 01/12/17 01/12/17 01/12/17 01/13/17 01/13/17 01/13/17 07:00 15:00 23:00 07:00 15:00 23:00 Intake Total 320 ml 1080 ml 480 ml 240 ml 240 ml Output Total 600 ml 100 ml Balance 320 ml 480 ml 480 ml 240 ml 140 ml Intake Oral 320 ml 1080 ml 480 ml 240 ml 240 ml IV Total 0 ml Output Urine Total 400 ml 100 ml Stool Total 200 ml # Voids 2 2 2 # Bowel Movements 0 1 0 0 Result Diagram: 01/12/1752701/12/17527 Objective Remarks GENERAL: This is a 61 year-old male, up in bed. He is in no distress . HEENT: Mucous membranes moist. There is no jaundice.Throat clear. NECK: Supple. CARDIOVASCULAR: Regular rate and rhythm. RESPIRATORY: Few crackles at bases as well as scattered wheeze. GASTROINTESTINAL: Bowel sounds are present. ABDOMEN: Not distended.No mass. : No CVA tenderness. MUSCULOSKELETAL: No edema. moves all well. NEUROLOGIC: Alert, oriented. Speech is clear .Reflexes 1 + Assessment and Plan Assessment and Plan IMPRESSION: 1. Sepsis on admission. 2. COPD exacerbation. 3. Hyponatremia. 4. Hospital acquired pneumonia. 5. History of A-fib, currently in sinus rhythm. 6. History of ulcerative colitis. Plan : 1. Cont Antibiotics as ordered. 2. Nebs qid , duoneb. 3. Bactrim IV 320 mg 4. IS q3h. 5. Prednisone 40 mg bid. 6. CD count and HIV testing. Xavier Grande MD Jan 13, 2017 19:26
[2017-01-13 20:00] VITALS: BP 144/71; PULSE 81; RESP 20; TEMP 96.5; O2SAT 96
[2017-01-13] MEDS: clonazePAM 1 MG TAB PO PRN (21:13)
--- NOTE | 2017-01-13 21:40 | PD.CARD.PN ---
Subjective Subjective Remarks No CP, SOB slowly improving Objective Medications Current Medications Medications (Trade) Dose Ordered Sig/Meliton Route Start Time Stop Time Status Last Admin (NS Flush) 2 ml UNSCH PRN IV FLUSH 01/03/17 19:15 01/09/17 22:22 (NS Flush) 2 ml BID IV FLUSH 01/03/17 21:00 01/13/17 19:43 (Zofran Inj) 4 mg Q6H PRN IV 01/03/17 19:15 (Heparin Inj) 5,000 units Q12H SQ 01/03/17 21:00 01/13/17 19:39 (Pepcid) 20 mg BID PO 01/03/17 21:00 01/13/17 19:39 (Vitamin C) 500 mg DAILY PO 01/04/17 09:00 01/13/17 08:41 (Symbicort 160-4.5 Inh) 1 puff Q12HR INH 01/03/17 21:00 Hold 01/04/17 09:00 (Bentyl) 20 mg TID PRN PO 01/03/17 19:15 (Neurontin) 100 mg TID PO 01/04/17 09:00 01/13/17 18:25 (Asacol Hd Dr) 1,600 mg Q8HR PO 01/03/17 22:00 01/13/17 19:39 (Theragran Hematinic) 1 tab DAILY PO 01/04/17 09:00 01/13/17 08:41 (Nephrocaps) 1 cap DAILY PO 01/04/17 09:00 01/13/17 08:41 (Tylenol) 650 mg Q4H PRN PO 01/03/17 23:30 (Mycostatin Liq) 5 ml QID SWISH-SWAL 01/03/17 23:30 01/13/17 19:39 (Robitussin Ac 200-20 Mg/10 ml Liq) 10 ml Q4H PRN PO 01/04/17 10:30 01/13/17 18:28 (KlonoPIN) 1 mg HS PRN PO 01/04/17 21:30 01/13/17 21:13 (Chloraseptic [place]) 2 spray Q2H PRN OROPHARYNG 01/06/17 14:15 01/10/17 09:58 (Diflucan) 200 mg DAILY PO 01/07/17 09:00 01/13/17 08:41 (Cardizem Cd) 120 mg DAILY PO 01/08/17 11:30 01/13/17 08:40 (Lopressor) 25 mg BID PO 01/08/17 21:00 01/13/17 19:39 (Deltasone) 40 mg DAILY PO 01/19/17 09:00 01/24/17 08:59 (Deltasone) 20 mg DAILY PO 01/24/17 09:00 02/04/17 08:59 Prednisone 40 mg 40 mg BID PO 01/13/17 16:00 01/19/17 08:59 01/13/17 19:39 (Bactrim Inj/D5W 500 ml Inj) 514.0625 ml @ 514.... Q6HR IV 01/13/17 18:00 01/13/17 18:25 Vital Signs / I&O Vital Signs Date Time Temp Pulse Resp B/P Pulse Ox O2 Delivery O2 Flow Rate FiO2 01/13/17 20:00 96.5 81 20 144/71 96 01/13/17 18:34 93 Nasal Cannula 3.00 01/13/17 12:00 97.8 78 18 157/82 93 01/13/17 08:38 Nasal Cannula 4.00 01/13/17 08:00 97.0 81 18 152/93 94 01/13/17 00:00 97.2 9 20 150/78 97 I/O 01/12/17 01/12/17 01/12/17 01/13/17 01/13/17 01/13/17 07:00 15:00 23:00 07:00 15:00 23:00 Intake Total 320 ml 1080 ml 480 ml 240 ml 240 ml Output Total 600 ml 100 ml Balance 320 ml 480 ml 480 ml 240 ml 140 ml Intake Oral 320 ml 1080 ml 480 ml 240 ml 240 ml IV Total 0 ml Output Urine Total 400 ml 100 ml Stool Total 200 ml # Voids 2 2 2 # Bowel Movements 0 1 0 0 Physical Exam GENERAL: On O2 SKIN: Warm and dry. HEAD: Normocephalic. EYES: No scleral icterus. No injection or drainage. NECK: Supple, trachea midline. No JVD or lymphadenopathy. CARDIOVASCULAR: Regular rate and rhythm without murmurs, gallops, or rubs. Few rhonchi. RESPIRATORY: Breath sounds equal bilaterally. No accessory muscle use. GASTROINTESTINAL: Abdomen soft, non-tender, nondistended. MUSCULOSKELETAL: No cyanosis, or edema. Laboratory Laboratory Tests Test 01/13/17 14:31 HIV (1&2) Antibody REFLEX Imaging Last Impressions Chest X-Ray 01/12/17 0600 Signed Impressions: Service Date/Time: Thursday, January 12, 2017 05:30 - CONCLUSION: Diffuse increase interstitial markings related to diffuse processes such as edema or diffuse infection. Miguel Angel Hennessy MD CT Angiography 01/03/17 0000 Signed Impressions: Service Date/Time: Tuesday, January 03, 2017 18:29 - CONCLUSION: 1. Negative for pulmonary embolus. 2. Interval development of bilateral lung disease on a background of emphysema. Findings are not entirely typical of bronchopneumonia. Differential diagnosis includes some form of smoking related disease with respiratory bronchiolitis or possibly Langerhans' cell histiocytosis. Sree Dykes MD Assessment and Plan Problem List: (1) Pneumonia (2) COPD (chronic obstructive pulmonary disease) (3) Atrial fibrillation Assessment and Plan Slow progress. No recurrent AF or pauses. Continue monitoring. Pulm and ID eval in progress. Continue tx for pneumonia/COPD exac. LE edema improved, after we decreased diltiazem and added low dose metoprolol. Increase activity. Problem Qualifiers (1) Pneumonia: (2) COPD (chronic obstructive pulmonary disease): Qualified Code: J44.1 - Chronic obstructive pulmonary disease with acute exacerbation (3) Atrial fibrillation: Qualified Code: I48.0 - Paroxysmal atrial fibrillation Hernandez Reyes MD Jan 13, 2017 21:40
[2017-01-13 23:54] VITALS: BP 139/85; PULSE 79; RESP 18; TEMP 97.9; O2SAT 96
[2017-01-13] MEDS: SODIUM CHLORIDE 0.9% FLUSH 5 ML FLUSH IV FLUSH PRN (23:58)
[2017-01-14] MEDS: RESP: ALBUTEROL 2.5 MG/IPRATROPIUM 0.5 MG NEB (PRN) INH ×3 (05:23→21:53)
[2017-01-14] MEDS: MESALAMINE HD 800 MG DELAYED RELEASE TAB PO SCH ×3 (05:57→21:35)
[2017-01-14] MEDS: SODIUM CHLORIDE 0.9% FLUSH 5 ML FLUSH IV FLUSH PRN (05:58)
[2017-01-14] MEDS: WATE IV SCH ×6 (05:58→18:14)
[2017-01-14] MEDS: DEXTROSE 5% IV SCH ×6 (05:58→18:14)
[2017-01-14] MEDS: SULFAMETHOX IV SCH ×6 (05:58→18:14)
[2017-01-14] MEDS: TRIMETHOPRIM IV SCH ×6 (05:58→18:14)
[2017-01-14 08:00] VITALS: BP 110/62; PULSE 82; RESP 19; TEMP 97.3; O2SAT 95
[2017-01-14] MEDS: GABAPENTIN 100 MG CAP PO SCH ×3 (08:56→18:14)
[2017-01-14] MEDS: METOPROLOL TARTRATE 25 MG TAB PO SCH ×2 (08:56→21:41)
[2017-01-14] MEDS: predniSONE 20 MG TAB PO SCH ×2 (08:56→21:34)
[2017-01-14] MEDS: VITAMIN B CMPLX/VITC/FOLIC AC CAP PO SCH (08:56)
[2017-01-14] MEDS: MULTIVITAMIN HEMATINIC THERAPEUTIC TAB PO SCH (08:56)
[2017-01-14] MEDS: DILTIAZEM-CD 120 MG CAP ER PO SCH (08:56)
[2017-01-14] MEDS: FAMOTIDINE 20 MG TAB PO SCH ×2 (08:56→21:34)
[2017-01-14] MEDS: NYSTATIN SUSP 500,000 U/5 ML CUP SWISH-SWAL SCH ×4 (08:57→21:34)
[2017-01-14] MEDS: ASCORBIC ACID 500 MG TAB PO SCH (08:57)
[2017-01-14] MEDS: SODIUM CHLORIDE 0.9% FLUSH 5 ML FLUSH IV FLUSH SCH ×2 (08:57→21:35)
[2017-01-14] MEDS: FLUCONAZOLE 200 MG TAB PO SCH (08:57)
[2017-01-14] MEDS: HEPARIN SODIUM - SQ 10,000 UNITS/ML VIAL SQ SCH ×2 (08:57→21:35)
[2017-01-14] MEDS: guaiFENesin/CODEINE SYRUP 200 MG/20 MG/10 ML CUP PO PRN ×3 (09:02→21:34)
--- NOTE | 2017-01-14 09:42 | PD.CARD.PN ---
Subjective Subjective Remarks No CP, mild SOB, still on O2 Objective Medications Current Medications Medications (Trade) Dose Ordered Sig/Meliton Route Start Time Stop Time Status Last Admin (NS Flush) 2 ml UNSCH PRN IV FLUSH 01/03/17 19:15 01/14/17 05:58 (NS Flush) 2 ml BID IV FLUSH 01/03/17 21:00 01/14/17 08:57 (Zofran Inj) 4 mg Q6H PRN IV 01/03/17 19:15 (Heparin Inj) 5,000 units Q12H SQ 01/03/17 21:00 01/14/17 08:57 (Pepcid) 20 mg BID PO 01/03/17 21:00 01/14/17 08:56 (Vitamin C) 500 mg DAILY PO 01/04/17 09:00 01/14/17 08:57 (Symbicort 160-4.5 Inh) 1 puff Q12HR INH 01/03/17 21:00 Hold 01/04/17 09:00 (Bentyl) 20 mg TID PRN PO 01/03/17 19:15 (Neurontin) 100 mg TID PO 01/04/17 09:00 01/14/17 08:56 (Asacol Hd Dr) 1,600 mg Q8HR PO 01/03/17 22:00 01/14/17 05:57 (Theragran Hematinic) 1 tab DAILY PO 01/04/17 09:00 01/14/17 08:56 (Nephrocaps) 1 cap DAILY PO 01/04/17 09:00 01/14/17 08:56 (Tylenol) 650 mg Q4H PRN PO 01/03/17 23:30 (Mycostatin Liq) 5 ml QID SWISH-SWAL 01/03/17 23:30 01/14/17 08:57 (Robitussin Ac 200-20 Mg/10 ml Liq) 10 ml Q4H PRN PO 01/04/17 10:30 01/14/17 09:02 (KlonoPIN) 1 mg HS PRN PO 01/04/17 21:30 01/13/17 21:13 (Chloraseptic [place]) 2 spray Q2H PRN OROPHARYNG 01/06/17 14:15 01/10/17 09:58 (Diflucan) 200 mg DAILY PO 01/07/17 09:00 01/14/17 08:57 (Cardizem Cd) 120 mg DAILY PO 01/08/17 11:30 01/14/17 08:56 (Lopressor) 25 mg BID PO 01/08/17 21:00 01/14/17 08:56 (Deltasone) 40 mg DAILY PO 01/19/17 09:00 01/24/17 08:59 (Deltasone) 20 mg DAILY PO 01/24/17 09:00 02/04/17 08:59 Prednisone 40 mg 40 mg BID PO 01/13/17 16:00 01/19/17 08:59 01/14/17 08:56 (Bactrim Inj/D5W 500 ml Inj) 514.0625 ml @ 514.... Q6HR IV 01/13/17 18:00 01/14/17 05:58 Vital Signs / I&O Vital Signs Date Time Temp Pulse Resp B/P Pulse Ox O2 Delivery O2 Flow Rate FiO2 01/14/17 08:00 97.3 82 19 110/62 95 01/13/17 23:54 97.9 79 18 139/85 96 01/13/17 20:00 96.5 81 20 144/71 96 01/13/17 19:34 96 Nasal Cannula 2.00 01/13/17 18:34 93 Nasal Cannula 3.00 01/13/17 12:00 97.8 78 18 157/82 93 I/O 01/13/17 01/13/17 01/13/17 01/14/17 01/14/17 01/14/17 07:00 15:00 23:00 07:00 15:00 23:00 Intake Total 240 ml 240 ml 500 ml 120 ml Output Total 100 ml Balance 240 ml 140 ml 500 ml 120 ml Intake Oral 240 ml 240 ml 120 ml IV Total 500 ml Output Urine Total 100 ml # Voids 2 2 # Bowel Movements 0 0 0 Physical Exam GENERAL: On O2 SKIN: Warm and dry. HEAD: Normocephalic. EYES: No scleral icterus. No injection or drainage. NECK: Supple, trachea midline. No JVD or lymphadenopathy. CARDIOVASCULAR: Regular rate and rhythm without murmurs, gallops, or rubs. Few rhonchi. RESPIRATORY: Breath sounds equal bilaterally. No accessory muscle use. GASTROINTESTINAL: Abdomen soft, non-tender, nondistended. MUSCULOSKELETAL: No cyanosis, or edema. Laboratory Laboratory Tests Test 01/13/17 14:31 HIV (1&2) Antibody REFLEX Imaging Last Impressions Chest X-Ray 01/12/17 0600 Signed Impressions: Service Date/Time: Thursday, January 12, 2017 05:30 - CONCLUSION: Diffuse increase interstitial markings related to diffuse processes such as edema or diffuse infection. Miguel Angel Hennessy MD CT Angiography 01/03/17 0000 Signed Impressions: Service Date/Time: Tuesday, January 03, 2017 18:29 - CONCLUSION: 1. Negative for pulmonary embolus. 2. Interval development of bilateral lung disease on a background of emphysema. Findings are not entirely typical of bronchopneumonia. Differential diagnosis includes some form of smoking related disease with respiratory bronchiolitis or possibly Langerhans' cell histiocytosis. Sree Dykes MD Assessment and Plan Problem List: (1) Pneumonia (2) COPD (chronic obstructive pulmonary disease) (3) Atrial fibrillation Assessment and Plan Slow progress. No recurrent AF or pauses. Continue monitoring. Pulm and ID eval in progress. Continue tx for pneumonia/COPD exac. LE edema improved, after we decreased diltiazem and added low dose metoprolol, BP controlled. Increase activity. Anticipate discharge home soon. Problem Qualifiers (1) Pneumonia: (2) COPD (chronic obstructive pulmonary disease): Qualified Code: J44.1 - Chronic obstructive pulmonary disease with acute exacerbation (3) Atrial fibrillation: Qualified Code: I48.0 - Paroxysmal atrial fibrillation Hernandez Reyes MD Jan 14, 2017 09:42
[2017-01-14 10:16] VITALS: O2SAT 92
[2017-01-14 12:00] VITALS: BP 133/72; PULSE 80; RESP 17; TEMP 97.3; O2SAT 96
--- NOTE | 2017-01-14 15:15 | HHI.PR ---
Subjective Remarks SOB improved has been ambulating with oxygen around room no fever thrust improving eating very well no cp no diarrhea feels motivated as he is starting to feel well wants to go back to work in 2 weeks, d/w need to re-evaluate this as he will need several weeks to recuperate Objective Objective Results - Vital Signs Date Time Temp Pulse Resp B/P Pulse Ox O2 Delivery O2 Flow Rate FiO2 01/14/17 12:00 97.3 80 17 133/72 96 01/14/17 10:16 92 Nasal Cannula 2.00 01/14/17 08:00 97.3 82 19 110/62 95 01/13/17 23:54 97.9 79 18 139/85 96 01/13/17 20:00 96.5 81 20 144/71 96 01/13/17 19:34 96 Nasal Cannula 2.00 01/13/17 18:34 93 Nasal Cannula 3.00 I/O 01/13/17 01/13/17 01/13/17 01/14/17 01/14/17 01/14/17 07:00 15:00 23:00 07:00 15:00 23:00 Intake Total 240 ml 240 ml 500 ml 120 ml 640 ml Output Total 100 ml Balance 240 ml 140 ml 500 ml 120 ml 640 ml Intake Oral 240 ml 240 ml 120 ml 640 ml IV Total 500 ml Output Urine Total 100 ml # Voids 2 2 2 # Bowel Movements 0 0 0 1 Result Diagram: 01/12/1752701/12/17527 Other Results Laboratory Tests Test 01/14/17 05:45 Hepatitis A IgM Antibody NEGATIVE Hepatitis B Surface Antigen NEGATIVE Hepatitis B Core IgM Antibody NEGATIVE Hepatitis C Antibody NEGATIVE ROS General: Weakness, No: Fatigue, Other HEENT: Other (thrust ), No: Sore Throat, Dysphagia Cardiac: No: Chest Pain, Edema, Palpitations Pulmonary: Cough, SOB, Wheezing GI: No: Abdominal Pain, BM, Diarrhea, 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, 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 Neuro/MS: No: Lightheaded, Confusion Psych: No: Anxiety, Depression Skin: No: Itching, Rash Urinary Catheter: No Vascular Central Line Catheter: No A/P Diagnosis: (1) COPD (chronic obstructive pulmonary disease) (2) BPH (benign prostatic hyperplasia) (3) Atrial arrhythmia (4) Atrial fibrillation (5) Pneumonia (6) Atrial fibrillation (7) SIRS (systemic inflammatory response syndrome) (8) Hypoxia (9) Pneumocystis carinii pneumonia (10) Thrush (11) Dehydration (12) Ulcerative colitis (13) Hypertension Assessment and Plan continue with empiric abx-Diflucan, Bactrim IV appreciate ID input HIV reflex + BAL + PCP appreciate ID input-pt with 2 AIDS defining conditions; thrush and PCP CD4 count pending appreciate pulmonary input S/P bronch 01/07 continue oxygen, duonebs, PO steroids improving slowly Thrush continue Diflucan continue Nystatin Hx afib, SR appreciate cardiology input continue Cardizem and BB Heparin for DVT prophylaxis continue Asacol Case management consult DC planning, resume HHC, oxygen D/W pt. at length, not likely to go back to work for some time. He's immunocompromised, significant SOB. Needs time to heal need f/u with ID as OP Hopefully dc 3 days when cleared by ID, pulm D/W RN D/W Dr. He D/W pt This pt. was seen by myself and Dr. He, this note is written on her behalf. Problem Qualifiers (1) COPD (chronic obstructive pulmonary disease): Qualified Code: J44.1 - Chronic obstructive pulmonary disease with acute exacerbation (2) BPH (benign prostatic hyperplasia): Qualified Code: N40.0 - Benign prostatic hyperplasia, presence of lower urinary tract symptoms unspecified, unspecified morphology (3) Atrial fibrillation: Qualified Code: I48.0 - Paroxysmal atrial fibrillation (4) Pneumonia: (5) Atrial fibrillation: Qualified Code: I48.0 - Paroxysmal atrial fibrillation (6) Pneumocystis carinii pneumonia: (7) Ulcerative colitis: Qualified Code: K51.90 - Ulcerative colitis without complications, unspecified location (8) Hypertension: Qualified Code: I10 - Essential hypertension Carmen Huggins Jan 14, 2017 15:15
--- NOTE | 2017-01-14 15:16 | HHI.FF ---
Face to Face Verification Diagnosis: (1) COPD (chronic obstructive pulmonary disease) (2) Atrial fibrillation (3) Pneumonia (4) Ulcerative colitis (5) Dehydration (6) Thrush (7) Pneumocystis carinii pneumonia (8) Hypoxia (9) Hypertension (10) SIRS (systemic inflammatory response syndrome) (11) BPH (benign prostatic hyperplasia) Home Health Nursing Order: Medical education Signs/symptoms of disease process Oxygen administration education Nursing assessment with vital signs IV medication administration Instructions: NEEDS ANTIBIOTICS, DR. LESTER TO WRITE ORDER [facility] Order: To Evaluate: Support services Order: To Provide: Community services I have seen patient Montana Quinn on 01/14/17. My clinical findings support the need for the requested home health care services because: Patient has SOB Deconditioned w/ increased weakness Need for psychosocial assistance I certify that my clinical findings support that this patient is homebound because: Hx COPD- exertion dyspnea/weakness Need for psychosocial assistance Carmen Huggins Jan 14, 2017 15:16
[2017-01-14 15:31] VITALS: O2SAT 92
[2017-01-14 16:00] VITALS: BP 117/63; PULSE 80; RESP 17; TEMP 97.8; O2SAT 94
--- NOTE | 2017-01-14 18:28 | HHI.PR ---
Subjective Remarks No fever today. On o2 2l. Has some cough .Clear sputum Pneumocystis was present on BAL now on bactrim IV.and on diflucan Objective Vital Signs Date Time Temp Pulse Resp B/P Pulse Ox O2 Delivery O2 Flow Rate FiO2 01/14/17 16:00 97.8 80 17 117/63 94 01/14/17 15:31 92 Nasal Cannula 2.00 01/14/17 12:00 97.3 80 17 133/72 96 01/14/17 10:16 92 Nasal Cannula 2.00 01/14/17 08:00 97.3 82 19 110/62 95 01/13/17 23:54 97.9 79 18 139/85 96 01/13/17 20:00 96.5 81 20 144/71 96 01/13/17 19:34 96 Nasal Cannula 2.00 01/13/17 18:34 93 Nasal Cannula 3.00 I/O 01/13/17 01/13/17 01/13/17 01/14/17 01/14/17 01/14/17 07:00 15:00 23:00 07:00 15:00 23:00 Intake Total 240 ml 240 ml 500 ml 120 ml 640 ml Output Total 100 ml Balance 240 ml 140 ml 500 ml 120 ml 640 ml Intake Oral 240 ml 240 ml 120 ml 640 ml IV Total 500 ml Output Urine Total 100 ml # Voids 2 2 2 # Bowel Movements 0 0 0 1 Result Diagram: 01/12/1752701/12/17527 Objective Remarks GENERAL: This is a 61 year-old male, up in bed. He is in no distress . HEENT: Mucous membranes moist. There is no jaundice.Throat clear. NECK: Supple. CARDIOVASCULAR: Regular rate and rhythm. RESPIRATORY: Few crackles at bases as well as scattered wheeze. GASTROINTESTINAL: Bowel sounds are present. ABDOMEN: Not distended.No mass. : No CVA tenderness. MUSCULOSKELETAL: No edema. moves all well. NEUROLOGIC: Alert, oriented. .Reflexes 1 + Assessment and Plan Assessment and Plan IMPRESSION: 1. Sepsis on admission. 2. COPD exacerbation. 3. Hyponatremia. 4. Hospital acquired pneumonia. 5. History of A-fib, currently in sinus rhythm. 6. History of ulcerative colitis. 7. PCP pneumonia/Immunocompromised state Plan : 1. Cont Antibiotics as ordered.Bactrim/Diflucan 2. Nebs qid , duoneb. 3. CBC,Liver profile 4. IS q3h. 5. Prednisone 20 mg bid. Xavier Grande MD Jan 14, 2017 18:28
[2017-01-14 20:00] VITALS: BP 148/80; PULSE 84; RESP 18; TEMP 98.9; O2SAT 93
[2017-01-14] MEDS: clonazePAM 1 MG TAB PO PRN (21:34)
[2017-01-15] VITALS (10 sets, daily range): BP systolic 123–138; BP diastolic 70–82; PULSE 76–91; RESP 16–22; TEMP 97.6–99.4; O2SAT 90–96
[2017-01-15] MEDS: WATE IV SCH ×10 (00:37→23:42)
[2017-01-15] MEDS: TRIMETHOPRIM IV SCH ×10 (00:37→23:42)
[2017-01-15] MEDS: SULFAMETHOX IV SCH ×10 (00:37→23:42)
[2017-01-15] MEDS: DEXTROSE 5% IV SCH ×10 (00:37→23:42)
[2017-01-15] MEDS: guaiFENesin/CODEINE SYRUP 200 MG/20 MG/10 ML CUP PO PRN ×4 (01:45→18:39)
[2017-01-15] MEDS: RESP: ALBUTEROL 2.5 MG/IPRATROPIUM 0.5 MG NEB (PRN) INH ×3 (03:03→21:37)
[2017-01-15] MEDS: MESALAMINE HD 800 MG DELAYED RELEASE TAB PO SCH ×3 (05:50→20:11)
[2017-01-15] MEDS: SODIUM CHLORIDE 0.9% FLUSH 5 ML FLUSH IV FLUSH SCH ×2 (09:00→21:00)
--- NOTE | 2017-01-15 09:04 | PD.CARD.PN ---
Subjective Subjective Remarks No CP, mild SOB, no new c/o Objective Medications Current Medications Medications (Trade) Dose Ordered Sig/Meliton Route Start Time Stop Time Status Last Admin (NS Flush) 2 ml UNSCH PRN IV FLUSH 01/03/17 19:15 01/14/17 05:58 (NS Flush) 2 ml BID IV FLUSH 01/03/17 21:00 01/14/17 21:35 (Zofran Inj) 4 mg Q6H PRN IV 01/03/17 19:15 (Heparin Inj) 5,000 units Q12H SQ 01/03/17 21:00 01/14/17 21:35 (Pepcid) 20 mg BID PO 01/03/17 21:00 01/14/17 21:34 (Vitamin C) 500 mg DAILY PO 01/04/17 09:00 01/14/17 08:57 (Symbicort 160-4.5 Inh) 1 puff Q12HR INH 01/03/17 21:00 Hold 01/04/17 09:00 (Bentyl) 20 mg TID PRN PO 01/03/17 19:15 (Neurontin) 100 mg TID PO 01/04/17 09:00 01/14/17 18:14 (Asacol Hd Dr) 1,600 mg Q8HR PO 01/03/17 22:00 01/15/17 05:50 (Theragran Hematinic) 1 tab DAILY PO 01/04/17 09:00 01/14/17 08:56 (Nephrocaps) 1 cap DAILY PO 01/04/17 09:00 01/14/17 08:56 (Tylenol) 650 mg Q4H PRN PO 01/03/17 23:30 (Mycostatin Liq) 5 ml QID SWISH-SWAL 01/03/17 23:30 01/14/17 21:34 (Robitussin Ac 200-20 Mg/10 ml Liq) 10 ml Q4H PRN PO 01/04/17 10:30 01/15/17 01:45 (KlonoPIN) 1 mg HS PRN PO 01/04/17 21:30 01/14/17 21:34 (Chloraseptic [place]) 2 spray Q2H PRN OROPHARYNG 01/06/17 14:15 01/10/17 09:58 (Diflucan) 200 mg DAILY PO 01/07/17 09:00 01/14/17 08:57 (Cardizem Cd) 120 mg DAILY PO 01/08/17 11:30 01/14/17 08:56 (Lopressor) 25 mg BID PO 01/08/17 21:00 01/14/17 21:41 (Deltasone) 40 mg DAILY PO 01/19/17 09:00 01/24/17 08:59 (Deltasone) 20 mg DAILY PO 01/24/17 09:00 02/04/17 08:59 Prednisone 40 mg 40 mg BID PO 01/13/17 16:00 01/19/17 08:59 01/14/17 21:34 (Bactrim Inj/D5W 500 ml Inj) 514.0625 ml @ 514.... Q6HR IV 01/13/17 18:00 01/15/17 05:50 Vital Signs / I&O Vital Signs Date Time Temp Pulse Resp B/P Pulse Ox O2 Delivery O2 Flow Rate FiO2 01/15/17 08:00 98.0 91 19 130/70 96 01/15/17 06:19 97.6 90 20 127/72 95 01/15/17 05:33 93 Nasal Cannula 2.00 01/15/17 03:08 90 Nasal Cannula 2.00 01/15/17 00:00 97.8 86 16 138/82 93 01/14/17 21:30 93 Nasal Cannula 3.00 01/14/17 20:00 98.9 84 18 148/80 93 01/14/17 16:00 97.8 80 17 117/63 94 01/14/17 15:31 92 Nasal Cannula 2.00 01/14/17 12:00 97.3 80 17 133/72 96 01/14/17 10:16 92 Nasal Cannula 2.00 I/O 01/14/17 01/14/17 01/14/17 01/15/17 01/15/17 01/15/17 07:00 15:00 23:00 07:00 15:00 23:00 Intake Total 120 ml 640 ml 860 ml 360 ml Output Total 420 ml Balance 120 ml 640 ml 440 ml 360 ml Intake Oral 120 ml 640 ml 360 ml 360 ml IV Total 500 ml Output Urine Total 420 ml # Voids 2 2 2 # Bowel Movements 0 1 0 1 Physical Exam GENERAL: On O2 SKIN: Warm and dry. HEAD: Normocephalic. EYES: No scleral icterus. No injection or drainage. NECK: Supple, trachea midline. No JVD or lymphadenopathy. CARDIOVASCULAR: Regular rate and rhythm without murmurs, gallops, or rubs. Few rhonchi. RESPIRATORY: Breath sounds equal bilaterally. No accessory muscle use. GASTROINTESTINAL: Abdomen soft, non-tender, nondistended. MUSCULOSKELETAL: No cyanosis, or edema. Laboratory Laboratory Tests Test 01/12/17 01/12/17 01/13/17 01/14/17 05:28 19:30 14:31 05:45 White Blood Count 9.1 TH/MM3 Red Blood Count 4.99 MIL/MM3 Hemoglobin 14.8 GM/DL Hematocrit 43.2 % Mean Corpuscular Volume 86.6 FL Mean Corpuscular Hemoglobin 29.6 PG Mean Corpuscular Hemoglobin 34.2 % Concent Red Cell Distribution Width 14.5 % Platelet Count 225 TH/MM3 Mean Platelet Volume 7.8 FL Sodium Level 138 MEQ/L Potassium Level 4.1 MEQ/L Chloride Level 102 MEQ/L Carbon Dioxide Level 25.6 MEQ/L Anion Gap 10 MEQ/L Blood Urea Nitrogen 21 MG/DL Creatinine 0.80 MG/DL Estimat Glomerular Filtration 99 ML/MIN Rate Random Glucose 145 MG/DL Calcium Level 8.6 MG/DL Stool C. difficile Toxin (PCR) NEGATIVE Stl C. difficile Toxin PRESUMPTIVE Epiderm 027 NEGATIVE HIV (1&2) Antibody REFLEX Hepatitis A IgM Antibody NEGATIVE Hepatitis B Surface Antigen NEGATIVE Hepatitis B Core IgM Antibody NEGATIVE Hepatitis C Antibody NEGATIVE Imaging rad Last Impressions Chest X-Ray 01/12/17 0600 Signed Impressions: Service Date/Time: Thursday, January 12, 2017 05:30 - CONCLUSION: Diffuse increase interstitial markings related to diffuse processes such as edema or diffuse infection. Miguel Angel Hennessy MD CT Angiography 01/03/17 0000 Signed Impressions: Service Date/Time: Tuesday, January 03, 2017 18:29 - CONCLUSION: 1. Negative for pulmonary embolus. 2. Interval development of bilateral lung disease on a background of emphysema. Findings are not entirely typical of bronchopneumonia. Differential diagnosis includes some form of smoking related disease with respiratory bronchiolitis or possibly Langerhans' cell histiocytosis. Sree Dykes MD Assessment and Plan Problem List: (1) Pneumonia (2) COPD (chronic obstructive pulmonary disease) (3) Atrial fibrillation Assessment and Plan Slow progress. No recurrent AF or pauses. Continue monitoring. Pulm and ID eval in progress, AIDS suspected. Continue tx for pneumonia/COPD exac. LE edema improved after we decreased diltiazem and added low dose metoprolol, BP controlled. Increase activity. Anticipate discharge home soon. No new card issues. Problem Qualifiers (1) Pneumonia: (2) COPD (chronic obstructive pulmonary disease): Qualified Code: J44.1 - Chronic obstructive pulmonary disease with acute exacerbation (3) Atrial fibrillation: Qualified Code: I48.0 - Paroxysmal atrial fibrillation Hernandez Reyes MD Jan 15, 2017 09:04
[2017-01-15] MEDS: METOPROLOL TARTRATE 25 MG TAB PO SCH ×2 (09:09→20:04)
[2017-01-15] MEDS: NYSTATIN SUSP 500,000 U/5 ML CUP SWISH-SWAL SCH ×4 (09:09→20:05)
[2017-01-15] MEDS: DILTIAZEM-CD 120 MG CAP ER PO SCH (09:09)
[2017-01-15] MEDS: VITAMIN B CMPLX/VITC/FOLIC AC CAP PO SCH (09:09)
[2017-01-15] MEDS: MULTIVITAMIN HEMATINIC THERAPEUTIC TAB PO SCH (09:09)
[2017-01-15] MEDS: ASCORBIC ACID 500 MG TAB PO SCH (09:09)
[2017-01-15] MEDS: FLUCONAZOLE 200 MG TAB PO SCH (09:09)
[2017-01-15] MEDS: GABAPENTIN 100 MG CAP PO SCH ×3 (09:09→18:39)
[2017-01-15] MEDS: predniSONE 20 MG TAB PO SCH ×2 (09:09→20:05)
[2017-01-15] MEDS: FAMOTIDINE 20 MG TAB PO SCH ×2 (09:09→20:04)
[2017-01-15] MEDS: HEPARIN SODIUM - SQ 10,000 UNITS/ML VIAL SQ SCH ×2 (09:10→20:04)
--- NOTE | 2017-01-15 12:36 | HHI.PR ---
Subjective Remarks inc. SOB last night required additional duonebs + cough and wheezing mouth,tongue sore eating okay no fever Objective Objective Results - Vital Signs Date Time Temp Pulse Resp B/P Pulse Ox O2 Delivery O2 Flow Rate FiO2 01/15/17 08:00 98.0 91 19 130/70 96 01/15/17 06:19 97.6 90 20 127/72 95 01/15/17 05:33 93 Nasal Cannula 2.00 01/15/17 03:08 90 Nasal Cannula 2.00 01/15/17 00:00 97.8 86 16 138/82 93 01/14/17 21:30 93 Nasal Cannula 3.00 01/14/17 20:00 98.9 84 18 148/80 93 01/14/17 16:00 97.8 80 17 117/63 94 01/14/17 15:31 92 Nasal Cannula 2.00 I/O 01/14/17 01/14/17 01/14/17 01/15/17 01/15/17 01/15/17 07:00 15:00 23:00 07:00 15:00 23:00 Intake Total 120 ml 640 ml 860 ml 360 ml Output Total 420 ml Balance 120 ml 640 ml 440 ml 360 ml Intake Oral 120 ml 640 ml 360 ml 360 ml IV Total 500 ml Output Urine Total 420 ml # Voids 2 2 2 # Bowel Movements 0 1 0 1 Result Diagram: 01/12/1752701/12/17527 ROS General: No: Fatigue, Weakness HEENT: Sore Throat, No: Dysphagia Cardiac: No: Chest Pain, Edema, Palpitations Pulmonary: Cough, SOB, Wheezing GI: No: Abdominal Pain, BM, Diarrhea, 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 He is alert and awake, answers questions appropriately. HEAD: Normocephalic without any lesion or mass noted. Facial features appear symmetric. OROPHARYNGEAL: Oropharynx with erythema, has thrust NECK: Supple. No nuchal rigidity or lymphadenopathy. Trachea midline without deviation. CARDIAC: Regular rhythm, regular rate, S1 and S2 are heard. Murmur none; no gallops or rubs. LUNGS: diminished, faint wheezes, non productive cough ABDOMEN: Soft, nontender, no organomegaly or masses. Bowel sounds are heard in all four quadrants. No rebound. No guarding. Appetite fair EXTREMITIES: No edema. Pulses equal bilateral. No cyanosis. NEUROLOGICAL: Patient mood and affect appropriate. No focal deficit Urinary Catheter: No Vascular Central Line Catheter: No A/P Diagnosis: (1) COPD (chronic obstructive pulmonary disease) (2) BPH (benign prostatic hyperplasia) (3) Atrial arrhythmia (4) Atrial fibrillation (5) Pneumonia (6) Atrial fibrillation (7) SIRS (systemic inflammatory response syndrome) (8) Hypoxia (9) Pneumocystis carinii pneumonia (10) Thrush (11) Dehydration (12) Ulcerative colitis (13) Hypertension Assessment and Plan continue with empiric abx-Diflucan, Bactrim IV appreciate ID input HIV reflex + BAL + PCP appreciate ID input-pt with 2 AIDS defining conditions; thrush and PCP CD4 count pending appreciate pulmonary input S/P bronch 01/07 continue oxygen, duonebs, PO steroids improving slowly Thrush continue Diflucan continue Nystatin Hx afib, SR appreciate cardiology input continue Cardizem and BB Heparin for DVT prophylaxis continue Asacol Case management consult DC planning, resume HHC, oxygen D/W pt. at length, not likely to go back to work for some time. He's immunocompromised, significant SOB. Needs time to heal. Verbalizes understanding. need f/u with ID as OP Hopefully dc 3 days when cleared by ID, pulm continue with above tx D/W RN D/W Dr. He D/W pt This pt. was seen by myself and Dr. He, this note is written on her behalf. Problem Qualifiers (1) COPD (chronic obstructive pulmonary disease): Qualified Code: J44.1 - Chronic obstructive pulmonary disease with acute exacerbation (2) BPH (benign prostatic hyperplasia): Qualified Code: N40.0 - Benign prostatic hyperplasia, presence of lower urinary tract symptoms unspecified, unspecified morphology (3) Atrial fibrillation: Qualified Code: I48.0 - Paroxysmal atrial fibrillation (4) Pneumonia: (5) Atrial fibrillation: Qualified Code: I48.0 - Paroxysmal atrial fibrillation (6) Pneumocystis carinii pneumonia: (7) Ulcerative colitis: Qualified Code: K51.90 - Ulcerative colitis without complications, unspecified location (8) Hypertension: Qualified Code: I10 - Essential hypertension Carmen Huggins Jan 15, 2017 12:36
[2017-01-15 16:31] LABS: HIV 1 AB DIFFERENTIATION Positive (Negative); HIV 1/2 AG AND AB SCREEN Reactive (Negative); HIV 2 AB DIFFERENTIATION Negative (Negative)
[2017-01-15] MEDS: clonazePAM 1 MG TAB PO PRN (21:20)
--- NOTE | 2017-01-15 22:29 | HHI.IDPN ---
Subjective Subjective Remarks Delayed entry- pt was seen today around 1730 Pt markedly improved Tolerates ambulation with RA cont to have some cough afebrile tolerates IV Bactrim OK PIETRO HIV + Antibiotics Trim-sulfa fluc Past Medical History COPD tobaccoisn Allergies: Coded Allergies: No Known Allergies (Verified , 12/22/16) Objective . Vital Signs Date Time Temp Pulse Resp B/P Pulse Ox O2 Delivery O2 Flow Rate FiO2 01/15/17 21:41 92 Nasal Cannula 2.00 01/15/17 20:00 98.2 89 22 131/76 93 01/15/17 16:35 96 Nasal Cannula 2.00 01/15/17 16:00 98.3 76 18 123/76 96 01/15/17 12:00 99.4 83 19 132/75 96 01/15/17 09:15 96 Nasal Cannula 2.00 Humidified 01/15/17 08:00 98.0 91 19 130/70 96 01/15/17 06:19 97.6 90 20 127/72 95 01/15/17 05:33 93 Nasal Cannula 2.00 01/15/17 03:08 90 Nasal Cannula 2.00 01/15/17 00:00 97.8 86 16 138/82 93 01/14/17 01/14/17 01/15/17 14:59 22:59 06:59 Intake Total 640 ml 860 ml 360 ml Output Total 420 ml Balance 640 ml 440 ml 360 ml Intake Oral 640 ml 360 ml 360 ml IV Total 500 ml Output Urine Total 420 ml # Voids 2 2 # Bowel Movements 1 0 1 Imaging Last Impressions Chest X-Ray 01/12/17 0600 Signed Impressions: Service Date/Time: Thursday, January 12, 2017 05:30 - CONCLUSION: Diffuse increase interstitial markings related to diffuse processes such as edema or diffuse infection. Miguel Angel Hennessy MD CT Angiography 01/03/17 0000 Signed Impressions: Service Date/Time: Tuesday, January 03, 2017 18:29 - CONCLUSION: 1. Negative for pulmonary embolus. 2. Interval development of bilateral lung disease on a background of emphysema. Findings are not entirely typical of bronchopneumonia. Differential diagnosis includes some form of smoking related disease with respiratory bronchiolitis or possibly Langerhans' cell histiocytosis. Sree Dykes MD Physical Exam CONSTITUTIONAL/GENERAL: This is thin patient, in no apparent distress. TUBES/LINES/DRAINS: SKIN: No jaundice, rashes, or lesions. Ecchymoses on upper extremities. No wounds seen anteriorly. Skin temperature appropriate. Not diaphoretic. HEAD: Atraumatic. Normocephalic. EYES: Pupils equal and round and reactive. Extraocular motions intact. No scleral icterus. No injection or drainage. Fundi not examined. ENT: Hearing grossly normal. Nose without bleeding or purulent drainage. Extensive oral thrush NECK: Trachea midline. Supple, nontender. No palpable thyroid enlargement or nodularity. CARDIOVASCULAR: Regular rate and rhythm without murmurs, gallops, or rubs. No JVD. Peripheral pulses symmetric. RESPIRATORY/CHEST: Symmetric, unlabored respirations. SOme rhonchi. and wheez more prominent on the R GASTROINTESTINAL: Abdomen soft, non-tender, nondistended. No hepato-splenomegaly , or palpable masses. No guarding. Bowel sounds present. GENITOURINARY: Without palpable bladder distension. MUSCULOSKELETAL: Extremities without clubbing, cyanosis, or edema. No joint tenderness or effusion noted. No calf tenderness. No mottling or clubbing. LYMPHATICS: No palpable cervical or supraclavicular adenopathy. NEUROLOGICAL: Awake and alert. Motor and sensory grossly within normal limits. Follows commands. Cognitively sharp. Moves all extremities. PSYCHIATRIC: No obvious anxiety/depression. no apparent hallucinations or other psychotic thought process. Assessment & Plan Remarks COPD PCP PNA, new diagnosis Oral candidiasis in the settings of another OI Probable HIV/AIDS, confirmatory tests P HCV/HBV negative - cont IV BActrim with sterroids Prednisone 40 mg twice daily for 5 days, followed by Prednisone 40 mg daily for 5 days, followed by Prednisone 20 mg daily for 11 days - fu HIV testing confirmatory results - fu CD4 count - cont fluconazole - anticipate transition to po bactrim and dc soon if cont to improve Pt is willing to establish HIV care immediately jalil d/c. He was counseled. He understands the importance of prompt start of HIV tx and compliance with it He would likel to have Dr Hao Galindo as his HIV provider He was asking questions about his HIV prognosis with therapy, and I advised him that his prognosis with adequate HIV Rx will dramatically improve All questions were answered Sheela Lui MD Jan 15, 2017 22:29
[2017-01-16] VITALS (8 sets, daily range): BP systolic 110–131; BP diastolic 61–83; PULSE 80–97; RESP 18–22; TEMP 96.6–99.8; O2SAT 92–98
[2017-01-16] MEDS: SULFAMETHOX IV SCH ×6 (05:44→17:46)
[2017-01-16] MEDS: DEXTROSE 5% IV SCH ×6 (05:44→17:46)
[2017-01-16] MEDS: TRIMETHOPRIM IV SCH ×6 (05:44→17:46)
[2017-01-16] MEDS: WATE IV SCH ×6 (05:44→17:46)
[2017-01-16] MEDS: MESALAMINE HD 800 MG DELAYED RELEASE TAB PO SCH ×3 (05:45→21:34)
[2017-01-16 07:53] LABS: CD 19 PERCENT 53 % (6-29); CD3 ABSOLUTE 57 (840-3060); CD4/CD8 RATIO 0.1 (0.86-5.00); CD8 ABSOLUTE 52 (180-1170); LYMPHOCYTES, ABSOLUTE 144 (850-3900)
[2017-01-16] MEDS: guaiFENesin/CODEINE SYRUP 200 MG/20 MG/10 ML CUP PO PRN ×3 (09:41→21:34)
[2017-01-16] MEDS: GABAPENTIN 100 MG CAP PO SCH ×3 (09:41→17:46)
[2017-01-16] MEDS: FAMOTIDINE 20 MG TAB PO SCH ×2 (09:41→21:33)
[2017-01-16] MEDS: NYSTATIN SUSP 500,000 U/5 ML CUP SWISH-SWAL SCH ×4 (09:41→21:34)
[2017-01-16] MEDS: FLUCONAZOLE 200 MG TAB PO SCH (09:41)
[2017-01-16] MEDS: DILTIAZEM-CD 120 MG CAP ER PO SCH (09:41)
[2017-01-16] MEDS: VITAMIN B CMPLX/VITC/FOLIC AC CAP PO SCH (09:41)
[2017-01-16] MEDS: MULTIVITAMIN HEMATINIC THERAPEUTIC TAB PO SCH (09:41)
[2017-01-16] MEDS: predniSONE 20 MG TAB PO SCH ×2 (09:42→21:31)
[2017-01-16] MEDS: METOPROLOL TARTRATE 25 MG TAB PO SCH ×2 (09:42→21:31)
[2017-01-16] MEDS: HEPARIN SODIUM - SQ 10,000 UNITS/ML VIAL SQ SCH ×2 (09:42→21:33)
[2017-01-16] MEDS: ASCORBIC ACID 500 MG TAB PO SCH (09:42)
[2017-01-16] MEDS: SODIUM CHLORIDE 0.9% FLUSH 5 ML FLUSH IV FLUSH SCH (09:48)
--- NOTE | 2017-01-16 10:50 | HHI.PR ---
Addendum to Inpatient Note Additional Information HIV + - confirmed cw advanced AIDS Undetectable CD4 count (< 20) Needs MAC profilaxis Azithro 1200 q thursday Pt will need to establish fu with HIV provider (Dr Galindo) [facility] preferably with 1st appointment within 1 wk after d/c Sheela Liu MD Jan 16, 2017 10:50
--- NOTE | 2017-01-16 12:03 | PD.CARD.PN ---
Subjective Subjective Remarks No CP, SOB improved, off O2 Objective Vital Signs / I&O Current Medications Medications (Trade) Dose Ordered Sig/Meliton Route Start Time Stop Time Status Last Admin (NS Flush) 2 ml UNSCH PRN IV FLUSH 01/03/17 19:15 01/14/17 05:58 (NS Flush) 2 ml BID IV FLUSH 01/03/17 21:00 01/16/17 09:48 (Zofran Inj) 4 mg Q6H PRN IV 01/03/17 19:15 (Heparin Inj) 5,000 units Q12H SQ 01/03/17 21:00 01/16/17 09:42 (Pepcid) 20 mg BID PO 01/03/17 21:00 01/16/17 09:41 (Vitamin C) 500 mg DAILY PO 01/04/17 09:00 01/16/17 09:42 (Symbicort 160-4.5 Inh) 1 puff Q12HR INH 01/03/17 21:00 Hold 01/04/17 09:00 (Bentyl) 20 mg TID PRN PO 01/03/17 19:15 (Neurontin) 100 mg TID PO 01/04/17 09:00 01/16/17 09:41 (Asacol Hd Dr) 1,600 mg Q8HR PO 01/03/17 22:00 01/16/17 05:45 (Theragran Hematinic) 1 tab DAILY PO 01/04/17 09:00 01/16/17 09:41 (Nephrocaps) 1 cap DAILY PO 01/04/17 09:00 01/16/17 09:41 (Tylenol) 650 mg Q4H PRN PO 01/03/17 23:30 (Mycostatin Liq) 5 ml QID SWISH-SWAL 01/03/17 23:30 01/16/17 09:41 (Robitussin Ac 200-20 Mg/10 ml Liq) 10 ml Q4H PRN PO 01/04/17 10:30 01/16/17 09:41 (KlonoPIN) 1 mg HS PRN PO 01/04/17 21:30 01/15/17 21:20 (Chloraseptic [place]) 2 spray Q2H PRN OROPHARYNG 01/06/17 14:15 01/10/17 09:58 (Diflucan) 200 mg DAILY PO 01/07/17 09:00 01/16/17 09:41 (Cardizem Cd) 120 mg DAILY PO 01/08/17 11:30 01/16/17 09:41 (Lopressor) 25 mg BID PO 01/08/17 21:00 01/16/17 09:42 (Deltasone) 40 mg DAILY PO 01/19/17 09:00 01/24/17 08:59 (Deltasone) 20 mg DAILY PO 01/24/17 09:00 02/04/17 08:59 Prednisone 40 mg 40 mg BID PO 01/13/17 16:00 01/19/17 08:59 01/16/17 09:42 (Bactrim Inj/D5W 500 ml Inj) 514.0625 ml @ 514.... Q6HR IV 01/13/17 18:00 01/16/17 05:44 (Zithromax) 1,200 mg Q7D PO 01/19/17 09:00 Vital Signs Date Time Temp Pulse Resp B/P Pulse Ox O2 Delivery O2 Flow Rate FiO2 01/16/17 09:17 96.6 96 20 110/61 92 01/16/17 04:59 92 21 01/16/17 00:00 98.0 80 20 120/66 98 01/15/17 21:41 92 Nasal Cannula 2.00 01/15/17 20:10 93 2.00 01/15/17 20:00 98.2 89 22 131/76 93 01/15/17 16:35 96 Nasal Cannula 2.00 01/15/17 16:00 98.3 76 18 123/76 96 01/15/17 12:00 99.4 83 19 132/75 96 I/O 01/15/17 01/15/17 01/15/17 01/16/17 01/16/17 01/16/17 07:00 15:00 23:00 07:00 15:00 23:00 Intake Total 360 ml 720 ml 1220 ml 240 ml Balance 360 ml 720 ml 1220 ml 240 ml Intake Oral 360 ml 720 ml 720 ml 240 ml IV Total 500 ml # Voids 2 2 2 2 # Bowel Movements 1 1 0 1 Physical Exam GENERAL: On O2 SKIN: Warm and dry. HEAD: Normocephalic. EYES: No scleral icterus. No injection or drainage. NECK: Supple, trachea midline. No JVD or lymphadenopathy. CARDIOVASCULAR: Regular rate and rhythm without murmurs, gallops, or rubs. RESPIRATORY: Breath sounds equal bilaterally. No accessory muscle use. GASTROINTESTINAL: Abdomen soft, non-tender, nondistended. MUSCULOSKELETAL: No cyanosis, or edema. Laboratory Laboratory Tests Test 01/12/17 01/12/17 01/13/17 01/14/17 05:28 19:30 14:31 05:45 White Blood Count 9.1 TH/MM3 Red Blood Count 4.99 MIL/MM3 Hemoglobin 14.8 GM/DL Hematocrit 43.2 % Mean Corpuscular Volume 86.6 FL Mean Corpuscular Hemoglobin 29.6 PG Mean Corpuscular Hemoglobin 34.2 % Concent Red Cell Distribution Width 14.5 % Platelet Count 225 TH/MM3 Mean Platelet Volume 7.8 FL Sodium Level 138 MEQ/L Potassium Level 4.1 MEQ/L Chloride Level 102 MEQ/L Carbon Dioxide Level 25.6 MEQ/L Anion Gap 10 MEQ/L Blood Urea Nitrogen 21 MG/DL Creatinine 0.80 MG/DL Estimat Glomerular Filtration 99 ML/MIN Rate Random Glucose 145 MG/DL Calcium Level 8.6 MG/DL Stool C. difficile Toxin (PCR) NEGATIVE Stl C. difficile Toxin PRESUMPTIVE Epiderm 027 NEGATIVE HIV (1&2) Antibody REFLEX HIV (1&2) Ag and Ab Screen Reactive Referral HIV-1 Ab Differentiation Positive HIV-2 Ab Differentiation Negative Absolute Lymphocytes (Cell 144 Immunity Percent CD3 Cells 40 % Absolute CD3 Count 57 Percent CD3-/CD16+/CD56+ Cells 5 % Absolute CD3-/CD16+/CD56+ LESS THAN 20 Count Percent CD4 Cells 3 % Absolute CD4 Count LESS THAN 20 [place]/Suppressor Ratio 0.1 Percent CD8 Cells 35 % Absolute CD8 Count 52 Percent CD19 Cells 53 % Absolute CD19 Count 76 Hepatitis A IgM Antibody NEGATIVE Hepatitis B Surface Antigen NEGATIVE Hepatitis B Core IgM Antibody NEGATIVE Hepatitis C Antibody NEGATIVE Imaging Last Impressions Chest X-Ray 01/12/17 0600 Signed Impressions: Service Date/Time: Thursday, January 12, 2017 05:30 - CONCLUSION: Diffuse increase interstitial markings related to diffuse processes such as edema or diffuse infection. Miguel Angel Hennessy MD CT Angiography 01/03/17 0000 Signed Impressions: Service Date/Time: Tuesday, January 03, 2017 18:29 - CONCLUSION: 1. Negative for pulmonary embolus. 2. Interval development of bilateral lung disease on a background of emphysema. Findings are not entirely typical of bronchopneumonia. Differential diagnosis includes some form of smoking related disease with respiratory bronchiolitis or possibly Langerhans' cell histiocytosis. Sree Dykes MD Assessment and Plan Problem List: (1) Pneumonia (2) COPD (chronic obstructive pulmonary disease) (3) Atrial fibrillation Assessment and Plan Overall improvement. No recurrent AF or pauses. Continue monitoring. Pulm and ID eval in progress, AIDS suspected. Continue tx for pneumonia/COPD exac. LE edema improved after we decreased diltiazem and added low dose metoprolol, BP controlled. Increase activity. Anticipate discharge home soon. No new card issues. Will schedule cardiology f/u as outpatient. Problem Qualifiers (1) Pneumonia: (2) COPD (chronic obstructive pulmonary disease): Qualified Code: J44.1 - Chronic obstructive pulmonary disease with acute exacerbation (3) Atrial fibrillation: Qualified Code: I48.0 - Paroxysmal atrial fibrillation Hernandez Reyes MD Jan 16, 2017 12:02
--- NOTE | 2017-01-16 14:02 | HHI.PR ---
Subjective Remarks inc. SOB at night, duonebs are delayed at time, would like q 4 no fever eating ok, tongue very sore, takes his time eating no cp fatigued agreeable with staying in hospital over weekend Objective Objective Results - Vital Signs Date Time Temp Pulse Resp B/P Pulse Ox O2 Delivery O2 Flow Rate FiO2 01/16/17 12:50 97.5 92 18 125/83 97 01/16/17 09:17 96.6 96 20 110/61 92 01/16/17 04:59 92 21 01/16/17 00:00 98.0 80 20 120/66 98 01/15/17 21:41 92 Nasal Cannula 2.00 01/15/17 20:10 93 2.00 01/15/17 20:00 98.2 89 22 131/76 93 01/15/17 16:35 96 Nasal Cannula 2.00 01/15/17 16:00 98.3 76 18 123/76 96 I/O 01/15/17 01/15/17 01/15/17 01/16/17 01/16/17 01/16/17 07:00 15:00 23:00 07:00 15:00 23:00 Intake Total 360 ml 720 ml 1220 ml 240 ml Balance 360 ml 720 ml 1220 ml 240 ml Intake Oral 360 ml 720 ml 720 ml 240 ml IV Total 500 ml # Voids 2 2 2 2 # Bowel Movements 1 1 0 1 Result Diagram: 01/12/1752701/12/17527 ROS General: Fatigue, No: Weakness, Other HEENT: Sore Throat Cardiac: No: Chest Pain, Edema, Palpitations Pulmonary: Cough, SOB, Wheezing, No: Other GI: No: Abdominal Pain, BM, Diarrhea, N/V /HYDRO PNEUMATIC TESTER: No: Dysuria, Urgency Neuro/MS: No: Lightheaded, Confusion Psych: No: Anxiety, Depression Skin: No: Itching, Rash Physical Exam Physical Exam PHYSICAL EXAMINATION GENERAL: This is a slim, well-nourished male who appears to be in no acute distress. He is alert and awake, answers questions appropriately. HEAD: Normocephalic without any lesion or mass noted. Facial features appear symmetric. OROPHARYNGEAL: Oropharynx with erythema, has thrust NECK: Supple. No nuchal rigidity or lymphadenopathy. Trachea midline without deviation. CARDIAC: Regular rhythm, regular rate, S1 and S2 are heard. Murmur none; no gallops or rubs. LUNGS: diminished, faint wheezes, coarse ronchi upper airway, non productive cough ABDOMEN: Soft, nontender, no organomegaly or masses. Bowel sounds are heard in all four quadrants. No rebound. No guarding. Appetite fair EXTREMITIES: No edema. Pulses equal bilateral. No cyanosis. NEUROLOGICAL: Patient mood and affect appropriate. No focal deficit Urinary Catheter: No Vascular Central Line Catheter: No A/P Diagnosis: (1) COPD (chronic obstructive pulmonary disease) (2) BPH (benign prostatic hyperplasia) (3) Atrial arrhythmia (4) Atrial fibrillation (5) Pneumonia (6) Atrial fibrillation (7) SIRS (systemic inflammatory response syndrome) (8) Hypoxia (9) Pneumocystis carinii pneumonia (10) Thrush (11) Dehydration (12) Ulcerative colitis (13) Hypertension Assessment and Plan continue with empiric abx-Diflucan, Bactrim IV appreciate ID input HIV reflex + BAL + PCP HIV + - confirmed cw advanced AIDS Undetectable CD4 count (< 20) Needs MAC profilaxis Azithro 1200 q thursday Pt will need to establish fu with HIV provider (Dr Galindo) [facility] preferably with 1st appointment within 1 wk after d/c appreciate ID input, d/w Dr. Liu, keep over weekend. Needs to establish [facility] upon dc with Dr. Shirley. Pt. will call today to make appointment for next week today appreciate pulmonary input S/P bronch 01/07 continue oxygen, PO steroids change Duonebs to q 4WA and q 2 PRN Thrush continue Diflucan continue Nystatin Hx afib, SR stable appreciate cardiology input continue Cardizem and BB Heparin for DVT prophylaxis continue Asacol Case management consult DC planning, resume HHC, oxygen D/W pt. at length, not likely to go back to work for some time. He's immunocompromised, significant SOB. Needs time to heal. Verbalizes understanding. keep over weekend, poss. dc on Thursday D/W RN D/W Dr. He D/W pt This pt. was seen by myself and Dr. He, this note is written on her behalf. Problem Qualifiers (1) COPD (chronic obstructive pulmonary disease): Qualified Code: J44.1 - Chronic obstructive pulmonary disease with acute exacerbation (2) BPH (benign prostatic hyperplasia): Qualified Code: N40.0 - Benign prostatic hyperplasia, presence of lower urinary tract symptoms unspecified, unspecified morphology (3) Atrial fibrillation: Qualified Code: I48.0 - Paroxysmal atrial fibrillation (4) Pneumonia: (5) Atrial fibrillation: Qualified Code: I48.0 - Paroxysmal atrial fibrillation (6) Pneumocystis carinii pneumonia: (7) Ulcerative colitis: Qualified Code: K51.90 - Ulcerative colitis without complications, unspecified location (8) Hypertension: Qualified Code: I10 - Essential hypertension Carmen Huggins Jan 16, 2017 14:02
[2017-01-16] MEDS: RESP: ALBUTEROL 2.5 MG/IPRATROPIUM 0.5 MG NEB (SCH) NEB ×2 (15:53→20:00)
--- NOTE | 2017-01-16 19:57 | HHI.PR ---
Subjective Remarks Some SOB at rest. On o2 3 l. Has some cough .HIV +ve. CD count <20. Pneumocystis was present on BAL now on bactrim IV.and on diflucan Objective Vital Signs Date Time Temp Pulse Resp B/P Pulse Ox O2 Delivery O2 Flow Rate FiO2 01/16/17 17:29 97.4 85 20 113/70 93 01/16/17 15:53 94 Nasal Cannula 2.00 01/16/17 14:30 94 Nasal Cannula 2.00 01/16/17 12:50 97.5 92 18 125/83 97 01/16/17 10:00 92 Nasal Cannula 2.00 21 Humidified 01/16/17 09:17 96.6 96 20 110/61 92 01/16/17 04:59 92 21 01/16/17 00:00 98.0 80 20 120/66 98 01/15/17 21:41 92 Nasal Cannula 2.00 01/15/17 20:10 93 2.00 01/15/17 20:00 98.2 89 22 131/76 93 I/O 01/15/17 01/15/17 01/15/17 01/16/17 01/16/17 01/16/17 07:00 15:00 23:00 07:00 15:00 23:00 Intake Total 360 ml 720 ml 1220 ml 240 ml 480 ml Balance 360 ml 720 ml 1220 ml 240 ml 480 ml Intake Oral 360 ml 720 ml 720 ml 240 ml 480 ml IV Total 500 ml # Voids 2 2 2 2 2 # Bowel Movements 1 1 0 1 Result Diagram: 01/12/17 0528 01/12/1728 Objective Remarks GENERAL: This is a 61 year-old male, up and is in no distress . HEENT: Mucous membranes moist. There is no jaundice.Throat clear. NECK: Supple. CARDIOVASCULAR: Regular rate and rhythm. RESPIRATORY: Few crackles at bases . GASTROINTESTINAL: Bowel sounds are present. ABDOMEN: Not distended.No mass. : No CVA tenderness. MUSCULOSKELETAL: No edema. moves all well. NEUROLOGIC: Alert, oriented. .Reflexes 1 + Assessment and Plan Assessment and Plan IMPRESSION: 1. Sepsis on admission. 2. COPD exacerbation. 3. Hyponatremia. 4. Hospital acquired pneumonia. 5. History of A-fib, currently in sinus rhythm. 6. History of ulcerative colitis. 7. PCP pneumonia/Immunocompromised state Plan : 1. Cont Antibiotics as ordered.Bactrim/Diflucan/Azithromycin 2. Nebs qid , duoneb. 3. CBC,Liver profile 4. Taper Prednisone 5. F/U at HIV clinic 6. Chest X ray in am Xavier Grande MD Jan 16, 2017 19:57
[2017-01-16] MEDS: clonazePAM 1 MG TAB PO PRN (21:34)
--- NOTE | 2017-01-16 23:05 | HHI.IDPN ---
Subjective Subjective Remarks Delayed entry- pt was seen today around 1930 today Pt is worse today back on O2, ambulates around hallway with O2 co productive cough with green sputum + fever, chills T 99.8 Antibiotics Trim-sulfa fluc Past Medical History COPD tobaccoisn Allergies: Coded Allergies: No Known Allergies (Verified , 12/22/16) Objective . Vital Signs Date Time Temp Pulse Resp B/P Pulse Ox O2 Delivery O2 Flow Rate FiO2 01/16/17 20:00 99.8 97 22 131/70 95 01/16/17 17:29 97.4 85 20 113/70 93 01/16/17 15:53 94 Nasal Cannula 2.00 01/16/17 14:30 94 Nasal Cannula 2.00 01/16/17 12:50 97.5 92 18 125/83 97 01/16/17 10:00 92 Nasal Cannula 2.00 21 Humidified 01/16/17 09:17 96.6 96 20 110/61 92 01/16/17 04:59 92 21 01/16/17 00:00 98.0 80 20 120/66 98 01/15/17 01/15/17 01/16/17 15:00 23:00 07:00 Intake Total 720 ml 1220 ml 240 ml Balance 720 ml 1220 ml 240 ml Intake Oral 720 ml 720 ml 240 ml IV Total 500 ml # Voids 2 2 2 # Bowel Movements 1 0 1 Imaging Last Impressions Chest X-Ray 01/12/17 0600 Signed Impressions: Service Date/Time: Thursday, January 12, 2017 05:30 - CONCLUSION: Diffuse increase interstitial markings related to diffuse processes such as edema or diffuse infection. Miguel Angel Hennessy MD CT Angiography 01/03/17 0000 Signed Impressions: Service Date/Time: Tuesday, January 03, 2017 18:29 - CONCLUSION: 1. Negative for pulmonary embolus. 2. Interval development of bilateral lung disease on a background of emphysema. Findings are not entirely typical of bronchopneumonia. Differential diagnosis includes some form of smoking related disease with respiratory bronchiolitis or possibly Langerhans' cell histiocytosis. Sree Dykes MD Physical Exam CONSTITUTIONAL/GENERAL: This is thin patient, in no apparent distress. TUBES/LINES/DRAINS: SKIN: No jaundice, rashes, or lesions. Ecchymoses on upper extremities. No wounds seen anteriorly. Skin temperature appropriate. Not diaphoretic. HEAD: Atraumatic. Normocephalic. EYES: Pupils equal and round and reactive. Extraocular motions intact. No scleral icterus. No injection or drainage. Fundi not examined. ENT: Hearing grossly normal. Nose without bleeding or purulent drainage. Extensive oral thrush NECK: Trachea midline. Supple, nontender. No palpable thyroid enlargement or nodularity. CARDIOVASCULAR: Regular rate and rhythm without murmurs, gallops, or rubs. No JVD. Peripheral pulses symmetric. RESPIRATORY/CHEST: Symmetric, unlabored respirations. + diffuse rhonchi. and scattered wheezing GASTROINTESTINAL: Abdomen soft, non-tender, nondistended. No hepato-splenomegaly , or palpable masses. No guarding. Bowel sounds present. GENITOURINARY: Without palpable bladder distension. MUSCULOSKELETAL: Extremities without clubbing, cyanosis, or edema. No joint tenderness or effusion noted. No calf tenderness. No mottling or clubbing. LYMPHATICS: No palpable cervical or supraclavicular adenopathy. NEUROLOGICAL: Awake and alert. Motor and sensory grossly within normal limits. Follows commands. Cognitively sharp. Moves all extremities. PSYCHIATRIC: No obvious anxiety/depression. no apparent hallucinations or other psychotic thought process. Assessment & Plan Remarks COPD PCP PNA, new diagnosis Oral candidiasis in the settings of another OI Confirmed HIV/AIDS, CD4 < 20P HCV/HBV negative Worsening hypoxia and new low grade fever toda ? new PNA repeat CXR sputum clx blood clx with fever add cefepime for HCAP - cont IV BActrim with sterroids Prednisone 40 mg twice daily for 5 days, followed by Prednisone 40 mg daily for 5 days, followed by Prednisone 20 mg daily for 11 days - start azithro 1200 q Mon for MAC profilaxis - cont fluconazole - anticipate transition to po bactrim and dc soon if cont to improve Pt is willing to establish HIV care immediately upon d/c. He was counseled. He understands the importance of prompt start of HIV tx and compliance with it He would like to have Dr Hao Galindo as his HIV provider Sheela Liu MD Jan 16, 2017 23:04
[2017-01-17] VITALS (8 sets, daily range): BP systolic 114–137; BP diastolic 69–95; PULSE 88–97; RESP 17–22; TEMP 97.3–98.8; O2SAT 89–98
[2017-01-17] MEDS: WATE IV SCH ×10 (01:16→23:36)
[2017-01-17] MEDS: DEXTROSE 5% IV SCH ×10 (01:16→23:36)
[2017-01-17] MEDS: SULFAMETHOX IV SCH ×10 (01:16→23:36)
[2017-01-17] MEDS: TRIMETHOPRIM IV SCH ×10 (01:16→23:36)
[2017-01-17] MEDS: SODIUM CHLORIDE 0.9% FLUSH 5 ML FLUSH IV FLUSH SCH ×3 (01:16→21:28)
[2017-01-17] MEDS: CEFEPIME INJ 2,000 MG in SODIUM CHLORIDE 0.9% INJ 100 ML IV SCH ×4 (01:18→23:36)
[2017-01-17] MEDS: RESP: ALBUTEROL 2.5 MG/IPRATROPIUM 0.5 MG NEB (PRN) INH ×2 (03:41→23:38)
[2017-01-17] MEDS: MESALAMINE HD 800 MG DELAYED RELEASE TAB PO SCH ×3 (05:47→21:32)
[2017-01-17] MEDS: guaiFENesin/CODEINE SYRUP 200 MG/20 MG/10 ML CUP PO PRN ×4 (05:48→21:32)
--- NOTE | 2017-01-17 06:39 | RADRPT ---
EXAM DATE/TIME: 01/17/2017 06:09 [facility] COMPARISON: CHEST SINGLE AP, January 12, 2017, 5:30. INDICATIONS : Infiltrate MEDICAL HISTORY : Chronic obstructive pulmonary disease. Hypertension SURGICAL HISTORY : None. ENCOUNTER: Subsequent ACUITY: 1 week PAIN SCORE: 5/10 LOCATION: Bilateral chest FINDINGS: Patchy alveolar infiltrates and mild and show prominence noted bilaterally, not significantly changed . Cardiomegaly. No effusions. Osseous structures are intact. CONCLUSION: No significant change has occurred. Kendell Espinosa MD on January 17, 2017 at 6:38 Board Certified Radiologist. This report was verified electronically.
[2017-01-17] MEDS: RESP: ALBUTEROL 2.5 MG/IPRATROPIUM 0.5 MG NEB (SCH) NEB ×4 (07:55→20:40)
[2017-01-17] MEDS: predniSONE 20 MG TAB PO SCH ×2 (08:42→21:29)
[2017-01-17] MEDS: GABAPENTIN 100 MG CAP PO SCH ×3 (08:42→16:03)
[2017-01-17] MEDS: MULTIVITAMIN HEMATINIC THERAPEUTIC TAB PO SCH (08:42)
[2017-01-17] MEDS: ASCORBIC ACID 500 MG TAB PO SCH (08:42)
[2017-01-17] MEDS: VITAMIN B CMPLX/VITC/FOLIC AC CAP PO SCH (08:42)
[2017-01-17] MEDS: FAMOTIDINE 20 MG TAB PO SCH ×2 (08:42→21:31)
[2017-01-17] MEDS: HEPARIN SODIUM - SQ 10,000 UNITS/ML VIAL SQ SCH ×2 (08:43→21:31)
[2017-01-17] MEDS: FLUCONAZOLE 200 MG TAB PO SCH (08:43)
[2017-01-17] MEDS: DILTIAZEM-CD 120 MG CAP ER PO SCH (08:43)
[2017-01-17] MEDS: NYSTATIN SUSP 500,000 U/5 ML CUP SWISH-SWAL SCH ×4 (08:43→21:31)
[2017-01-17] MEDS: METOPROLOL TARTRATE 25 MG TAB PO SCH ×2 (08:43→21:30)
--- NOTE | 2017-01-17 14:09 | HHI.PR ---
Subjective Remarks Tongue edema, with coating quite yellow, erythema around the edges. Patient states worse this a.m. No chest pain shortness of breath exertional and at rest, mild improved at rest Voice hoarse, O2 on nasal cannula Anxiety mild No headache Quieter affect (Priscilla Au) Objective Objective Results - Vital Signs Date Time Temp Pulse Resp B/P Pulse Ox O2 Delivery O2 Flow Rate FiO2 01/17/17 08:00 98.6 92 20 125/74 95 01/17/17 07:55 89 Nasal Cannula 2.00 01/17/17 03:41 96 Nasal Cannula 2.00 01/17/17 00:00 98.8 89 20 114/69 96 01/16/17 21:30 95 Nasal Cannula 2.00 21 Humidified 01/16/17 20:00 99.8 97 22 131/70 95 01/16/17 17:29 97.4 85 20 113/70 93 01/16/17 15:53 94 Nasal Cannula 2.00 01/16/17 14:30 94 Nasal Cannula 2.00 I/O 01/16/17 01/16/17 01/16/17 01/17/17 01/17/17 01/17/17 07:00 15:00 23:00 07:00 15:00 23:00 Intake Total 240 ml 480 ml 240 ml 906 ml Balance 240 ml 480 ml 240 ml 906 ml Intake Oral 240 ml 480 ml 240 ml 240 ml IV Total 666 ml # Voids 2 2 2 2 # Bowel Movements 1 0 0 (Priscilla Au) Other Results Last Impressions Chest X-Ray 01/17/17 0600 Signed Impressions: Service Date/Time: Tuesday, January 17, 2017 06:09 - CONCLUSION: No significant change has occurred. Kendell Espinosa MD CT Angiography 01/03/17 0000 Signed Impressions: Service Date/Time: Tuesday, January 03, 2017 18:29 - CONCLUSION: 1. Negative for pulmonary embolus. 2. Interval development of bilateral lung disease on a background of emphysema. Findings are not entirely typical of bronchopneumonia. Differential diagnosis includes some form of smoking related disease with respiratory bronchiolitis or possibly Langerhans' cell histiocytosis. Sree Dykes MD Medications and IVs Active Medications Azithromycin 1200 mg 1,200 mg Q7D PO; Start 01/19/17 at 09:00 Cefepime HCl/ Sodium Chloride (Maxipime Inj/NS Inj) 100 ml @ 200 mls/hr Q8H IV Last administered on 01/17/17t 08:44; Admin Dose 200 MLS/HR; Start 01/17/17 at 00:00 Prednisone (Deltasone) 20 mg DAILY PO; Start 01/24/17 at 09:00; Stop 02/04/17 at 08:59 Prednisone (Deltasone) 40 mg DAILY PO; Start 01/19/17 at 09:00; Stop 01/24/17 at 08:59 (Priscilla Au) ROS General: Fatigue, Weakness (generalized, ), Other (10 point ROS done positives noted otherwise systems unremarkable) HEENT: Other (tongue and oral willy) Pulmonary: SOB (more so with activity) GI: Abdominal Pain (controlled today) Neuro/MS: Other (anxiety mild) (Priscilla Au) Physical Exam Physical Exam PHYSICAL EXAMINATION GENERAL: This is a well-developed slim, male who appears to be in mild distress. He is alert and awake, anxious HEAD: Normocephalic without any lesion or mass noted. Facial features appear symmetric. OROPHARYNGEAL: Oropharynx with erythema or edema., Oral thrush, increasing with edema but not obstructing breathing NECK: Supple. No nuchal rigidity or lymphadenopathy. Trachea midline without deviation. CARDIAC: Regular rhythm, regular rate, S1 and S2 are heard. Murmur none; no gallops or rubs. LUNGS: Decreased bases to auscultation bilaterally. No wheeze, mild rhonchi or rale. No use of accessory muscles on inspiration or expiration. ABDOMEN: Soft, nontender, no organomegaly or masses. Bowel sounds are heard in all four quadrants. No rebound. No guarding. EXTREMITIES: No edema. Pulses equal bilateral. No cyanosis. NEUROLOGICAL: Patient mood and affect appropriate. No focal deficit SKIN:Warm and moist Objective Remarks My tongue is more swollen today and really painful (Priscilla Au) A/P Assessment and Plan Assessment and Plan 1. Sepsis on admission. 2. COPD exacerbation. 3. Hyponatremia. 4. Hospital acquired pneumonia. 5. History of A-fib, currently in sinus rhythm. 6. History of ulcerative colitis. 7. Hypokalemia 8. AIDS, new diagnosis 9. Dehydration 10 Willy, oral DISCUSSION: Labs review, vital signs reviewed. gentle hydration encouraged by mouthcontinue with empiric abx-Diflucan, Bactrim IV appreciate ID input HIV reflex + BAL + PCP HIV + - confirmed cw advanced AIDS Undetectable CD4 count (< 20) Needs MAC profilaxis Azithro 1200 q thursday Pt will need to establish fu with HIV provider (Dr Galindo) RO[facility] preferably with 1st appointment within 1 wk after d/c appreciate ID input, Supportive care, patient seems quieter today. Encouraged questions or any acute needs. appreciate pulmonary input S/P bronch 01/07 continue oxygen, PO steroids change Duonebs to q 4WA and q 2 PRN Thrush, worsening today with mild increased edema affecting his eating habits, but not his airway. ID to make medical judgment calls for any acute changes on meds continue Diflucan continue Nystatin Hx afib, SR stable appreciate cardiology input continue Cardizem and BB Heparin for DVT prophylaxis continue Asacol Case management consult DC planning, resume HHC, oxygen D/W pt. at length, not likely to go back to work for some time. He's immunocompromised, significant SOB. Needs time to heal. Verbalizes understanding. keep over weekend, poss. dc on Thursday D/W RN D/W Dr. He D/W pt This pt. was seen by myself and Dr. He, this note is written on her behalf. Discharge Planning Possible home Thursday or seen with the support of family and friends Discussed With: Nurse (Sydnie), Family (patient), Other ( mild homer patient seen on her behalf) (Priscilla Au) Assessment and Plan patient seen and examined much more distressed today complaining of painful tongue discussed with Dr Liu: planning to switch to different antifungal,?trial of acyclovir pain control discussed with patient discussed with Priscilla GEE (Adia He MD) Priscilla Au Jan 17, 2017 14:09 Adia He MD Jan 17, 2017 16:09
[2017-01-17] MEDS ORDERED: oxyCODONE/ACETAMINOPHEN 5 MG/325 MG TAB PO PRN (16:15)
--- NOTE | 2017-01-17 16:28 | HHI.IDPN ---
Subjective Subjective Remarks Pt co severe pain of his tongue and mild swelling of his tongue No difficulty swallowing, no drooling No fever SOb unchanged Problems started around 10 pm last night remians on O2 NC Antibiotics Trim-sulfa fluc cefepime Past Medical History COPD tobaccoisn Allergies: Coded Allergies: No Known Allergies (Verified , 12/22/16) Objective . Vital Signs Date Time Temp Pulse Resp B/P Pulse Ox O2 Delivery O2 Flow Rate FiO2 01/17/17 12:00 97.6 91 17 133/69 95 01/17/17 08:00 98.6 92 20 125/74 95 01/17/17 07:55 89 Nasal Cannula 2.00 01/17/17 03:41 96 Nasal Cannula 2.00 01/17/17 00:00 98.8 89 20 114/69 96 01/16/17 21:30 95 Nasal Cannula 2.00 21 Humidified 01/16/17 20:00 99.8 97 22 131/70 95 01/16/17 17:29 97.4 85 20 113/70 93 01/16/17 01/16/17 01/17/17 15:00 23:00 07:00 Intake Total 480 ml 240 ml 906 ml Balance 480 ml 240 ml 906 ml Intake Oral 480 ml 240 ml 240 ml IV Total 666 ml # Voids 2 2 2 # Bowel Movements 0 0 . Microbiology Date/Time Procedure Status Source Growth 01/17/17 01:45 Gram Stain Received Sputum Expectorated Sputum Pending 01/17/17 01:45 Sputum Culture Received Sputum Expectorated Sputum Pending Imaging Last Impressions Chest X-Ray 01/17/17 0600 Signed Impressions: Service Date/Time: Tuesday, January 17, 2017 06:09 - CONCLUSION: No significant change has occurred. Kendell Espinosa MD CT Angiography 01/03/17 0000 Signed Impressions: Service Date/Time: Tuesday, January 03, 2017 18:29 - CONCLUSION: 1. Negative for pulmonary embolus. 2. Interval development of bilateral lung disease on a background of emphysema. Findings are not entirely typical of bronchopneumonia. Differential diagnosis includes some form of smoking related disease with respiratory bronchiolitis or possibly Langerhans' cell histiocytosis. Sree Dykes MD Physical Exam CONSTITUTIONAL/GENERAL: This is thin patient, in no apparent distress. TUBES/LINES/DRAINS: SKIN: No jaundice, rashes, or lesions. Ecchymoses on upper extremities. No wounds seen anteriorly. Skin temperature appropriate. Not diaphoretic. HEAD: Atraumatic. Normocephalic. EYES: Pupils equal and round and reactive. Extraocular motions intact. No scleral icterus. No injection or drainage. Fundi not examined. ENT: Hearing grossly normal. Nose without bleeding or purulent drainage. Severe oral thrush. Ulcerations on the lateral tongue, very painful I dont see much difference in the tongue size when compared to yday NECK: Trachea midline. Supple, nontender. No palpable thyroid enlargement or nodularity. No stridor CARDIOVASCULAR: Regular rate and rhythm without murmurs, gallops, or rubs. No JVD. Peripheral pulses symmetric. RESPIRATORY/CHEST: Symmetric, unlabored respirations. few scattered rhonchi. and scattered wheezing GASTROINTESTINAL: Abdomen soft, non-tender, nondistended. No hepato-splenomegaly , or palpable masses. No guarding. Bowel sounds present. GENITOURINARY: Without palpable bladder distension. MUSCULOSKELETAL: Extremities without clubbing, cyanosis, or edema. No joint tenderness or effusion noted. No calf tenderness. No mottling or clubbing. LYMPHATICS: No palpable cervical or supraclavicular adenopathy. NEUROLOGICAL: Awake and alert. Motor and sensory grossly within normal limits. Follows commands. Normal speech. Moves all extremities. PSYCHIATRIC: No obvious anxiety/depression. no apparent hallucinations or other psychotic thought process. Assessment & Plan Remarks COPD PCP PNA, Oral candidiasis, severe , worse Ulcerations of the tongue ? aphtous vs herpetic Confirmed HIV/AIDS, CD4 < 20P HCV/HBV negative Worsening hypoxia and new low grade fever toda ? new PNA repeat CXR sputum clx blood clx with fever cont cefepime for HCAP - cont IV BActrim with sterroids Prednisone 40 mg twice daily for 5 days, followed by Prednisone 40 mg daily for 5 days, followed by Prednisone 20 mg daily for 11 days - start azithro 1200 q Mon for MAC profilaxis - cont fluconazole - add micafungin - add acyclovir - HSV PCR - anticipate transition to po bactrim and dc soon if cont to improve Pt is willing to establish HIV care immediately upon d/c. He was counseled. He understands the importance of prompt start of HIV tx and compliance with it He would like to have Dr Hao Galindo as his HIV provider dw Sheela Castro pt, MD Jan 17, 2017 16:27
[2017-01-17] MEDS: MICAFUNGIN INJ 100 MG in SODIUM CHLORIDE 0.9% INJ 100 ML IV SCH (17:14)
[2017-01-17] MEDS: HYDROmorphone HCL PF 1 MG/ML VIAL IV PUSH PRN (17:19)
[2017-01-17] MEDS ORDERED: SODIUM CHLORIDE 0.9% IV SCH (18:00)
[2017-01-17] MEDS ORDERED: ACYCLOVIR IV SCH (18:00)
--- NOTE | 2017-01-17 18:10 | HHI.PR ---
Subjective Remarks Had SOB last nite. On o2 2 l. Has some cough .HIV +ve. CD count <20. Pneumocystis was present on BAL now on bactrim IV.and on Mycafungin Objective Vital Signs Date Time Temp Pulse Resp B/P Pulse Ox O2 Delivery O2 Flow Rate FiO2 01/17/17 16:00 97.3 97 22 126/76 98 01/17/17 12:00 97.6 91 17 133/69 95 01/17/17 08:00 98.6 92 20 125/74 95 01/17/17 07:55 89 Nasal Cannula 2.00 01/17/17 03:41 96 Nasal Cannula 2.00 01/17/17 00:00 98.8 89 20 114/69 96 01/16/17 21:30 95 Nasal Cannula 2.00 21 Humidified 01/16/17 20:00 99.8 97 22 131/70 95 I/O 01/16/17 01/16/17 01/16/17 01/17/17 01/17/17 01/17/17 07:00 15:00 23:00 07:00 15:00 23:00 Intake Total 240 ml 480 ml 240 ml 906 ml 977 ml Balance 240 ml 480 ml 240 ml 906 ml 977 ml Intake Oral 240 ml 480 ml 240 ml 240 ml 420 ml IV Total 666 ml 557 ml # Voids 2 2 2 2 3 # Bowel Movements 1 0 0 0 Objective Remarks GENERAL: This is a 61 year-old male, up and is in no distress . HEENT: Mucous membranes moist. There is no jaundice.Throat with thrush. NECK: Supple. CARDIOVASCULAR: Regular rate and rhythm. RESPIRATORY: Few crackles at bases .Occ wheeze GASTROINTESTINAL: Bowel sounds are present. ABDOMEN: Not distended.No mass. : No CVA tenderness. MUSCULOSKELETAL: No edema. moves all well. NEUROLOGIC: Alert, oriented. .Reflexes 1 + Assessment and Plan Assessment and Plan IMPRESSION: 1. Sepsis on admission. 2. COPD exacerbation. 3. Hyponatremia. 4. Hospital acquired pneumonia. 5. History of A-fib, currently in sinus rhythm. 6. History of ulcerative colitis. 7. PCP pneumonia/Immunocompromised state Plan : 1. Cont Antibiotics as ordered.Bactrim/Diflucan/Azithromycin 2. Nebs qid , duoneb. 3. Will add Solumedrol 40 mg IV X1 4. Taper Prednisone 5. F/U at HIV clinic 6. O2 at 2 L. Xavier Grande MD Jan 17, 2017 18:10
[2017-01-17] MEDS: methylPREDNISolone SOD SUCC 40 MG/1 ML VIAL IV SCH (18:44)
[2017-01-17] MEDS: SODIUM CHLORIDE 0.9% IV SCH (21:30)
[2017-01-17] MEDS: ACYCLOVIR IV SCH (21:30)
[2017-01-17] MEDS: clonazePAM 1 MG TAB PO PRN (21:32)
[2017-01-18 00:24] VITALS: BP 118/88; PULSE 86; RESP 20; TEMP 99.4; O2SAT 94
[2017-01-18] MEDS: RESP: ALBUTEROL 2.5 MG/IPRATROPIUM 0.5 MG NEB (PRN) INH ×2 (03:42→23:48)
[2017-01-18] MEDS: guaiFENesin/CODEINE SYRUP 200 MG/20 MG/10 ML CUP PO PRN ×2 (04:06→22:12)
[2017-01-18] MEDS: SODIUM CHLORIDE 0.9% IV SCH ×3 (04:06→20:59)
[2017-01-18] MEDS: ACYCLOVIR IV SCH ×3 (04:06→20:59)
[2017-01-18] MEDS: MESALAMINE HD 800 MG DELAYED RELEASE TAB PO SCH ×3 (04:14→22:11)
[2017-01-18] MEDS: HYDROmorphone HCL PF 1 MG/ML VIAL IV PUSH PRN ×3 (04:14→14:55)
[2017-01-18] MEDS: TRIMETHOPRIM IV SCH ×8 (04:23→23:56)
[2017-01-18] MEDS: WATE IV SCH ×8 (04:23→23:56)
[2017-01-18] MEDS: DEXTROSE 5% IV SCH ×8 (04:23→23:56)
[2017-01-18] MEDS: SULFAMETHOX IV SCH ×8 (04:23→23:56)
[2017-01-18 08:00] VITALS: BP 133/102; PULSE 101; RESP 20; TEMP 96.4; O2SAT 97
[2017-01-18 08:18] VITALS: O2SAT 94
[2017-01-18] MEDS: RESP: ALBUTEROL 2.5 MG/IPRATROPIUM 0.5 MG NEB (SCH) NEB ×4 (08:18→21:27)
[2017-01-18] MEDS: SODIUM CHLORIDE 0.9% FLUSH 5 ML FLUSH IV FLUSH SCH ×2 (09:00→20:59)
[2017-01-18] MEDS: methylPREDNISolone SOD SUCC 40 MG/1 ML VIAL IV SCH ×2 (09:00→09:18)
[2017-01-18] MEDS: CEFEPIME INJ 2,000 MG in SODIUM CHLORIDE 0.9% INJ 100 ML IV SCH ×3 (09:18→23:49)
[2017-01-18] MEDS: predniSONE 20 MG TAB PO SCH ×3 (09:18→20:59)
[2017-01-18] MEDS: HEPARIN SODIUM - SQ 10,000 UNITS/ML VIAL SQ SCH ×2 (09:20→21:08)
[2017-01-18] MEDS: GABAPENTIN 100 MG CAP PO SCH ×3 (09:20→17:41)
[2017-01-18] MEDS: MULTIVITAMIN HEMATINIC THERAPEUTIC TAB PO SCH (09:20)
[2017-01-18] MEDS: VITAMIN B CMPLX/VITC/FOLIC AC CAP PO SCH (09:21)
[2017-01-18] MEDS: METOPROLOL TARTRATE 25 MG TAB PO SCH ×2 (09:21→20:58)
[2017-01-18] MEDS: DILTIAZEM-CD 120 MG CAP ER PO SCH (09:21)
[2017-01-18] MEDS: ASCORBIC ACID 500 MG TAB PO SCH (09:21)
[2017-01-18] MEDS: FLUCONAZOLE 200 MG TAB PO SCH (09:21)
[2017-01-18] MEDS: FAMOTIDINE 20 MG TAB PO SCH ×2 (09:21→20:58)
[2017-01-18] MEDS: NYSTATIN SUSP 500,000 U/5 ML CUP SWISH-SWAL SCH ×4 (09:21→20:58)
[2017-01-18 12:00] VITALS: BP 133/68; PULSE 85; RESP 20; TEMP 94; O2SAT 94
--- NOTE | 2017-01-18 13:18 | HHI.PR ---
Subjective Remarks overnight had bronchospasms some cough very sob with activity no fever no cp mouth is more sore d/w pt. end of life care, adv. directives, code status-want full code, and requested to completed paperwork to designate healthcare surrogate Objective Objective Results - Vital Signs Date Time Temp Pulse Resp B/P Pulse Ox O2 Delivery O2 Flow Rate FiO2 01/18/17 09:48 20 01/18/17 08:18 94 Nasal Cannula 3.00 01/18/17 08:00 96.4 101 20 133/102 97 01/18/17 00:24 99.4 86 20 118/88 94 01/17/17 22:28 98.2 88 20 137/95 95 01/17/17 20:40 96 Nasal Cannula 3.00 01/17/17 20:30 Nasal Cannula 2.00 93 01/17/17 16:00 97.3 97 22 126/76 98 I/O 01/17/17 01/17/17 01/17/17 01/18/17 01/18/17 01/18/17 07:00 15:00 23:00 07:00 15:00 23:00 Intake Total 906 ml 977 ml 995 ml Balance 906 ml 977 ml 995 ml Intake Oral 240 ml 420 ml 240 ml IV Total 666 ml 557 ml 755 ml # Voids 2 3 2 # Bowel Movements 0 0 0 Other Results Date/Time Procedure Status Source Growth 01/17/17 01:45 Gram Stain - Final Resulted Sputum Expectorated Sputum 01/17/17 01:45 Sputum Culture Resulted Sputum Expectorated Sputum Pending ROS General: Weakness, No: Fatigue, Other HEENT: Other (mouth sore ), No: Sore Throat, Dysphagia Cardiac: No: Chest Pain, Edema, Palpitations Pulmonary: Cough, SOB, Wheezing GI: No: Abdominal Pain, BM, Diarrhea, 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 He is alert and awake, answers questions appropriately. HEAD: Normocephalic without any lesion or mass noted. Facial features appear symmetric. OROPHARYNGEAL: Oropharynx with erythema, has thrust NECK: Supple. No nuchal rigidity or lymphadenopathy. Trachea midline without deviation. CARDIAC: Regular rhythm, regular rate, S1 and S2 are heard. Murmur none; no gallops or rubs. LUNGS: diminished, faint wheezes, non productive cough ABDOMEN: Soft, nontender, no organomegaly or masses. Bowel sounds are heard in all four quadrants. No rebound. No guarding. Appetite fair EXTREMITIES: No edema. Pulses equal bilateral. No cyanosis. NEUROLOGICAL: Patient mood and affect appropriate. No focal deficit Urinary Catheter: No Vascular Central Line Catheter: No A/P Diagnosis: (1) COPD (chronic obstructive pulmonary disease) (2) BPH (benign prostatic hyperplasia) (3) Atrial arrhythmia (4) Atrial fibrillation (5) Pneumonia (6) Atrial fibrillation (7) SIRS (systemic inflammatory response syndrome) (8) Hypoxia (9) Pneumocystis carinii pneumonia (10) Thrush (11) Dehydration (12) Ulcerative colitis (13) Hypertension Assessment and Plan continue with empiric abx-Diflucan, Bactrim IV appreciate ID input HIV reflex + BAL + PCP HIV + - confirmed cw advanced AIDS Undetectable CD4 count (< 20) Needs MAC profilaxis Azithro 1200 q thursday worsening thrush--ID added - micafungin and acyclovir Pt will need to establish fu with HIV provider (Dr Galindo) [facility] preferably with 1st appointment within 1 wk after d/c appreciate ID input, d/w Dr. Liu, keep over weekend. Needs to establish ROZ upon dc with Dr. Shirley. Pt. has appointment for next week appreciate pulmonary input S/P bronch 01/07 continue oxygen, PO steroids change Duonebs to q 4WA and q 2 PRN Thrush continue Diflucan continue Nystatin Hx afib, SR stable appreciate cardiology input continue Cardizem and BB Heparin for DVT prophylaxis continue Asacol End of life care, code status, adv. directives d/w pt. at length. He's requesting that no information is provided to his sister. Designates Allie López and Eliana Barth (as secondary) to make health care decisions if he's not able. If resp. distress, agrees to intubation for a short period. Agreeable with filling out paperwork Not ready for discharge yet, continues to have episodes of resp. distress, bronchospasms condition guarded D/W RN D/W Dr. He D/W pt This pt. was seen by myself and Dr. He, this note is written on her behalf. Discussed With: Nurse (Sydnei), Family (patient), Other (Dr. leticia coronel patient seen on her behalf) Problem Qualifiers (1) COPD (chronic obstructive pulmonary disease): Qualified Code: J44.1 - Chronic obstructive pulmonary disease with acute exacerbation (2) BPH (benign prostatic hyperplasia): Qualified Code: N40.0 - Benign prostatic hyperplasia, presence of lower urinary tract symptoms unspecified, unspecified morphology (3) Atrial fibrillation: Qualified Code: I48.0 - Paroxysmal atrial fibrillation (4) Pneumonia: (5) Atrial fibrillation: Qualified Code: I48.0 - Paroxysmal atrial fibrillation (6) Pneumocystis carinii pneumonia: (7) Ulcerative colitis: Qualified Code: K51.90 - Ulcerative colitis without complications, unspecified location (8) Hypertension: Qualified Code: I10 - Essential hypertension Carmen Huggins Jan 18, 2017 13:18
[2017-01-18 16:00] VITALS: BP 131/93; PULSE 89; RESP 18; TEMP 97.1; O2SAT 95
[2017-01-18] MEDS: MICAFUNGIN INJ 100 MG in SODIUM CHLORIDE 0.9% INJ 100 ML IV SCH (16:27)
--- NOTE | 2017-01-18 16:38 | HHI.PR ---
Subjective Remarks No SOB today. On o2 2 l. Has some cough .HIV +ve. CD count <20. Pneumocystis was present on BAL now on bactrim IV.and on Micafungin Objective Vital Signs Date Time Temp Pulse Resp B/P Pulse Ox O2 Delivery O2 Flow Rate FiO2 01/18/17 12:00 94.0 85 20 133/68 94 01/18/17 09:48 20 01/18/17 08:18 94 Nasal Cannula 3.00 01/18/17 08:00 96.4 101 20 133/102 97 01/18/17 00:24 99.4 86 20 118/88 94 01/17/17 22:28 98.2 88 20 137/95 95 01/17/17 20:40 96 Nasal Cannula 3.00 01/17/17 20:30 Nasal Cannula 2.00 93 I/O 01/17/17 01/17/17 01/17/17 01/18/17 01/18/17 01/18/17 07:00 15:00 23:00 07:00 15:00 23:00 Intake Total 906 ml 977 ml 995 ml 1956 ml Balance 906 ml 977 ml 995 ml 1956 ml Intake Oral 240 ml 420 ml 240 ml IV Total 666 ml 557 ml 755 ml 1956 ml # Voids 2 3 2 # Bowel Movements 0 0 0 Objective Remarks GENERAL: This is a 61 year-old male, up and is in no distress . HEENT: Mucous membranes moist. Has herpes simplex.There is no jaundice.Throat with thrush. NECK: Supple. CARDIOVASCULAR: Regular rate and rhythm. RESPIRATORY: Few crackles at bases .Occ wheeze GASTROINTESTINAL: Bowel sounds are present. ABDOMEN: Not distended.No mass. : No CVA tenderness. MUSCULOSKELETAL: No edema. moves all well. NEUROLOGIC: Alert, oriented. .Reflexes 1 + Assessment and Plan Assessment and Plan IMPRESSION: 1. Sepsis on admission. 2. COPD exacerbation. 3. Hyponatremia. 4. Hospital acquired pneumonia. 5. History of A-fib, currently in sinus rhythm. 6. History of ulcerative colitis. 7. PCP pneumonia/Immunocompromised state Plan : 1. Cont Antibiotics as ordered.Bactrim/Micafungin/Azithromycin 2. Nebs qid , duoneb. 3. Switch to PO meds in am 4. Taper Prednisone 5. F/U at HIV clinic 6. O2 at 2 L. Xavier Grande MD Jan 18, 2017 16:38
[2017-01-18 20:00] VITALS: BP 173/90; PULSE 84; RESP 20; TEMP 96.4; O2SAT 97
[2017-01-18] MEDS: clonazePAM 1 MG TAB PO PRN (20:58)
[2017-01-19] VITALS (7 sets, daily range): BP systolic 142–164; BP diastolic 82–90; PULSE 76–93; RESP 16–20; TEMP 96–97.7; O2SAT 93–96
[2017-01-19] MEDS: ACYCLOVIR IV SCH ×3 (03:18→20:20)
[2017-01-19] MEDS: SODIUM CHLORIDE 0.9% IV SCH ×3 (03:18→20:20)
[2017-01-19] MEDS: HYDROmorphone HCL PF 1 MG/ML VIAL IV PUSH PRN ×5 (03:18→23:01)
[2017-01-19] MEDS: RESP: ALBUTEROL 2.5 MG/IPRATROPIUM 0.5 MG NEB (PRN) INH (03:55)
[2017-01-19] MEDS: MESALAMINE HD 800 MG DELAYED RELEASE TAB PO SCH ×3 (06:07→20:20)
[2017-01-19] MEDS: DEXTROSE 5% IV SCH ×6 (06:09→17:36)
[2017-01-19] MEDS: WATE IV SCH ×6 (06:09→17:36)
[2017-01-19] MEDS: TRIMETHOPRIM IV SCH ×6 (06:09→17:36)
[2017-01-19] MEDS: SULFAMETHOX IV SCH ×6 (06:09→17:36)
[2017-01-19] MEDS: RESP: ALBUTEROL 2.5 MG/IPRATROPIUM 0.5 MG NEB (SCH) NEB ×4 (08:03→21:04)
[2017-01-19] MEDS: NYSTATIN SUSP 500,000 U/5 ML CUP SWISH-SWAL SCH ×2 (08:40→12:33)
[2017-01-19] MEDS: CEFEPIME INJ 2,000 MG in SODIUM CHLORIDE 0.9% INJ 100 ML IV SCH ×2 (08:40→15:27)
[2017-01-19] MEDS: AZITHROMYCIN 600 MG TAB PO SCH (08:41)
[2017-01-19] MEDS: DILTIAZEM-CD 120 MG CAP ER PO SCH (08:41)
[2017-01-19] MEDS: FLUCONAZOLE 200 MG TAB PO SCH (08:42)
[2017-01-19] MEDS: VITAMIN B CMPLX/VITC/FOLIC AC CAP PO SCH (08:42)
[2017-01-19] MEDS: FAMOTIDINE 20 MG TAB PO SCH ×2 (08:42→20:20)
[2017-01-19] MEDS: ASCORBIC ACID 500 MG TAB PO SCH (08:42)
[2017-01-19] MEDS: MULTIVITAMIN HEMATINIC THERAPEUTIC TAB PO SCH (08:42)
[2017-01-19] MEDS: GABAPENTIN 100 MG CAP PO SCH ×3 (08:42→17:33)
[2017-01-19] MEDS: predniSONE 20 MG TAB PO SCH (08:42)
[2017-01-19] MEDS: HEPARIN SODIUM - SQ 10,000 UNITS/ML VIAL SQ SCH ×2 (08:43→20:19)
[2017-01-19 08:50] LABS: LEGIONELLA CULT RESULT NOT ISOLATED (NOT ISOLATE)
[2017-01-19] MEDS: SODIUM CHLORIDE 0.9% FLUSH 5 ML FLUSH IV FLUSH SCH ×2 (09:00→20:27)
[2017-01-19] MEDS: METOPROLOL TARTRATE 25 MG TAB PO SCH ×2 (09:00→20:19)
--- NOTE | 2017-01-19 15:05 | HHI.PR ---
Subjective Remarks slight improvement mouth very sore, tongue with swelling able to eat entire tray but takes his time swallowing okay very tremulous weak, ambulates only room, becomes SOB doesn't want rehab but will consider CIR. Dr. Grande recommending rehab as well. no fever Objective Objective Results - Vital Signs Date Time Temp Pulse Resp B/P Pulse Ox O2 Delivery O2 Flow Rate FiO2 01/19/17 12:00 97.7 93 18 153/83 95 01/19/17 08:30 Nasal Cannula 3.00 01/19/17 08:07 93 Nasal Cannula 3.00 01/19/17 08:00 97.5 87 18 142/82 94 01/19/17 00:00 96.2 91 18 152/90 96 01/18/17 21:29 Nasal Cannula 3.00 01/18/17 20:00 Nasal Cannula 2.00 96 01/18/17 20:00 96.4 84 20 173/90 97 01/18/17 16:00 97.1 89 18 131/93 95 01/18/17 15:25 20 I/O 01/18/17 01/18/17 01/18/17 01/19/17 01/19/17 01/19/17 07:00 15:00 23:00 07:00 15:00 23:00 Intake Total 2436 ml 480 ml 240 ml Balance 2436 ml 480 ml 240 ml Intake Oral 480 ml 480 ml 240 ml IV Total 1956 ml # Voids 3 1 2 # Bowel Movements 0 Other Results Date/Time Procedure Status Source Growth 01/17/17 17:30 Herpes Simplex Virus Culture Received Oral Mouth Pending 01/17/17 01:45 Gram Stain - Final Complete Sputum Expectorated Sputum 01/17/17 01:45 Sputum Culture - Final Complete Sputum Expectorated Sputum HEAVY GROWTH NORMAL RESPIRATORY GARRY ROS General: Weakness, No: Fatigue, Other HEENT: Sore Throat, Other (tongue sore), No: Dysphagia Cardiac: No: Chest Pain, Edema, Palpitations Pulmonary: Cough, SOB, Wheezing GI: No: Abdominal Pain, BM, Diarrhea, 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 He is alert and awake, answers questions appropriately. HEAD: Normocephalic without any lesion or mass noted. Facial features appear symmetric. OROPHARYNGEAL: Oropharynx with erythema, has thrust, tongue sore NECK: Supple. No nuchal rigidity or lymphadenopathy. Trachea midline without deviation. CARDIAC: Regular rhythm, regular rate, S1 and S2 are heard. Murmur none; no gallops or rubs. LUNGS: diminished, wheezes, scattered ronchi ABDOMEN: Soft, nontender, no organomegaly or masses. Bowel sounds are heard in all four quadrants. No rebound. No guarding. Appetite fair EXTREMITIES: No edema. Pulses equal bilateral. No cyanosis. NEUROLOGICAL: Patient mood and affect appropriate. No focal deficit Urinary Catheter: No Vascular Central Line Catheter: No A/P Diagnosis: (1) COPD (chronic obstructive pulmonary disease) (2) BPH (benign prostatic hyperplasia) (3) Atrial arrhythmia (4) Atrial fibrillation (5) Pneumonia (6) Atrial fibrillation (7) SIRS (systemic inflammatory response syndrome) (8) Hypoxia (9) Pneumocystis carinii pneumonia (10) Thrush (11) Dehydration (12) Ulcerative colitis (13) Hypertension Assessment and Plan continue with empiric abx-Diflucan, Bactrim IV appreciate ID input HIV reflex + BAL + PCP HIV + - confirmed cw advanced AIDS Undetectable CD4 count (< 20) Needs MAC profilaxis Azithro 1200 q thursday worsening thrush--ID added - micafungin and acyclovir Pt will need to establish fu with HIV provider (Dr Galindo) [facility] preferably with 1st appointment within 1 wk after d/c appreciate ID input, d/w Dr. Liu, keep over weekend. Needs to establish ROZ upon dc with Dr. Shirley. Pt. has appointment for next week appreciate pulmonary input S/P bronch 01/07 continue oxygen, PO steroids change Duonebs to q 4WA and q 2 PRN Thrush continue Diflucan DC Nystatin Try Magic mouthwash Hx afib, SR stable appreciate cardiology input continue Cardizem and BB Heparin for DVT prophylaxis continue Asacol End of life care, code status, adv. directives d/w pt. at length. He's requesting that no information is provided to his sister. Designates Allie Sanidad and Eliana Barth (as secondary) to make health care decisions if he's not able. If resp. distress, agrees to intubation for a short period. CM to provide forms CIR eval PT/OT Hopefully to rehab soon, d/w pt.going home is not a good option, will likely return worst. Willing to go to [facility] if approved. D/W RN D/W Dr. He D/W Dr. Grande, agrees with rehab D/W pt This pt. was seen by myself and Dr. He, this note is written on her behalf. Discussed With: Nurse (Sydnie), Family (patient), Other (Dr. leticia coronel patient seen on her behalf) Problem Qualifiers (1) COPD (chronic obstructive pulmonary disease): Qualified Code: J44.1 - Chronic obstructive pulmonary disease with acute exacerbation (2) BPH (benign prostatic hyperplasia): Qualified Code: N40.0 - Benign prostatic hyperplasia, presence of lower urinary tract symptoms unspecified, unspecified morphology (3) Atrial fibrillation: Qualified Code: I48.0 - Paroxysmal atrial fibrillation (4) Pneumonia: (5) Atrial fibrillation: Qualified Code: I48.0 - Paroxysmal atrial fibrillation (6) Pneumocystis carinii pneumonia: (7) Ulcerative colitis: Qualified Code: K51.90 - Ulcerative colitis without complications, unspecified location (8) Hypertension: Qualified Code: I10 - Essential hypertension Carmen Huggins Jan 19, 2017 15:05
[2017-01-19] MEDS: DIPHENHY/LIDO/MAG/ALUM MOUTHWASH (Adult/Peds) 60 ML BTL SWISH-SWAL SCH ×2 (16:00→20:19)
[2017-01-19] MEDS: MICAFUNGIN INJ 100 MG in SODIUM CHLORIDE 0.9% INJ 100 ML IV SCH (17:36)
--- NOTE | 2017-01-19 17:59 | HHI.PR ---
Subjective Remarks No SOB today. Weak and on o2 2 l. Has some cough . Sore in mouth. Pneumocystis was present on BAL now on bactrim IV.and on Micafungin Objective Vital Signs Date Time Temp Pulse Resp B/P Pulse Ox O2 Delivery O2 Flow Rate FiO2 01/19/17 16:00 97.6 76 16 158/90 96 01/19/17 12:00 97.7 93 18 153/83 95 01/19/17 08:30 Nasal Cannula 3.00 01/19/17 08:07 93 Nasal Cannula 3.00 01/19/17 08:00 97.5 87 18 142/82 94 01/19/17 00:00 96.2 91 18 152/90 96 01/18/17 21:29 Nasal Cannula 3.00 01/18/17 20:00 Nasal Cannula 2.00 96 01/18/17 20:00 96.4 84 20 173/90 97 I/O 01/18/17 01/18/17 01/18/17 01/19/17 01/19/17 01/19/17 07:00 15:00 23:00 07:00 15:00 23:00 Intake Total 2436 ml 480 ml 240 ml 750 ml Balance 2436 ml 480 ml 240 ml 750 ml Intake Oral 480 ml 480 ml 240 ml 750 ml IV Total 1956 ml # Voids 3 1 2 3 # Bowel Movements 0 Objective Remarks GENERAL: This is a 61 year-old male, up and is in no distress . HEENT: Mucous membranes moist. Has herpes simplex.There is no jaundice.Throat with thrush. NECK: Supple. CARDIOVASCULAR: Regular rate and rhythm. RESPIRATORY: Few crackles at bases .Occ wheeze scattered . GASTROINTESTINAL: Bowel sounds are present. ABDOMEN: Not distended.No mass. : No CVA tenderness. MUSCULOSKELETAL: No edema. moves all well. NEUROLOGIC: Alert, oriented. .Reflexes 1 + Assessment and Plan Assessment and Plan IMPRESSION: 1. Sepsis on admission. 2. COPD exacerbation. 3. Hyponatremia. 4. Hospital acquired pneumonia. 5. History of A-fib, currently in sinus rhythm. 6. History of ulcerative colitis. 7. PCP pneumonia/Immunocompromised state Plan : 1. Cont Antibiotics as ordered.Bactrim/Micafungin/Azithromycin 2. Nebs qid , duoneb. 3. Switch to PO meds in am 4. Taper Prednisone to 10 mg bid. 5. Needs rehab placement. 6. O2 at 2 L. Xavier Grande MD Jan 19, 2017 17:59
[2017-01-19] MEDS: guaiFENesin/CODEINE SYRUP 200 MG/20 MG/10 ML CUP PO PRN (21:33)
[2017-01-19] MEDS: clonazePAM 1 MG TAB PO PRN (21:33)
[2017-01-20] VITALS (8 sets, daily range): BP systolic 127–157; BP diastolic 79–93; PULSE 82–97; RESP 16–20; TEMP 95.5–97.7; O2SAT 93–98
[2017-01-20] MEDS: RESP: ALBUTEROL 2.5 MG/IPRATROPIUM 0.5 MG NEB (PRN) INH ×3 (00:08→19:10)
[2017-01-20] MEDS: SULFAMETHOX IV SCH ×10 (00:10→23:15)
[2017-01-20] MEDS: CEFEPIME INJ 2,000 MG in SODIUM CHLORIDE 0.9% INJ 100 ML IV SCH ×4 (00:10→23:15)
[2017-01-20] MEDS: DEXTROSE 5% IV SCH ×10 (00:10→23:15)
[2017-01-20] MEDS: TRIMETHOPRIM IV SCH ×10 (00:10→23:15)
[2017-01-20] MEDS: WATE IV SCH ×10 (00:10→23:15)
[2017-01-20] MEDS: guaiFENesin/CODEINE SYRUP 200 MG/20 MG/10 ML CUP PO PRN ×2 (02:11→20:28)
[2017-01-20] MEDS: ACETAMINOPHEN 325 MG TAB PO PRN (02:12)
[2017-01-20] MEDS: ACYCLOVIR IV SCH ×3 (05:21→20:25)
[2017-01-20] MEDS: SODIUM CHLORIDE 0.9% IV SCH ×3 (05:21→20:25)
[2017-01-20] MEDS: MESALAMINE HD 800 MG DELAYED RELEASE TAB PO SCH ×3 (05:22→20:26)
[2017-01-20] MEDS: DIPHENHY/LIDO/MAG/ALUM MOUTHWASH (Adult/Peds) 60 ML BTL SWISH-SWAL SCH ×4 (05:22→21:00)
[2017-01-20] MEDS: RESP: ALBUTEROL 2.5 MG/IPRATROPIUM 0.5 MG NEB (SCH) NEB ×3 (08:47→15:21)
[2017-01-20] MEDS: FLUCONAZOLE 200 MG TAB PO SCH (09:02)
[2017-01-20] MEDS: MULTIVITAMIN HEMATINIC THERAPEUTIC TAB PO SCH (09:02)
[2017-01-20] MEDS: predniSONE 20 MG TAB PO SCH (09:03)
[2017-01-20] MEDS: GABAPENTIN 100 MG CAP PO SCH ×3 (09:03→17:37)
[2017-01-20] MEDS: VITAMIN B CMPLX/VITC/FOLIC AC CAP PO SCH (09:03)
[2017-01-20] MEDS: METOPROLOL TARTRATE 25 MG TAB PO SCH ×2 (09:03→20:27)
[2017-01-20] MEDS: FAMOTIDINE 20 MG TAB PO SCH ×2 (09:03→20:26)
[2017-01-20] MEDS: HEPARIN SODIUM - SQ 10,000 UNITS/ML VIAL SQ SCH ×2 (09:03→20:26)
[2017-01-20] MEDS: DILTIAZEM-CD 120 MG CAP ER PO SCH (09:03)
[2017-01-20] MEDS: ASCORBIC ACID 500 MG TAB PO SCH (09:03)
[2017-01-20] MEDS: SODIUM CHLORIDE 0.9% FLUSH 5 ML FLUSH IV FLUSH SCH ×2 (09:04→21:00)
[2017-01-20] MEDS: HYDROmorphone HCL PF 1 MG/ML VIAL IV PUSH PRN ×4 (09:07→23:14)
--- NOTE | 2017-01-20 13:55 | HHI.PR ---
Subjective Remarks Tongue edema, with coating quite yellow, erythema around the edges. No acute changes No chest pain shortness of breath exertional and at rest, mild improved at rest Voice hoarse Anxiety mild to moderate today using o2 Quieter affect (Priscilla Au) Objective Objective Results - Vital Signs Date Time Temp Pulse Resp B/P Pulse Ox O2 Delivery O2 Flow Rate FiO2 01/20/17 08:50 96 Nasal Cannula 2.00 01/20/17 08:30 97.1 85 19 152/86 01/20/17 03:12 16 01/20/17 00:00 97.7 82 18 135/79 95 01/19/17 23:31 16 01/19/17 21:06 95 Nasal Cannula 3.00 01/19/17 20:15 Nasal Cannula 2.00 01/19/17 20:00 96.0 93 20 164/85 96 01/19/17 16:00 97.6 76 16 158/90 96 I/O 01/19/17 01/19/17 01/19/17 01/20/17 01/20/17 01/20/17 07:00 15:00 23:00 07:00 15:00 23:00 Intake Total 240 ml 2814 ml 960 ml 240 ml Balance 240 ml 2814 ml 960 ml 240 ml Intake Oral 240 ml 750 ml 360 ml 240 ml IV Total 2064 ml 600 ml # Voids 2 3 2 1 # Bowel Movements 2 0 (Priscilla Au) Medications and IVs Active Medications Lidocaine/ Diphenhydr/Alum/ Mg/Simeth (Magic Mouthwash Pediatric/Adult Liq) 5 ml ACHS SWISH-SWAL Last administered on 01/20/17t 12:04; Admin Dose 5 ML; Start 01/19/17 at 16:00 Prednisone (Deltasone) 20 mg DAILY PO; Start 01/24/17 at 09:00; Stop 02/04/17 at 08:59 (Priscilla Au) ROS General: Fatigue, Weakness, Other (10 point ROS done. Tungue coating unchanged. difficulty eating. SOB, fatique, otherwise negative.) HEENT: Sore Throat, Other (thrush) (Priscilla Au) Physical Exam Physical Exam GENERAL: This is a slim, well-nourished male who appears no respiratory distress. He is alert and awake, answers questions appropriately, mildly withdrawn today. HEAD: Normocephalic without any lesion or mass noted. Facial features appear symmetric. OROPHARYNGEAL: Oropharynx with erythema, has thrust, tongue sore NECK: Supple. No nuchal rigidity or lymphadenopathy. Trachea midline without deviation. CARDIAC: Regular rhythm, regular rate, S1 and S2 are heard. Murmur none; no gallops or rubs. LUNGS: diminished, wheezes, scattered ronchi ABDOMEN: Soft, nontender, no organomegaly or masses. Bowel sounds are heard in all four quadrants. No rebound. No guarding. Appetite fair EXTREMITIES: No edema. Pulses equal bilateral. No cyanosis. NEUROLOGICAL: Patient mood withdrawn today. No focal deficit Urinary Catheter: No Vascular Central Line Catheter: No (Priscilla Au) A/P Assessment and Plan Assessment and Plan 1. Sepsis on admission. 2. COPD exacerbation. 3. Hyponatremia. 4. Hospital acquired pneumonia. 5. History of A-fib, currently in sinus rhythm. 6. History of ulcerative colitis. 7. Hypokalemia 8. AIDS, new diagnosis 9. Dehydration 10 Becky, oral DISCUSSION: Labs review, vital signs reviewed. gentle hydration encouraged by mouthcontinue with empiric abx-Diflucan, Bactrim IV appreciate ID input HIV reflex + BAL + PCP HIV + - confirmed cw advanced AIDS Undetectable CD4 count (< 20) Needs MAC profilaxis Azithro 1200 q thursday Pt will need to establish fu with HIV provider (Dr Galindo) [facility] preferably with 1st appointment within 1 wk after d/c appreciate ID input, Supportive care, patient seems quieter today. Encouraged questions or any acute needs. appreciate pulmonary input S/P bronch 01/07 continue oxygen, PO steroids change Duonebs to q 4WA and q 2 PRN Thrush, worsening today with mild increased edema affecting his eating habits, but not his airway. ID to make medical judgment calls for any acute changes on meds continue Diflucan continue Nystatin Seen per ID Hx afib, SR stable appreciate cardiology input continue Cardizem and BB Heparin for DVT prophylaxis continue Asacol Case management consult DC planning, resume HHC, oxygen D/W pt. at length, not likely to go back to work for some time. He's immunocompromised, significant SOB. Needs time to heal. Verbalizes understanding. Javier evaluated, but patient didnt meet criteria. Given a list of SNF rehab possibilities. Encouraged to review and consider options. D/W Dr. He D/W pt This pt. was seen by myself and Dr. He, this note is written on her behalf. Discharge Planning Possible home Thursday or seen with the support of family and friends Discussed With: Nurse (Sydnie), Family (patient), Other (Dr. leticia coronel patient seen on her behalf) (Priscilla Au) Assessment and Plan Patient seen and examined Upset about not being accepted at [facility] discussed with him, about going to rehab patient agreeable consult case management will d/w ID regarding switching to Po antibiotics possible discharge to rehab soon outpatient follow up with DR Tovar discussed with patient discussed with Priscilla GEE (Adia He MD) Priscilla Au Jan 20, 2017 13:55 Adia He MD Jan 20, 2017 15:58
[2017-01-20] MEDS: MICAFUNGIN INJ 100 MG in SODIUM CHLORIDE 0.9% INJ 100 ML IV SCH (16:31)
--- NOTE | 2017-01-20 18:18 | HHI.PR ---
Subjective Remarks Has hoarseness today. Weak and on o2 2 l. Has some cough . Sore in mouth.and tongue Poor Oral Intake. Objective Vital Signs Date Time Temp Pulse Resp B/P Pulse Ox O2 Delivery O2 Flow Rate FiO2 01/20/17 17:17 97.7 84 16 136/81 95 01/20/17 15:21 94 Nasal Cannula 2.00 01/20/17 14:22 95 Nasal Cannula 2.00 01/20/17 12:30 96.1 97 16 157/93 93 01/20/17 08:50 96 Nasal Cannula 2.00 01/20/17 08:30 97.1 85 19 152/86 01/20/17 03:12 16 01/20/17 00:00 97.7 82 18 135/79 95 01/19/17 23:31 16 01/19/17 21:06 95 Nasal Cannula 3.00 01/19/17 20:15 Nasal Cannula 2.00 01/19/17 20:00 96.0 93 20 164/85 96 I/O 01/19/17 01/19/17 01/19/17 01/20/17 01/20/17 01/20/17 07:00 15:00 23:00 07:00 15:00 23:00 Intake Total 240 ml 2814 ml 960 ml 240 ml Balance 240 ml 2814 ml 960 ml 240 ml Intake Oral 240 ml 750 ml 360 ml 240 ml IV Total 2064 ml 600 ml # Voids 2 3 2 1 # Bowel Movements 2 0 Objective Remarks GENERAL: This is a 61 year-old male, up and is in no distress . HEENT: Mucous membranes moist. Has excoriation of mucosa.Throat with thrush. NECK: Supple. CARDIOVASCULAR: Regular rate and rhythm. RESPIRATORY: Few crackles at bases and wheeze scattered . GASTROINTESTINAL: Bowel sounds are present. ABDOMEN: Not distended.No mass. : No CVA tenderness. MUSCULOSKELETAL: No edema. moves all well. NEUROLOGIC: Alert, oriented. .Reflexes 1 + Assessment and Plan Assessment and Plan IMPRESSION: 1. Sepsis on admission. 2. COPD exacerbation. 3. Hyponatremia. 4. Hospital acquired pneumonia. 5. History of A-fib, currently in sinus rhythm. 6. History of ulcerative colitis. 7. PCP pneumonia/Immunocompromised state Plan : 1. Cont Antibiotics as ordered. 2. Nebs tid , duoneb. 3. CBC,BMP 4. Prednisone to 10 mg bid. 5. Refused rehab placement. 6. O2 at 2 L. 7. Magic mouthwash 10 cc qid. Xavier Grande MD Jan 20, 2017 18:18
[2017-01-20] MEDS: clonazePAM 1 MG TAB PO PRN (20:28)
[2017-01-21] VITALS: BP 128/84; PULSE 84; RESP 20; TEMP 97.8; O2SAT 94
[2017-01-21] MEDS: ACYCLOVIR IV SCH ×3 (03:35→21:59)
[2017-01-21] MEDS: SODIUM CHLORIDE 0.9% IV SCH ×3 (03:35→21:59)
[2017-01-21] MEDS: WATE IV SCH ×6 (05:10→18:00)
[2017-01-21] MEDS: MESALAMINE HD 800 MG DELAYED RELEASE TAB PO SCH ×3 (05:10→21:59)
[2017-01-21] MEDS: TRIMETHOPRIM IV SCH ×6 (05:10→18:00)
[2017-01-21] MEDS: DEXTROSE 5% IV SCH ×6 (05:10→18:00)
[2017-01-21] MEDS: SULFAMETHOX IV SCH ×6 (05:10→18:00)
[2017-01-21] MEDS: DIPHENHY/LIDO/MAG/ALUM MOUTHWASH (Adult/Peds) 60 ML BTL SWISH-SWAL SCH ×4 (05:10→22:02)
[2017-01-21 05:43] LABS: AUTOMATED NEUTROPHIL # 8.5 TH/MM3 (1.8-7.7); BASOPHIL % 0.1 % (0.0-2.0); EOSINOPHIL # 0.1 TH/MM3 (0-0.4); EOSINOPHIL % 0.8 % (0.0-4.0); HEMATOCRIT 41.9 % (39.0-51.0); LYMPH % 2.3 % (9.0-44.0); LYMPHOCYTE # 0.2 TH/MM3 (1.0-4.8); MEAN CELL VOLUME 86.3 FL (80.0-100.0); MEAN CORPUSCULAR HEMOGLOBIN 29.4 PG (27.0-34.0); MONO % 2.5 % (0.0-8.0); NEUT % 94.3 % (16.0-70.0); PLATELET COUNT 158 TH/MM3 (150-450); RED BLOOD COUNT 4.85 MIL/MM3 (4.50-5.90); RED CELL DISTRIBUTION WIDTH 15.5 % (11.6-17.2)
[2017-01-21 05:52] LABS: HEMO FLAGS AUTO DIFF
[2017-01-21 06:11] LABS: BICARBONATE 22.2 MEQ/L (21.0-32.0); POTASSIUM 4.9 MEQ/L (3.5-5.1)
[2017-01-21 07:57] LABS: BANDS 19 % (0-6); METAMYELOCYTES 3 % (0-1); MYELOCYTES 3 % (0-0); NEUTROPHIL # MANUAL DIFF 8.6 TH/MM3 (1.8-7.7); POLYS (SEG NEUTROPHILS) 70 % (16-70); WBC DIFF SAMPLE 100
[2017-01-21 07:58] LABS: PLATELET ESTIMATE SMEAR NORMAL (NORMAL); PLATELET MORPHOLOGY NORMAL (NORMAL); SCAN/DIFF FINAL DIFF MANUAL
[2017-01-21 08:00] VITALS: BP 137/91; PULSE 95; RESP 24; TEMP 96.5; O2SAT 94
[2017-01-21] MEDS: SODIUM CHLORIDE 0.9% FLUSH 5 ML FLUSH IV FLUSH SCH ×2 (09:00→21:00)
[2017-01-21] MEDS: MULTIVITAMIN HEMATINIC THERAPEUTIC TAB PO SCH (09:00)
[2017-01-21] MEDS: CEFEPIME INJ 2,000 MG in SODIUM CHLORIDE 0.9% INJ 100 ML IV SCH ×2 (09:09→17:00)
[2017-01-21] MEDS: predniSONE 20 MG TAB PO SCH (09:10)
[2017-01-21] MEDS: GABAPENTIN 100 MG CAP PO SCH ×3 (09:10→17:00)
[2017-01-21] MEDS: VITAMIN B CMPLX/VITC/FOLIC AC CAP PO SCH (09:10)
[2017-01-21] MEDS: FAMOTIDINE 20 MG TAB PO SCH ×2 (09:10→22:01)
[2017-01-21] MEDS: METOPROLOL TARTRATE 25 MG TAB PO SCH ×2 (09:11→22:02)
[2017-01-21] MEDS: HEPARIN SODIUM - SQ 10,000 UNITS/ML VIAL SQ SCH ×2 (09:11→21:59)
[2017-01-21] MEDS: FLUCONAZOLE 200 MG TAB PO SCH (09:11)
[2017-01-21] MEDS: ASCORBIC ACID 500 MG TAB PO SCH (09:11)
[2017-01-21] MEDS: DILTIAZEM-CD 120 MG CAP ER PO SCH (09:11)
[2017-01-21 09:21] VITALS: O2SAT 95
[2017-01-21 12:00] VITALS: BP 134/84; PULSE 88; RESP 20; TEMP 98.4; O2SAT 95
--- NOTE | 2017-01-21 15:38 | HHI.PR ---
Subjective Remarks Tongue edema, with coating quite yellow, erythema around the edges. Still very sore when eating No chest pain shortness of breath exertional and at rest, mild improved at rest Voice hoarse using o2 Conversational (Priscilla Au) Objective Objective Results - Vital Signs Date Time Temp Pulse Resp B/P Pulse Ox O2 Delivery O2 Flow Rate FiO2 01/21/17 12:00 98.4 88 20 134/84 95 01/21/17 09:21 95 Nasal Cannula 2.00 01/21/17 08:00 96.5 95 24 137/91 94 01/21/17 00:07 18 01/21/17 00:00 97.8 84 20 128/84 94 01/20/17 20:00 94 Room Air 01/20/17 20:00 95.5 95 20 127/86 98 01/20/17 17:17 97.7 84 16 136/81 95 I/O 01/20/17 01/20/17 01/20/17 01/21/17 01/21/17 01/21/17 07:00 15:00 23:00 07:00 15:00 23:00 Intake Total 240 ml 715 ml 1200 ml 240 ml Balance 240 ml 715 ml 1200 ml 240 ml Intake Oral 240 ml 715 ml 1200 ml 240 ml # Voids 1 3 2 2 # Bowel Movements 0 0 (Priscilla Au) Result Diagram: 01/21/17 0502 01/21/17 0502 ROS General: Fatigue, Weakness (generalized), Other (10 point ROS done positives noted in history of present illness otherwise negative) HEENT: Other (tongue Becky, ) Pulmonary: Cough, SOB, Other (wears O2 consistently) GI: Abdominal Pain (none) (Priscilla Au) Physical Exam Physical Exam PHYSICAL EXAMINATION GENERAL: This is a well-developed, well-nourished male who appears to be in no acute distress. He is alert and awake, HEAD: Normocephalic without any lesion or mass noted. Facial features appear symmetric. OROPHARYNGEAL: Oropharynx without erythema or edema. NECK: Supple. No nuchal rigidity or lymphadenopathy. Trachea midline without deviation. CARDIAC: Regular rhythm, regular rate, S1 and S2 are heard. Murmur none no gallops or rubs. LUNGS: Clear to auscultation bilaterally. Low volumes ABDOMEN: Soft, nontender, no organomegaly or masses. Bowel sounds are heard in all four quadrants. No rebound. No guarding. EXTREMITIES: no edema. Pulses equal bilateral. NEUROLOGICAL: Patient mood and affect appropriate. No focal deficit SKIN:Warm and moist Objective Remarks Still feel really bad (Priscilla Au) A/P Assessment and Plan Assessment and Plan 1. Sepsis on admission. 2. COPD exacerbation. 3. Hyponatremia. 4. Hospital acquired pneumonia. 5. History of A-fib, currently in sinus rhythm. 6. History of ulcerative colitis. 7. Hypokalemia 8. AIDS, new diagnosis 9. Dehydration 10 Becky, oral DISCUSSION: Labs review, vital signs reviewed. gentle hydration encouraged by mouthcontinue with empiric abx-Diflucan, Bactrim IV appreciate ID input HIV reflex + Pt will need to establish fu with HIV provider (Dr Galindo) [facility] preferably with 1st appointment within 1 wk after d/c appreciate ID input, Supportive care, patient seems quieter today. Encouraged questions or any acute needs. appreciate pulmonary input continue oxygen, PO steroids change Duonebs to q 4WA and q 2 PRN Thrush, worsening today with mild increased edema affecting his eating habits, but not his airway. ID to make medical judgment calls for any acute changes on meds continue Diflucan continue Nystatin Seen per ID Patient is on IV micafungin. Will follow IDs course of treatment Hx afib, SR stable appreciate cardiology input continue Cardizem and BB Heparin for DVT prophylaxis continue Asacol Case management consult DC planning, working to process when patient is stable Javier evaluated, but patient didnt meet criteria. Given a list of SNF rehab possibilities. Encouraged to review and consider options. Currently is hoping to get strong enough to go home with support of family and friends. D/W Dr. He D/W pt This pt. was seen by myself and Dr. He, this note is written on her behalf. Discharge Planning Initiated Discussed With: Nurse (Sydnie), Family (patient), Other (Dr. leticia coronel patient seen on her behalf) (Priscilla Au) Assessment and Plan patient seen and examined not feeling well today on 2L hyponatremia ? sec to Bactrim check urine and serum osmolality NS added recheck labs in am on multiple antibiotics per Dr Liu HIV genotype ordered patient does not want to go to rehab likely home with [facility] when stable will need to follow up with Dr Shirley outpatient to initiate HAART discussed with patient in detail discussed with Dr Liu discussed with Priscilla GEE (Adia He MD) Priscilla Au Jan 21, 2017 15:38 Adia He MD Jan 21, 2017 16:36
--- NOTE | 2017-01-21 15:38 | HHI.IDPN ---
Subjective Subjective Remarks pt is co not feeling well co severe oral pain co SOB afebrile Antibiotics Trim-sulfa fluc cefepime mmicafungin acyclovit Past Medical History COPD tobaccoisn Allergies: Coded Allergies: No Known Allergies (Verified , 12/22/16) Objective . Vital Signs Date Time Temp Pulse Resp B/P Pulse Ox O2 Delivery O2 Flow Rate FiO2 01/21/17 12:00 98.4 88 20 134/84 95 01/21/17 09:21 95 Nasal Cannula 2.00 01/21/17 08:00 96.5 95 24 137/91 94 01/21/17 00:07 18 01/21/17 00:00 97.8 84 20 128/84 94 01/20/17 20:00 94 Room Air 01/20/17 20:00 95.5 95 20 127/86 98 01/20/17 17:17 97.7 84 16 136/81 95 01/20/17 01/20/17 01/21/17 15:00 23:00 07:00 Intake Total 715 ml 1200 ml 240 ml Balance 715 ml 1200 ml 240 ml Intake Oral 715 ml 1200 ml 240 ml # Voids 3 2 2 # Bowel Movements 0 . Laboratory Tests Test 01/21/17 05:02 White Blood Count 9.0 TH/MM3 Red Blood Count 4.85 MIL/MM3 Hemoglobin 14.2 GM/DL Hematocrit 41.9 % Mean Corpuscular Volume 86.3 FL Mean Corpuscular Hemoglobin 29.4 PG Mean Corpuscular Hemoglobin 34.0 % Concent Red Cell Distribution Width 15.5 % Platelet Count 158 TH/MM3 Mean Platelet Volume 7.7 FL Neutrophils (%) (Auto) 94.3 % Lymphocytes (%) (Auto) 2.3 % Monocytes (%) (Auto) 2.5 % Eosinophils (%) (Auto) 0.8 % Basophils (%) (Auto) 0.1 % Neutrophils # (Auto) 8.5 TH/MM3 Lymphocytes # (Auto) 0.2 TH/MM3 Monocytes # (Auto) 0.2 TH/MM3 Eosinophils # (Auto) 0.1 TH/MM3 Basophils # (Auto) 0.0 TH/MM3 CBC Comment AUTO DIFF Differential Total Cells 100 Counted Neutrophils % (Manual) 70 % Band Neutrophils % 19 % Lymphocytes % 1 % Monocytes % 4 % Neutrophils # (Manual) 8.6 TH/MM3 Metamyelocytes 3 % Myelocytes 3 % Differential Comment FINAL DIFF MANUAL Platelet Estimate NORMAL Platelet Morphology Comment NORMAL Red Cell Morphology Comment NORMAL Laboratory Tests Test 01/21/17 05:02 Sodium Level 128 MEQ/L Potassium Level 4.9 MEQ/L Chloride Level 96 MEQ/L Carbon Dioxide Level 22.2 MEQ/L Anion Gap 10 MEQ/L Blood Urea Nitrogen 17 MG/DL Creatinine 0.85 MG/DL Estimat Glomerular Filtration 92 ML/MIN Rate Random Glucose 78 MG/DL Calcium Level 8.5 MG/DL Imaging Last Impressions Chest X-Ray 01/17/17 0600 Signed Impressions: Service Date/Time: Tuesday, January 17, 2017 06:09 - CONCLUSION: No significant change has occurred. Kendell Espinosa MD CT Angiography 01/03/17 0000 Signed Impressions: Service Date/Time: Tuesday, January 03, 2017 18:29 - CONCLUSION: 1. Negative for pulmonary embolus. 2. Interval development of bilateral lung disease on a background of emphysema. Findings are not entirely typical of bronchopneumonia. Differential diagnosis includes some form of smoking related disease with respiratory bronchiolitis or possibly Langerhans' cell histiocytosis. Sree Dykes MD Physical Exam CONSTITUTIONAL/GENERAL: This is thin patient, in no apparent distress. TUBES/LINES/DRAINS: SKIN: No jaundice, rashes, or lesions. Ecchymoses on upper extremities. No wounds seen anteriorly. Skin temperature appropriate. Not diaphoretic. HEAD: Atraumatic. Normocephalic. EYES: Pupils equal and round and reactive. Extraocular motions intact. No scleral icterus. No injection or drainage. Fundi not examined. ENT: Hearing grossly normal. Nose without bleeding or purulent drainage. Severe oral thrush. Ulcerations on the lateral tongue, very painful Voice is very quiet Severe areas of denuded mucosae on lateral aspects of the tounge NECK: Trachea midline. Supple, nontender. No palpable thyroid enlargement or nodularity. No stridor CARDIOVASCULAR: Regular rate and rhythm without murmurs, gallops, or rubs. No JVD. Peripheral pulses symmetric. RESPIRATORY/CHEST: Symmetric, unlabored respirations. few scattered rhonchi. and scattered wheezing GASTROINTESTINAL: Abdomen soft, non-tender, nondistended. No hepato-splenomegaly , or palpable masses. No guarding. Bowel sounds present. GENITOURINARY: Without palpable bladder distension. MUSCULOSKELETAL: Extremities without clubbing, cyanosis, or edema. No joint tenderness or effusion noted. No calf tenderness. No mottling or clubbing. LYMPHATICS: No palpable cervical or supraclavicular adenopathy. NEUROLOGICAL: Awake and alert. Motor and sensory grossly within normal limits. Follows commands. Normal speech. Moves all extremities. PSYCHIATRIC: No obvious anxiety/depression. no apparent hallucinations or other psychotic thought process. Assessment & Plan Remarks COPD PCP PNA, Oral candidiasis, severe , not improving Ulcerations of the tongue ? aphtous vs herpetic Confirmed HIV/AIDS, CD4 < 20P HCV/HBV negative Persistent hypoxia sputum negative - cont IV BActrim with sterroids Prednisone 40 mg twice daily for 5 days, followed by Prednisone 40 mg daily for 5 days, followed by Prednisone 20 mg daily for 11 days - start azithro 1200 q Mon for MAC profilaxis - cont fluconazole - cont micafungin -cont acyclovir - chk HSV PCR - anticipate transition to po bactrim and dc soon if cont to improve - chk CXR - change cefepime to CFTX - chk genotype in anticipation of HAART - will hold dc since he is somewhat worse today Pt is willing to establish HIV care immediately upon d/c. He was counseled. He understands the importance of prompt start of HIV tx and compliance with it He would like to have Dr Hao Galindo as his HIV provider dw Dr Neri enciso pt Sheela Liu MD Jan 21, 2017 15:38
[2017-01-21 16:00] VITALS: BP 106/74; PULSE 74; RESP 20; TEMP 97; O2SAT 93
[2017-01-21] MEDS: SODIUM CHLOR 0.9% 1000 ML INJ 1,000 ML IV SCH (16:00)
[2017-01-21] MEDS: HYDROmorphone HCL PF 1 MG/ML VIAL IV PUSH PRN (16:17)
[2017-01-21] MEDS: MICAFUNGIN INJ 100 MG in SODIUM CHLORIDE 0.9% INJ 100 ML IV SCH (16:21)
--- NOTE | 2017-01-21 18:22 | HHI.PR ---
Subjective Remarks Has hoarseness still . Feels Weak and on o2 2 l. Has some cough . Sore in mouth.and tongue Poor Oral Intake. Objective Vital Signs Date Time Temp Pulse Resp B/P Pulse Ox O2 Delivery O2 Flow Rate FiO2 01/21/17 12:00 98.4 88 20 134/84 95 01/21/17 09:21 95 Nasal Cannula 2.00 01/21/17 08:00 96.5 95 24 137/91 94 01/21/17 00:07 18 01/21/17 00:00 97.8 84 20 128/84 94 01/20/17 20:00 94 Room Air 01/20/17 20:00 95.5 95 20 127/86 98 I/O 01/20/17 01/20/17 01/20/17 01/21/17 01/21/17 01/21/17 07:00 15:00 23:00 07:00 15:00 23:00 Intake Total 240 ml 715 ml 1200 ml 240 ml Balance 240 ml 715 ml 1200 ml 240 ml Intake Oral 240 ml 715 ml 1200 ml 240 ml # Voids 1 3 2 2 # Bowel Movements 0 0 Result Diagram: 01/21/17 0502 01/21/17 0502 Objective Remarks GENERAL: This is a 61 year-old male, up and is in mild distress . HEENT: Mucous membranes moist. Has excoriation of mucosa.Throat with thrush. NECK: Supple. CARDIOVASCULAR: Regular rate and rhythm. RESPIRATORY: Few crackles at bases and wheeze scattered . GASTROINTESTINAL: Bowel sounds are present. ABDOMEN: Not distended.No mass. : No CVA tenderness. MUSCULOSKELETAL: No edema. moves all well. NEUROLOGIC: Alert, oriented. .Reflexes 1 + Assessment and Plan Assessment and Plan IMPRESSION: 1. Sepsis on admission. 2. COPD exacerbation. 3. Hyponatremia. 4. Hospital acquired pneumonia. 5. History of A-fib, currently in sinus rhythm. 6. History of ulcerative colitis. 7. PCP pneumonia/Immunocompromised state Plan : 1. Cont Antibiotics as ordered. 2. Nebs tid , duoneb. 3. EZ Pap with nebs qid. 4. Prednisone to 10 mg bid. 5. Refused rehab placement. 6. O2 at 2 L. 7. Magic mouthwash 10 cc qid. Xavier Grande MD Jan 21, 2017 18:22
[2017-01-21] MEDS: clonazePAM 1 MG TAB PO PRN (22:09)
[2017-01-22] MEDS: CEFEPIME INJ 2,000 MG in SODIUM CHLORIDE 0.9% INJ 100 ML IV SCH ×4 (00:16→23:25)
[2017-01-22] MEDS: TRIMETHOPRIM IV SCH ×10 (00:53→23:25)
[2017-01-22] MEDS: WATE IV SCH ×10 (00:53→23:25)
[2017-01-22] MEDS: SULFAMETHOX IV SCH ×10 (00:53→23:25)
[2017-01-22] MEDS: DEXTROSE 5% IV SCH ×10 (00:53→23:25)
[2017-01-22] MEDS: HYDROmorphone HCL PF 1 MG/ML VIAL IV PUSH PRN ×2 (00:53→05:37)
[2017-01-22 04:00] VITALS: BP 129/80; PULSE 89; RESP 19; TEMP 100.7; O2SAT 93
[2017-01-22] MEDS: SODIUM CHLORIDE 0.9% IV SCH ×3 (05:27→20:47)
[2017-01-22] MEDS: DIPHENHY/LIDO/MAG/ALUM MOUTHWASH (Adult/Peds) 60 ML BTL SWISH-SWAL SCH ×4 (05:27→20:46)
[2017-01-22] MEDS: ACYCLOVIR IV SCH ×3 (05:27→20:47)
[2017-01-22] MEDS: MESALAMINE HD 800 MG DELAYED RELEASE TAB PO SCH ×3 (05:27→20:45)
--- NOTE | 2017-01-22 06:16 | RADRPT ---
EXAM DATE/TIME: 01/22/2017 06:01 [facility] COMPARISON: CHEST SINGLE AP, January 17, 2017, 6:09. INDICATIONS : Pneumonia. MEDICAL HISTORY : None. SURGICAL HISTORY : None. ENCOUNTER: Subsequent ACUITY: 3 days PAIN SCORE: 5/10 LOCATION: Bilateral chest FINDINGS: There is persistent ill-defined airspace disease in both lungs, left greater than right not significa nt changed from January 17. Cardiomegaly. No effusion. No pneumothorax. CONCLUSION: 1. Stable ill-defined airspace disease in the lungs, left greater than right compared with December 25 5. No new infiltrate or effusion. Sree Dykes MD on January 22, 2017 at 6:13 Board Certified Radiologist. This report was verified electronically.
[2017-01-22 06:38] LABS: AUTOMATED NEUTROPHIL # 7.4 TH/MM3 (1.8-7.7); BASOPHIL % 0.2 % (0.0-2.0); EOSINOPHIL # 0.1 TH/MM3 (0-0.4); EOSINOPHIL % 1.1 % (0.0-4.0); HEMATOCRIT 41.2 % (39.0-51.0); LYMPH % 1.7 % (9.0-44.0); LYMPHOCYTE # 0.1 TH/MM3 (1.0-4.8); MEAN CELL VOLUME 85.2 FL (80.0-100.0); MEAN CORPUSCULAR HEMOGLOBIN 29.6 PG (27.0-34.0); MEAN CORPUSCULAR HGB CONC 34.8 % (32.0-36.0); MONO % 2.1 % (0.0-8.0); NEUT % 94.9 % (16.0-70.0); PLATELET COUNT 150 TH/MM3 (150-450); RED BLOOD COUNT 4.84 MIL/MM3 (4.50-5.90); RED CELL DISTRIBUTION WIDTH 15.3 % (11.6-17.2); WHITE BLOOD COUNT 7.8 TH/MM3 (4.0-11.0)
[2017-01-22 06:40] LABS: HEMO FLAGS AUTO DIFF
[2017-01-22 06:52] LABS: BICARBONATE 20.5 MEQ/L (21.0-32.0); POTASSIUM 4.4 MEQ/L (3.5-5.1)
[2017-01-22 08:00] VITALS: BP 114/74; PULSE 86; RESP 17; TEMP 100.2; O2SAT 90
[2017-01-22] MEDS: GABAPENTIN 100 MG CAP PO SCH ×3 (08:34→16:47)
[2017-01-22] MEDS: MULTIVITAMIN HEMATINIC THERAPEUTIC TAB PO SCH (08:34)
[2017-01-22] MEDS: VITAMIN B CMPLX/VITC/FOLIC AC CAP PO SCH (08:34)
[2017-01-22] MEDS: SODIUM CHLORIDE 0.9% FLUSH 5 ML FLUSH IV FLUSH SCH ×2 (08:35→20:47)
[2017-01-22] MEDS: METOPROLOL TARTRATE 25 MG TAB PO SCH ×2 (08:35→20:46)
[2017-01-22] MEDS: HEPARIN SODIUM - SQ 10,000 UNITS/ML VIAL SQ SCH ×2 (08:35→20:47)
[2017-01-22] MEDS: DILTIAZEM-CD 120 MG CAP ER PO SCH (08:35)
[2017-01-22] MEDS: FAMOTIDINE 20 MG TAB PO SCH ×2 (08:35→20:45)
[2017-01-22] MEDS: predniSONE 20 MG TAB PO SCH (08:35)
[2017-01-22] MEDS: ASCORBIC ACID 500 MG TAB PO SCH (08:35)
[2017-01-22 09:52] LABS: HIV RNA LOG COPIES 5.45 (())
[2017-01-22 10:08] LABS: BANDS 14 % (0-6); EOSINOPHILS 2 % (0-4); METAMYELOCYTES 5 % (0-1); MYELOCYTES 1 % (0-0); NEUTROPHIL # MANUAL DIFF 7.3 TH/MM3 (1.8-7.7); POLYS (SEG NEUTROPHILS) 74 % (16-70); WBC DIFF SAMPLE 100
[2017-01-22 10:09] LABS: PLATELET ESTIMATE SMEAR NORMAL (NORMAL); PLATELET MORPHOLOGY NORMAL (NORMAL); SCAN/DIFF FINAL DIFF MANUAL
[2017-01-22 12:00] VITALS: BP 130/76; PULSE 78; RESP 19; TEMP 99.6; O2SAT 94
[2017-01-22 12:51] VITALS: O2SAT 94
--- NOTE | 2017-01-22 14:18 | HHI.PR ---
Subjective Remarks Tongue edema, with coating quite yellow, erythema around the edges. Still very sore when eating. Mild minimal improvement No chest pain Exertional shortness of breath more so. O2 sat 92-96 at rest Voice hoarse using o2 continuously Anxious Objective Objective Results - Vital Signs Date Time Temp Pulse Resp B/P Pulse Ox O2 Delivery O2 Flow Rate FiO2 01/22/17 12:51 94 Nasal Cannula 2.00 01/22/17 08:00 100.2 86 17 114/74 90 01/22/17 04:00 100.7 89 19 129/80 93 01/21/17 21:57 93 Nasal Cannula 2.00 Humidified 01/21/17 16:00 97.0 74 20 106/74 93 I/O 01/21/17 01/21/17 01/21/17 01/22/17 01/22/17 01/22/17 07:00 15:00 23:00 07:00 15:00 23:00 Intake Total 240 ml 1400 ml 500 ml 1291 ml 120 ml Balance 240 ml 1400 ml 500 ml 1291 ml 120 ml Intake Oral 240 ml 1400 ml 480 ml 120 ml IV Total 500 ml 811 ml # Voids 2 1 4 # Bowel Movements 1 Result Diagram: 01/22/17 0440 01/22/17 0440 Medications and IVs Active Medications Prednisone (Deltasone) 20 mg DAILY PO; Start 01/23/17 at 09:00; Stop 02/03/17 at 08:59 Prednisone 20 mg 20 mg DAILY PO; Start 01/24/17 at 09:00; Stop 01/24/17 at 09:00; Status DC Sodium Chloride (NS 1000 ml Inj) 1,000 ml @ 42 mls/hr [id number] IV Last administered on 01/21/17t 16:00; Admin Dose 42 MLS/HR; Start 01/21/17 at 16:00 ROS General: Fatigue (continues), Weakness (continues), Other (10 point ROS done positives noted otherwise negative are unremarkable exam) HEENT: Sore Throat (and tongue becky severe) Pulmonary: Cough, SOB (exertional) Physical Exam Physical Exam PHYSICAL EXAMINATION GENERAL: This is a ill appearing thin male who appears to be in mild to moderate distress. He is alert and awake. HEAD: Normocephalic without any lesion or mass noted. Facial features appear symmetric. OROPHARYNGEAL: Oropharynx without erythema or edema. NECK: Supple. No nuchal rigidity or lymphadenopathy. Trachea midline without deviation. CARDIAC: Regular rhythm, regular rate, S1 and S2 are heard. LUNGS: Diminished to auscultation bilaterally. ABDOMEN: Soft, nontender, Bowel sounds are heard in all four quadrants. No diarrhea EXTREMITIES: No edema. Pulses equal bilateral. NEUROLOGICAL: Patient mood and affect anxious SKIN:Warm and moist, pale dry Objective Remarks I just still feels so bad A/P Assessment and Plan Assessment and Plan 1. Sepsis on admission. 2. COPD exacerbation. 3. Hyponatremia. 4. Hospital acquired pneumonia. 5. History of A-fib, currently in sinus rhythm. 6. History of ulcerative colitis. 7. Hypokalemia 8. AIDS, new diagnosis 9. Dehydration 10 Becky, oral DISCUSSION: Labs review, vital signs reviewed. Increased hydration. Recurrent hyponatremia. encouraged by mouthcontinue with empiric abx-Diflucan, Bactrim IV Will monitor labs . Exertional persistent hypoxia usually with activity appreciate ID input Confirmed HIV/AIDS, HCV/HBV negative Pt will need to establish fu with HIV provider (Dr Galnido) [facility] preferably with 1st appointment within 1 wk after d/c Patient understands the need to have outpatient treatment started since he is discharged. continues with IV medications, micafungin, and Diflucan, nystatin Oral candidiasis, severe, minimal improvement. Continues to affect his eating. Continue prednisone appreciate pulmonary input continue oxygen, PO steroids change Duonebs to q 4WA and q 2 PRN Heparin for DVT prophylaxis Case management consult DC planning, not ready today Discharge Planning Initiated Discussed With: Nurse, Family (patient), Other (Dr. coulter patient seen on her behalf) Priscilla Au Jan 22, 2017 14:18
[2017-01-22] MEDS: SODIUM CHLOR 0.9% 1000 ML INJ 1,000 ML IV SCH (15:49)
[2017-01-22] MEDS: MICAFUNGIN INJ 100 MG in SODIUM CHLORIDE 0.9% INJ 100 ML IV SCH (16:47)
--- NOTE | 2017-01-22 16:52 | HHI.PR ---
Subjective Remarks Has hoarseness still and has a low grade fever . Feels Weak and on o2 2 l. Has some cough . Sore in mouth and tongue. Poor Oral Intake. Objective Vital Signs Date Time Temp Pulse Resp B/P Pulse Ox O2 Delivery O2 Flow Rate FiO2 01/22/17 12:51 94 Nasal Cannula 2.00 01/22/17 12:00 99.6 78 19 130/76 94 01/22/17 08:00 100.2 86 17 114/74 90 01/22/17 04:00 100.7 89 19 129/80 93 01/21/17 21:57 93 Nasal Cannula 2.00 Humidified I/O 01/21/17 01/21/17 01/21/17 01/22/17 01/22/17 01/22/17 07:00 15:00 23:00 07:00 15:00 23:00 Intake Total 240 ml 1400 ml 500 ml 1291 ml 1080 ml Output Total 600 ml Balance 240 ml 1400 ml 500 ml 1291 ml 480 ml Intake Oral 240 ml 1400 ml 480 ml 1080 ml IV Total 500 ml 811 ml Output Urine Total 600 ml # Voids 2 1 4 # Bowel Movements 1 1 Result Diagram: 01/22/17 0440 01/22/17 0440 Objective Remarks GENERAL: This is a 61 year-old male, up and is in mild distress . HEENT: Mucous membranes moist. Has excoriation of mucosa.Throat with thrush. NECK: Supple. CARDIOVASCULAR: Regular rate and rhythm. RESPIRATORY: Few crackles at both bases and wheeze scattered . GASTROINTESTINAL: Bowel sounds are present. ABDOMEN: Not distended.No mass. : No CVA tenderness. MUSCULOSKELETAL: No edema. moves all well. NEUROLOGIC: Alert, oriented. .Reflexes 1 + Assessment and Plan Assessment and Plan IMPRESSION: 1. Sepsis on admission. 2. COPD exacerbation. 3. Hyponatremia. 4. Hospital acquired pneumonia. 5. History of A-fib, currently in sinus rhythm. 6. History of ulcerative colitis. 7. PCP pneumonia/Immunocompromised state Plan : 1. Cont Antibiotics as ordered per ID. 2. Nebs tid , duoneb. 3. EZ Pap with nebs qid. 4. Prednisone to 10 mg daily. 5. Chest X ray on Thursday 6. O2 at 2 L. 7. Magic mouthwash 10 cc qid. Xavier Grande MD Jan 22, 2017 16:52
[2017-01-22 18:00] VITALS: BP 104/64; PULSE 80; RESP 20; TEMP 97.9; O2SAT 95
[2017-01-22 20:00] VITALS: BP 117/72; PULSE 88; RESP 18; TEMP 97; O2SAT 95
[2017-01-22] MEDS: clonazePAM 1 MG TAB PO PRN (20:46)
[2017-01-23] VITALS (8 sets, daily range): BP systolic 107–138; BP diastolic 61–78; PULSE 84–100; RESP 20–22; TEMP 96.8–100.7; O2SAT 92–96
[2017-01-23] MEDS: HYDROmorphone HCL PF 1 MG/ML VIAL IV PUSH PRN ×6 (00:30→23:49)
[2017-01-23] MEDS: MESALAMINE HD 800 MG DELAYED RELEASE TAB PO SCH ×3 (04:36→20:49)
[2017-01-23] MEDS: SODIUM CHLORIDE 0.9% IV SCH ×2 (04:38→13:06)
[2017-01-23] MEDS: ACYCLOVIR IV SCH ×2 (04:38→13:06)
[2017-01-23] MEDS: DIPHENHY/LIDO/MAG/ALUM MOUTHWASH (Adult/Peds) 60 ML BTL SWISH-SWAL SCH ×4 (04:40→20:54)
[2017-01-23] MEDS: TRIMETHOPRIM IV SCH ×8 (05:51→23:48)
[2017-01-23] MEDS: SULFAMETHOX IV SCH ×8 (05:51→23:48)
[2017-01-23] MEDS: DEXTROSE 5% IV SCH ×8 (05:51→23:48)
[2017-01-23] MEDS: WATE IV SCH ×8 (05:51→23:48)
[2017-01-23] MEDS: CEFEPIME INJ 2,000 MG in SODIUM CHLORIDE 0.9% INJ 100 ML IV SCH (08:10)
[2017-01-23] MEDS: SODIUM CHLORIDE 0.9% FLUSH 5 ML FLUSH IV FLUSH SCH ×2 (08:19→21:00)
[2017-01-23] MEDS: MULTIVITAMIN HEMATINIC THERAPEUTIC TAB PO SCH (08:20)
[2017-01-23] MEDS: GABAPENTIN 100 MG CAP PO SCH ×3 (08:20→17:36)
[2017-01-23] MEDS: VITAMIN B CMPLX/VITC/FOLIC AC CAP PO SCH (08:20)
[2017-01-23] MEDS: METOPROLOL TARTRATE 25 MG TAB PO SCH ×2 (08:20→20:50)
[2017-01-23] MEDS: predniSONE 20 MG TAB PO SCH (08:21)
[2017-01-23] MEDS: ASCORBIC ACID 500 MG TAB PO SCH (08:21)
[2017-01-23] MEDS: DILTIAZEM-CD 120 MG CAP ER PO SCH (08:21)
[2017-01-23] MEDS: HEPARIN SODIUM - SQ 10,000 UNITS/ML VIAL SQ SCH (08:21)
[2017-01-23] MEDS: FAMOTIDINE 20 MG TAB PO SCH ×2 (08:21→20:49)
[2017-01-23] MEDS: guaiFENesin/CODEINE SYRUP 200 MG/20 MG/10 ML CUP PO PRN ×2 (10:59→18:02)
[2017-01-23] MEDS: RESP: ALBUTEROL 2.5 MG/IPRATROPIUM 0.5 MG NEB (PRN) INH ×2 (11:54→20:27)
--- NOTE | 2017-01-23 14:15 | HHI.PR ---
Subjective Remarks Tongue edema, improving slow, still painful No chest pain Exertional shortness of breath only for now Voice hoarse using o2 continuously Anxious sleeping more Objective Objective Results - Vital Signs Date Time Temp Pulse Resp B/P Pulse Ox O2 Delivery O2 Flow Rate FiO2 01/23/17 12:31 18 01/23/17 12:00 96.8 90 20 138/68 94 01/23/17 11:56 96 Nasal Cannula 2.00 01/23/17 08:20 Nasal Cannula 2.00 96 01/23/17 08:00 98.2 96 20 133/69 95 01/23/17 00:00 100.6 84 20 118/65 95 01/22/17 20:33 95 Nasal Cannula 2.00 01/22/17 20:00 97.0 88 18 117/72 95 01/22/17 18:00 97.9 80 20 104/64 95 I/O 01/22/17 01/22/17 01/22/17 01/23/17 01/23/17 01/23/17 07:00 15:00 23:00 07:00 15:00 23:00 Intake Total 1291 ml 1080 ml 886 ml 1180 ml Output Total 600 ml 600 ml Balance 1291 ml 480 ml 886 ml 580 ml Intake Oral 480 ml 1080 ml 560 ml 480 ml IV Total 811 ml 326 ml 700 ml Output Urine Total 600 ml 600 ml # Voids 4 2 1 # Bowel Movements 1 1 0 Result Diagram: 01/22/17 0440 01/22/17 0440 Other Results Laboratory Tests Test 01/21/17 01/21/17 01/22/17 17:15 18:40 04:40 Urine Osmolality 159 MOSM/KG Serum Osmolality 281 MOSM/KG White Blood Count 7.8 TH/MM3 Red Blood Count 4.84 MIL/MM3 Hemoglobin 14.3 GM/DL Hematocrit 41.2 % Mean Corpuscular Volume 85.2 FL Mean Corpuscular Hemoglobin 29.6 PG Mean Corpuscular Hemoglobin 34.8 % Concent Red Cell Distribution Width 15.3 % Platelet Count 150 TH/MM3 Mean Platelet Volume 8.3 FL Neutrophils (%) (Auto) 94.9 % Lymphocytes (%) (Auto) 1.7 % Monocytes (%) (Auto) 2.1 % Eosinophils (%) (Auto) 1.1 % Basophils (%) (Auto) 0.2 % Neutrophils # (Auto) 7.4 TH/MM3 Lymphocytes # (Auto) 0.1 TH/MM3 Monocytes # (Auto) 0.2 TH/MM3 Eosinophils # (Auto) 0.1 TH/MM3 Basophils # (Auto) 0.0 TH/MM3 CBC Comment AUTO DIFF Differential Total Cells 100 Counted Neutrophils % (Manual) 74 % Band Neutrophils % 14 % Lymphocytes % 4 % Eosinophils % 2 % Neutrophils # (Manual) 7.3 TH/MM3 Metamyelocytes 5 % Myelocytes 1 % Differential Comment FINAL DIFF MANUAL Platelet Estimate NORMAL Platelet Morphology Comment NORMAL Red Cell Morphology Comment NORMAL Sodium Level 130 MEQ/L Potassium Level 4.4 MEQ/L Chloride Level 98 MEQ/L Carbon Dioxide Level 20.5 MEQ/L Anion Gap 12 MEQ/L Blood Urea Nitrogen 19 MG/DL Creatinine 0.89 MG/DL Estimat Glomerular Filtration 87 ML/MIN Rate Random Glucose 95 MG/DL Calcium Level 8.7 MG/DL Medications and IVs Active Medications Prednisone (Deltasone) 20 mg DAILY PO Last administered on 01/23/17t 08:21; Admin Dose 20 MG; Start 01/23/17 at 09:00; Stop 02/03/17 at 08:59 Prednisone (Deltasone) 20 mg DAILY PO; Start 01/24/17 at 09:00; Stop 01/24/17 at 09:00; Status DC ROS General: Fatigue, Weakness, Other (10 point ROS done. Positives noted of systems negative are unremarkable) HEENT: Sore Throat, Dysphagia Pulmonary: Cough, SOB, Wheezing (occasional) GI: BM (normal consistency) Physical Exam Physical Exam PHYSICAL EXAMINATION GENERAL: This is a thin male who appears to be in no acute distress at rest. Responds To verbal stimuli HEAD: Normocephalic without any lesion or mass noted. Facial features appear symmetric. OROPHARYNGEAL: Tongue with edema, blisters on the tip, erythema. Oral cavity also sore, slow improvement NECK: Supple. No nuchal rigidity or lymphadenopathy. Trachea midline without deviation. CARDIAC: Regular rhythm, regular rate, S1 and S2 are heard. LUNGS: Clear to auscultation bilaterally. Occasional wheeze, low volumes O2 at 2 L constant ABDOMEN: Soft, nontender, no organomegaly or masses. No diarrhea EXTREMITIES: No edema. Pulses equal bilateral. NEUROLOGICAL: Patient mood and affect appropriate. No focal deficit SKIN:Warm and moist, dry Objective Remarks Still feel really bad. Trying to eat a little more soft foods. It is slow improvement. A/P Assessment and Plan 1. Sepsis on admission. 2. COPD exacerbation. 3. Hyponatremia. 4. Hospital acquired pneumonia. 5. History of A-fib, currently in sinus rhythm., Resolved 6. History of ulcerative colitis. 7. Hypokalemia, resolved 8. AIDS, new diagnosis 9. Dehydration 10 Becky, oral DISCUSSION: Sepsis Labs review, vital signs reviewed. Sepsis resolved white count normal range. Hemoglobin hematocrit normal range Increased hydration. Recurrent hyponatremia. encouraged by mouthcontinue with empiric abx-Diflucan, Bactrim IV Will monitor labs . COPD exacerbation Exertional persistent hypoxia usually with activity. No shortness of breath noted rest. Patient is wearing 2 L nasal cannula constant. Resolving carbon dioxide blood levels decreasing, now 20.5 Monitor labs whenever needed appreciate ID input Confirmed HIV/AIDS, HCV/HBV negative Pt will need to establish fu with HIV provider (Dr Galindo) [facility] preferably with 1st appointment within 1 wk after d/c Patient understands the need to have outpatient treatment started since he is discharged. continues with IV medications, micafungin, and Diflucan, nystatin Pneumonia resolving Ulcerative colitis, resolved, continues on Flagyl, no diarrhea Monitor Oral candidiasis, severe, minimal improvement. Continues to affect his eating. Continue prednisone appreciate pulmonary input continue oxygen, PO steroids change Duonebs to q 4WA and q 2 PRN Heparin for DVT prophylaxis Hyponatremia, encourage by mouth fluids, gentle hydration 84 cc an hour Monitor labs Dehydration, mild Monitor labs, IV fluids Encourage by mouth fluids Case management consult DC planning, not ready today, still requiring IV medication Working towards an outpatient plan Discharge Planning Initiated Discussed With: Nurse, Family (patient), Other (Dr. kraft, patient seen on her behalf) Priscilla Au Jan 23, 2017 14:15
--- NOTE | 2017-01-23 14:41 | HHI.IDPN ---
Subjective Subjective Remarks Doing better! 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 Vital Signs Date Time Temp Pulse Resp B/P Pulse Ox O2 Delivery O2 Flow Rate FiO2 01/23/17 12:31 18 01/23/17 12:00 96.8 90 20 138/68 94 01/23/17 11:56 96 Nasal Cannula 2.00 01/23/17 08:20 Nasal Cannula 2.00 96 01/23/17 08:00 98.2 96 20 133/69 95 01/23/17 00:00 100.6 84 20 118/65 95 01/22/17 20:33 95 Nasal Cannula 2.00 01/22/17 20:00 97.0 88 18 117/72 95 01/22/17 18:00 97.9 80 20 104/64 95 01/22/17 01/22/17 01/23/17 15:00 23:00 07:00 Intake Total 1080 ml 886 ml 1180 ml Output Total 600 ml 600 ml Balance 480 ml 886 ml 580 ml Intake Oral 1080 ml 560 ml 480 ml IV Total 326 ml 700 ml Output Urine Total 600 ml 600 ml # Voids 2 1 # Bowel Movements 1 1 0 . Laboratory Tests Test 01/22/17 04:40 White Blood Count 7.8 TH/MM3 Red Blood Count 4.84 MIL/MM3 Hemoglobin 14.3 GM/DL Hematocrit 41.2 % Mean Corpuscular Volume 85.2 FL Mean Corpuscular Hemoglobin 29.6 PG Mean Corpuscular Hemoglobin 34.8 % Concent Red Cell Distribution Width 15.3 % Platelet Count 150 TH/MM3 Mean Platelet Volume 8.3 FL Neutrophils (%) (Auto) 94.9 % Lymphocytes (%) (Auto) 1.7 % Monocytes (%) (Auto) 2.1 % Eosinophils (%) (Auto) 1.1 % Basophils (%) (Auto) 0.2 % Neutrophils # (Auto) 7.4 TH/MM3 Lymphocytes # (Auto) 0.1 TH/MM3 Monocytes # (Auto) 0.2 TH/MM3 Eosinophils # (Auto) 0.1 TH/MM3 Basophils # (Auto) 0.0 TH/MM3 CBC Comment AUTO DIFF Differential Total Cells 100 Counted Neutrophils % (Manual) 74 % Band Neutrophils % 14 % Lymphocytes % 4 % Eosinophils % 2 % Neutrophils # (Manual) 7.3 TH/MM3 Metamyelocytes 5 % Myelocytes 1 % Differential Comment FINAL DIFF MANUAL Platelet Estimate NORMAL Platelet Morphology Comment NORMAL Red Cell Morphology Comment NORMAL Laboratory Tests Test 01/21/17 01/22/17 18:40 04:40 Serum Osmolality 281 MOSM/KG Sodium Level 130 MEQ/L Potassium Level 4.4 MEQ/L Chloride Level 98 MEQ/L Carbon Dioxide Level 20.5 MEQ/L Anion Gap 12 MEQ/L Blood Urea Nitrogen 19 MG/DL Creatinine 0.89 MG/DL Estimat Glomerular Filtration 87 ML/MIN Rate Random Glucose 95 MG/DL Calcium Level 8.7 MG/DL Microbiology Date/Time Procedure Status Source Growth 01/22/17 11:09 Aerobic Blood Culture - Preliminary Resulted Blood Peripheral NO GROWTH IN 1 DAY 01/22/17 11:09 Anaerobic Blood Culture - Preliminary Resulted Blood Peripheral NO GROWTH IN 1 DAY 01/22/17 11:21 Aerobic Blood Culture - Preliminary Resulted Blood Peripheral NO GROWTH IN 1 DAY 01/22/17 11:21 Anaerobic Blood Culture - Preliminary Resulted Blood Peripheral NO GROWTH IN 1 DAY 01/22/17 13:30 Gram Stain - Final Resulted Sputum Expectorated Sputum 01/22/17 13:30 Sputum Culture - Preliminary Resulted Sputum Expectorated Sputum HEAVY GROWTH NORMAL RESPIRATORY GARRY... Imaging Last Impressions Chest X-Ray 01/22/17 0600 Signed Impressions: Service Date/Time: January 06:01 - CONCLUSION: 1. Stable ill-defined airspace disease in the lungs, left greater than right compared with January 17. No new infiltrate or effusion. Sree Dykes MD CT Angiography 01/03/17 0000 Signed Impressions: Service Date/Time: Tuesday, January 03, 2017 18:29 - CONCLUSION: 1. Negative for pulmonary embolus. 2. Interval development of bilateral lung disease on a background of emphysema. Findings are not entirely typical of bronchopneumonia. Differential diagnosis includes some form of smoking related disease with respiratory bronchiolitis or possibly Langerhans' cell histiocytosis. Sree Dykes MD Physical Exam CONSTITUTIONAL/GENERAL: This is thin patient, in no apparent distress. TUBES/LINES/DRAINS: SKIN: No jaundice, rashes, or lesions. Ecchymoses on upper extremities. No wounds seen anteriorly. Skin temperature appropriate. Not diaphoretic. HEAD: Atraumatic. Normocephalic. EYES: Pupils equal and round and reactive. Extraocular motions intact. No scleral icterus. No injection or drainage. Fundi not examined. ENT: Hearing grossly normal. Nose without bleeding or purulent drainage. thrush is clearing . Ulcerations on the lateral tongue, very painful Voice is very quiet Severe areas of denuded mucosae on lateral aspects of the tounge, tongue less swollen NECK: Trachea midline. Supple, nontender. No palpable thyroid enlargement or nodularity. No stridor CARDIOVASCULAR: Regular rate and rhythm without murmurs, gallops, or rubs. No JVD. Peripheral pulses symmetric. RESPIRATORY/CHEST: Symmetric, unlabored respirations. few scattered rhonchi. and scattered wheezing GASTROINTESTINAL: Abdomen soft, non-tender, nondistended. No hepato-splenomegaly , or palpable masses. No guarding. Bowel sounds present. GENITOURINARY: Without palpable bladder distension. MUSCULOSKELETAL: Extremities without clubbing, cyanosis, or edema. No joint tenderness or effusion noted. No calf tenderness. No mottling or clubbing. LYMPHATICS: No palpable cervical or supraclavicular adenopathy. NEUROLOGICAL: Awake and alert. Motor and sensory grossly within normal limits. Follows commands. Normal speech. Moves all extremities. PSYCHIATRIC: No obvious anxiety/depression. no apparent hallucinations or other psychotic thought process. Assessment & Plan Remarks COPD PCP PNA, imnproving on IV Bactrim Oral candidiasis, severe , improving on micafungin Ulcerations of the tongue - confirmed herpetic Confirmed HIV/AIDS, CD4 < 20P HCV/HBV negative Persistent hypoxia - cont IV BActrim with sterroids Prednisone 40 mg twice daily for 5 days, followed by Prednisone 40 mg daily for 5 days, followed by Prednisone 20 mg daily for 11 days - bactrim can be changed to oral 2 DS TID to complete total of 21 days when pt is ready for dc - cont azithro 1200 q Mon for MAC profilaxis - dc fluconazole - cont micafungin for severe resistant oral thrush -cont acyclovir, can be switched to po 400 tid untill lesions completely healed - chk CXR - change cefepime to CFTX - fu genotype in anticipation of HAART - if remains OK thru the we will dc on Thursday Pt is willing to establish HIV care immediately upon d/c. He was counseled. He understands the importance of prompt start of HIV tx and compliance with it He would like to have Dr Hao Galindo as his HIV provider dw pt Sheela Liu MD Jan 23, 2017 14:40
[2017-01-23] MEDS: SODIUM CHLOR 0.9% 1000 ML INJ 1,000 ML IV SCH (15:38)
[2017-01-23] MEDS: cefTRIAXone INJ 2,000 MG in SODIUM CHLORIDE 0.9% INJ 100 ML IV SCH (15:42)
[2017-01-23] MEDS: SODIUM CHLORIDE 0.9% FLUSH 5 ML FLUSH IV FLUSH PRN (16:02)
[2017-01-23] MEDS: MICAFUNGIN INJ 100 MG in SODIUM CHLORIDE 0.9% INJ 100 ML IV SCH (17:01)
[2017-01-23] MEDS: ACETAMINOPHEN 325 MG TAB PO PRN (20:47)
[2017-01-23] MEDS: ACYCLOVIR 200 MG CAP PO SCH (20:49)
[2017-01-24] VITALS (8 sets, daily range): BP systolic 91–129; BP diastolic 50–73; PULSE 78–98; RESP 18–22; TEMP 96.9–100.4; O2SAT 91–96
[2017-01-24] MEDS: HEPARIN SODIUM - SQ 10,000 UNITS/ML VIAL SQ SCH ×3 (00:05→20:25)
[2017-01-24] MEDS: RESP: ALBUTEROL 2.5 MG/IPRATROPIUM 0.5 MG NEB (PRN) INH ×2 (00:49→20:38)
[2017-01-24] MEDS: MESALAMINE HD 800 MG DELAYED RELEASE TAB PO SCH ×3 (05:11→20:22)
[2017-01-24] MEDS: DIPHENHY/LIDO/MAG/ALUM MOUTHWASH (Adult/Peds) 60 ML BTL SWISH-SWAL SCH ×4 (05:12→20:22)
[2017-01-24] MEDS: ACYCLOVIR 200 MG CAP PO SCH ×3 (05:12→20:22)
[2017-01-24] MEDS: HYDROmorphone HCL PF 1 MG/ML VIAL IV PUSH PRN ×4 (05:17→17:09)
[2017-01-24] MEDS: WATE IV SCH ×8 (05:20→23:26)
[2017-01-24] MEDS: DEXTROSE 5% IV SCH ×8 (05:20→23:26)
[2017-01-24] MEDS: SULFAMETHOX IV SCH ×8 (05:20→23:26)
[2017-01-24] MEDS: TRIMETHOPRIM IV SCH ×8 (05:20→23:26)
--- NOTE | 2017-01-24 06:50 | RADRPT ---
EXAM DATE/TIME: 01/24/2017 05:25 [facility] COMPARISON: CHEST SINGLE AP, January 22, 2017, 6:01. INDICATIONS : Shortness of breath. MEDICAL HISTORY : Hypertension. Chronic obstructive pulmonary disease. SURGICAL HISTORY : None. ENCOUNTER: Subsequent ACUITY: 3 weeks PAIN SCORE: Non-responsive. LOCATION: Bilateral chest FINDINGS: Fairly symmetric patchy infiltrates persist grossly unchanged. Likely small effusions. Cardiac contou r is grossly unchanged. CONCLUSION: No significant interval change Miguel Angel Herrera MD on January 24, 2017 at 6:48 Board Certified Radiologist. This report was verified electronically.
[2017-01-24] MEDS: ACETAMINOPHEN 325 MG TAB PO PRN ×2 (08:06→23:56)
[2017-01-24] MEDS: FAMOTIDINE 20 MG TAB PO SCH ×2 (08:06→20:22)
[2017-01-24] MEDS: GABAPENTIN 100 MG CAP PO SCH ×3 (08:07→17:09)
[2017-01-24] MEDS: METOPROLOL TARTRATE 25 MG TAB PO SCH ×2 (08:07→20:22)
[2017-01-24] MEDS: ASCORBIC ACID 500 MG TAB PO SCH (08:07)
[2017-01-24] MEDS: predniSONE 20 MG TAB PO SCH (08:07)
[2017-01-24] MEDS: DILTIAZEM-CD 120 MG CAP ER PO SCH (08:07)
[2017-01-24] MEDS: MULTIVITAMIN HEMATINIC THERAPEUTIC TAB PO SCH (08:07)
[2017-01-24] MEDS: VITAMIN B CMPLX/VITC/FOLIC AC CAP PO SCH (08:07)
[2017-01-24] MEDS: SODIUM CHLORIDE 0.9% FLUSH 5 ML FLUSH IV FLUSH SCH ×2 (08:12→20:25)
[2017-01-24] MEDS ORDERED: predniSONE 20 MG TAB PO SCH (09:00)
--- NOTE | 2017-01-24 14:52 | HHI.PR ---
Subjective Remarks Slowly ambulating in room. Tongue edema, improving slow, still painful No chest pain Exertional shortness of breath only for now Voice hoarse using o2 continuously Anxious Objective Objective Results - Vital Signs Date Time Temp Pulse Resp B/P Pulse Ox O2 Delivery O2 Flow Rate FiO2 01/24/17 13:59 18 01/24/17 08:30 Nasal Cannula 2.00 96 01/24/17 08:00 100.4 98 20 129/69 94 01/24/17 05:36 97.5 90 18 126/73 95 01/24/17 00:00 97.2 88 20 122/73 94 01/23/17 20:49 94 Nasal Cannula 2.00 01/23/17 20:27 96 Nasal Cannula 2.00 01/23/17 20:00 100.7 100 22 107/61 94 01/23/17 16:00 97.2 91 20 116/78 92 01/23/17 15:30 99.8 01/23/17 15:30 99.8 I/O 01/23/17 01/23/17 01/23/17 01/24/17 01/24/17 01/24/17 07:00 15:00 23:00 07:00 15:00 23:00 Intake Total 1180 ml 3239 ml 860 ml 1240 ml Output Total 600 ml 900 ml Balance 580 ml 3239 ml 860 ml 340 ml Intake Oral 480 ml 800 ml 360 ml 240 ml IV Total 700 ml 2439 ml 500 ml 1000 ml Output Urine Total 600 ml 900 ml # Voids 1 3 2 # Bowel Movements 0 0 0 0 Result Diagram: 01/22/17 0440 01/22/17 0440 Other Results Date/Time Procedure Status Source Growth 01/22/17 13:30 Gram Stain - Final Complete Sputum Expectorated Sputum 01/22/17 13:30 Sputum Culture - Final Complete Sputum Expectorated Sputum HEAVY GROWTH NORMAL RESPIRATORY GARRY 01/22/17 11:21 Aerobic Blood Culture - Preliminary Resulted Blood Peripheral NO GROWTH IN 2 DAYS 01/22/17 11:21 Anaerobic Blood Culture - Preliminary Resulted Blood Peripheral NO GROWTH IN 2 DAYS ROS General: Fatigue, Weakness HEENT: Sore Throat, Dysphagia Cardiac: No: Chest Pain, Edema, Palpitations, Other Pulmonary: SOB GI: No: Abdominal Pain, BM, Diarrhea, N/V, Other /DISTANCE LEARNING COORDINATOR: No: Dysuria, Urgency, Other Neuro/MS: No: Lightheaded, Confusion, Other Psych: No: Anxiety, Depression, Other Skin: No: Itching, Rash, Other Physical Exam Physical Exam PHYSICAL EXAMINATION GENERAL: This is a well-developed, well-nourished male who appears to be in no acute distress. He is alert and awake. HEAD: Normocephalic without any lesion or mass noted. Facial features appear symmetric. EYES: Perrla, Normal eye movement, no Icterus. OROPHARYNGEAL: Tongue with edema, blisters on the tip, erythema. Oral cavity also sore, slow improvement MOUTH/THROAT: Buccal mucosa is moist NECK: Supple. No nuchal rigidity or lymphadenopathy. Trachea midline without deviation. Thyroid not palpable, no bruits appreciated. CARDIAC: Regular rhythm, regular rate, S1 and S2 are heard. No murmur. LUNGS: Clear to auscultation bilaterally. Occ wheezes. ABDOMEN: Soft, nontender, no organomegaly or masses. Bowel sounds are heard in all four quadrants. No rebound. No guarding. EXTREMITIES: Trace pedal edema. Pulses equal bilateral. NEUROLOGICAL: No focal deficits. SKIN:Warm and moist PSYCH: Mood and affect appropriate A/P Assessment and Plan 1. Sepsis on admission. 2. COPD exacerbation. 3. Hyponatremia. 4. Hospital acquired pneumonia. 5. History of A-fib, currently in sinus rhythm., Resolved 6. History of ulcerative colitis. 7. Hypokalemia, resolved 8. AIDS, new diagnosis 9. Dehydration 10 Becky, oral Management: Sepsis Labs reviewed, vital signs reviewed. Sepsis resolved white count normal range. Hemoglobin hematocrit normal range Increased hydration. Recurrent hyponatremia. encouraged by mouth. continue with empiric abx-Diflucan, Bactrim IV COPD exacerbation Exertional persistent hypoxia usually with activity. No shortness of breath noted rest. Patient is wearing 2 L nasal cannula constant. appreciate ID input Confirmed HIV/AIDS, HCV/HBV negative Pt will need to establish fu with HIV provider (Dr Carbajal) [facility] preferably with 1st appointment within 1 wk after d/c Patient understands the need to have outpatient treatment started since he is discharged. continues with IV medications, micafungin, and Diflucan, nystatin Ulcerative colitis, resolved, continues on Flagyl, no diarrhea Oral candidiasis, severe, minimal improvement. Continues to affect his eating. Continue prednisone Pneumonia resolving appreciate pulmonary input continue oxygen, PO steroids changed Duonebs to q 4WA and q 2 PRN Heparin for DVT prophylaxis Hyponatremia, encourage by mouth fluids, gentle hydration 84 cc an hour Monitor labs Dehydration, mild Monitor labs, IV fluids Encourage by mouth fluids Case management consulted for DC planning, not ready today, still requiring IV medication Working towards an outpatient plan AM labs. discussed with pt/RN. Discussed With: Nurse, Family (patient), Other (Dr. kraft, patient seen on her behalf) Deejay Jewell MD Jan 24, 2017 14:52
[2017-01-24] MEDS: SODIUM CHLOR 0.9% 1000 ML INJ 1,000 ML IV SCH (15:27)
[2017-01-24] MEDS: cefTRIAXone INJ 2,000 MG in SODIUM CHLORIDE 0.9% INJ 100 ML IV SCH (16:25)
[2017-01-24] MEDS: guaiFENesin/CODEINE SYRUP 200 MG/20 MG/10 ML CUP PO PRN (16:26)
[2017-01-24] MEDS: MICAFUNGIN INJ 100 MG in SODIUM CHLORIDE 0.9% INJ 100 ML IV SCH (17:01)
[2017-01-24] MEDS: clonazePAM 1 MG TAB PO PRN (20:22)
[2017-01-25] VITALS (11 sets, daily range): BP systolic 99–140; BP diastolic 57–79; PULSE 82–96; RESP 18–22; TEMP 96.2–100.1; O2SAT 92–96
[2017-01-25] MEDS: HYDROmorphone HCL PF 1 MG/ML VIAL IV PUSH PRN ×5 (00:01→19:31)
[2017-01-25] MEDS: RESP: ALBUTEROL 2.5 MG/IPRATROPIUM 0.5 MG NEB (PRN) INH ×4 (00:05→19:54)
[2017-01-25] MEDS: SULFAMETHOX IV SCH ×6 (06:29→17:56)
[2017-01-25] MEDS: DIPHENHY/LIDO/MAG/ALUM MOUTHWASH (Adult/Peds) 60 ML BTL SWISH-SWAL SCH ×4 (06:29→20:27)
[2017-01-25] MEDS: TRIMETHOPRIM IV SCH ×6 (06:29→17:56)
[2017-01-25] MEDS: ACYCLOVIR 200 MG CAP PO SCH ×3 (06:29→20:27)
[2017-01-25] MEDS: DEXTROSE 5% IV SCH ×6 (06:29→17:56)
[2017-01-25] MEDS: MESALAMINE HD 800 MG DELAYED RELEASE TAB PO SCH ×3 (06:29→20:26)
[2017-01-25] MEDS: WATE IV SCH ×6 (06:29→17:56)
[2017-01-25 07:10] LABS: AUTOMATED NEUTROPHIL # 6.1 TH/MM3 (1.8-7.7); BASOPHIL % 0.4 % (0.0-2.0); EOSINOPHIL # 0.2 TH/MM3 (0-0.4); EOSINOPHIL % 3.7 % (0.0-4.0); HEMATOCRIT 37.9 % (39.0-51.0); LYMPH % 2.8 % (9.0-44.0); LYMPHOCYTE # 0.2 TH/MM3 (1.0-4.8); MEAN CELL VOLUME 86.5 FL (80.0-100.0); MEAN CORPUSCULAR HEMOGLOBIN 29.6 PG (27.0-34.0); MEAN CORPUSCULAR HGB CONC 34.2 % (32.0-36.0); MONO % 2.9 % (0.0-8.0); NEUT % 90.2 % (16.0-70.0); PLATELET COUNT 157 TH/MM3 (150-450); RED BLOOD COUNT 4.39 MIL/MM3 (4.50-5.90); RED CELL DISTRIBUTION WIDTH 15.4 % (11.6-17.2); WHITE BLOOD COUNT 6.7 TH/MM3 (4.0-11.0)
[2017-01-25 07:13] LABS: HEMO FLAGS AUTO DIFF
[2017-01-25 07:19] LABS: POTASSIUM 4.2 MEQ/L (3.5-5.1)
[2017-01-25 08:10] LABS: BANDS 7 % (0-6); BASOPHILS 1 % (0-2); EOSINOPHILS 2 % (0-4); METAMYELOCYTES 3 % (0-1); MYELOCYTES 1 % (0-0); NEUTROPHIL # MANUAL DIFF 6.4 TH/MM3 (1.8-7.7); POLYS (SEG NEUTROPHILS) 83 % (16-70); PROMYELOCYTES 2 % (0-0); WBC DIFF SAMPLE 100
[2017-01-25 08:11] LABS: PLATELET ESTIMATE SMEAR NORMAL (NORMAL); PLATELET MORPHOLOGY NORMAL (NORMAL); SCAN/DIFF FINAL DIFF MANUAL
[2017-01-25] MEDS: MULTIVITAMIN HEMATINIC THERAPEUTIC TAB PO SCH (09:00)
[2017-01-25] MEDS: VITAMIN B CMPLX/VITC/FOLIC AC CAP PO SCH (10:29)
[2017-01-25] MEDS: DILTIAZEM-CD 120 MG CAP ER PO SCH (10:30)
[2017-01-25] MEDS: ASCORBIC ACID 500 MG TAB PO SCH (10:31)
[2017-01-25] MEDS: FAMOTIDINE 20 MG TAB PO SCH ×2 (10:31→20:26)
[2017-01-25] MEDS: GABAPENTIN 100 MG CAP PO SCH ×3 (10:31→17:20)
[2017-01-25] MEDS: METOPROLOL TARTRATE 25 MG TAB PO SCH ×2 (10:31→20:27)
[2017-01-25] MEDS: predniSONE 20 MG TAB PO SCH (10:32)
[2017-01-25] MEDS: HEPARIN SODIUM - SQ 10,000 UNITS/ML VIAL SQ SCH ×2 (10:32→20:27)
[2017-01-25] MEDS: ACETAMINOPHEN 325 MG TAB PO PRN (12:32)
[2017-01-25] MEDS: cefTRIAXone INJ 2,000 MG in SODIUM CHLORIDE 0.9% INJ 100 ML IV SCH (14:53)
[2017-01-25] MEDS: SODIUM CHLORIDE 0.9% FLUSH 5 ML FLUSH IV FLUSH SCH ×2 (14:53→20:27)
--- NOTE | 2017-01-25 15:37 | HHI.PR ---
Subjective Remarks febrile 100.1 shaky weak SOB improved little wheezing and cough tongue swelling slightly improved. no diarrhea Objective Objective Results - Vital Signs Date Time Temp Pulse Resp B/P Pulse Ox O2 Delivery O2 Flow Rate FiO2 01/25/17 13:46 98.3 01/25/17 12:00 100.1 96 21 140/79 96 01/25/17 08:00 98.1 92 20 135/78 92 01/25/17 07:55 Nasal Cannula 2.00 96 01/25/17 07:24 94 Nasal Cannula 2.00 01/25/17 06:46 97.0 82 18 112/66 96 01/25/17 04:40 97.3 85 22 104/65 95 01/25/17 01:16 20 01/25/17 00:08 93 Nasal Cannula 2.00 01/25/17 00:00 97.7 96 22 99/57 95 01/24/17 23:39 99.5 01/24/17 20:41 91 Nasal Cannula 2.00 01/24/17 20:20 Nasal Cannula 2.00 96 01/24/17 20:00 97.3 81 22 108/61 96 01/24/17 16:00 96.9 78 20 115/69 94 I/O 01/24/17 01/24/17 01/24/17 01/25/17 01/25/17 01/25/17 07:00 15:00 23:00 07:00 15:00 23:00 Intake Total 1240 ml 1925 ml 1255 ml 120 ml 920 ml Output Total 900 ml 600 ml Balance 340 ml 1325 ml 1255 ml 120 ml 920 ml Intake Oral 240 ml 800 ml 240 ml 120 ml IV Total 1000 ml 1125 ml 1015 ml 920 ml Output Urine Total 900 ml 600 ml # Voids 2 2 # Bowel Movements 0 0 0 Result Diagram: 01/25/17 0615 01/25/17 0615 Other Results Laboratory Tests Test 01/25/17 06:15 White Blood Count 6.7 Red Blood Count 4.39 Hemoglobin 13.0 Hematocrit 37.9 Mean Corpuscular Volume 86.5 Mean Corpuscular Hemoglobin 29.6 Mean Corpuscular Hemoglobin 34.2 Concent Red Cell Distribution Width 15.4 Platelet Count 157 Mean Platelet Volume 8.0 Neutrophils (%) (Auto) 90.2 Lymphocytes (%) (Auto) 2.8 Monocytes (%) (Auto) 2.9 Eosinophils (%) (Auto) 3.7 Basophils (%) (Auto) 0.4 Neutrophils # (Auto) 6.1 Lymphocytes # (Auto) 0.2 Monocytes # (Auto) 0.2 Eosinophils # (Auto) 0.2 Basophils # (Auto) 0.0 CBC Comment AUTO DIFF Differential Total Cells 100 Counted Neutrophils % (Manual) 83 Band Neutrophils % 7 Lymphocytes % 1 Eosinophils % 2 Basophils % 1 Neutrophils # (Manual) 6.4 Metamyelocytes 3 Myelocytes 1 Promyelocytes 2 Differential Comment FINAL DIFF MANUAL Platelet Estimate NORMAL Platelet Morphology Comment NORMAL Red Cell Morphology Comment NORMAL Sodium Level 132 Potassium Level 4.2 Chloride Level 100 Carbon Dioxide Level 22.0 Anion Gap 10 Blood Urea Nitrogen 13 Creatinine 0.94 Estimat Glomerular Filtration 82 Rate Random Glucose 82 Calcium Level 8.6 Date/Time Procedure Status Source Growth 01/22/17 13:30 Gram Stain - Final Complete Sputum Expectorated Sputum 01/22/17 13:30 Sputum Culture - Final Complete Sputum Expectorated Sputum HEAVY GROWTH NORMAL RESPIRATORY GARRY 01/22/17 11:21 Aerobic Blood Culture - Preliminary Resulted Blood Peripheral NO GROWTH IN 3 DAYS 01/22/17 11:21 Anaerobic Blood Culture - Preliminary Resulted Blood Peripheral NO GROWTH IN 3 DAYS ROS General: Fatigue HEENT: Other (tongue swelling ) Pulmonary: Cough, SOB, Wheezing Psych: Anxiety Physical Exam Physical Exam PHYSICAL EXAMINATION GENERAL: This is a slim, well-nourished male who appears to be in no acute distress. He is alert and awake, answers questions appropriately. HEAD: Normocephalic without any lesion or mass noted. Facial features appear symmetric. OROPHARYNGEAL: Oropharynx with erythema, has thrust, tongue sore/swelling NECK: Supple. No nuchal rigidity or lymphadenopathy. Trachea midline without deviation. CARDIAC: Regular rhythm, regular rate, S1 and S2 are heard. Murmur none; no gallops or rubs. LUNGS: diminished, faint wheezes ABDOMEN: Soft, nontender, no organomegaly or masses. Bowel sounds are heard in all four quadrants. No rebound. No guarding. Appetite fair EXTREMITIES: No edema. Pulses equal bilateral. No cyanosis. NEUROLOGICAL: Patient mood and affect appropriate. No focal deficit Urinary Catheter: No Vascular Central Line Catheter: No A/P Diagnosis: (1) COPD (chronic obstructive pulmonary disease) (2) BPH (benign prostatic hyperplasia) (3) Atrial arrhythmia (4) Atrial fibrillation (5) Pneumonia (6) Atrial fibrillation (7) SIRS (systemic inflammatory response syndrome) (8) Hypoxia (9) Pneumocystis carinii pneumonia (10) Thrush (11) Dehydration (12) Ulcerative colitis (13) Hypertension Assessment and Plan continue with empiric abx-Bactrim IV, Micafungin, Rocephin, Acyclovir appreciate ID input HIV reflex + BAL + PCP HIV + - confirmed cw advanced AIDS Undetectable CD4 count (< 20) HCV/HBV negative Needs MAC profilaxis Azithro 1200 q thursday Pt will need to establish fu with HIV provider (Dr Galindo) [facility] preferably with 1st appointment within 1 wk after d/c Febrile overnight BC / negative continue to monitor Oral candidiasis, severe , improving on micafungin Ulcerations of the tongue - confirmed herpetic Magic mouth wash appreciate pulmonary input S/P bronch 01/07 continue oxygen, PO steroids Duonebs to q 4WA and q 2 PRN Hx afib, SR stable appreciate cardiology input continue Cardizem and BB Heparin for DVT prophylaxis Ulcerative colitis continue Asacol no diarrhea neg. cdiff End of life care, code status, adv. directives d/w pt. at length. He has designated 2 friends to make decision on his behalf. Requesting that no information is provided to his sister. Designates Allie López and Eliana Barth (as secondary) to make health care decisions if he's not able. If resp. distress, agrees to intubation for a short period. Hopefully home with [facility] this week, declined by CIR. Doesn't want to go to SNF D/W RN D/W Dr. Jewell D/W pt This pt. was seen by myself and Dr. Jewell, this note is written on her behalf. Discussed With: Nurse, Family (patient), Other (Dr. kraft, patient seen on her behalf) Problem Qualifiers (1) COPD (chronic obstructive pulmonary disease): Qualified Code: J44.1 - Chronic obstructive pulmonary disease with acute exacerbation (2) BPH (benign prostatic hyperplasia): Qualified Code: N40.0 - Benign prostatic hyperplasia, presence of lower urinary tract symptoms unspecified, unspecified morphology (3) Atrial fibrillation: Qualified Code: I48.0 - Paroxysmal atrial fibrillation (4) Pneumonia: (5) Atrial fibrillation: Qualified Code: I48.0 - Paroxysmal atrial fibrillation (6) Pneumocystis carinii pneumonia: (7) Ulcerative colitis: Qualified Code: K51.90 - Ulcerative colitis without complications, unspecified location (8) Hypertension: Qualified Code: I10 - Essential hypertension Carmen Huggins Jan 25, 2017 15:37
[2017-01-25] MEDS: MICAFUNGIN INJ 100 MG in SODIUM CHLORIDE 0.9% INJ 100 ML IV SCH (17:20)
[2017-01-25] MEDS: clonazePAM 1 MG TAB PO PRN (20:26)
[2017-01-25] MEDS: SODIUM CHLOR 0.9% 1000 ML INJ 1,000 ML IV SCH (20:30)
[2017-01-26] VITALS (9 sets, daily range): BP systolic 99–124; BP diastolic 55–82; PULSE 80–97; RESP 17–22; TEMP 97.5–99.2; O2SAT 91–97
[2017-01-26] MEDS: TRIMETHOPRIM IV SCH ×10 (00:05→23:38)
[2017-01-26] MEDS: WATE IV SCH ×10 (00:05→23:38)
[2017-01-26] MEDS: SULFAMETHOX IV SCH ×10 (00:05→23:38)
[2017-01-26] MEDS: DEXTROSE 5% IV SCH ×10 (00:05→23:38)
[2017-01-26] MEDS: HYDROmorphone HCL PF 1 MG/ML VIAL IV PUSH PRN ×6 (00:06→23:35)
[2017-01-26] MEDS: RESP: ALBUTEROL 2.5 MG/IPRATROPIUM 0.5 MG NEB (PRN) INH ×6 (00:12→19:23)
[2017-01-26] MEDS: guaiFENesin/CODEINE SYRUP 200 MG/20 MG/10 ML CUP PO PRN (05:09)
[2017-01-26] MEDS: DIPHENHY/LIDO/MAG/ALUM MOUTHWASH (Adult/Peds) 60 ML BTL SWISH-SWAL SCH ×4 (06:03→20:47)
[2017-01-26] MEDS: ACYCLOVIR 200 MG CAP PO SCH ×3 (06:03→20:46)
[2017-01-26] MEDS: MESALAMINE HD 800 MG DELAYED RELEASE TAB PO SCH ×3 (06:03→20:46)
--- NOTE | 2017-01-26 06:55 | RADRPT ---
EXAM DATE/TIME: 01/26/2017 05:50 [place] COMPARISON: CHEST SINGLE AP, January 24, 2017, 5:25. INDICATIONS : Short of breath, weakness, evaluate infiltrates MEDICAL HISTORY : Hypertension. Chronic obstructive pulmonary disease. SURGICAL HISTORY : None. ENCOUNTER: Subsequent ACUITY: 3 weeks PAIN SCORE: 0/10 LOCATION: Bilateral chest FINDINGS: A single view of the chest demonstrates persistent patchy infiltrates predominantly laterally in the midlung palmer. There is some blunting of the costophrenic angles possibly represent small effusions. The appearance is stable. No infiltrates. Heart size is normal. Osseous structures are intact CONCLUSION: 1. Stable patchy airspace disease laterally in the midlung palmer. 2. Possible small associated effusions. 3. No significant change from prior. Anthony Garcia MD on January 26, 2017 at 6:52 Board Certified Radiologist. This report was verified electronically.
[2017-01-26] MEDS: SODIUM CHLORIDE 0.9% FLUSH 5 ML FLUSH IV FLUSH SCH ×2 (09:00→20:49)
[2017-01-26] MEDS: AZITHROMYCIN 600 MG TAB PO SCH (09:14)
[2017-01-26] MEDS: ASCORBIC ACID 500 MG TAB PO SCH (09:14)
[2017-01-26] MEDS: MULTIVITAMIN HEMATINIC THERAPEUTIC TAB PO SCH (09:14)
[2017-01-26] MEDS: FAMOTIDINE 20 MG TAB PO SCH ×2 (09:15→20:46)
[2017-01-26] MEDS: GABAPENTIN 100 MG CAP PO SCH ×3 (09:15→16:35)
[2017-01-26] MEDS: predniSONE 20 MG TAB PO SCH (09:15)
[2017-01-26] MEDS: DILTIAZEM-CD 120 MG CAP ER PO SCH (09:15)
[2017-01-26] MEDS: VITAMIN B CMPLX/VITC/FOLIC AC CAP PO SCH (09:16)
[2017-01-26] MEDS: METOPROLOL TARTRATE 25 MG TAB PO SCH ×2 (09:16→20:48)
[2017-01-26] MEDS: HEPARIN SODIUM - SQ 10,000 UNITS/ML VIAL SQ SCH ×2 (09:16→20:48)
--- NOTE | 2017-01-26 10:25 | HHI.PR ---
Subjective Remarks no fever overnight tongue pain and swelling slowly improving less shaky, more awake no wheezing not as SOB eating slowly but tries to eat most food Objective Objective Results - Vital Signs Date Time Temp Pulse Resp B/P Pulse Ox O2 Delivery O2 Flow Rate FiO2 01/26/17 09:26 Nasal Cannula 2.00 01/26/17 08:00 98.6 90 18 124/82 97 01/26/17 07:54 94 Nasal Cannula 2.00 01/26/17 06:01 20 01/26/17 04:00 98.8 97 18 99/59 96 01/26/17 03:16 94 Nasal Cannula 2.00 01/26/17 02:00 99.2 97 22 123/67 94 01/25/17 20:25 Nasal Cannula 2.00 96 01/25/17 20:00 97.8 94 18 117/72 96 01/25/17 19:54 94 Nasal Cannula 2.00 01/25/17 16:00 96.2 88 20 108/63 95 01/25/17 13:46 98.3 01/25/17 12:00 100.1 96 21 140/79 96 I/O 01/25/17 01/25/17 01/25/17 01/26/17 01/26/17 01/26/17 07:00 15:00 23:00 07:00 15:00 23:00 Intake Total 120 ml 1720 ml 2385 ml 1231 ml Output Total 600 ml 600 ml Balance 120 ml 1120 ml 2385 ml 631 ml Intake Oral 120 ml 800 ml 480 ml 240 ml IV Total 920 ml 1905 ml 991 ml Output Urine Total 600 ml 600 ml # Voids 2 2 # Bowel Movements 0 1 Result Diagram: 01/25/17 0615 01/25/17 0615 Other Results Date/Time Procedure Status Source Growth 01/22/17 13:30 Gram Stain - Final Complete Sputum Expectorated Sputum 01/22/17 13:30 Sputum Culture - Final Complete Sputum Expectorated Sputum HEAVY GROWTH NORMAL RESPIRATORY GARRY 01/22/17 11:21 Aerobic Blood Culture - Preliminary Resulted Blood Peripheral NO GROWTH IN 3 DAYS 01/22/17 11:21 Anaerobic Blood Culture - Preliminary Resulted Blood Peripheral NO GROWTH IN 3 DAYS ROS HEENT: Other (tongue swelling, pain ) Pulmonary: Cough, Wheezing Physical Exam Physical Exam PHYSICAL EXAMINATION GENERAL: This is a slim, well-nourished male who appears to be in no acute distress. He is alert and awake, answers questions appropriately. HEAD: Normocephalic without any lesion or mass noted. Facial features appear symmetric. OROPHARYNGEAL: Oropharynx with erythema, has thrust, tongue sore/swelling NECK: Supple. No nuchal rigidity or lymphadenopathy. Trachea midline without deviation. CARDIAC: Regular rhythm, regular rate, S1 and S2 are heard. Murmur none; no gallops or rubs. LUNGS: diminished, faint wheezes ABDOMEN: Soft, nontender, no organomegaly or masses. Bowel sounds are heard in all four quadrants. No rebound. No guarding. Appetite fair EXTREMITIES: No edema. Pulses equal bilateral. No cyanosis. NEUROLOGICAL: Patient mood and affect appropriate. No focal deficit Urinary Catheter: No Vascular Central Line Catheter: No A/P Diagnosis: (1) COPD (chronic obstructive pulmonary disease) (2) BPH (benign prostatic hyperplasia) (3) Atrial arrhythmia (4) Atrial fibrillation (5) Pneumonia (6) Atrial fibrillation (7) SIRS (systemic inflammatory response syndrome) (8) Hypoxia (9) Pneumocystis carinii pneumonia (10) Thrush (11) Dehydration (12) Ulcerative colitis (13) Hypertension Assessment and Plan continue with empiric abx-Bactrim IV, Micafungin, Rocephin, Acyclovir appreciate ID input HIV reflex + BAL + PCP HIV + - confirmed cw advanced AIDS Undetectable CD4 count (< 20) HCV/HBV negative Needs MAC profilaxis Azithro 1200 q thursday Pt will need to establish fu with HIV provider (Dr Galindo) ROZ preferably with 1st appointment within 1 wk after d/c Febrile overnight BC 3/2 negative continue to monitor Oral candidiasis, severe , improving on micafungin Ulcerations of the tongue - confirmed herpetic Magic mouth wash appreciate pulmonary input S/P bronch 2/ continue oxygen, PO steroids Duonebs to q 4WA and q 2 PRN Hx afib, SR stable appreciate cardiology input continue Cardizem and BB Heparin for DVT prophylaxis Ulcerative colitis continue Asacol no diarrhea neg. cdiff End of life care, code status, adv. directives d/w pt. at length. He has designated 2 friends to make decision on his behalf. Requesting that no information is provided to his sister. Designates Allie Sanidad and Eliana Barth (as secondary) to make health care decisions if he's not able. If resp. distress, agrees to intubation for a short period. Hopefully home with [facility] this week, declined by [facility]. Doesn't want to go to SNF improving slowly, continue with above poss. home in 2-3 days D/W RN D/W Dr. Kraft D/W pt This pt. was seen by myself and Dr. Kraft, this note is written on her behalf. Discussed With: Nurse, Family (patient), Other (Dr. kraft, patient seen on her behalf) Problem Qualifiers (1) COPD (chronic obstructive pulmonary disease): Qualified Code: J44.1 - Chronic obstructive pulmonary disease with acute exacerbation (2) BPH (benign prostatic hyperplasia): Qualified Code: N40.0 - Benign prostatic hyperplasia, presence of lower urinary tract symptoms unspecified, unspecified morphology (3) Atrial fibrillation: Qualified Code: I48.0 - Paroxysmal atrial fibrillation (4) Pneumonia: (5) Atrial fibrillation: Qualified Code: I48.0 - Paroxysmal atrial fibrillation (6) Pneumocystis carinii pneumonia: (7) Ulcerative colitis: Qualified Code: K51.90 - Ulcerative colitis without complications, unspecified location (8) Hypertension: Qualified Code: I10 - Essential hypertension Carmen Huggins Jan 26, 2017 10:24
--- NOTE | 2017-01-26 15:00 | HHI.IDPN ---
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 Vital Signs Date Time Temp Pulse Resp B/P Pulse Ox O2 Delivery O2 Flow Rate FiO2 01/26/17 12:00 98.4 88 17 112/71 91 01/26/17 09:26 Nasal Cannula 2.00 01/26/17 08:00 98.6 90 18 124/82 97 01/26/17 07:54 94 Nasal Cannula 2.00 01/26/17 06:01 20 01/26/17 04:00 98.8 97 18 99/59 96 01/26/17 03:16 94 Nasal Cannula 2.00 01/26/17 02:00 99.2 97 22 123/67 94 01/25/17 20:25 Nasal Cannula 2.00 96 01/25/17 20:00 97.8 94 18 117/72 96 01/25/17 19:54 94 Nasal Cannula 2.00 01/25/17 16:00 96.2 88 20 108/63 95 01/25/17 01/25/17 01/26/17 15:00 23:00 07:00 Intake Total 1720 ml 2385 ml 1231 ml Output Total 600 ml 600 ml Balance 1120 ml 2385 ml 631 ml Intake Oral 800 ml 480 ml 240 ml IV Total 920 ml 1905 ml 991 ml Output Urine Total 600 ml 600 ml # Voids 2 # Bowel Movements 1 . Laboratory Tests Test 01/25/17 06:15 White Blood Count 6.7 TH/MM3 Red Blood Count 4.39 MIL/MM3 Hemoglobin 13.0 GM/DL Hematocrit 37.9 % Mean Corpuscular Volume 86.5 FL Mean Corpuscular Hemoglobin 29.6 PG Mean Corpuscular Hemoglobin 34.2 % Concent Red Cell Distribution Width 15.4 % Platelet Count 157 TH/MM3 Mean Platelet Volume 8.0 FL Neutrophils (%) (Auto) 90.2 % Lymphocytes (%) (Auto) 2.8 % Monocytes (%) (Auto) 2.9 % Eosinophils (%) (Auto) 3.7 % Basophils (%) (Auto) 0.4 % Neutrophils # (Auto) 6.1 TH/MM3 Lymphocytes # (Auto) 0.2 TH/MM3 Monocytes # (Auto) 0.2 TH/MM3 Eosinophils # (Auto) 0.2 TH/MM3 Basophils # (Auto) 0.0 TH/MM3 CBC Comment AUTO DIFF Differential Total Cells 100 Counted Neutrophils % (Manual) 83 % Band Neutrophils % 7 % Lymphocytes % 1 % Eosinophils % 2 % Basophils % 1 % Neutrophils # (Manual) 6.4 TH/MM3 Metamyelocytes 3 % Myelocytes 1 % Promyelocytes 2 % Differential Comment FINAL DIFF MANUAL Platelet Estimate NORMAL Platelet Morphology Comment NORMAL Red Cell Morphology Comment NORMAL Laboratory Tests Test 01/25/17 06:15 Sodium Level 132 MEQ/L Potassium Level 4.2 MEQ/L Chloride Level 100 MEQ/L Carbon Dioxide Level 22.0 MEQ/L Anion Gap 10 MEQ/L Blood Urea Nitrogen 13 MG/DL Creatinine 0.94 MG/DL Estimat Glomerular Filtration 82 ML/MIN Rate Random Glucose 82 MG/DL Calcium Level 8.6 MG/DL Imaging Last Impressions Chest X-Ray 01/26/17 0000 Signed Impressions: Service Date/Time: Thursday, January 26, 2017 05:50 - CONCLUSION: 1. Stable patchy airspace disease laterally in the midlung palmer. 2. Possible small associated effusions. 3. No significant change from prior. Anthony Garcia MD CT Angiography 01/03/17 0000 Signed Impressions: Service Date/Time: Tuesday, January 03, 2017 18:29 - CONCLUSION: 1. Negative for pulmonary embolus. 2. Interval development of bilateral lung disease on a background of emphysema. Findings are not entirely typical of bronchopneumonia. Differential diagnosis includes some form of smoking related disease with respiratory bronchiolitis or possibly Langerhans' cell histiocytosis. Sree Dykes MD Physical Exam CONSTITUTIONAL/GENERAL: This is thin patient, in no apparent distress. TUBES/LINES/DRAINS: SKIN: No jaundice, rashes, or lesions. Ecchymoses on upper extremities. No wounds seen anteriorly. Skin temperature appropriate. Not diaphoretic. HEAD: Atraumatic. Normocephalic. EYES: Pupils equal and round and reactive. Extraocular motions intact. No scleral icterus. No injection or drainage. Fundi not examined. ENT: Hearing grossly normal. Nose without bleeding or purulent drainage. thrush resolved . Ulcerations on the lateral tongue, very painful, but seems improving Voice is very quiet Improved areas of denuded mucosae on lateral aspects of the tounge, tongue less swollen NECK: Trachea midline. Supple, nontender. No palpable thyroid enlargement or nodularity. No stridor CARDIOVASCULAR: Regular rate and rhythm without murmurs, gallops, or rubs. No JVD. Peripheral pulses symmetric. RESPIRATORY/CHEST: Symmetric, unlabored respirations. few scattered rhonchi. and scattered wheezing GASTROINTESTINAL: Abdomen soft, non-tender, nondistended. No hepato-splenomegaly , or palpable masses. No guarding. Bowel sounds present. MUSCULOSKELETAL: Extremities without clubbing, cyanosis, or edema. No joint tenderness or effusion noted. No calf tenderness. No mottling or clubbing. LYMPHATICS: No palpable cervical or supraclavicular adenopathy. NEUROLOGICAL: Awake and alert. Motor and sensory grossly within normal limits. Follows commands. Normal speech. Moves all extremities. PSYCHIATRIC: No obvious anxiety/depression. no apparent hallucinations or other psychotic thought process. Assessment & Plan Remarks COPD PCP PNA, imnproving on IV Bactrim Oral candidiasis, severe , improving on micafungin Ulcerations of the tongue - confirmed herpetic Confirmed HIV/AIDS, CD4 < 20P HCV/HBV negative Persistent hypoxia - cont IV BActrim with sterroids Prednisone 40 mg twice daily for 5 days, followed by Prednisone 40 mg daily for 5 days, followed by Prednisone 20 mg daily for 11 days - bactrim can be changed to oral 2 DS TID to complete total of 21 days when pt is ready for dc - Stop Bactrim on 02/03 - cont azithro 1200 q Mon for MAC profilaxis - dc fluconazole - cont micafungin for severe resistant oral thrush; will need at least full 2 weeks (thru 01/30) -cont acyclovir, can be switched to po 400 tid untill lesions completely healed - chk CXR - dc CFTX - fu genotype in anticipation of HAART Pt is willing to establish HIV care immediately upon d/c. He was counseled. He understands the importance of prompt start of HIV tx and compliance with it He would like to have Dr Hao Galindo as his HIV provider dw pt Sheela Liu MD Jan 26, 2017 14:59
[2017-01-26] MEDS: MICAFUNGIN INJ 100 MG in SODIUM CHLORIDE 0.9% INJ 100 ML IV SCH (16:35)
--- NOTE | 2017-01-26 18:04 | HHI.PR ---
Subjective Remarks Has hoarseness still and no fever . on o2 2 l. Has some cough . Sore in mouth and tongue. Better intake. Objective Vital Signs Date Time Temp Pulse Resp B/P Pulse Ox O2 Delivery O2 Flow Rate FiO2 01/26/17 16:00 98.1 80 17 108/65 93 01/26/17 12:00 98.4 88 17 112/71 91 01/26/17 09:26 Nasal Cannula 2.00 01/26/17 08:00 98.6 90 18 124/82 97 01/26/17 07:54 94 Nasal Cannula 2.00 01/26/17 06:01 20 01/26/17 04:00 98.8 97 18 99/59 96 01/26/17 03:16 94 Nasal Cannula 2.00 01/26/17 02:00 99.2 97 22 123/67 94 01/25/17 20:25 Nasal Cannula 2.00 96 01/25/17 20:00 97.8 94 18 117/72 96 01/25/17 19:54 94 Nasal Cannula 2.00 I/O 01/25/17 01/25/17 01/25/17 01/26/17 01/26/17 01/26/17 07:00 15:00 23:00 07:00 15:00 23:00 Intake Total 120 ml 1720 ml 2385 ml 1231 ml 120 ml Output Total 600 ml 600 ml Balance 120 ml 1120 ml 2385 ml 631 ml 120 ml Intake Oral 120 ml 800 ml 480 ml 240 ml 120 ml IV Total 920 ml 1905 ml 991 ml Output Urine Total 600 ml 600 ml # Voids 2 2 2 # Bowel Movements 0 1 0 Result Diagram: 01/25/17 0615 01/25/17 0615 Objective Remarks GENERAL: This is a 61 year-old male, up and is in no distress . HEENT: Mucous membranes moist. Throat clear. NECK: Supple. CARDIOVASCULAR: Regular rate and rhythm. RESPIRATORY: Few crackles at both bases and Occ wheeze scattered . GASTROINTESTINAL: Bowel sounds are present. ABDOMEN: Not distended.No mass. : No CVA tenderness. MUSCULOSKELETAL: No edema. moves all well. NEUROLOGIC: Alert, oriented. .Reflexes 1 +. No deficits. Assessment and Plan Assessment and Plan IMPRESSION: 1. Sepsis on admission. 2. COPD exacerbation. 3. Hyponatremia. 4. Hospital acquired pneumonia. 5. History of A-fib, currently in sinus rhythm. 6. History of ulcerative colitis. 7. PCP pneumonia/Immunocompromised state Plan : 1. Cont Antibiotics as ordered per ID. 2. Nebs tid , duoneb. 3. D/C EZ Pap with nebs 4. Prednisone to 10 mg daily. 5. Arrange O2 at rehab 6. O2 at 2 L. 7. Transfer to rehab soon. Xavier Grande MD Jan 26, 2017 18:04
[2017-01-26] MEDS: clonazePAM 1 MG TAB PO PRN (20:47)
[2017-01-27] VITALS (8 sets, daily range): BP systolic 113–133; BP diastolic 68–78; PULSE 78–93; RESP 17–21; TEMP 96.5–98.9; O2SAT 92–100
[2017-01-27] MEDS: MESALAMINE HD 800 MG DELAYED RELEASE TAB PO SCH ×3 (06:07→20:30)
[2017-01-27] MEDS: HYDROmorphone HCL PF 1 MG/ML VIAL IV PUSH PRN ×5 (06:08→23:57)
[2017-01-27] MEDS: SULFAMETHOX IV SCH ×8 (06:11→23:56)
[2017-01-27] MEDS: WATE IV SCH ×8 (06:11→23:56)
[2017-01-27] MEDS: TRIMETHOPRIM IV SCH ×8 (06:11→23:56)
[2017-01-27] MEDS: DEXTROSE 5% IV SCH ×8 (06:11→23:56)
[2017-01-27] MEDS: DIPHENHY/LIDO/MAG/ALUM MOUTHWASH (Adult/Peds) 60 ML BTL SWISH-SWAL SCH ×4 (06:13→20:29)
[2017-01-27] MEDS: ACYCLOVIR 200 MG CAP PO SCH ×3 (06:17→20:30)
[2017-01-27] MEDS: SODIUM CHLORIDE 0.9% FLUSH 5 ML FLUSH IV FLUSH SCH ×2 (09:00→20:27)
[2017-01-27] MEDS: VITAMIN B CMPLX/VITC/FOLIC AC CAP PO SCH (09:00)
[2017-01-27] MEDS: BUDESONIDE-FORMOTEROL 160/4.5 MCG INHALER INH SCH ×2 (09:00→20:44)
[2017-01-27] MEDS: GABAPENTIN 100 MG CAP PO SCH ×3 (09:28→16:23)
[2017-01-27] MEDS: MULTIVITAMIN HEMATINIC THERAPEUTIC TAB PO SCH (09:28)
[2017-01-27] MEDS: predniSONE 20 MG TAB PO SCH (09:29)
[2017-01-27] MEDS: FAMOTIDINE 20 MG TAB PO SCH ×2 (09:29→20:29)
[2017-01-27] MEDS: DILTIAZEM-CD 120 MG CAP ER PO SCH (09:29)
[2017-01-27] MEDS: METOPROLOL TARTRATE 25 MG TAB PO SCH ×2 (09:29→20:41)
[2017-01-27] MEDS: ASCORBIC ACID 500 MG TAB PO SCH (09:29)
[2017-01-27] MEDS: HEPARIN SODIUM - SQ 10,000 UNITS/ML VIAL SQ SCH ×2 (09:30→20:29)
[2017-01-27 14:47] LABS: ABACAVIR SUSC (()); ATAZANAVIR WITH RITONAVIR SUSC (()); DARUNAVIR WITH RITONAVIR SUSC (()); DIDANOSINE SUSC (()); EFAVIRENZ SUSC (()); EMTRICITABINE SUSC (()); ETRAVIRINE SUSC (()); FOSAMPRENAVIR WITH RITONAVIR SUSC (()); HIV-1 GENOTYPING INTERP (()); INDINAVIR WITH RITONAVIR SUSC (()); LAMIVUDINE SUSC (()); LOPINAVIR WITH RITONAVIR SUSC (()); NELFINAVIR SUSC (()); NEVIRAPINE SUSC (()); PROTEASE MUTATIONS L10I (()); RILPIVIRINE SUSC (()); SAQUINAVIR WITH RITONAVIR SUSC (()); STAVUDINE SUSC (()); TENOFOVIR SUSC (()); TIPRANAVIR WITH RITONAVIR SUSC (()); ZIDOVUDINE SUSC (())
[2017-01-27] MEDS: MICAFUNGIN INJ 100 MG in SODIUM CHLORIDE 0.9% INJ 100 ML IV SCH (16:24)
--- NOTE | 2017-01-27 16:46 | HHI.PR ---
Subjective Remarks feeling better today tongue less swollen still using duonebs q 4 at night eating okay less shaky wants to remain in hospital and finish Micafungin no fever SOB with activity no cp Objective Objective Results - Vital Signs Date Time Temp Pulse Resp B/P Pulse Ox O2 Delivery O2 Flow Rate FiO2 01/27/17 12:00 98.1 81 17 132/78 97 01/27/17 09:36 Nasal Cannula 2.00 01/27/17 08:00 96.5 93 18 120/78 100 01/27/17 04:00 96.6 87 20 119/68 94 01/27/17 00:24 98.1 90 21 133/68 92 01/27/17 00:05 16 01/26/17 20:36 97.5 94 21 104/55 94 01/26/17 20:00 Nasal Cannula 2.00 01/26/17 19:23 95 Nasal Cannula 3.00 I/O 01/26/17 01/26/17 01/26/17 01/27/17 01/27/17 01/27/17 07:00 15:00 23:00 07:00 15:00 23:00 Intake Total 1231 ml 120 ml 380 ml 240 ml Output Total 600 ml Balance 631 ml 120 ml 380 ml 240 ml Intake Oral 240 ml 120 ml 380 ml 240 ml IV Total 991 ml Output Urine Total 600 ml # Voids 2 2 3 # Bowel Movements 0 0 Result Diagram: 01/25/17 0615 01/25/17 0615 ROS General: Weakness HEENT: No: Sore Throat, Dysphagia Cardiac: No: Chest Pain, Edema, Palpitations Pulmonary: Cough, SOB, Wheezing GI: No: Abdominal Pain, BM, Diarrhea, N/V /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 He is alert and awake, answers questions appropriately. HEAD: Normocephalic without any lesion or mass noted. Facial features appear symmetric. OROPHARYNGEAL: Oropharynx with erythema, has thrust, tongue sore/swelling NECK: Supple. No nuchal rigidity or lymphadenopathy. Trachea midline without deviation. CARDIAC: Regular rhythm, regular rate, S1 and S2 are heard. Murmur none; no gallops or rubs. LUNGS: diminished, faint wheezes ABDOMEN: Soft, nontender, no organomegaly or masses. Bowel sounds are heard in all four quadrants. No rebound. No guarding. Appetite fair EXTREMITIES: No edema. Pulses equal bilateral. No cyanosis. NEUROLOGICAL: Patient mood and affect appropriate. No focal deficit Urinary Catheter: No Vascular Central Line Catheter: No A/P Diagnosis: (1) COPD (chronic obstructive pulmonary disease) (2) BPH (benign prostatic hyperplasia) (3) Atrial arrhythmia (4) Atrial fibrillation (5) Pneumonia (6) Atrial fibrillation (7) SIRS (systemic inflammatory response syndrome) (8) Hypoxia (9) Pneumocystis carinii pneumonia (10) Thrush (11) Dehydration (12) Ulcerative colitis (13) Hypertension Assessment and Plan continue with empiric abx-Bactrim IV, Micafungin, Acyclovir appreciate ID input HIV reflex + BAL + PCP HIV + - confirmed cw advanced AIDS Undetectable CD4 count (< 20) HCV/HBV negative Needs MAC profilaxis Azithro 1200 q thursday Pt will need to establish fu with HIV provider (Dr Galindo) [facility] preferably with 1st appointment within 1 wk after d/c Per ID:- bactrim can be changed to oral 2 DS TID to complete total of 21 days when pt is ready for dc - Stop Bactrim on 02/03 -continue Prednisone 40 mg twice daily for 5 days, followed by Prednisone 40 mg daily for 5 days, followed by Prednisone 20 mg daily for 11 days - cont azithro 1200 q Mon for MAC profilaxis - cont micafungin for severe resistant oral thrush; will need at least full 2 weeks (thru 01/30) -cont acyclovir, can be switched to po 400 tid untill lesions completely healed No fever overnight BC 01/22 negative continue to monitor Oral candidiasis, severe , improving on micafungin Ulcerations of the tongue - confirmed herpetic Magic mouth wash appreciate pulmonary input S/P bronch 01/07 continue oxygen, PO steroids Duonebs to q 4WA and q 2 PRN Hx afib, SR stable appreciate cardiology input continue Cardizem and BB Heparin for DVT prophylaxis Ulcerative colitis continue Asacol no diarrhea neg. cdiff End of life care, code status, adv. directives d/w pt. at length. He has designated 2 friends to make decision on his behalf. Requesting that no information is provided to his sister. Designates Allie Enriqueznorberto and Eliana Barth (as secondary) to make health care decisions if he's not able. If resp. distress, agrees to intubation for a short period. Hopefully home with [facility] this week, declined by CIR. Doesn't want to go to SNF improving slowly, continue with above plan to dc on 01/30 with [facility] D/W RN D/W Dr. Kraft D/W pt This pt. was seen by myself and Dr. Kraft, this note is written on her behalf. Discussed With: Nurse, Family (patient), Other (Dr. kraft, patient seen on her behalf) Problem Qualifiers (1) COPD (chronic obstructive pulmonary disease): Qualified Code: J44.1 - Chronic obstructive pulmonary disease with acute exacerbation (2) BPH (benign prostatic hyperplasia): Qualified Code: N40.0 - Benign prostatic hyperplasia, presence of lower urinary tract symptoms unspecified, unspecified morphology (3) Atrial fibrillation: Qualified Code: I48.0 - Paroxysmal atrial fibrillation (4) Pneumonia: (5) Atrial fibrillation: Qualified Code: I48.0 - Paroxysmal atrial fibrillation (6) Pneumocystis carinii pneumonia: (7) Ulcerative colitis: Qualified Code: K51.90 - Ulcerative colitis without complications, unspecified location (8) Hypertension: Qualified Code: I10 - Essential hypertension Carmen Huggins Jan 27, 2017 16:45
[2017-01-27] MEDS: RESP: ALBUTEROL 2.5 MG/IPRATROPIUM 0.5 MG NEB (PRN) INH ×2 (19:10→23:46)
--- NOTE | 2017-01-27 19:27 | HHI.PR ---
Subjective Remarks Better today . on o2 2 l. Has no cough . Oral thrush resolving. Better intake. Objective Vital Signs Date Time Temp Pulse Resp B/P Pulse Ox O2 Delivery O2 Flow Rate FiO2 01/27/17 18:04 97 Nasal Cannula 4.00 01/27/17 16:00 98.9 78 17 113/71 97 01/27/17 12:00 98.1 81 17 132/78 97 01/27/17 09:36 Nasal Cannula 2.00 01/27/17 08:00 96.5 93 18 120/78 100 01/27/17 04:00 96.6 87 20 119/68 94 01/27/17 00:24 98.1 90 21 133/68 92 01/27/17 00:05 16 01/26/17 20:36 97.5 94 21 104/55 94 01/26/17 20:00 Nasal Cannula 2.00 I/O 01/26/17 01/26/17 01/26/17 01/27/17 01/27/17 01/27/17 07:00 15:00 23:00 07:00 15:00 23:00 Intake Total 1231 ml 120 ml 380 ml 240 ml Output Total 600 ml Balance 631 ml 120 ml 380 ml 240 ml Intake Oral 240 ml 120 ml 380 ml 240 ml IV Total 991 ml Output Urine Total 600 ml # Voids 2 2 3 # Bowel Movements 0 0 Result Diagram: 01/25/17 0615 01/25/17 0615 Objective Remarks GENERAL: This is a 61 year-old male, up and is in no distress . HEENT: Mucous membranes moist. Throat clear. NECK: Supple. CARDIOVASCULAR: Regular rate and rhythm. RESPIRATORY: Few crackles at both bases and Occ wheeze scattered . GASTROINTESTINAL: Bowel sounds are present. ABDOMEN: Not distended.No mass. MUSCULOSKELETAL: No edema. moves all well. NEUROLOGIC: Alert, oriented. .Reflexes 1 +. No deficits. Assessment and Plan Assessment and Plan IMPRESSION: 1. Sepsis on admission. 2. COPD exacerbation. 3. Hyponatremia. 4. Hospital acquired pneumonia. 5. History of A-fib, currently in sinus rhythm. 6. History of ulcerative colitis. 7. PCP pneumonia/Immunocompromised state Plan : 1. Cont Antibiotics as ordered per ID. 2. Nebs tid , duoneb. 3. IS and acapella at bedside qid. 4. Prednisone to 20 mg daily x 3 5. Arrange O2 at home 6. O2 at 2 L. Xavier Grande MD Jan 27, 2017 19:27
[2017-01-27] MEDS: clonazePAM 1 MG TAB PO PRN (20:30)
[2017-01-28] VITALS: BP 122/69; PULSE 79; RESP 18; TEMP 97.4; O2SAT 96
[2017-01-28] MEDS: RESP: ALBUTEROL 2.5 MG/IPRATROPIUM 0.5 MG NEB (PRN) INH ×2 (03:26→20:32)
[2017-01-28] MEDS: DIPHENHY/LIDO/MAG/ALUM MOUTHWASH (Adult/Peds) 60 ML BTL SWISH-SWAL SCH ×4 (05:31→20:31)
[2017-01-28] MEDS: TRIMETHOPRIM IV SCH ×8 (05:32→23:13)
[2017-01-28] MEDS: SULFAMETHOX IV SCH ×8 (05:32→23:13)
[2017-01-28] MEDS: DEXTROSE 5% IV SCH ×8 (05:32→23:13)
[2017-01-28] MEDS: WATE IV SCH ×8 (05:32→23:13)
[2017-01-28] MEDS: ACYCLOVIR 200 MG CAP PO SCH ×3 (05:32→20:30)
[2017-01-28] MEDS: MESALAMINE HD 800 MG DELAYED RELEASE TAB PO SCH ×3 (05:35→20:30)
[2017-01-28] MEDS: HYDROmorphone HCL PF 1 MG/ML VIAL IV PUSH PRN ×5 (05:38→23:13)
[2017-01-28 08:00] VITALS: BP 127/70; PULSE 85; RESP 20; TEMP 98.6; O2SAT 97
[2017-01-28 09:04] VITALS: O2SAT 97
[2017-01-28] MEDS: SODIUM CHLORIDE 0.9% FLUSH 5 ML FLUSH IV FLUSH SCH ×2 (09:47→20:29)
[2017-01-28] MEDS: VITAMIN B CMPLX/VITC/FOLIC AC CAP PO SCH (09:48)
[2017-01-28] MEDS: GABAPENTIN 100 MG CAP PO SCH ×3 (09:48→17:23)
[2017-01-28] MEDS: MULTIVITAMIN HEMATINIC THERAPEUTIC TAB PO SCH (09:48)
[2017-01-28] MEDS: FAMOTIDINE 20 MG TAB PO SCH ×2 (09:48→20:29)
[2017-01-28] MEDS: ASCORBIC ACID 500 MG TAB PO SCH (09:48)
[2017-01-28] MEDS: DILTIAZEM-CD 120 MG CAP ER PO SCH (09:48)
[2017-01-28] MEDS: predniSONE 20 MG TAB PO SCH (09:48)
[2017-01-28] MEDS: METOPROLOL TARTRATE 25 MG TAB PO SCH ×2 (09:49→20:29)
[2017-01-28] MEDS: HEPARIN SODIUM - SQ 10,000 UNITS/ML VIAL SQ SCH ×2 (09:50→20:31)
[2017-01-28] MEDS: BUDESONIDE-FORMOTEROL 160/4.5 MCG INHALER INH SCH ×2 (09:53→20:31)
[2017-01-28 12:00] VITALS: BP 97/56; PULSE 82; RESP 17; TEMP 96.3; O2SAT 97
--- NOTE | 2017-01-28 14:39 | HHI.PR ---
Subjective Remarks better today less shaky no wheezing tongue less swollen eating okay less SOB with activity anxious to go home Objective Objective Results - Vital Signs Date Time Temp Pulse Resp B/P Pulse Ox O2 Delivery O2 Flow Rate FiO2 01/28/17 12:00 96.3 82 17 97/56 97 01/28/17 09:04 97 Nasal Cannula 2.00 01/28/17 08:30 Nasal Cannula 2.00 01/28/17 08:00 98.6 85 20 127/70 97 01/28/17 00:00 97.4 79 18 122/69 96 01/27/17 23:51 97 Nasal Cannula 2.00 01/27/17 20:00 98.2 93 18 114/76 96 01/27/17 18:04 97 Nasal Cannula 4.00 01/27/17 16:00 98.9 78 17 113/71 97 I/O 01/27/17 01/27/17 01/27/17 01/28/17 01/28/17 01/28/17 07:00 15:00 23:00 07:00 15:00 23:00 Intake Total 240 ml 1200 ml 1740 ml Balance 240 ml 1200 ml 1740 ml Intake Oral 240 ml 1200 ml 240 ml IV Total 0 ml 1500 ml # Voids 3 3 1 # Bowel Movements 0 Result Diagram: 01/25/17 0615 01/25/17 0615 ROS General: No: Fatigue, Weakness HEENT: Other (tongue swelling ) Cardiac: No: Chest Pain, Edema, Palpitations Pulmonary: SOB, Wheezing GI: No: Abdominal Pain, BM, Diarrhea, N/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 He is alert and awake, answers questions appropriately. HEAD: Normocephalic without any lesion or mass noted. Facial features appear symmetric. OROPHARYNGEAL: Oropharynx with erythema, has thrust, tongue sore/swelling NECK: Supple. No nuchal rigidity or lymphadenopathy. Trachea midline without deviation. CARDIAC: Regular rhythm, regular rate, S1 and S2 are heard. Murmur none; no gallops or rubs. LUNGS: diminished, faint wheezes ABDOMEN: Soft, nontender, no organomegaly or masses. Bowel sounds are heard in all four quadrants. No rebound. No guarding. Appetite fair EXTREMITIES: No edema. Pulses equal bilateral. No cyanosis. NEUROLOGICAL: Patient mood and affect appropriate. No focal deficit Urinary Catheter: No Vascular Central Line Catheter: No A/P Diagnosis: (1) COPD (chronic obstructive pulmonary disease) (2) BPH (benign prostatic hyperplasia) (3) Atrial arrhythmia (4) Atrial fibrillation (5) Pneumonia (6) Atrial fibrillation (7) SIRS (systemic inflammatory response syndrome) (8) Hypoxia (9) Pneumocystis carinii pneumonia (10) Thrush (11) Dehydration (12) Ulcerative colitis (13) Hypertension Assessment and Plan continue with empiric abx-Bactrim IV, Micafungin, Acyclovir appreciate ID input HIV reflex + BAL + PCP HIV + - confirmed cw advanced AIDS Undetectable CD4 count (< 20) HCV/HBV negative Needs MAC profilaxis Azithro 1200 q thursday Pt will need to establish fu with HIV provider (Dr Galindo) RO[facility] preferably with 1st appointment within 1 wk after d/c Per ID:- bactrim can be changed to oral 2 DS TID to complete total of 21 days when pt is ready for dc - Stop Bactrim on 02/03 -continue Prednisone 40 mg twice daily for 5 days, followed by Prednisone 40 mg daily for 5 days, followed by Prednisone 20 mg daily for 11 days - cont azithro 1200 q Mon for MAC profilaxis - cont micafungin for severe resistant oral thrush; will need at least full 2 weeks (thru 01/30) -cont acyclovir, can be switched to po 400 tid untill lesions completely healed obtain PICC line CM to arrange abx at home No fever overnight BC 3/ negative continue to monitor Oral candidiasis, severe , improving on micafungin Ulcerations of the tongue - confirmed herpetic Magic mouth wash appreciate pulmonary input S/P bronch 01/07 continue oxygen, PO steroids Duonebs to q 4WA and q 2 PRN Hx afib, SR stable appreciate cardiology input continue Cardizem and BB Heparin for DVT prophylaxis Ulcerative colitis continue Asacol no diarrhea neg. cdiff End of life care, code status, adv. directives d/w pt. at length. He has designated 2 friends to make decision on his behalf. Requesting that no information is provided to his sister. Designates Allie López and Eliana Barth (as secondary) to make health care decisions if he's not able. If resp. distress, agrees to intubation for a short period. Hopefully home with [facility] this week, declined by CIR. Doesn't want to go to SNF improving CM to arrange home abx, PICC to be done poss dc tomorrow D/W RN D/W Dr. Kraft D/W pt This pt. was seen by myself and Dr. Kraft, this note is written on her behalf. Discussed With: Nurse, Family (patient), Other (Dr. kraft, patient seen on her behalf) Problem Qualifiers (1) COPD (chronic obstructive pulmonary disease): Qualified Code: J44.1 - Chronic obstructive pulmonary disease with acute exacerbation (2) BPH (benign prostatic hyperplasia): Qualified Code: N40.0 - Benign prostatic hyperplasia, presence of lower urinary tract symptoms unspecified, unspecified morphology (3) Atrial fibrillation: Qualified Code: I48.0 - Paroxysmal atrial fibrillation (4) Pneumonia: (5) Atrial fibrillation: Qualified Code: I48.0 - Paroxysmal atrial fibrillation (6) Pneumocystis carinii pneumonia: (7) Ulcerative colitis: Qualified Code: K51.90 - Ulcerative colitis without complications, unspecified location (8) Hypertension: Qualified Code: I10 - Essential hypertension Carmen Huggins Jan 28, 2017 14:38
[2017-01-28 16:00] VITALS: BP 104/65; PULSE 83; RESP 18; TEMP 96.2; O2SAT 98
--- NOTE | 2017-01-28 17:06 | HHI.PR ---
Subjective Remarks Hoarseness is less . on o2 2 l. Has no cough . Oral thrush resolving. Better intake. Objective Vital Signs Date Time Temp Pulse Resp B/P Pulse Ox O2 Delivery O2 Flow Rate FiO2 01/28/17 12:00 96.3 82 17 97/56 97 01/28/17 09:04 97 Nasal Cannula 2.00 01/28/17 08:30 Nasal Cannula 2.00 01/28/17 08:00 98.6 85 20 127/70 97 01/28/17 00:00 97.4 79 18 122/69 96 01/27/17 23:51 97 Nasal Cannula 2.00 01/27/17 20:00 98.2 93 18 114/76 96 01/27/17 18:04 97 Nasal Cannula 4.00 I/O 01/27/17 01/27/17 01/27/17 01/28/17 01/28/17 01/28/17 07:00 15:00 23:00 07:00 15:00 23:00 Intake Total 240 ml 1200 ml 1740 ml 500 ml Balance 240 ml 1200 ml 1740 ml 500 ml Intake Oral 240 ml 1200 ml 240 ml IV Total 0 ml 1500 ml 500 ml # Voids 3 3 1 # Bowel Movements 0 Result Diagram: 01/25/17 0615 01/25/17 0615 Objective Remarks GENERAL: This is a 61 year-old male,in no distress . HEENT: Mucous membranes moist. Throat clear. NECK: Supple. CARDIOVASCULAR: Regular rate and rhythm. RESPIRATORY: Few wheeze scattered .Distant breath sounds. GASTROINTESTINAL: Bowel sounds are present. ABDOMEN: Not distended.No mass. MUSCULOSKELETAL: No edema. moves all well. NEUROLOGIC: Alert, oriented. .Reflexes 1 +. No deficits. Assessment and Plan Assessment and Plan IMPRESSION: 1. Sepsis on admission. 2. COPD exacerbation. 3. Hyponatremia. 4. Hospital acquired pneumonia. 5. History of A-fib, currently in sinus rhythm. 6. History of ulcerative colitis. 7. PCP pneumonia/Immunocompromised state Plan : 1. Cont Antibiotics as ordered per ID. 2. Nebs tid , duoneb. 3. IS and acapella at bedside qid. 4. Chest X ray in am. 5. Arrange O2 at home Xavier Grande MD Jan 28, 2017 17:06
[2017-01-28] MEDS: MICAFUNGIN INJ 100 MG in SODIUM CHLORIDE 0.9% INJ 100 ML IV SCH (17:23)
[2017-01-28] MEDS: SODIUM CHLORIDE 0.9% FLUSH 5 ML FLUSH IV FLUSH PRN (17:27)
[2017-01-28] MEDS: clonazePAM 1 MG TAB PO PRN (20:29)
[2017-01-28 20:32] VITALS: O2SAT 98
--- NOTE | 2017-01-28 21:31 | HHI.IDPN ---
Subjective Subjective Remarks clearly improving oral pain and swelling improving Breathing better afebrile Antibiotics Trim-sulfa mmicafungin acyclovir azithro Past Medical History COPD tobaccoisn Allergies: Coded Allergies: No Known Allergies (Verified , 12/22/16) Objective . Vital Signs Date Time Temp Pulse Resp B/P Pulse Ox O2 Delivery O2 Flow Rate FiO2 01/28/17 20:32 98 Nasal Cannula 2.00 01/28/17 16:00 96.2 83 18 104/65 98 01/28/17 12:00 96.3 82 17 97/56 97 01/28/17 10:17 16 01/28/17 09:04 97 Nasal Cannula 2.00 01/28/17 08:30 Nasal Cannula 2.00 01/28/17 08:00 98.6 85 20 127/70 97 01/28/17 00:00 97.4 79 18 122/69 96 01/27/17 23:51 97 Nasal Cannula 2.00 01/27/17 01/27/17 01/28/17 15:00 23:00 07:00 Intake Total 240 ml 1200 ml 1740 ml Balance 240 ml 1200 ml 1740 ml Intake Oral 240 ml 1200 ml 240 ml IV Total 0 ml 1500 ml # Voids 3 3 1 # Bowel Movements 0 Imaging Last Impressions Chest X-Ray 01/26/17 0000 Signed Impressions: Service Date/Time: Thursday, January 26, 2017 05:50 - CONCLUSION: 1. Stable patchy airspace disease laterally in the midlung aplmer. 2. Possible small associated effusions. 3. No significant change from prior. Anthony Garcia MD CT Angiography 01/03/17 0000 Signed Impressions: Service Date/Time: Tuesday, January 03, 2017 18:29 - CONCLUSION: 1. Negative for pulmonary embolus. 2. Interval development of bilateral lung disease on a background of emphysema. Findings are not entirely typical of bronchopneumonia. Differential diagnosis includes some form of smoking related disease with respiratory bronchiolitis or possibly Langerhans' cell histiocytosis. Sree Dykes MD Physical Exam CONSTITUTIONAL/GENERAL: This is thin patient, in no apparent distress. TUBES/LINES/DRAINS: SKIN: No jaundice, rashes, or lesions. Ecchymoses on upper extremities. No wounds seen anteriorly. Skin temperature appropriate. Not diaphoretic. HEAD: Atraumatic. Normocephalic. EYES: Pupils equal and round and reactive. Extraocular motions intact. No scleral icterus. No injection or drainage. Fundi not examined. ENT: Hearing grossly normal. Nose without bleeding or purulent drainage. thrush resolved . Ulcerations nearly resolve Voice is very quiet Improved areas of denuded mucosae on lateral aspects of the tounge, tongue less swollen NECK: Trachea midline. Supple, nontender. No palpable thyroid enlargement or nodularity. No stridor CARDIOVASCULAR: Regular rate and rhythm without murmurs, gallops, or rubs. No JVD. Peripheral pulses symmetric. RESPIRATORY/CHEST: Symmetric, unlabored respirations. few scattered rhonchi. and scattered wheezing GASTROINTESTINAL: Abdomen soft, non-tender, nondistended. No hepato-splenomegaly , or palpable masses. No guarding. Bowel sounds present. MUSCULOSKELETAL: Extremities without clubbing, cyanosis, or edema. No joint tenderness or effusion noted. No calf tenderness. No mottling or clubbing. NEUROLOGICAL: Awake and alert. Motor and sensory grossly within normal limits. Follows commands. Normal speech. Moves all extremities. PSYCHIATRIC: No obvious anxiety/depression. no apparent hallucinations or other psychotic thought process. Assessment & Plan Remarks COPD PCP PNA, imnproving on IV Bactrim Oral candidiasis, severe , improving on micafungin Ulcerations of the tongue - confirmed herpetic Confirmed HIV/AIDS, CD4 < 20P HCV/HBV negative Persistent hypoxia - improved - cont IV BActrim with sterroids Prednisone 40 mg twice daily for 5 days, followed by Prednisone 40 mg daily for 5 days, followed by Prednisone 20 mg daily for 11 days - bactrim can be changed to oral 2 DS TID to complete total of 21 days when pt is ready for dc - Stop Bactrim on 02/03: at home pt can take Bactrim DS 2pills TID PO to complete the coure after the course completed he needs to take Bactrim DS 1 pill daily - cont azithro 1200 q Mon for MAC profilaxis - cont micafungin for severe resistant oral thrush; will need at least full 2 weeks (thru 01/30) -cont acyclovir, can be switched to po 400 tid untill lesions completely healed - genotype noted in anticipation of HAART : forward to Dr Galindo; if for some reason pt say in the hospital p Thursday will start HAART nxt week pt can be dc' d on Thu after micafungin dose Pt is willing to establish HIV care immediately upon d/c. He was counseled. He understands the importance of prompt start of HIV tx and compliance with it He would like to have Dr Hao Galindo as his HIV provider dw pt Sheela Liu MD Jan 28, 2017 21:31
[2017-01-29] VITALS: BP 120/72; PULSE 82; RESP 20; TEMP 97.4; O2SAT 95
[2017-01-29] MEDS: SULFAMETHOX IV SCH ×8 (06:01→23:18)
[2017-01-29] MEDS: DEXTROSE 5% IV SCH ×8 (06:01→23:18)
[2017-01-29] MEDS: WATE IV SCH ×8 (06:01→23:18)
[2017-01-29] MEDS: TRIMETHOPRIM IV SCH ×8 (06:01→23:18)
[2017-01-29] MEDS: DIPHENHY/LIDO/MAG/ALUM MOUTHWASH (Adult/Peds) 60 ML BTL SWISH-SWAL SCH ×4 (06:01→20:21)
[2017-01-29] MEDS: ACYCLOVIR 200 MG CAP PO SCH ×3 (06:03→20:20)
[2017-01-29] MEDS: MESALAMINE HD 800 MG DELAYED RELEASE TAB PO SCH ×3 (06:03→20:20)
[2017-01-29] MEDS: HYDROmorphone HCL PF 1 MG/ML VIAL IV PUSH PRN ×2 (06:12→20:27)
[2017-01-29 08:57] VITALS: BP 143/80; PULSE 82; RESP 20; TEMP 97.4; O2SAT 98
[2017-01-29] MEDS: HEPARIN SODIUM - SQ 10,000 UNITS/ML VIAL SQ SCH ×2 (09:50→20:21)
[2017-01-29] MEDS: DILTIAZEM-CD 120 MG CAP ER PO SCH (09:51)
[2017-01-29] MEDS: predniSONE 20 MG TAB PO SCH (09:51)
[2017-01-29] MEDS: METOPROLOL TARTRATE 25 MG TAB PO SCH ×2 (09:51→20:20)
[2017-01-29] MEDS: MULTIVITAMIN HEMATINIC THERAPEUTIC TAB PO SCH ×2 (09:51→13:16)
[2017-01-29] MEDS: VITAMIN B CMPLX/VITC/FOLIC AC CAP PO SCH (09:51)
[2017-01-29] MEDS: GABAPENTIN 100 MG CAP PO SCH ×3 (09:51→17:17)
[2017-01-29] MEDS: ASCORBIC ACID 500 MG TAB PO SCH (09:51)
[2017-01-29] MEDS: FAMOTIDINE 20 MG TAB PO SCH ×2 (09:51→20:20)
[2017-01-29 10:20] VITALS: O2SAT 98
--- NOTE | 2017-01-29 12:14 | HHI.PR ---
Subjective Remarks Tongue pain/edema improving No SOB at rest, low volumes Voice hoarse continues using o2 continuously Sleeping but responds to verbal stimuli Objective Objective Results - Vital Signs Date Time Temp Pulse Resp B/P Pulse Ox O2 Delivery O2 Flow Rate FiO2 01/29/17 10:20 98 Nasal Cannula 2.00 01/29/17 09:30 Nasal Cannula 2.00 01/29/17 08:57 97.4 82 20 143/80 98 01/29/17 00:00 97.4 82 20 120/72 95 01/28/17 20:32 98 Nasal Cannula 2.00 01/28/17 20:30 Nasal Cannula 2.00 01/28/17 16:00 96.2 83 18 104/65 98 I/O 01/28/17 01/28/17 01/28/17 01/29/17 01/29/17 01/29/17 07:00 15:00 23:00 07:00 15:00 23:00 Intake Total 1740 ml 500 ml 440 ml 980 ml Output Total 1125 ml Balance 1740 ml 500 ml 440 ml -145 ml Intake Oral 240 ml 440 ml 480 ml IV Total 1500 ml 500 ml 500 ml Output Urine Total 1125 ml # Voids 1 3 # Bowel Movements 0 0 Result Diagram: 01/25/17 0615 01/25/17 0615 ROS General: Fatigue, Weakness (generalize continues), Other (10 point ROS done positives noted otherwise unremarkable) HEENT: Sore Throat (with sore tongue, gradual slow improvement) Pulmonary: Cough (occasional), SOB (it more exertional) Physical Exam Physical Exam PHYSICAL EXAMINATION GENERAL: This is a thin, ill appearing male He he is resting now but responds to verbal stimuli HEAD: Normocephalic without any lesion or mass noted. Facial features appear symmetric. OROPHARYNGEAL: Tongue and oral pharynx still have some mild erythema with mild blisters on tongue NECK: Supple. No nuchal rigidity or lymphadenopathy. Trachea midline without deviation. CARDIAC: Regular rhythm, regular rate, S1 and S2 are heard. Murmur none; no gallops or rubs. LUNGS: Clear to auscultation bilaterally, low volumes. wheeze, rhonchi No use of accessory muscles on inspiration or expiration at rest but still has exertional dyspnea. Wearing O2 constant ABDOMEN: Soft, nontender, no organomegaly or masses. Bowel sounds are heard in all four quadrants. No rebound. No guarding., No diarrhea EXTREMITIES: No edema. Pulses equal bilateral. NEUROLOGICAL: Patient mood and affect flat, mild anxiety No focal deficit SKIN:Warm and moist, dry, slightly pale Objective Remarks I don't feel is good today as I did yesterday A/P Assessment and Plan Diagnosis: (1) COPD (chronic obstructive pulmonary disease) (2) BPH (benign prostatic hyperplasia) (3) Atrial arrhythmia, resolved (4) Atrial fibrillation, stable (5) Pneumonia, now on by mouth antibiotics (6) Atrial fibrillation, stable (7) SIRS (systemic inflammatory response syndrome) (8) Hypoxia, no acute issues while on oxygen at rest (9) Pneumocystis carinii pneumonia (10) Thrush, gradual slow improvement, medical management (11) Dehydration, continue to encourage food and by mouth fluids. Stable (12) Ulcerative colitis, resolved (13) Hypertension 14. AIDs Assessment and Plan continue with empiric abx-Bactrim IV, Micafungin, Acyclovir appreciate ID input Will need final dose of microfungin Thursday, 2 more days, before discharge Pt will need to establish fu with HIV provider (Dr Galindo) RO[facility] . This has been discussed with patient. Vital signs monitored, within normal ranges for now BC 3/2 negative continue to monitor Oral candidiasis, improvement gradual, improving on micafungin until Thursday Using Magic mouthwash when necessary Patient continues to use oxygen around the clock, and has exertional dyspnea when up. We will look at home needs this week Heparin for DVT prophylaxis GI symptoms of nausea vomiting diarrhea constipation have been monitored. Currently patient denies any diarrhea. May need further GI workup in the future if diarrhea persists. Patient has decided on POA, and or friends to assist him if he cannot speak for himself. Supportive care to patient, and friends. Other medical comorbidities have been monitored and managed and stabilized or resolve during this hospital stay. Case management for possible discharge planning Thursday. Discharge Planning Initiated Discussed With: Nurse, Family (patient), Other (Dr. kraft, patient seen on her behalf) Priscilla Au Jan 29, 2017 12:14
[2017-01-29 12:43] VITALS: BP 142/80; PULSE 78; RESP 20; TEMP 98; O2SAT 98
[2017-01-29 15:59] VITALS: BP 111/68; PULSE 73; RESP 20; TEMP 96; O2SAT 96
[2017-01-29] MEDS: MICAFUNGIN INJ 100 MG in SODIUM CHLORIDE 0.9% INJ 100 ML IV SCH (17:15)
[2017-01-29 20:00] VITALS: BP 117/73; PULSE 78; RESP 24; TEMP 98.1; O2SAT 94
[2017-01-29] MEDS: clonazePAM 1 MG TAB PO PRN (20:20)
[2017-01-29] MEDS: SODIUM CHLORIDE 0.9% FLUSH 5 ML FLUSH IV FLUSH SCH (21:00)
[2017-01-29] MEDS: BUDESONIDE-FORMOTEROL 160/4.5 MCG INHALER INH SCH (21:00)
--- NOTE | 2017-01-29 21:33 | HHI.PR ---
Subjective Remarks Feels tired today On O2 2l. C/O Chest tightness. Objective Vital Signs Date Time Temp Pulse Resp B/P Pulse Ox O2 Delivery O2 Flow Rate FiO2 01/29/17 15:59 96.0 73 20 111/68 96 01/29/17 12:43 98.0 78 20 142/80 98 01/29/17 10:20 98 Nasal Cannula 2.00 01/29/17 09:30 Nasal Cannula 2.00 01/29/17 08:57 97.4 82 20 143/80 98 01/29/17 00:00 97.4 82 20 120/72 95 I/O 01/28/17 01/28/17 01/28/17 01/29/17 01/29/17 01/29/17 07:00 15:00 23:00 07:00 15:00 23:00 Intake Total 1740 ml 500 ml 440 ml 980 ml Output Total 1125 ml Balance 1740 ml 500 ml 440 ml -145 ml Intake Oral 240 ml 440 ml 480 ml IV Total 1500 ml 500 ml 500 ml Output Urine Total 1125 ml # Voids 1 3 3 # Bowel Movements 0 0 Result Diagram: 01/25/17 0615 01/25/17 0615 Objective Remarks GENERAL: This is a 61 year-old male,in no distress . HEENT: Mucous membranes moist. Throat clear. NECK: Supple. CARDIOVASCULAR: Regular rate and rhythm. RESPIRATORY: Few basal crackles, and Distant breath sounds. GASTROINTESTINAL: Bowel sounds are present. ABDOMEN: Not distended.No mass. MUSCULOSKELETAL: No edema. moves all well. NEUROLOGIC: Alert, oriented. .Reflexes 1 +. No deficits. Assessment and Plan Assessment and Plan IMPRESSION: 1. Sepsis on admission. 2. COPD exacerbation. 3. Hyponatremia. 4. Hospital acquired pneumonia. 5. History of A-fib, currently in sinus rhythm. 6. History of ulcerative colitis. 7. PCP pneumonia/Immunocompromised state Plan : 1. Cont Antibiotics as ordered per ID. 2. Nebs tid , duoneb. 3. IS and acapella at bedside qid. 4. CBC,CMP. 5. PT eval. Xavier Grande MD Jan 29, 2017 21:33
[2017-01-30] VITALS: BP 120/78; PULSE 80; RESP 20; TEMP 97.6; O2SAT 92
[2017-01-30] MEDS: DIPHENHY/LIDO/MAG/ALUM MOUTHWASH (Adult/Peds) 60 ML BTL SWISH-SWAL SCH ×4 (06:04→20:40)
[2017-01-30] MEDS: MESALAMINE HD 800 MG DELAYED RELEASE TAB PO SCH ×3 (06:05→20:38)
[2017-01-30] MEDS: ACYCLOVIR 200 MG CAP PO SCH ×3 (06:05→20:37)
[2017-01-30] MEDS: TRIMETHOPRIM IV SCH ×8 (06:05→23:52)
[2017-01-30] MEDS: WATE IV SCH ×8 (06:05→23:52)
[2017-01-30] MEDS: DEXTROSE 5% IV SCH ×8 (06:05→23:52)
[2017-01-30] MEDS: SULFAMETHOX IV SCH ×8 (06:05→23:52)
[2017-01-30 08:00] VITALS: BP 134/72; PULSE 84; RESP 16; TEMP 98.1; O2SAT 98
[2017-01-30] MEDS: predniSONE 20 MG TAB PO SCH (09:50)
[2017-01-30] MEDS: ASCORBIC ACID 500 MG TAB PO SCH (09:50)
[2017-01-30] MEDS: GABAPENTIN 100 MG CAP PO SCH ×3 (09:50→18:17)
[2017-01-30] MEDS: FAMOTIDINE 20 MG TAB PO SCH ×2 (09:50→20:38)
[2017-01-30] MEDS: METOPROLOL TARTRATE 25 MG TAB PO SCH ×2 (09:51→20:38)
[2017-01-30] MEDS: VITAMIN B CMPLX/VITC/FOLIC AC CAP PO SCH (09:51)
[2017-01-30] MEDS: DILTIAZEM-CD 120 MG CAP ER PO SCH (09:52)
[2017-01-30] MEDS: HEPARIN SODIUM - SQ 10,000 UNITS/ML VIAL SQ SCH ×2 (09:52→20:38)
[2017-01-30] MEDS: BUDESONIDE-FORMOTEROL 160/4.5 MCG INHALER INH SCH ×2 (09:53→20:40)
[2017-01-30] MEDS: SODIUM CHLORIDE 0.9% FLUSH 5 ML FLUSH IV FLUSH SCH ×2 (09:53→20:41)
[2017-01-30] MEDS: HYDROmorphone HCL PF 1 MG/ML VIAL IV PUSH PRN ×4 (10:00→22:53)
[2017-01-30 12:00] VITALS: BP 114/57; PULSE 75; RESP 17; TEMP 97.2; O2SAT 97
[2017-01-30] MEDS: SODIUM CHLORIDE 0.9% FLUSH 5 ML FLUSH IV FLUSH PRN ×2 (14:02→18:21)
[2017-01-30 16:00] VITALS: BP 120/73; PULSE 95; RESP 17; TEMP 96.6; O2SAT 98
--- NOTE | 2017-01-30 16:49 | HHI.PR ---
Subjective Remarks Tongue pain/edema improving to the point the patient is now able to eat some No SOB at rest, low volumes Voice hoarse continues using o2 continuously Up in chair, ambulated and exercise today, some exertional dyspnea but improving (Priscilla Au) Objective Objective Results - Vital Signs Date Time Temp Pulse Resp B/P Pulse Ox O2 Delivery O2 Flow Rate FiO2 01/30/17 12:00 97.2 75 17 114/57 97 01/30/17 08:00 98.1 84 16 134/72 98 01/30/17 00:00 97.6 80 20 120/78 92 01/29/17 20:57 18 01/29/17 20:20 2.00 01/29/17 20:00 98.1 78 24 117/73 94 I/O 01/29/17 01/29/17 01/29/17 01/30/17 01/30/17 01/30/17 07:00 15:00 23:00 07:00 15:00 23:00 Intake Total 980 ml 480 ml 340 ml 2355 ml Output Total 1125 ml 700 ml Balance -145 ml -220 ml 340 ml 2355 ml Intake Oral 480 ml 480 ml 340 ml 535 ml IV Total 500 ml 1820 ml Output Urine Total 1125 ml 700 ml # Voids 3 4 3 # Bowel Movements 0 0 0 0 (Priscilla Au) ROS General: Fatigue (generalized), Weakness (generalized) HEENT: Sore Throat (improving) Pulmonary: Cough (mild), SOB (exertional), Other (Priscilla Au) Physical Exam Physical Exam PHYSICAL EXAMINATION GENERAL: This is a well-developed, well-nourished male who appears to be in no acute distress. He is alert and awake, slightly anxious HEAD: Normocephalic without any lesion or mass noted. Facial features appear symmetric. OROPHARYNGEAL: Oropharynx without erythema or edema. NECK: Supple. No nuchal rigidity or lymphadenopathy. Trachea midline without deviation. CARDIAC: Regular rhythm, regular rate, S1 and S2 are heard. Murmur none no gallops or rubs. LUNGS: Clear to auscultation bilaterally. No wheeze, mild rhonchi No use of accessory muscles on inspiration or expiration, at rest. Some chest tightness noted this a.m. ,muscle skeletal with cough. ABDOMEN: Soft, nontender, no organomegaly or masses. Bowel sounds are heard in all four quadrants. No rebound. No guarding. EXTREMITIES: No edema. Pulses equal bilateral. NEUROLOGICAL: Patient mood and affect appropriate, mild anxiety. No focal deficit SKIN:Warm and moist Objective Remarks I'm feeling better just want to make sure everything is lined up before I go home (Priscilla Au) A/P Assessment and Plan Diagnosis: (1) COPD (chronic obstructive pulmonary disease) (2) BPH (benign prostatic hyperplasia) (3) Atrial arrhythmia, resolved (4) Atrial fibrillation, stable (5) Pneumonia, now on by mouth antibiotics (6) Atrial fibrillation, stable (7) SIRS (systemic inflammatory response syndrome) (8) Hypoxia, no acute issues while on oxygen at rest (9) Pneumocystis carinii pneumonia (10) Thrush, gradual slow improvement, medical management (11) Dehydration, continue to encourage food and by mouth fluids. Stable (12) Ulcerative colitis, resolved (13) Hypertension 14. AIDs Assessment and Plan continue with empiric abx-Bactrim IV, Micafungin, Acyclovir appreciate ID input Will need final dose of microfungin, do today Pt will need to establish fu with HIV provider (Dr Galindo) ROZ . This has been discussed with patient. Vital signs monitored, within normal ranges for now BC 3/2 negative continue to monitor Oral candidiasis, improvement gradual continues and is improving patient is now able to eat more food Using Magic mouthwash when necessary Patient continues to use oxygen around the clock, and has exertional dyspnea when up. We will look at home needs this week Heparin for DVT prophylaxis GI symptoms of nausea vomiting diarrhea constipation have been monitored. Currently patient denies any diarrhea. May need further GI workup in the future if diarrhea persists. Patient has decided on POA, and or friends to assist him if he cannot speak for himself. Supportive care to patient, and friends. Other medical comorbidities have been monitored and managed and stabilized or resolve during this hospital stay. Patient complained of some chest tightness with cough today. Appears to be muscle skeletal Anxiety continues over discharge, but discussed a planning option, so people can be with him when he goes home. We discussed this weekend, and working towards a process. Patient did get up and ambulate today, and did some exercises. Tolerated fairly well D/W patient D/W Dr. Machado, patient seen on his behalf Discharge Planning Initiated Discussed With: Nurse, Family (patient), Other (Dr. machado, patient seen on her behalf) (Priscilla Au) Assessment and Plan seen and examined by myself,Dr Machado , on 01/30/17 Discussed with patient Can be discharged home when agreeable with consultants Discussed with mid-level practitioner The exam, history, and the medical decision-making described in the above note were completed with the assistance of the mid-level provider. I reviewed the findings presented. I attest that I had a [id number] encounter with the patient on the same day, and personally performed and documented my assessment and findings in the medical record (Yadira Machado MD) Priscilla Au Jan 30, 2017 16:49 Yadira Machado MD Jan 31, 2017 14:39
[2017-01-30] MEDS: MICAFUNGIN INJ 100 MG in SODIUM CHLORIDE 0.9% INJ 100 ML IV SCH (17:12)
--- NOTE | 2017-01-30 17:26 | HHI.PR ---
Subjective Remarks Improved today. On O2 2l. Able to eat more and throat yu is less. Objective Vital Signs Date Time Temp Pulse Resp B/P Pulse Ox O2 Delivery O2 Flow Rate FiO2 01/30/17 16:00 96.6 95 17 120/73 98 01/30/17 12:00 97.2 75 17 114/57 97 01/30/17 08:00 98.1 84 16 134/72 98 01/30/17 00:00 97.6 80 20 120/78 92 01/29/17 20:57 18 01/29/17 20:20 2.00 01/29/17 20:00 98.1 78 24 117/73 94 I/O 01/29/17 01/29/17 01/29/17 01/30/17 01/30/17 01/30/17 07:00 15:00 23:00 07:00 15:00 23:00 Intake Total 980 ml 480 ml 340 ml 2355 ml Output Total 1125 ml 700 ml Balance -145 ml -220 ml 340 ml 2355 ml Intake Oral 480 ml 480 ml 340 ml 535 ml IV Total 500 ml 1820 ml Output Urine Total 1125 ml 700 ml # Voids 3 4 3 # Bowel Movements 0 0 0 0 Objective Remarks GENERAL: This is a 61 year-old male,in no distress . HEENT: Mucous membranes moist. Throat clear. NECK: Supple. CARDIOVASCULAR: Regular rate and rhythm. RESPIRATORY: Few basal crackles, and Distant breath sounds. GASTROINTESTINAL: Bowel sounds are present. ABDOMEN: Not distended.No mass. MUSCULOSKELETAL: No edema. moves all well. NEUROLOGIC: Alert, oriented. .Reflexes 1 +. No deficits. Assessment and Plan Assessment and Plan IMPRESSION: 1. Sepsis on admission. 2. COPD exacerbation. 3. Hyponatremia. 4. Hospital acquired pneumonia. 5. History of A-fib, currently in sinus rhythm. 6. History of ulcerative colitis. 7. PCP pneumonia/Immunocompromised state Plan : 1. Cont Antibiotics as ordered per ID. 2. Nebs tid , duoneb. 3. IS and acapella at bedside qid. 4. Ensure supplements bid. 5. PT evaluation. 6. Chest Xray in am Code Status: ACLS Xavier Washington MD Jan 30, 2017 17:26
[2017-01-30 19:49] VITALS: O2SAT 98
[2017-01-30] MEDS: RESP: ALBUTEROL 2.5 MG/IPRATROPIUM 0.5 MG NEB (PRN) INH (19:49)
[2017-01-30 20:00] VITALS: BP 123/74; PULSE 78; RESP 18; TEMP 96.8; O2SAT 98
[2017-01-30] MEDS: clonazePAM 1 MG TAB PO PRN (20:38)
[2017-01-31] VITALS: BP 131/71; PULSE 92; RESP 20; TEMP 95.9; O2SAT 95
[2017-01-31] MEDS: DIPHENHY/LIDO/MAG/ALUM MOUTHWASH (Adult/Peds) 60 ML BTL SWISH-SWAL SCH ×4 (05:53→20:27)
[2017-01-31] MEDS: SULFAMETHOX IV SCH ×6 (05:53→17:51)
[2017-01-31] MEDS: DEXTROSE 5% IV SCH ×6 (05:53→17:51)
[2017-01-31] MEDS: WATE IV SCH ×6 (05:53→17:51)
[2017-01-31] MEDS: TRIMETHOPRIM IV SCH ×6 (05:53→17:51)
[2017-01-31] MEDS: MESALAMINE HD 800 MG DELAYED RELEASE TAB PO SCH ×3 (05:53→20:27)
[2017-01-31] MEDS: ACYCLOVIR 200 MG CAP PO SCH ×3 (05:53→20:27)
[2017-01-31] MEDS: HYDROmorphone HCL PF 1 MG/ML VIAL IV PUSH PRN ×4 (05:54→20:38)
--- NOTE | 2017-01-31 06:11 | RADRPT ---
EXAM DATE/TIME: 01/31/2017 05:25 [facility] COMPARISON: CHEST SINGLE AP, January 26, 2017, 5:50. INDICATIONS : Shortness of breath. MEDICAL HISTORY : Hypertension. Chronic obstructive pulmonary disease. SURGICAL HISTORY : None. ENCOUNTER: Subsequent ACUITY: 1 month PAIN SCORE: 0/10 LOCATION: Bilateral chest FINDINGS: The patchy infiltrates in the lateral right lung are less prominent than on prior examination. There is non-consolidative infiltrate is present in the medial right lower lung and in the CONCLUSION: Patchy areas of non-consolidative infiltrate both lower lungs, new. Decreased infiltrates in the upp er lungs. Camilo Gomez MD on January 31, 2017 at 6:08 Board Certified Radiologist. This report was verified electronically.
[2017-01-31 08:00] VITALS: BP 122/70; PULSE 75; RESP 20; TEMP 95.6; O2SAT 94
[2017-01-31] MEDS: BUDESONIDE-FORMOTEROL 160/4.5 MCG INHALER INH SCH ×2 (09:00→20:31)
[2017-01-31] MEDS: SODIUM CHLORIDE 0.9% FLUSH 5 ML FLUSH IV FLUSH SCH ×2 (09:00→20:29)
[2017-01-31] MEDS: VITAMIN B CMPLX/VITC/FOLIC AC CAP PO SCH (09:10)
[2017-01-31] MEDS: HEPARIN SODIUM - SQ 10,000 UNITS/ML VIAL SQ SCH ×2 (09:10→20:29)
[2017-01-31] MEDS: ASCORBIC ACID 500 MG TAB PO SCH (09:10)
[2017-01-31] MEDS: DILTIAZEM-CD 120 MG CAP ER PO SCH (09:10)
[2017-01-31] MEDS: GABAPENTIN 100 MG CAP PO SCH ×3 (09:11→17:52)
[2017-01-31] MEDS: FAMOTIDINE 20 MG TAB PO SCH ×2 (09:11→20:27)
[2017-01-31] MEDS: METOPROLOL TARTRATE 25 MG TAB PO SCH ×2 (09:11→20:26)
[2017-01-31] MEDS: predniSONE 20 MG TAB PO SCH (09:11)
[2017-01-31] MEDS: MULTIVITAMIN HEMATINIC THERAPEUTIC TAB PO SCH (09:15)
[2017-01-31 12:00] VITALS: BP 100/61; PULSE 76; RESP 20; TEMP 96.1; O2SAT 98
--- NOTE | 2017-01-31 15:13 | HHI.PR ---
Subjective Remarks Tongue pain/edema improving to the point the patient is now able to eat some on the left side. No SOB at rest, low volumes gradually improving Voice hoarse improving using o2 continuously, increasing ambulation and exercise Working on a discharge plan with patient's involvement (Priscilla Au) Objective Objective Results - Vital Signs Date Time Temp Pulse Resp B/P Pulse Ox O2 Delivery O2 Flow Rate FiO2 01/31/17 12:00 96.1 76 20 100/61 98 01/31/17 09:18 18 01/31/17 08:45 2.00 01/31/17 08:00 95.6 75 20 122/70 94 01/31/17 00:00 95.9 92 20 131/71 95 01/30/17 20:38 2.00 01/30/17 20:00 96.8 78 18 123/74 98 01/30/17 19:49 98 Nasal Cannula 2.00 01/30/17 16:00 96.6 95 17 120/73 98 I/O 01/30/17 01/30/17 01/30/17 01/31/17 01/31/17 01/31/17 07:00 15:00 23:00 07:00 15:00 23:00 Intake Total 340 ml 4450 ml 480 ml 0 ml Balance 340 ml 4450 ml 480 ml 0 ml Intake Oral 340 ml 535 ml 480 ml 0 ml IV Total 3915 ml # Voids 4 3 2 1 # Bowel Movements 0 0 (Priscilla Au) ROS General: Weakness (generalized but improving) Pulmonary: SOB (with exertion slow gradual improvement) GI: Diarrhea (none) (Priscilla Au) Physical Exam Physical Exam PHYSICAL EXAMINATION GENERAL: This is a well-developed, well-nourished male who appears to be in no acute distress. He is alert and awake, responds readily HEAD: Normocephalic without any lesion or mass noted. Facial features appear symmetric. OROPHARYNGEAL: Oropharynx without erythema or edema. NECK: Supple. No nuchal rigidity or lymphadenopathy. Trachea midline without deviation. CARDIAC: Regular rhythm, regular rate, S1 and S2 are heard. Murmur none no gallops or rubs. LUNGS: Clear to auscultation bilaterally. None wheeze, none rhonchi . ABDOMEN: Soft, nontender, no organomegaly or masses. Bowel sounds are heard in all four quadrants. No rebound. No guarding. EXTREMITIES: no edema. Pulses equal bilateral. NEUROLOGICAL: Patient mood and affect appropriate. No focal deficit SKIN:Warm and moist Objective Remarks I am able to eat and she is now on the left side of my mouth (Priscilla Au) A/P Assessment and Plan Diagnosis: (1) COPD (chronic obstructive pulmonary disease) (2) BPH (benign prostatic hyperplasia) (3) Atrial arrhythmia, resolved (4) Atrial fibrillation, stable (5) Pneumonia, now on by mouth antibiotics (6) Atrial fibrillation, stable (7) SIRS (systemic inflammatory response syndrome) (8) Hypoxia, no acute issues while on oxygen at rest (9) Pneumocystis carinii pneumonia (10) Thrush, gradual slow improvement, medical management (11) Dehydration, continue to encourage food and by mouth fluids. Stable (12) Ulcerative colitis, resolved (13) Hypertension 14. AIDs Assessment and Plan Pt will need to establish fu with HIV provider (Dr Galindo) ROZ . Patient is aware and ready for the plan. Vital signs reviewed and monitored, within normal ranges for now Oral candidiasis, improvement gradual continues and is improving patient is now able to eat more food. Chewing now on the left side of his mouth. Doing good oral care per patient. Using Magic mouthwash when necessary Patient continues to use oxygen , We will look at home needs this week. We will need walk test probably Thursday to evaluate O2 needs Heparin for DVT prophylaxis GI symptoms of nausea vomiting diarrhea constipation have been monitored. Currently patient denies any diarrhea. May need further GI workup in the future if diarrhea persists. Patient has decided on POA, and or friends to assist him if he cannot speak for himself. Supportive care to patient, and friends. Discussed discharge planning for 314 when IV antibiotics are complete. At that point medications should be by mouth per ID. Patient is planning and involved with his discharge. We are discussing Thursday, after he is evaluated. No other acute changes. Encourage patient to stay active, but with frequent rest periods. Continue good nutrition with ensure supplements. D/W patient D/W Dr. Jewell, patient seen on her behalf Discharge Planning Initiated Discussed With: Nurse, Family (patient), Other (Dr. kraft, patient seen on her behalf) (Priscilla Au) Assessment and Plan 61yr old male seen and examined today. Feeling much better. Decreased SOB. Decreased hoarseness of voice. Appetite improving. Agree with above A/P. Will monitor. (Deejay Jewell MD) Priscilla Au Jan 31, 2017 15:13 Deejay Jewell MD Jan 31, 2017 16:02
[2017-01-31 16:00] VITALS: BP 106/58; PULSE 82; RESP 20; TEMP 96.3; O2SAT 98
[2017-01-31] MEDS: MICAFUNGIN INJ 100 MG in SODIUM CHLORIDE 0.9% INJ 100 ML IV SCH (16:44)
[2017-01-31 20:00] VITALS: BP 129/74; PULSE 85; RESP 17; TEMP 97.6; O2SAT 98
[2017-01-31] MEDS: clonazePAM 1 MG TAB PO PRN (20:26)
[2017-01-31 22:00] VITALS: BP 128/73; PULSE 79; RESP 18; TEMP 97.6; O2SAT 97
[2017-02-01] MEDS: TRIMETHOPRIM IV SCH ×8 (00:16→18:14)
[2017-02-01] MEDS: SULFAMETHOX IV SCH ×8 (00:16→18:14)
[2017-02-01] MEDS: WATE IV SCH ×8 (00:16→18:14)
[2017-02-01] MEDS: DEXTROSE 5% IV SCH ×8 (00:16→18:14)
[2017-02-01] MEDS: ACYCLOVIR 200 MG CAP PO SCH ×3 (05:15→20:48)
[2017-02-01] MEDS: MESALAMINE HD 800 MG DELAYED RELEASE TAB PO SCH ×3 (05:16→20:47)
[2017-02-01] MEDS: DIPHENHY/LIDO/MAG/ALUM MOUTHWASH (Adult/Peds) 60 ML BTL SWISH-SWAL SCH ×4 (05:16→20:47)
[2017-02-01] MEDS: HYDROmorphone HCL PF 1 MG/ML VIAL IV PUSH PRN ×4 (05:23→23:13)
[2017-02-01 08:00] VITALS: BP 140/74; PULSE 78; RESP 18; TEMP 97.3; O2SAT 97
[2017-02-01] MEDS: FAMOTIDINE 20 MG TAB PO SCH ×2 (08:21→20:47)
[2017-02-01] MEDS: MULTIVITAMIN HEMATINIC THERAPEUTIC TAB PO SCH (08:21)
[2017-02-01] MEDS: METOPROLOL TARTRATE 25 MG TAB PO SCH ×2 (08:21→20:47)
[2017-02-01] MEDS: VITAMIN B CMPLX/VITC/FOLIC AC CAP PO SCH (08:21)
[2017-02-01] MEDS: ASCORBIC ACID 500 MG TAB PO SCH (08:21)
[2017-02-01] MEDS: predniSONE 20 MG TAB PO SCH (08:21)
[2017-02-01] MEDS: DILTIAZEM-CD 120 MG CAP ER PO SCH (08:21)
[2017-02-01] MEDS: GABAPENTIN 100 MG CAP PO SCH ×3 (08:21→18:14)
[2017-02-01] MEDS: HEPARIN SODIUM - SQ 10,000 UNITS/ML VIAL SQ SCH ×2 (08:22→20:49)
[2017-02-01] MEDS: SODIUM CHLORIDE 0.9% FLUSH 5 ML FLUSH IV FLUSH SCH ×2 (08:22→20:52)
[2017-02-01] MEDS: BUDESONIDE-FORMOTEROL 160/4.5 MCG INHALER INH SCH ×2 (08:22→20:52)
[2017-02-01 12:00] VITALS: BP 124/64; PULSE 75; RESP 19; TEMP 98.1; O2SAT 99
--- NOTE | 2017-02-01 14:12 | HHI.PR ---
Subjective Remarks Tongue pain/edema improving to the point the patient is now able to eat some on the left side, resolving No SOB at rest, has improved every day over the past week in his stamina, slow and gradual Voice hoarse improving, clear speech Resting in bed, O2 and lap but not in Working on a discharge plan with patient's involvement, planned Thursday Objective Objective Results - Vital Signs Date Time Temp Pulse Resp B/P Pulse Ox O2 Delivery O2 Flow Rate FiO2 02/01/17 12:00 98.1 75 19 124/64 99 02/01/17 08:45 Nasal Cannula 2.00 98 02/01/17 08:00 97.3 78 18 140/74 97 01/31/17 22:00 97.6 79 18 128/73 97 01/31/17 20:25 Nasal Cannula 2.00 01/31/17 20:00 97.6 85 17 129/74 98 01/31/17 16:00 96.3 82 20 106/58 98 I/O 01/31/17 01/31/17 01/31/17 02/01/17 02/01/17 02/01/17 07:00 15:00 23:00 07:00 15:00 23:00 Intake Total 0 ml 1340 ml 740 ml 777 ml Balance 0 ml 1340 ml 740 ml 777 ml Intake Oral 0 ml 840 ml 240 ml 240 ml IV Total 500 ml 500 ml 537 ml # Voids 1 3 3 2 # Bowel Movements 0 1 0 ROS General: Fatigue (general improvement), Weakness, Other (10 point ROS done. Positives include generalized weakness and fatigue sore throat is improving occasional cough, exertional shortness of breath. The systems negative or unremarkable) HEENT: Sore Throat Pulmonary: Cough, SOB Physical Exam Physical Exam PHYSICAL EXAMINATION GENERAL: This is a thin male who appears to be in no acute distress at rest He is drowsy but arouses to verbal stimuli HEAD: Normocephalic without any lesion or mass noted. Facial features appear symmetric. OROPHARYNGEAL: Oropharynx moist, mild erythema right side NECK: Supple. Trachea midline without deviation. CARDIAC: Regular rhythm, regular rate, S1 and S2 are heard. Murmur none LUNGS: Clear to auscultation bilaterally ABDOMEN: Soft, nontender, no organomegaly or masses. Bowel sounds are heard in all four quadrants. No rebound. No guarding. No diarrhea EXTREMITIES: No edema. Pulses equal bilateral. NEUROLOGICAL: Patient mood and affect appropriate. No focal deficit. Making plans for his discharge and does appear less anxious. SKIN:Warm and moist Objective Remarks I'm feeling much better this past week and I feel on building my strength up. A/P Assessment and Plan Diagnosis: (1) COPD (chronic obstructive pulmonary disease) (2) BPH (benign prostatic hyperplasia) (3) Atrial arrhythmia, resolved (4) Atrial fibrillation, stable (5) Pneumonia, now on by mouth antibiotics (6) Atrial fibrillation, stable (7) SIRS (systemic inflammatory response syndrome) (8) Hypoxia, no acute issues while on oxygen at rest (9) Pneumocystis carinii pneumonia (10) Thrush, gradual slow improvement, medical management (11) Dehydration, continue to encourage food and by mouth fluids. Stable (12) Ulcerative colitis, resolved (13) Hypertension 14. AIDs Assessment and Plan Pt will need to establish fu with HIV provider (Dr Galindo) ROZ . Patient is aware and ready for the plan. Discussed in length with him per ID Vital signs reviewed and monitored, within normal ranges for now Oral candidiasis, almost resolved. He'll have some mild erythema on the tongue and gum area Doing good oral care per patient. Using Magic mouthwash when necessary Patient continues to use oxygen , patient has O2 at home already. We'll eval whether patient needs to have another walk test before going home Heparin for DVT prophylaxis GI symptoms of nausea vomiting diarrhea constipation have been monitored. Currently patient denies any diarrhea. May need further GI workup in the future if diarrhea persists. Patient has decided on POA, and or friends to assist him if he cannot speak for himself. Supportive care to patient, and friends. Discussed discharge planning for 314 when IV antibiotics are complete. At that point medications should be by mouth per ID. Patient is planning and involved with his discharge. We are still discussing Thursday. Patient seems to be ready for the transition this time No other acute changes. Encourage patient to stay active, but with frequent rest periods. Continue good nutrition with ensure supplements. D/W patient D/W Dr. Carroll, patient seen on her behalf Discharge Planning Home with home health. O2 probable Discussed With: Nurse, Family (patient), Other (Dr. carroll, patient seen on her behalf) Priscilla Au Feb 01, 2017 14:11
[2017-02-01 16:00] VITALS: BP 104/68; PULSE 78; RESP 18; TEMP 98.1; O2SAT 98
[2017-02-01] MEDS: MICAFUNGIN INJ 100 MG in SODIUM CHLORIDE 0.9% INJ 100 ML IV SCH (16:18)
[2017-02-01 20:00] VITALS: BP 107/63; PULSE 76; RESP 20; TEMP 97.7; O2SAT 97
[2017-02-02] VITALS: BP 125/71; PULSE 72; RESP 22; TEMP 97.8; O2SAT 96
[2017-02-02] MEDS: WATE IV SCH ×8 (00:45→17:40)
[2017-02-02] MEDS: TRIMETHOPRIM IV SCH ×8 (00:45→17:40)
[2017-02-02] MEDS: SULFAMETHOX IV SCH ×8 (00:45→17:40)
[2017-02-02] MEDS: DEXTROSE 5% IV SCH ×8 (00:45→17:40)
[2017-02-02] MEDS: ACYCLOVIR 200 MG CAP PO SCH ×2 (06:06→14:02)
[2017-02-02] MEDS: MESALAMINE HD 800 MG DELAYED RELEASE TAB PO SCH ×2 (06:06→14:02)
[2017-02-02] MEDS: DIPHENHY/LIDO/MAG/ALUM MOUTHWASH (Adult/Peds) 60 ML BTL SWISH-SWAL SCH ×3 (06:06→16:43)
[2017-02-02] MEDS: HYDROmorphone HCL PF 1 MG/ML VIAL IV PUSH PRN ×3 (06:13→16:40)
[2017-02-02 08:00] VITALS: BP 134/85; PULSE 70; RESP 18; TEMP 98.1; O2SAT 98
[2017-02-02] MEDS: METOPROLOL TARTRATE 25 MG TAB PO SCH (08:34)
[2017-02-02] MEDS: FAMOTIDINE 20 MG TAB PO SCH (08:34)
[2017-02-02] MEDS: GABAPENTIN 100 MG CAP PO SCH ×3 (08:34→16:43)
[2017-02-02] MEDS: DILTIAZEM-CD 120 MG CAP ER PO SCH (08:34)
[2017-02-02] MEDS: AZITHROMYCIN 600 MG TAB PO SCH (08:34)
[2017-02-02] MEDS: MULTIVITAMIN HEMATINIC THERAPEUTIC TAB PO SCH (08:34)
[2017-02-02] MEDS: VITAMIN B CMPLX/VITC/FOLIC AC CAP PO SCH (08:34)
[2017-02-02] MEDS: predniSONE 20 MG TAB PO SCH (08:34)
[2017-02-02] MEDS: ASCORBIC ACID 500 MG TAB PO SCH (08:34)
[2017-02-02] MEDS: BUDESONIDE-FORMOTEROL 160/4.5 MCG INHALER INH SCH (08:35)
[2017-02-02] MEDS: HEPARIN SODIUM - SQ 10,000 UNITS/ML VIAL SQ SCH (08:39)
[2017-02-02] MEDS: SODIUM CHLORIDE 0.9% FLUSH 5 ML FLUSH IV FLUSH SCH (08:39)
[2017-02-02 12:00] VITALS: BP 119/72; PULSE 76; RESP 17; TEMP 98.1; O2SAT 97
--- NOTE | 2017-02-02 13:45 | HHI.FF ---
Face to Face Verification Diagnosis: (1) Hypoxia (2) Hypertension (3) Pneumocystis carinii pneumonia (4) Ulcerative colitis (5) Atrial fibrillation (6) SIRS (systemic inflammatory response syndrome) (7) BPH (benign prostatic hyperplasia) (8) AIDS Physical Therapy Order: Evaluate and Treat, Improve ambulation Home Health Nursing Order: Oxygen administration education Nursing assessment with vital signs I have seen patient Montana Quinn on 02/02/17. My clinical findings support the need for the requested home health care services because: Ltd mobility - disease progression Deconditioned w/ increased weakness Need for psychosocial assistance I certify that my clinical findings support that this patient is homebound because: Hx COPD- exertion dyspnea/weakness Unsteady gait/balance Priscilla Au Feb 02, 2017 13:45
--- NOTE | 2017-02-02 13:56 | HHI.PR ---
Subjective Remarks Tongue pain/edema re solving 90% No SOB at rest, has improved every day over the past week in his stamina, slow and gradual Voice hoarse improving, clear speech Resting in bed, O2 on Working on a discharge plan Thursday afebrile (Priscilla Au) Objective Objective Results - Vital Signs Date Time Temp Pulse Resp B/P Pulse Ox O2 Delivery O2 Flow Rate FiO2 02/02/17 12:00 98.1 76 17 119/72 97 02/02/17 08:34 Nasal Cannula 2.00 02/02/17 08:00 98.1 70 18 134/85 98 02/02/17 00:00 97.8 72 22 125/71 96 02/01/17 20:50 Nasal Cannula 2.00 02/01/17 20:00 97.7 76 20 107/63 97 02/01/17 16:00 98.1 78 18 104/68 98 I/O 02/01/17 02/01/17 02/01/17 02/02/17 02/02/17 02/02/17 07:00 15:00 23:00 07:00 15:00 23:00 Intake Total 777 ml 720 ml 2178 ml 620 ml Balance 777 ml 720 ml 2178 ml 620 ml Intake Oral 240 ml 720 ml 480 ml 120 ml IV Total 537 ml 1698 ml 500 ml # Voids 2 4 2 3 # Bowel Movements 0 1 0 0 (Priscilla Au) ROS General: Fatigue, Weakness (improving), Other (10 point ROS done positives noted are fatigue and weakness which are improving, sore throat and sore tongue improving 90% back to baseline no diarrhea anxiety mild, other systems negative or unremarkable) HEENT: Sore Throat Pulmonary: SOB (exertional) GI: Diarrhea (none) Neuro/MS: Other (anxiety improved) (Priscilla Au) Physical Exam Physical Exam PHYSICAL EXAMINATION GENERAL: This is a well-developed, slim male who appears to be in no acute distress. He is alert and awake, HEAD: Normocephalic without any lesion or mass noted. Facial features appear symmetric. OROPHARYNGEAL: Oropharynx with erythema or edema. Resolving NECK: Supple. No nuchal rigidity or lymphadenopathy. Trachea midline without deviation. CARDIAC: Regular rhythm, regular rate, S1 and S2 are heard. Murmur none LUNGS: Clear to auscultation bilaterally. No wheeze, rhonchi or no rale. No use of accessory muscles on inspiration or expiration at rest ABDOMEN: Soft, nontender, no organomegaly or masses. Bowel sounds are heard in all four quadrants. No rebound. No guarding. EXTREMITIES: No edema. Pulses equal bilateral. NEUROLOGICAL: Patient mood and affect appropriate. Mild anxiety but improving when patient is feeling better SKIN:Warm and moist Objective Remarks I'm feeling so much better and feeling stronger every day (Priscilla Au ) A/P Assessment and Plan Diagnosis: (1) COPD (chronic obstructive pulmonary disease) Medical management stable (2) BPH (benign prostatic hyperplasia) Medical management stable (3) Atrial arrhythmia, resolved Continue Cardizem by mouth per cardiology and see when necessary (4) Atrial fibrillation, stable (5) Pneumonia, now on by mouth antibiotics IV antibiotics completed today and will transition to Bactrim DS 2 by mouth 3 times a day for 21 days on discharge (6) Atrial fibrillation, stable (7) SIRS (systemic inflammatory response syndrome) Will follow up as outpatient with plan of care and treatment regimen given to him per Dr. Liu (8) Hypoxia, no acute issues while on oxygen at rest Patient will use O2 at 2 L when necessary at home (9) Pneumocystis carinii pneumonia Stable, resolved (10) Thrush, gradual slow improvement, medical management Acyclovir 400 mg 3 times a day until tongue and oral thrush is completely resolved. May use Magic mouthwash when necessary (11) Dehydration, continue to encourage food and by mouth fluids. Stable (12) Ulcerative colitis, resolved Will follow up with GI if symptoms return of diarrhea (13) Hypertension 14. AIDs Outpatient appointments and information/plan a care in place. Dr. Galindo Discharge Planning Home with home health. O2 probable Physical therapy Discussed With: Nurse, Family, Other (Dr. Stiles, seen on his behalf) (Priscilla Au) Assessment and Plan pt is seen & Examined chart reviewed ID input noted d/w PT d/w Priscilla medically stable for d/c d/c home today w C see M[facility] see Orders f/u pcp f/u Dr Shirley in 1 wks for HAART tx (Anwer,Muhammed Priscilla Conde Feb 02, 2017 13:56 Dana Stiles MD Feb 02, 2017 14:16
[2017-02-02] MEDS ORDERED: METO25TA3 PO (14:00)
[2017-02-02] MEDS: RESP: ALBUTEROL 2.5 MG/IPRATROPIUM 0.5 MG NEB (PRN) INH (14:09)
[2017-02-02 14:12] VITALS: O2SAT 99
[2017-02-02] MEDS ORDERED: AZIT600T PO (14:22)
[2017-02-02] MEDS ORDERED: OXYC1TAB63 PO (14:22)
[2017-02-02] MEDS ORDERED: CLON1 PO (14:22)
[2017-02-02] MEDS ORDERED: FAMO20TA2 PO (14:22)
[2017-02-02] MEDS ORDERED: GUAI100S5 PO (14:22)
[2017-02-02] MEDS ORDERED: ACYC200C66 PO (14:22)
[2017-02-02] MEDS ORDERED: MAGICPED SWISH-SWAL (14:22)
[2017-02-02] MEDS ORDERED: BACT800T5 PO (14:28)
[2017-02-02] MEDS ORDERED: PRED20 PO (14:28)
[2017-02-02] MEDS: MICAFUNGIN INJ 100 MG in SODIUM CHLORIDE 0.9% INJ 100 ML IV SCH (16:43)
--- NOTE | 2017-02-02 19:19 | HHI.PR ---
Subjective Remarks Better today. On O2 2l. Able to eat more and Voice is much improved. No fever. Objective Vital Signs Date Time Temp Pulse Resp B/P Pulse Ox O2 Delivery O2 Flow Rate FiO2 02/02/17 14:12 99 Nasal Cannula 2.00 02/02/17 12:00 98.1 76 17 119/72 97 02/02/17 08:34 Nasal Cannula 2.00 02/02/17 08:00 98.1 70 18 134/85 98 02/02/17 00:00 97.8 72 22 125/71 96 02/01/17 20:50 Nasal Cannula 2.00 02/01/17 20:00 97.7 76 20 107/63 97 I/O 02/01/17 02/01/17 02/01/17 02/02/17 02/02/17 02/02/17 07:00 15:00 23:00 07:00 15:00 23:00 Intake Total 777 ml 720 ml 2178 ml 620 ml 960 ml Balance 777 ml 720 ml 2178 ml 620 ml 960 ml Intake Oral 240 ml 720 ml 480 ml 120 ml 960 ml IV Total 537 ml 1698 ml 500 ml # Voids 2 4 2 3 3 # Bowel Movements 0 1 0 0 1 Objective Remarks GENERAL: This is a 61 year-old male,in no distress . HEENT: Mucous membranes moist. Throat clear. NECK: Supple. CARDIOVASCULAR: Regular rate and rhythm. RESPIRATORY: Few wheezes, and Distant breath sounds. GASTROINTESTINAL: Bowel sounds are present. ABDOMEN: Not distended.No mass. MUSCULOSKELETAL: No edema. no deformity. NEUROLOGIC: Alert, oriented. .Reflexes 1 +. No deficits. Assessment and Plan Assessment and Plan IMPRESSION: 1. Sepsis on admission. 2. COPD exacerbation. 3. Hyponatremia. 4. Hospital acquired pneumonia. 5. History of A-fib, currently in sinus rhythm. 6. History of ulcerative colitis. 7. PCP pneumonia/Immunocompromised state Plan : 1. Cont Antibiotics as ordered per ID. 2. Nebs tid , duoneb. 3. IS and acapella at bedside qid. 4. Ensure supplements bid. 5. PT evaluation. 6. Home soon. Xavier Grande MD Feb 02, 2017 19:19
--- NOTE | 2017-02-08 16:42 | HHI.DS ---
Discharge Summary Admission Date Jan 03, 2017 at 19:02 Discharge Date: Feb 02, 2017 Admitting Diagnosis respiratory distress, hypoxia, pneumonia, sepsis (1) COPD (chronic obstructive pulmonary disease) (2) BPH (benign prostatic hyperplasia) (3) Atrial arrhythmia (4) Atrial fibrillation (5) Pneumonia (6) Atrial fibrillation (7) SIRS (systemic inflammatory response syndrome) (8) Hypoxia (9) Pneumocystis carinii pneumonia (10) Thrush (11) Dehydration (12) Ulcerative colitis (13) Hypertension (14) AIDS Procedures bronchoscopy on 01/07- Imaging Last Impressions Chest X-Ray 01/31/17 0600 Signed Impressions: Service Date/Time: Tuesday, January 31, 2017 05:25 - CONCLUSION: Patchy areas of non-consolidative infiltrate both lower lungs, new. Decreased infiltrates in the upper lungs. Camilo Gomez MD CT Angiography 01/03/17 0000 Signed Impressions: Service Date/Time: Tuesday, January 03, 2017 18:29 - CONCLUSION: 1. Negative for pulmonary embolus. 2. Interval development of bilateral lung disease on a background of emphysema. Findings are not entirely typical of bronchopneumonia. Differential diagnosis includes some form of smoking related disease with respiratory bronchiolitis or possibly Langerhans' cell histiocytosis. Sree Dykes MD Hospital Course This is a pleasant 61-year-old Maltese male who has a history of COPD, and recent diagnosis of COPD exacerbation with what appeared to be early pneumonia for which he was hospitalized from December 22, until December 27, 2016. He was released from the hospital. Over the past 24 hours he has developed a fever. He became more short of breath today. He went to see his primary care physician, Dr. Brooks who recommended the patient come to the hospital. The patient stated at home he has a nebulizer and had been using it several times a day. He also has oxygen. He has been using between 4 to 6 liters a day. He was taking all his medications as prescribed. He could feel that he had a fever. He had minimal voice this morning. His voice was improving a little bit. The patient was tachycardiac. He was not having chest pain or pressure. He was seen in the emergency room and he was started on antibiotics, nebulizer, steroids, Tylenol was given for his fever, and he was admitted for further care. His appetite was not very good because he had thrush and it hurts when he eats. He had been using Nystatin and the thrush was improving. Was evaluated in the ED and found with the following: INVESTIGATIONS: Sodium is 131, potassium 4.1, BUN 22, creatinine 1.08, Troponin-I is negative. Albumin 2.5. Blood gas was 0.9. Urinalysis showed trace ketones. Mucous few. Cultures not indicated. ABG showed a bicarb of 20, O2 sat 91, pH is 7.5, PCO2 26, PO2 of 79. CBC was normal. EKG on admission showed sinus tachycardia. CT angiography showed no PE, interval development of bilateral lung disease on a background of emphysema, not entirely typical for bronchopneumonia. Differential diagnosis includes some form of smoking related disease of respiratory bronchiolitis or possible Langerhans cells, histiocytosis. Was admitted with the following diagnoses: 1. Sepsis on admission. 2. COPD exacerbation. 3. Hyponatremia. 4. Hospital acquired pneumonia. 5. History of A-fib, currently in sinus rhythm. 6. History of ulcerative colitis. Initially he was admitted, put on IVFs, antibiotics,duonebs and steroids. Pulmonary and infectious disease consultations were obtained. Home medications were resumed. Was put on appropriate GI and DVT prophylaxis. Pt. had a prolonged hospitalization as he continued to decline. Further work up was done per infectious disease and pulmonary to identify source of pulmonary infection. Underwent bronchoscopy on 01/07-cytology came back positive for Pneumocystis carinii Further workup per infectious disease confirm HIV status. Patient was diagnosed with advanced AIDS. Undetectable CD4 counts less than 20. HCV/HBV negative Patient was managed with appropriate antibiotic and antifungal treatment per ID recommendations. In addition, MAC prophylaxis was added Azithro 1200 q thursday Patient was counseled to establish himself with HIV provider as soon as possible within 1 week after discharge. Patient made arrangements to follow-up with Dr. Galindo. Additionally, patient was put on tapering dose of steroids. Infectious disease gave recommendations with and ate for antibiotic. Patient's condition remain fragile, increased respiratory distress especially at night. DuoNeb nebs were adjusted. He remained extremely short of breath with minimal activity He had fevers on and off throughout hospitalization, blood cultures were obtained and follow. He developed severe oral candidiasis, tongue was extremely swollen and he had difficulty eating. He had significant weight loss Ulcerations on the tongue were confirmed to be herpetic. Magic mouthwash in addition to micafungin were ordered. Symptoms eventually improved, patient was able to tolerate diet. Cardiology also evaluated patient for history of A. fib. Patient remained stable and in sinus rhythm. He was continued on beta blockers and Cardizem. No anticoagulation was needed Heparin for DVT prophylaxis was used. For history of ulcer colitis, he was continued on Asacol He did develop diarrhea, was negative for C. difficile End of life care, code status, adv. directives were discussed at length with patient. He designated 2 friends to make decision on his behalf. Requesting that no information was to be provided to his sister. If resp. distress, agreed to intubation for a short period. 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 Patient was clear for discharge by both pulmonology and infectious disease Patient was discharged home in stable condition Pt Condition on Discharge: Stable Discharge Disposition: Disch w/ Home Health Serv Discharge Instructions DIET: Follow Instructions for: As Tolerated, No Restrictions Activities you can perform: Regular-No Restrictions Follow up Referrals: Infectious Disease - 1 Week PCP Follow-up - 1 Week New Medications: Sulfamethoxazole-Trimethoprim (Bactrim DS) 800-160 Mg Tab 1 TAB PO DAILY Infection #30 Ref 0 TAB Acyclovir (Acyclovir) 200 Mg Cap 400 MG PO Q8HR herpesinfection #10 CAP Azithromycin (Azithromycin) 600 Mg Tab 1200 MG PO Q7D MAC prophylaxis #6 TAB Clonazepam (Klonopin) 1 Mg Tab 1 MG PO HS PRN INSOMNIA #30 TAB Agqgbrlnowkhyca-Suhtkzohn-Iua-Alum-Simeth Liq (Magic Mouthwash Pediatric/Adult Liq) 60 Ml Susp 5 ML SWISH-SWAL ACHS oral pain Days 14 ML Famotidine (Famotidine) 20 Mg Tab 20 MG PO BID GERD #30 TAB Guaifenesin-Codeine Liq (Guaifenesin-Codeine Liq) 100-10 Mg/5 Ml Soln 10 ML PO Q4H PRN COUGH Days 10 ML Metoprolol Tartrate (Metoprolol Tartrate) 25 Mg Tab 25 MG PO BID PRN RAPID HEART RATE Days 30 Ref 1 TAB Oxycodone-Acetaminophen (Oxycodone-Acetaminophen) 5-325 mg Tab 1 TAB PO Q6H PRN pain 1-5 #30 TAB Prednisone (Prednisone) 20 Mg Tab 20 MG PO DAILY pcp Days 1 TAB Continued Medications: Ascorbic Acid (Vitamin C) 500 Mg Tab 500 MG PO DAILY Nutritional Supplement Ref 0 TAB B-Complex Vitamins (Vitamin B Complex) 1 Tab 1 TAB PO DAILY Budesonide-Formoterol Inh (Symbicort Inh) 160-4.5 Mcg/Act Aero 1 PUFF INH Q12HR #1 Ref 0 INHALER Dicyclomine (Bentyl) 20 Mg Tab 20 MG PO TID PRN Bowel Management Ref 0 TAB Diltiazem CD 24 HR (Cardizem CD 24 HR) 240 Mg Caper 240 MG PO DAILY tachycardia #30 Ref 3 CAP Gabapentin (Neurontin) 100 Mg Cap 100 MG PO TID #90 Ref 0 CAP Ipratropium-Albuterol Neb (Duoneb) 0.5-2.5 Mg/3 Ml Neb 1 VIAL NEB Q6HR PRN SHORTNESS OF BREATH #120 Ref [address] (Asacol HD) 800 Mg Tab 1600 MG PO Q8HR Swallow whole. Take on an empty stomach. Ulcerative colitis Ref 0 TAB Metoprolol Tartrate (Metoprolol Tartrate) 25 Mg Tab 12.5 MG PO DAILY PRN INCREASE IN BLOOD PRESSURE #60 Ref 0 TAB Multiple Vitamins W/ Minerals (Centrum Silver Adult 50+) 1 Tab Tab 1 TAB PO DAILY Pantoprazole (Protonix) 40 Mg Tab 40 MG PO DAILY PRN REFLUX #30 Ref 0 TAB Discontinued Medications: Amoxicillin-Clavulanate (Augmentin) 500-125 mg Tab Unknown Dose PO BID Infection Ref 0 TAB Clonidine (Clonidine) 0.1 Mg Tab 0.1 MG PO BID PRN SYSTOLIC B/P > 170 #60 Ref 0 TAB Carmen Huggins Feb 08, 2017 16:42
== END 2017-02-02 20:12 | disposition home health service (06) | DRG 975 ==
LOC: NEPE 16:34 → NEDA 19:02 → HCIS 22:41 → N07B 01-09 14:21
PROVIDERS: ADMIT Specialist; ATTEND Specialist
PROC: 0B948ZX Drainage of Right Upper Lobe Bronchus, Via Natural or Artificial Opening Endoscopic, Diagnostic (ICD-10-PCS; 2017-01-07)
PROC: 0B988ZX Drainage of Left Upper Lobe Bronchus, Via Natural or Artificial Opening Endoscopic, Diagnostic (ICD-10-PCS; 2017-01-07)
PROC: 0B958ZX Drainage of Right Middle Lobe Bronchus, Via Natural or Artificial Opening Endoscopic, Diagnostic (ICD-10-PCS; 2017-01-07)
PROC: 0B968ZX Drainage of Right Lower Lobe Bronchus, Via Natural or Artificial Opening Endoscopic, Diagnostic (ICD-10-PCS; 2017-01-07)
PROC: 0B9B8ZX Drainage of Left Lower Lobe Bronchus, Via Natural or Artificial Opening Endoscopic, Diagnostic (ICD-10-PCS; principal; 2017-01-07 11:33)
DX: B20 Human immunodeficiency virus [HIV] disease (principal); A41.9 Sepsis, unspecified organism; E87.1 Hypo-osmolality and hyponatremia; B59 Pneumocystosis; B37.0 Candidal stomatitis; J44.1 Chronic obstructive pulmonary disease with (acute) exacerbation; I10 Essential (primary) hypertension; I48.0 Paroxysmal atrial fibrillation; E86.0 Dehydration; K51.90 Ulcerative colitis, unspecified, without complications; B00.2 Herpesviral gingivostomatitis and pharyngotonsillitis; Z99.81 Dependence on supplemental oxygen; R00.0 Tachycardia, unspecified; K21.9 Gastro-esophageal reflux disease without esophagitis; N40.0 Benign prostatic hyperplasia without lower urinary tract symptoms; R09.02 Hypoxemia; R60.0 Localized edema; E87.6 Hypokalemia; F41.9 Anxiety disorder, unspecified; Z87.01 Personal history of pneumonia (recurrent); Z87.891 Personal history of nicotine dependence; Z87.440 Personal history of urinary (tract) infections
CPT/HCPCS: 36600; 71010; 71020; 71275; 76937; 80048; 80053; 80074; 80202; 81001; 82565; 82805; 83605; 83735; 83930; 83935; 84132; 84484; 85007; 85025; 85027; 85610; 85652; 85730; 86140; 86355; 86357; 86359; 86360; 86403; 86701; 86702; 86703; 87015; 87040; 87070; 87071; 87081; 87102; 87116; 87205; 87206; 87255; 87449; 87493; 87536; 87804; 87901; 93005; 94150; 94640; 94664; 96365; 96367; 96375; J0133; J0171; J0456; J0692; J0696; J1170; J1644; J2248; J2250; J2405; J2543; J2920; J2930; J3010; J3370; J3480; J7030; J7040; J7050; J7060; J7512; J7613; Q9967

== ENCOUNTER → 2017-02-27 | Outpatient (CLI) | payer OTHER ==
[~2017-02-27] MED LIST changes: -ACET-703 PO; +ACYC200C66 PO; +AZIT600T PO; +BACT800T5 PO; -CLON0.1T PO; +CLON1 PO; +FAMO20TA2 PO; +GUAI100S5 PO; +MAGICPED SWISH-SWAL; +OXYC1TAB63 PO; +PRED20 PO; -ZITH250T PO
[2017-02-27 10:17] LABS: AUTOMATED NEUTROPHIL # 4.5 TH/MM3 (1.8-7.7); BASOPHIL # 0.1 TH/MM3 (0-0.2); BASOPHIL % 0.8 % (0.0-2.0); EOSINOPHIL # 0.5 TH/MM3 (0-0.4); EOSINOPHIL % 6.8 % (0.0-4.0); HEMATOCRIT 39.8 % (39.0-51.0); LYMPH % 12.6 % (9.0-44.0); LYMPHOCYTE # 0.9 TH/MM3 (1.0-4.8); MEAN CELL VOLUME 88.7 FL (80.0-100.0); MEAN CORPUSCULAR HEMOGLOBIN 30.4 PG (27.0-34.0); MEAN CORPUSCULAR HGB CONC 34.3 % (32.0-36.0); NEUT % 65.8 % (16.0-70.0); PLATELET COUNT 374 TH/MM3 (150-450); RED BLOOD COUNT 4.48 MIL/MM3 (4.50-5.90); RED CELL DISTRIBUTION WIDTH 19.2 % (11.6-17.2); WHITE BLOOD COUNT 6.9 TH/MM3 (4.0-11.0)
[2017-02-27 10:20] LABS: HEMO FLAGS AUTO DIFF
[2017-02-27 10:46] LABS: ALKALINE PHOSPHATASE 82 U/L (45-117); ALT (GPT) 20 U/L (12-78); ANION GAP 9 MEQ/L (5-15); AST (GOT) 14 U/L (15-37); BLOOD UREA NITROGEN 12 MG/DL (7-18); CHLORIDE 106 MEQ/L (98-107); GLOMERULAR FILTRATION RATE 87 ML/MIN (>89); GLUCOSE,FASTING 92 MG/DL (74-99); POTASSIUM 3.8 MEQ/L (3.5-5.1); SODIUM (NA) 141 MEQ/L (136-145); TOTAL BILIRUBIN ADULT 0.4 MG/DL (0.2-1.0)
[2017-02-27 11:01] LABS: BASOPHILS 1 % (0-2); EOSINOPHILS 8 % (0-4); METAMYELOCYTES 1 % (0-1); MYELOCYTES 5 % (0-0); NEUTROPHIL # MANUAL DIFF 4.5 TH/MM3 (1.8-7.7); POLYS (SEG NEUTROPHILS) 59 % (16-70); WBC DIFF SAMPLE 100
[2017-02-27 11:02] LABS: PLATELET ESTIMATE SMEAR NORMAL (NORMAL); PLATELET MORPHOLOGY NORMAL (NORMAL); SCAN/DIFF FINAL DIFF MANUAL
[2017-03-04 11:52] LABS: HIV RNA LOG COPIES 2.58 (())
== END ==
LOC: CLAB 09:46
PROVIDERS: ATTEND Specialist
DX: B20 Human immunodeficiency virus [HIV] disease (principal)
CPT/HCPCS: 36415; 80053; 80074; 85007; 85027; 87536

== ENCOUNTER → 2017-03-02 | Outpatient (CLI) | payer OTHER ==
[2017-03-03 23:54] LABS: CD4/CD8 RATIO 0.1 (0.86-5.00)
== END ==
LOC: CLAB 10:44
PROVIDERS: ATTEND Specialist
DX: B20 Human immunodeficiency virus [HIV] disease (principal)
CPT/HCPCS: 36415; 86355; 86357; 86359; 86360

== ENCOUNTER → 2017-05-27 | Outpatient (CLI) | payer OTHER ==
[2017-05-27 12:09] LABS: HEMATOCRIT 45.7 % (39.0-51.0); MEAN CELL VOLUME 91.9 FL (80.0-100.0); MEAN CORPUSCULAR HEMOGLOBIN 31.6 PG (27.0-34.0); MEAN CORPUSCULAR HGB CONC 34.3 % (32.0-36.0); PLATELET COUNT 220 TH/MM3 (150-450); RED BLOOD COUNT 4.98 MIL/MM3 (4.50-5.90); RED CELL DISTRIBUTION WIDTH 13.6 % (11.6-17.2); REVIEW FLAG FINAL; WHITE BLOOD COUNT 4.6 TH/MM3 (4.0-11.0)
[2017-05-27 12:38] LABS: ANION GAP 9 MEQ/L (5-15); AST (GOT) 25 U/L (15-37); BICARBONATE 25.3 MEQ/L (21.0-32.0); BLOOD UREA NITROGEN 20 MG/DL (7-18); CHLORIDE 107 MEQ/L (98-107); GLOMERULAR FILTRATION RATE 45 ML/MIN (>89); GLUCOSE,FASTING 98 MG/DL (74-99); SODIUM (NA) 141 MEQ/L (136-145)
[2017-05-27 12:39] LABS: ALT (GPT) 28 U/L (12-78)
[2017-05-27 12:41] LABS: ALKALINE PHOSPHATASE 71 U/L (45-117); TOTAL BILIRUBIN ADULT 0.3 MG/DL (0.2-1.0)
[2017-05-28 23:50] LABS: CD4/CD8 RATIO 0.1 (0.86-5.00)
[2017-05-29 11:51] LABS: HIV RNA LOG COPIES 2.3 (())
== END ==
LOC: CLAB 11:45
PROVIDERS: ATTEND Specialist
DX: B20 Human immunodeficiency virus [HIV] disease (principal)
CPT/HCPCS: 36415; 80053; 85027; 86355; 86357; 86359; 86360; 87536

== ENCOUNTER → 2017-07-20 | Day surgery (SDC) | payer OTHER ==
[~2017-07-20] MED LIST changes: +PROPOFOL 200 MG/20 ML AMP IV ONE
--- NOTE | 2017-07-20 09:45 | GIPROC ---
[facility] [address], [address] COLONOSCOPY PROCEDURE REPORT EXAM DATE: 07/20/2017 PATIENT NAME: Montana Quinn MR #: [id number] BIRTHDATE: 1955 ENDOSCOPIST: Campbell Stewart MD ORDER #: [id number] PROMOTIONS ASSISTANT: Sats Hyatt and Mac Parikh STATUS: outpatient INDICATIONS: The patient is a 61 yr old male here for a colonoscopy due to high risk patient with personal history of colonic polyps and high risk patient with previously diagnosed UC PROCEDURE PERFORMED: Colonoscopy with biopsy Colonoscopy with polypectomy MEDICATIONS: None and Per Anesthesia. PREP QUALITY: fair ESTIMATED BLOOD LOSS: None CONSENT: The patient understands the risks and benefits of the procedure and understands that these risks include, but are not limited to: sedation, allergic reaction, infection, perforation and/or bleeding. Alternative means of evaluation and treatment include, among others: physical exam, x-rays, and/or surgical intervention. The patient elects to proceed with this endoscopic procedure. medical equipment was checked for proper function. Hand hygiene and appropriate measures for infection prevention was taken. After the risks, benefits and alternatives of the procedure were thoroughly explained, Informed consent was verified, confirmed and timeout was successfully executed by the treatment team. A digital exam revealed external hemorrhoids The Pentax EC-[id number] endoscope was introduced through the anus and advanced to the cecum, which was identified by both the appendix and ileocecal valve. The instrument was then slowly withdrawn as the colon was fully examined. COLON FINDINGS: Five small medium sized smooth sessile polyps were found in the transverse colon and descending colon. The DC polyps are probably inflammatory. A polypectomy was performed with a cold snare. The resection was complete and the polyp tissue was completely retrieved. Mild diverticulosis was noted throughout the entire examined colon. The colon mucosa was otherwise normal. Retroflexed views revealed internal hemorrhoids and Retroflexed views revealed medium internal hemorrhoids The scope was then completely withdrawn from the patient and the procedure terminated. PROCEDURE WITHDRAWAL TIME:13.0minutes ADVERSE EVENTS: There were no complications. IMPRESSIONS: 1. Five small medium sized sessile polyps were found in the transverse colon and descending colon; the DC polyps are probably inflammatory; polypectomy was performed with a cold snare 2. Mild diverticulosis was noted throughout the entire examined colon 3. The colon mucosa was otherwise normal 4. Retroflexed views revealed internal hemorrhoids 5. Retroflexed views revealed medium internal hemorrhoids 6. Revealed external hemorrhoids RECOMMENDATIONS: 1. Await biopsy results. Biopsy results will not be ready for 7-10 days. If you don't hear from us in two weeks, call our office for results. 2. High fiber diet 3. Yearly hemoccult 4. Follow-up: GI Clinic 3 week(s) RECALL: Return 2 years Colonoscopy Campbell Stewart MD eSigned: Campbell Stewart MD 07/20/2017 9:45 AM cc: Earlene Garcia PATIENT NAME: Montana Quinn MR#: [id number]
--- NOTE | 2017-07-20 09:50 | GIPROC ---
[facility] [address] [facility], [address] EGD PROCEDURE REPORT EXAM DATE: 07/20/2017 PATIENT NAME: Montana Quinn MR #: [id number] BIRTHDATE: 1955 ATTENDING: Campblel Stewart MD ORDER #: [id number] MILL TENDER: Stas Hyatt and Mac Parikh STATUS: outpatient INDICATIONS: The patient is a 61 yr old male here for an EGD due to hoarsness PROCEDURE PERFORMED: EGD w/ biopsy MEDICATIONS: None, Per Anesthesia, None, and Per Anesthesia. TOPICAL ANESTHETIC: CONSENT: The patient understands the risks and benefits of the procedure and understands that these risks include, but are not limited to: sedation, allergic reaction, infection, perforation and/or bleeding. Alternative means of evaluation and treatment include, among others: physical exam, x-rays, and/or surgical intervention. The patient elects to proceed with this endoscopic procedure. medical equipment was checked for proper function. Hand hygiene and appropriate measures for infection prevention was taken. After the risks, benefits and alternatives of the procedure were thoroughly explained, Informed consent was verified, confirmed and timeout was successfully executed by the treatment team. The patient was anesthetized with topical anesthesia and the [id number] (Pedi C) endoscope was introduced through the mouth and advanced to the second portion of the duodenum. Retroflexed views revealed no abnormalities The gastroscope was then slowly withdrawn and removed. ESOPHAGUS: Irregular z line, this was biopsied. STOMACH: A small non-bleeding and round ulcer with a pigmented spot was found in the gastric body. Biopsies were taken at edge of the ulcer. There was erythematous moderate and erosive gastritis in the gastric antrum. Multiple biopsies were performed. The endoscopy was otherwise normal. ADVERSE EVENTS: There were no complications. IMPRESSIONS: 1. Irregular z line, this was biopsied 2. Small ulcer was found in the gastric body; biopsies were taken 3. There was erythematous gastritis in the gastric antrum; multiple biopsies were performed 4. Normal endoscopy otherwise 5. Retroflexed views revealed no abnormalities RECOMMENDATIONS: 1. Await biopsy results. Biopsy results will not be ready for 7-10 days. If you don't hear from us in two weeks, call our office for biopsy results. 2. Protonix 40mg Q AM 3. Avoid NSAIDS 4. Follow-up: GI clinic 3 week(s) PATIENT CONDITION: stable DISPOSITION: Home REPEAT EXAM: Return 2 months EGD Campbell Stewart MD eSigned: Campbell Stewart MD 07/20/2017 9:50 AM cc: Earlene Garcia PATIENT NAME: Montana Quinn MR#: [id number]
== END | disposition home or self-care (01) ==
LOC: ESDC 07:24
PROVIDERS: ATTEND Internal Medicine Gastroenterology
DX: Z12.11 Encounter for screening for malignant neoplasm of colon (principal); Z86.010 Personal history of colon polyps; D12.4 Benign neoplasm of descending colon; D12.3 Benign neoplasm of transverse colon; K57.90 Diverticulosis of intestine, part unspecified, without perforation or abscess without bleeding; K64.4 Residual hemorrhoidal skin tags; K64.8 Other hemorrhoids; R49.0 Dysphonia; K22.9 Disease of esophagus, unspecified; K25.9 Gastric ulcer, unspecified as acute or chronic, without hemorrhage or perforation; K29.70 Gastritis, unspecified, without bleeding
CPT/HCPCS: 00740; 00810; 43239; 45380; 45385; 88305; 88312; J3010

== ENCOUNTER → 2017-10-07 | Outpatient (CLI) | payer OTHER ==
[~2017-10-07] MED LIST changes: -PROPOFOL 200 MG/20 ML AMP IV ONE
[2017-10-07 08:01] LABS: AUTOMATED NEUTROPHIL # 3.4 TH/MM3 (1.8-7.7); BASOPHIL # 0.1 TH/MM3 (0-0.2); EOSINOPHIL # 0.6 TH/MM3 (0-0.4); EOSINOPHIL % 7.6 % (0.0-4.0); HEMATOCRIT 44.6 % (39.0-51.0); HEMO FLAGS DIFF FINAL; LYMPH % 39.8 % (9.0-44.0); LYMPHOCYTE # 3.1 TH/MM3 (1.0-4.8); MEAN CELL VOLUME 93.8 FL (80.0-100.0); MEAN CORPUSCULAR HEMOGLOBIN 32.6 PG (27.0-34.0); MEAN CORPUSCULAR HGB CONC 34.8 % (32.0-36.0); MONO % 8.3 % (0.0-8.0); NEUT % 43.3 % (16.0-70.0); PLATELET COUNT 205 TH/MM3 (150-450); RED BLOOD COUNT 4.75 MIL/MM3 (4.50-5.90); RED CELL DISTRIBUTION WIDTH 14.1 % (11.6-17.2); WHITE BLOOD COUNT 7.8 TH/MM3 (4.0-11.0)
[2017-10-07 08:28] LABS: ANION GAP 7 MEQ/L (5-15); AST (GOT) 20 U/L (15-37); BICARBONATE 26.4 MEQ/L (21.0-32.0); BLOOD UREA NITROGEN 18 MG/DL (7-18); CHLORIDE 102 MEQ/L (98-107); GLOMERULAR FILTRATION RATE 67 ML/MIN (>89); GLUCOSE,FASTING 109 MG/DL (74-99); POTASSIUM 3.7 MEQ/L (3.5-5.1); SODIUM (NA) 135 MEQ/L (136-145)
[2017-10-07 08:33] LABS: ALKALINE PHOSPHATASE 80 U/L (45-117); ALT (GPT) 27 U/L (12-78); TOTAL BILIRUBIN ADULT 0.3 MG/DL (0.2-1.0)
[2017-10-07 08:39] LABS: HDL CHOLESTEROL 41.5 MG/DL (40.0-60.0)
[2017-10-09 05:40] LABS: CD4/CD8 RATIO 0.1 (0.86-5.00)
[2017-10-09 23:53] LABS: HIV RNA LOG COPIES 2.42 (<1.30)
== END ==
LOC: CLAB 07:23
PROVIDERS: ATTEND Specialist
DX: R94.5 Abnormal results of liver function studies (principal); M25.50 Pain in unspecified joint; B20 Human immunodeficiency virus [HIV] disease; D64.9 Anemia, unspecified; R53.83 Other fatigue; E78.1 Pure hyperglyceridemia; E78.00 Pure hypercholesterolemia, unspecified; E03.9 Hypothyroidism, unspecified; Z12.5 Encounter for screening for malignant neoplasm of prostate
CPT/HCPCS: 36415; 80053; 80061; 84153; 84443; 85025; 86355; 86357; 86359; 86360; 87536

== ENCOUNTER → 2018-02-05 | Outpatient (CLI) | payer OTHER ==
[2018-02-05 08:03] LABS: HEMATOCRIT 43.7 % (39.0-51.0); HEMOGLOBIN 14.9 GM/DL (13.0-17.0); MEAN CELL VOLUME 92.8 FL (80.0-100.0); MEAN CORPUSCULAR HEMOGLOBIN 31.7 PG (27.0-34.0); MEAN CORPUSCULAR HGB CONC 34.2 % (32.0-36.0); PLATELET COUNT 189 TH/MM3 (150-450); RED BLOOD COUNT 4.71 MIL/MM3 (4.50-5.90); RED CELL DISTRIBUTION WIDTH 14.2 % (11.6-17.2); WHITE BLOOD COUNT 6.2 TH/MM3 (4.0-11.0)
[2018-02-05 08:14] LABS: ALBUMIN 3.8 GM/DL (3.4-5.0); ALT (GPT) 25 U/L (12-78); AST (GOT) 19 U/L (15-37); BICARBONATE 27.8 MEQ/L (21.0-32.0); BLOOD UREA NITROGEN 19 MG/DL (7-18); CALCIUM 9.4 MG/DL (8.5-10.1); CHLORIDE 106 MEQ/L (98-107); CREATININE 1.12 MG/DL (0.60-1.30); GLOMERULAR FILTRATION RATE 67 ML/MIN (>89); GLUCOSE,FASTING 108 MG/DL (74-99); SODIUM (NA) 141 MEQ/L (136-145)
[2018-02-05 08:16] LABS: ALKALINE PHOSPHATASE 74 U/L (45-117); TOTAL BILIRUBIN ADULT 0.2 MG/DL (0.2-1.0); TOTAL PROTEIN 8.3 GM/DL (6.4-8.2)
[2018-02-07 03:52] LABS: CD3-/CD16+CD56+ PERCENT 18 % (4-25); CD3-CD16+CD56+ (ABSOLUTE) 412 (70-760); LYMPHOCYTES, ABSOLUTE 2298 (850-3900)
[2018-02-10 12:20] LABS: HIV-1 GENOTYPING Unable to genotype
== END ==
LOC: CLAB 07:25
PROVIDERS: ATTEND Specialist
DX: B20 Human immunodeficiency virus [HIV] disease (principal)
CPT/HCPCS: 36415; 80053; 85027; 86355; 86357; 86359; 86360; 87536; 87901